=== PATIENT | male | born 1960 | race Caucasian/White ===

== ENCOUNTER 2017-03-22 12:15 | Inpatient (IN) | payer MEDICARE, MEDICAID ==
[2017-03-22 13:37] LABS: Hemoglobin 19.2 g/dL (14.0-18.0); Mean Corpuscular HGB CONC 31.5 g/dL (32.0-36.0); Mean Corpuscular Hemoglobin 29.7 pg (27.0-31.0); Mean Corpuscular Volume 94.5 fl (80.0-94.0); Mean Platelet Volume 8.7 fL (7.4-10.4); Platelet Count 130 thou/uL (130-400); RBC Distribution Width 13.4 % (11.5-14.5); Red Blood Cell (RBC) Count 6.45 mill/uL (4.70-6.10)
[2017-03-22 14:08] LABS: ALT (SGPT) 54 U/L (8-55); AST (SGOT) 37 U/L (5-34); Albumin 3.3 g/dL (3.5-5.0); Alkaline Phosphatase 110 U/L (40-150); Anion Gap 17 mmol/L (10-20); BUN (Urea Nitrogen) 23 mg/dL (8.4-25.7); Calc. Creatinine Clearance 0 mL/min (70-130); Calcium 9.4 mg/dL (7.8-10.44); Carbon Dioxide 26 mmol/L (22-29); Chloride 101 mmol/L (98-107); Estimated GFR-MDRD 39; Globulin 4.2 g/dL (2.4-3.5); Glucose 128 mg/dL (70-105); Potassium 4.4 mmol/L (3.5-5.1); Protein, Total 7.5 g/dL (6.0-8.3); Sodium 140 mmol/L (136-145)
[2017-03-22 14:20] LABS: Band 4 % (5-11); Lymphocytes 5 % (21-51); MDiff Complete? YES; Monocytes 3 % (0-10); Neutrophil 87 % (42-75); PLT Morphology Comment Appears Adequate; Reactive Lymphocytes 1 % (0-10)
[2017-03-22] MEDS ORDERED: Vancomycin HCl 1 GM in Premix Bag 1 BAG IVPB SCH ×2 (15:00→15:30)
[2017-03-22] MEDS ORDERED: Piperacillin/Tazobactam 4.5 GM in Sodium Chloride 0.9% 100 ML IVPB SCH (15:00)
--- NOTE | 2017-03-22 15:05 | RAD ---
PORTABLE CHEST: HISTORY: Mental status change. COMPARISON: 02/29/16. The lungs show no evidence of infiltrate. No evidence of vascular congestion or effusion. Heart and mediastinum unremarkable. IMPRESSION: No evidence of acute process. POS: [facility]
--- NOTE | 2017-03-22 15:56 | CT ---
ABDOMEN AND PELVIS CT NONCONTRAST: COMPARISON: 10/14/16. CLINICAL HISTORY: Abdominal pain with hypotension. FINDINGS: Redemonstration of hernia site at right lower quadrant containing nonobstructive bowel. No associate d inflammation of this region evident. There is an IVC filter present and there are scattered vascul ar calcifications. There are exophytic densities of the lateral aspect of the left kidney again demo nstrated, which appear as hyperdense cysts on the basis of noncontrast imaging. There is persistent atrophy of the right kidney with stable associated calcifications. Punctate calcification of the lef t kidney present. No adrenal mass. Prior cholecystectomy. Bowel is incompletely assessed without I V or enteric contrast. There is no free air or portal venous gas. There is volume loss at the image d lung bases. Prominent area of perivesicular fat stranding is present and there is wall thickening of unopacified urinary bladder. Severe central compression deformity of T12 is redemonstrated in add ition to multilevel additional sites of less extensive height loss of the imaged spine. There is a s table chronic osseous deformity of the pelvis. No additional significant interval detrimental change . IMPRESSION: 1. Findings indicate cystitis. Recommend correlation with urinary laboratory values. 2. Additional details are described above. POS: [facility]
[2017-03-22 16:02] LABS: CK (CPK) 16 U/L (30-200); Lipase 8 U/L (8-78)
[2017-03-22] MEDS ORDERED: levETIRAcetam In NaCl (Iso-Os) 1,000 MG in Premix Bag 1 BAG IVPB SCH (16:15)
--- NOTE | 2017-03-22 16:35 | CT ---
CT BRAIN WITHOUT CONTRAST 03/22/17 HISTORY: Altered mental status. COMPARISON: CT brain 02/25/16. FINDINGS: There is severe cerebellar atrophy. The previously seen hemorrhage of occipitoparietal lobe is resolv ed. No new areas of hemorrhage. Moderate atrophy. Extensive old lacunar infarcts. IMPRESSION: 1. No acute intracranial abnormality. 2. Severe atrophy of the cerebellum. 3. Moderate to severe microangiopathic changes as well as old lacunar infarcts. POS: [facility]
[2017-03-22 16:49] LABS: CKMB 0.8 ng/mL (0-6.6); Troponin I Less than 0.010 ng/mL (< 0.028)
[2017-03-22] MEDS ORDERED: Ketorolac Tromethamine 30 MG/ML VIAL ONE (17:35)
[2017-03-22] MEDS ORDERED: Ondansetron HCl/PF 4 MG/2 ML Vial ONE (17:35)
[2017-03-22 18:48] LABS: Lactic Acid 3.4 mmol/L (0.5-2.2)
[2017-03-22 18:52] LABS: Bilirubin Small (Negative); Blood, Urine Large (Negative); Clarity TURBID (Clear); Glucose, Urine (Dipstick) Negative (Negative); Leukocyte Moderate (Negative); Nitrite Negative (Negative); Protein, Urine (Dipstick) 300 mg/dL (Neg-Trace); Specific Gravity, Urine 1.026 (1.002-1.036); pH, Urine 6.5 (5.0-9.0)
[2017-03-22 18:54] LABS: Bacteria/HPF None Seen HPF (None Seen); Hyaline Casts/LPF 0-3 HYALINE CAST LPF (0-3 Hyaline); Pathc Cast-AUWi Flag 0.13 (0-2.49); RBC/HPF GREATER THAN 50-TNTC HPF (0-3); Squamous Epithelial 0-3 HPF (0-3)
[2017-03-22 18:56] LABS: Crystals/HPF None Seen HPF (Negative)
[2017-03-22] MEDS ORDERED: Acetaminophen 325 MG TAB PO PRN (20:51)
[2017-03-22] MEDS: Docusate 100 MG CAP PO SCH (23:01)
[2017-03-22] MEDS: Sodium Chloride 0.9% 1,000 ML IV SCH (23:01)
[2017-03-22 23:57] VITALS: BMI 22.8
--- NOTE | 2017-03-23 00:16 | HP ---
ATTENDING NOTE DATE OF SERVICE: 03/22/2017 CHIEF COMPLAINT: Possible seizure and altered mental status. HISTORY OF PRESENT ILLNESS: The patient is a 57-year-old male with a past medical history of intelle ctual delay, history of CVA, epilepsy, depression, adrenal insufficiency secondary to chronic cortico steroid use, hypertension, hyperlipidemia, who was sent to the ER from [facility] with altered mental status and suspicion for seizure. According to records and the patient's sister who i s at the bedside, he had been ill over the past several days with nausea, vomiting, and diarrhea. e staff found him slightly confused this afternoon, which is how he normally acts after seizure and h e was sent to the ER shortly thereafter. Upon arrival to the ER, the patient was found to be hypoten sive with systolic blood pressure in the 70s and per report, he had a fever at the half-way and T -max with rectal temperature was 99.5 in the ER. The patient received 2 liters of normal saline as w ell as being loaded with Keppra and was given vancomycin and Zosyn. The patient was found to have wh ite count of 20,000 with hemoglobin and hematocrit of 19.2 and 61.0 respectively. The patient had 87 % neutrophils and 4% bands. On CMP, it was noted the patient's creatinine was 1.78, total bilirubin was 2.0, AST 37, and albumin 3.3. The patient's initial set of cardiac enzymes was negative. The pa tient's initial lactate was 4.2 and after the fluid came down to 3.4. The patient is alert and orien candie to name only at this time. He is not able to offer much history. The patient was noted to have urinary tract infection which is the likely source of his sepsis and a Jalloh was placed and the only thing that is coming out of the Jalloh are drops of blood and some clot. Urinalysis is significant fo r protein 300, ketones trace, blood large, bilirubin small, leukocyte esterase moderate, blood cells greater than 50, white blood cells 7-10. For the full past medical history and review of systems, please see Dr. Maria Isabel Biggs's dictation. PHYSICAL EXAMINATION: VITAL SIGNS: Pulse 83, O2 sat 97% on 2 liters nasal cannula, blood pressure 92/70, respiration rate 17. GENERAL: The patient is awake, alert, and oriented to person only and is able to answer simple quest ions. He appears to be in no acute distress. HEENT: Mucous membranes are dry. Oropharynx and nasopharynx are without erythema or exudate. NECK: Supple without lymphadenopathy, thyromegaly, or bruits. CARDIOVASCULAR: Regular rate and rhythm without murmurs, gallops, or rubs. LUNGS: Clear to auscultation bilaterally without wheezing or rhonchi. ABDOMEN: Soft, nondistended, with tenderness to palpation in a suprapubic region. The patient has n o guarding or rebound tenderness. EXTREMITIES: There is no clubbing, cyanosis, or edema. ASSESSMENT AND PLAN: 1. Sepsis secondary to urinary tract infection: Patient may meet severe sepsis criteria. He has be en started on vancomycin and Zosyn. Blood and urine cultures are pending. The patient has an elevat ed lactate as well as an elevated white blood cell count and hypotensive and had a fever earlier in t he day. We will continue broad spectrum antibiotics until cultures return. We will trend his lab va lues, give IV fluids, bolus another liter and started the patient on maintenance IV fluids. We will continue fluids until the sepsis appears to be resolved and lactate is back to normal. 2. Acute kidney injury: We will hydrate with IV fluids and trend creatinine. 3. Hematuria: This is likely secondary to the patient's urinary tract infection. The patient may n eed bladder irrigation overnight as the only thing that has passed through the catheter so far are cl ots. 4. Hypertension: The patient is currently hypotensive, so home blood pressure medicines will be hel d. 5. Gastroenteritis: The patient was tested negative for the flu. He has had nausea, vomiting, and diarrhea, as have multiple residents at his half-way. We will continue to provide supportive car e. 6. Purposeful history, physical, assessment and plan, please see Dr. Biggs's dictation. I have dis cussed the case in detail with him and repeated pertinent portions to the exam myself.
[2017-03-23] MEDS: Piperacillin/Tazobactam 2.25 GM in Sodium Chloride 0.9% 100 ML IVPB SCH ×3 (00:26→15:21)
[2017-03-23 01:39] LABS: Lactic Acid 2.3 mmol/L (0.5-2.2)
[2017-03-23] MEDS ORDERED: ACYCLOVIR TOP PRN (03:00)
[2017-03-23 05:05] LABS: ALT (SGPT) 35 U/L (8-55); AST (SGOT) 21 U/L (5-34); Albumin 2.5 g/dL (3.5-5.0); Alkaline Phosphatase 81 U/L (40-150); Anion Gap 14 mmol/L (10-20); BUN (Urea Nitrogen) 30 mg/dL (8.4-25.7); Bilirubin, Total 1.6 mg/dL (0.2-1.2); Calc. Creatinine Clearance 31 mL/min (70-130); Calcium 7.5 mg/dL (7.8-10.44); Carbon Dioxide 20 mmol/L (22-29); Chloride 111 mmol/L (98-107); Estimated GFR-MDRD 31; Globulin 3.1 g/dL (2.4-3.5); Glucose 101 mg/dL (70-105); Potassium 4.7 mmol/L (3.5-5.1); Protein, Total 5.6 g/dL (6.0-8.3); Sodium 140 mmol/L (136-145)
[2017-03-23] MEDS: Sodium Chloride 0.9% 1,000 ML IV SCH ×5 (05:28→21:55)
[2017-03-23 05:38] LABS: #Basophils 0.1 thou/uL (0.0-0.2); #Eosinphils 0.1 thou/uL (0.0-0.7); #Lymphocytes 2.4 thou/uL (1.20-3.40); #Monocytes 2.1 thou/uL (0.11-0.59); #Neutrophils 16.5 thou/uL (1.40-6.50); %Basophils 0.2 % (0.0-1.0); %Eosinophils 0.4 % (0.0-10.0); %Lymphocytes 11.3 % (21.0-51.0); Hemoglobin 16.1 g/dL (14.0-18.0); Mean Corpuscular HGB CONC 30.4 g/dL (32.0-36.0); Mean Corpuscular Hemoglobin 29.2 pg (27.0-31.0); Mean Corpuscular Volume 96.2 fl (80.0-94.0); Mean Platelet Volume 8.9 fL (7.4-10.4); PLT Morphology Comment Appears Decreased; Platelet Count 116 thou/uL (130-400); RBC Distribution Width 13.3 % (11.5-14.5); Red Blood Cell (RBC) Count 5.52 mill/uL (4.70-6.10); White Blood Cell (WBC) Count 21.2 thou/uL (4.8-10.8)
--- NOTE | 2017-03-23 06:09 | HP-2 ---
CODE STATUS: FULL. PRIMARY CARE PHYSICIAN: Dr. Moore. ATTENDING: Valentina Briceno MD RESIDENT: Maria Isabel Biggs DO HISTORIAN: The patient's sister; although medical power of master esthetician sister, Lynn Owen, is not there, her phone number is [phone]. SPECIALIST: Dr. Cooley, Dr. Pino. CHIEF COMPLAINT: Altered mental status/seizure/diarrhea. HISTORY OF PRESENT ILLNESS: The patient is a 57-year-old male who resides at [facility], who has recently been experiencing nausea, vomiting, and diarrhea, has been rampant in the retirement. Patient with mental disability and is unable to provide history. Unfortunately, accompanying sister cannot provide a history either. Per ER record and clinic record, the patient has been stable prior to why it is likely viral gastroenteritis. Upon questioning, he denies pain and has no complaints. Per the record, the patient has numerous medical conditions that are well controlled with current medical management. Over the past days, patient reports possible decreased p.o. intake and change in his baseline, reporting he did not remember his sister's names when normally he does. Patient also reportedly had a seizure today. He takes Keppra for known seizure disorder and has been compliant with meds. intermediate also noticed hypertension which is one reason why he was sent to the ER. On admission, he had a blood pressure of 83/64, pulse of 106. In the ER, he was given Keppra, vancomycin, Zosyn, 1 liter NS, fentanyl 100 mcg, Toradol 30 mg , and Zofran. PAST MEDICAL HISTORY: 1. Intellectual delay. 2. History of cerebrovascular accident. 3. History of DVT. 4. Epilepsy. 5. Depression. 6. Minimal change disease. 7. CLARKE. 8. GERD. 9. Hyperlipidemia. 10. Hypertension. 11. Dysphagia. 12. Adrenal insufficiency secondary to chronic steroid use. PAST SURGICAL HISTORY: 1. IVC filter in 2013. 2. Cholecystectomy. 3. Appendectomy. 4. Exploratory laparotomy. 5. Renal biopsy. 6. Spleen surgery. ALLERGIES: 1. CIPRO. 2. MORPHINE. 3. DILANTIN. 4. ADHESIVE TAPE. MEDICATIONS: 1. Mucinex 600 mg 1 tablet b.i.d. p.r.n. for cough. 2. Daily multivitamin. 3. Potassium chloride 20 mEq 1 tablet daily. 4. Lexapro 20 mg p.o. daily. 5. MiraLax once daily. 6. Tramadol 50 mg p.o. q.6 hours p.r.n. for pain. 7. Vitamin D 1000 units p.o. daily. 8. Calcium carbonate/vitamin D 1 tablet p.o. b.i.d. 9. Alendronate 35 mg p.o. weekly. 10. Prednisone 5 mg p.o. daily. 11. Cyclosporine 100 mg p.o. daily. 12. Keppra 1000 mg p.o. b.i.d. 13. Metoprolol tartrate 50 mg p.o. b.i.d. 14. Protonix 40 mg p.o. daily. 15. Acyclovir ointment p.r.n. for cold sores. 16. Hydrochlorothiazide 12.5 mg p.o. daily. FAMILY HISTORY: 1. Hypertension. 2. Diabetes. 3. Chronic obstructive pulmonary disease. 4. Hyperlipidemia. 5. Depression. SOCIAL HISTORY: Denies tobacco, alcohol, or drug use. Lives at [facility]. Currently is taken care of by retirement as well as sister, Lynn Owen, (medical power of master esthetician). REVIEW OF SYSTEMS: Limited due to patient's inability to answer questions appropriately, and family members unaware of situation. Only review of systems obtained or that the patient denies pain. He admits to recent nausea, vomiting , and diarrhea as mentioned in the HPI. Sister is unaware of any fever or urinary symptoms prior to admission. PHYSICAL EXAMINATION: VITAL SIGNS: Blood pressure 113/83, pulse 83, respiratory rate 16, T-max 99.5, pulse ox 99% on 2 liters. Current weight 68 kilograms. GENERAL: The patient is alert and oriented x1, in no acute distress. EYES: PERRLA, EOMI. ENT: Poor dentition. Moist mucous membranes. NECK: Supple. CARDIOVASCULAR: Regular rate and rhythm. No murmurs. RESPIRATORY: Normal effort. No retractions. Clear to auscultation bilaterally. SKIN: Warm and dry. ABDOMEN: Soft with tenderness to palpation in suprapubic area with guarding. EXTREMITIES: Clubbing. No cyanosis or edema. Cap refill greater than 2 seconds. MUSCULOSKELETAL: Structure within normal limits. Tone within normal limits. NEUROLOGIC: No focal deficits. PSYCHIATRIC: The patient is at baseline at the time of exam according to his sister. No evidence of auditory or visual hallucinations. LABORATORY DATA: 1. CBC, white blood cell count 20,000, hemoglobin 19.2, hematocrit 61, platelets 130, MCV 94, 4% bands, 87% neutrophils. 2. Chemistries, sodium 140, potassium 4.4, chloride 101, bicarb 26, BUN 23, creatinine 1.78, (baseline 0.9). Glucose 128, calcium 9.4, total protein 7.5, albumin 3.3, AST 34, ALT 54, alkaline phosphatase 110, total bilirubin 2.0. 3. Lactic acid initially 4.2, went down to 3.4. 4. Flu A and B negative. 5. CK 16, CK-MB 0.8, troponin less than 0.010, lipase 8. 6. UA red in color, specific gravity 1.026, blood is large, protein 300, leukocyte esterase moderate, nitrites negative, ketones trace, glucose negative , red blood cells greater than 50, white blood cells 7-10, bacteria none, squamous cells 0-3. IMAGIN. Chest x-ray negative, no acute process. 2. Abdominal CT shows perivascular fat stranding and wall thickening of the bladder, indicative of cystitis and chronic osseous deformity of pelvis. 3. Brain CT reveals no acute intracranial abnormality, although showing severe atrophy of the cerebellum, [id number] microangiopathic changes as well as old lacunar infarcts. ASSESSMENT AND PLAN: 1. Severe sepsis secondary to urinary tract infection. Continue Vancomycin and Zosyn given in the ED. We will collect blood and urine cultures. Received 2 liters of IV fluids in the ER. Will bolus 1 more liter and then continue fluids at 200 mL per hour with underlying dehydration, likely associated with viral gastroenteritis. Jalloh output of thick blood clots, we will irrigate bladder with triple-lumen catheter. If urine output does not resume, we will plan to consult Urology. Differential diagnosis to include prostatitis. Vital signs have improved with IV fluids, although still continues to be mildly hypotensive. Expect improvement with one more bolus and high rate of IV fluids. Lactic acid initially elevated to 4.2, it has down trended to 3.4. We will check another lactic acid in 4 hours. Likely seizure associated with severe sepsis. Keppra given in the ED. We will restart home Keppra and check Keppra level. 2. Acute kidney injury. Baseline creatinine is 0.9-1.0, though that record is from one year ago. Patient has underlying minimal change of these. We will rehydrate and monitor urine output. Likely associated with dehydration. 3. Lactic acidosis secondary to problem #1. We will check in 4 hours and with a.m. labs. Continue IV fluids. 4. Seizure disorder. Continue to check Keppra. 5. Hypertension. We will continue home metoprolol and hydrochlorothiazide. 6. Gastroesophageal reflux disease. We will continue home Protonix. 7. Adrenal insufficiency. Will continue home prednisone. 8. Venous thromboembolism prophylaxis. Patient is having bleeding output from Jalloh, but has history of deep vein thrombosis and gets around with a wheelchair at baseline. High risk for deep vein thrombosis here in the hospital , but with current bleeding will hold off on Lovenox for now as soon as the patient does stop bleeding per Jalloh. We will start Lovenox. We will give sequential compression devices for now. DISPOSITION AND LENGTH OF HOSPITAL STAY: 1-2 days. Symptomatic medications will be provided. History and physical exam as well as management were discussed with Dr. Valentina Briceno. JAYCEE
[2017-03-23] MEDS: Magnesium Oxide 400 MG TAB PO SCH (08:58)
[2017-03-23] MEDS: levETIRAcetam 500 MG TAB PO SCH ×2 (08:58→19:24)
[2017-03-23] MEDS: Hydrochlorothiazide 25 MG TAB PO SCH (08:59)
[2017-03-23] MEDS ORDERED: CYCLOSPORINE PO SCH (09:00)
[2017-03-23] MEDS: Metoprolol Tartrate 50 MG TAB PO SCH ×2 (09:00→19:24)
[2017-03-23] MEDS: Fluticasone Propionate Nasal Spray 16 gm Bottle NASAL SCH (09:00)
[2017-03-23] MEDS: Escitalopram Oxalate 20 mg Tablet PO SCH (09:00)
[2017-03-23] MEDS: Docusate 100 MG CAP PO SCH ×2 (09:02→19:38)
--- NOTE | 2017-03-23 09:09 | PDOC.FM ---
Addendum entered and electronically signed by Rafael Prasad MD 03/23/17 09:18: 5. HTN: Continue home medication 6. HLD: Continue home medication. 7. Depression: Continue home medication. Original Note: - Subjective Subjective: Patient was found resting in bed with sister at bedside. Sister said that at baseline he is AOx2. He denies any pain, sob at this time. Sister said he is closer to his baseline. - Objective MAR Reviewed: Yes Vital Signs & Weight: Vital Signs (12 hours) Temp Pulse Resp BP Pulse Ox 03/23/17 06:37 98.4 F 62 58 H 125/82 94 L 03/23/17 00:00 98.4 F 65 18 106/72 91 L 03/22/17 22:05 98.4 F 65 18 96 Weight Weight 60.526 kg I&O: 03/22/17 03/23/17 03/24/17 06:59 06:59 06:59 Intake Total 1950 Output Total 450 Balance 1500 Result Diagrams: 03/23/17 04:17 03/23/17 04:17 <Rafael Prasad - Last Filed: 03/23/17 09:05> - Objective Vital Signs & Weight: Vital Signs (12 hours) Temp Pulse Resp BP BP Pulse Ox 03/23/17 15:53 93 L 03/23/17 12:00 97.9 F 55 L 18 107/68 92 L 03/23/17 08:00 97.7 F 62 21 H 104/68 94 L 03/23/17 06:37 98.4 F 62 58 H 125/82 94 L Weight Weight 60.526 kg I&O: 03/22/17 03/23/17 03/24/17 06:59 06:59 06:59 Intake Total 1950 Output Total 450 Balance 1500 Result Diagrams: 03/23/17 04:17 03/23/17 04:17 <Valentina Briceno - Last Filed: 03/23/17 17:17> Phys Exam - Physical Examination Constitutional: NAD HEENT: moist MMs Neck: no nodes Respiratory: no wheezing, clear to auscultation bilateral Cardiovascular: RRR, no significant murmur Gastrointestinal: soft Musculoskeletal: no edema Neurological: non-focal Lymphatic: no nodes Psychiatric: normal affect Skin: no rash (Herrera catheter was observed with gross blood and clots.) <ShaniceRavinderRafael Robin - Last Filed: 03/23/17 09:05> Dx/Plan (1) Altered mental state Code(s): R41.82 - ALTERED MENTAL STATUS, UNSPECIFIED Status: Acute QualifierTitle: Altered mental status type: delirium Qualified Code(s): R41.0 - Disorientation, unspecified Plan: Improved at this point. Consider sepsis versus seizure. His keppra level is therapeutic so this is less likely and no seizure was ever witnessed Continue with broad abx and fluid. (2) UTI (urinary tract infection) Status: Acute QualifierTitle: Urinary tract infection type: acute cystitis Hematuria presence: without hematuria Qualified Code(s): N30.00 - Acute cystitis without hematuria Plan: Continuing with vanc and zosyn, continue to wait for culture. Continue aggressive fluid as patient urine output is low Will flush his herrera catheter (3) Sepsis Code(s): A41.9 - SEPSIS, UNSPECIFIED ORGANISM Status: Inactive Plan: Sepsis likely secondary to UTI. Please see that problem for plan. (4) RORY (acute kidney injury) Code(s): N17.9 - ACUTE KIDNEY FAILURE, UNSPECIFIED Status: Acute Plan: Rory appears to be worsening. He has low urine output. CT did not identify an obstructive cause but did identify cystitis, will continue fluid resuscitation at this time to treat RORY. <ShaniceRavinderRafael Robin - Last Filed: 03/23/17 09:05> Attending Addendum - Attending Addendum I personally evaluated the patient and discussed the management with Dr. Prasad. I agree with the History, Examination, Assessment and Plan documented above with any addition or exceptions noted below. The patient is still hemoconcentrated. Continue IV fluids for dehydration. Patients is more alert and sister states his mentation is back to baseline. Continue IV antibiotics and await blood and urine cultures. Monitor urine output, bladder may require irrigation if thick clots continue. Repeat lactate as it in not yet back to normal. <Valentina Briceno - Last Filed: 03/23/17 17:17>
[2017-03-23 09:16] LABS: Lactic Acid 1.7 mmol/L (0.5-2.2)
[2017-03-23] MEDS: Ibuprofen 200 MG TAB PO PRN ×2 (11:54→19:24)
[2017-03-23] MEDS: Piperacillin/Tazobactam 2.25 GM in Sodium Chloride 0.9% 50 ML IVPB SCH (14:44)
[2017-03-23] MEDS: Vancomycin HCl 750 MG in Sodium Chloride 0.9% 250 ML 250 ML IVPB SCH (17:08)
[2017-03-23] MEDS: Loratadine 10 MG TAB PO SCH (19:24)
[2017-03-23] MEDS: Zolpidem Tartrate 5 MG TAB PO PRN (21:48)
[2017-03-24] MEDS: Piperacillin/Tazobactam 2.25 GM in Sodium Chloride 0.9% 50 ML IVPB SCH ×5 (01:06→23:24)
[2017-03-24] MEDS: Sodium Chloride 0.9% 1,000 ML IV SCH ×2 (03:59→08:57)
[2017-03-24 04:58] LABS: Anion Gap 10 mmol/L (10-20); BUN (Urea Nitrogen) 22 mg/dL (8.4-25.7); Calc. Creatinine Clearance 55 mL/min (70-130); Carbon Dioxide 20 mmol/L (22-29); Chloride 117 mmol/L (98-107); Estimated GFR-MDRD 59; Glucose 93 mg/dL (70-105); Potassium 3.5 mmol/L (3.5-5.1); Sodium 143 mmol/L (136-145)
[2017-03-24] MEDS: Hydrochlorothiazide 25 MG TAB PO SCH (08:45)
[2017-03-24] MEDS: levETIRAcetam 500 MG TAB PO SCH ×2 (08:45→21:47)
[2017-03-24] MEDS: Metoprolol Tartrate 50 MG TAB PO SCH ×2 (08:46→21:44)
[2017-03-24] MEDS: Fluticasone Propionate Nasal Spray 16 gm Bottle NASAL SCH (08:46)
[2017-03-24] MEDS: Docusate 100 MG CAP PO SCH ×2 (08:46→21:44)
[2017-03-24] MEDS: Magnesium Oxide 400 MG TAB PO SCH (08:46)
[2017-03-24] MEDS: Escitalopram Oxalate 20 mg Tablet PO SCH (08:46)
--- NOTE | 2017-03-24 11:51 | PDOC.FM ---
- Subjective Subjective: Patient found awake in bed. He has no complaint of pain, SOB. He apear to be at same baseline mental status as before. - Objective MAR Reviewed: Yes Vital Signs & Weight: Vital Signs (12 hours) Temp Pulse Resp BP Pulse Ox 03/24/17 08:00 98.3 F 68 18 92 L 03/24/17 07:36 98.3 F 68 18 129/82 92 L Weight Admit Weight 60.509 kg Weight 60.509 kg I&O: 03/23/17 03/24/17 03/25/17 06:59 06:59 06:59 Intake Total 1950 5218 Output Total 450 1950 Balance 1500 3268 Result Diagrams: 03/23/17 04:17 03/24/17 04:20 <Rafael Prasad - Last Filed: 03/24/17 11:54> - Objective Vital Signs & Weight: Vital Signs (12 hours) Temp Pulse Resp BP Pulse Ox Pulse Ox 03/24/17 20:00 98.4 F 85 18 148/94 H 92 L 03/24/17 19:43 98.4 F 85 18 92 L 03/24/17 10:31 92 L Weight Admit Weight 60.509 kg Weight 60.509 kg I&O: 03/23/17 03/24/17 03/25/17 06:59 06:59 06:59 Intake Total 1950 5218 Output Total 450 1950 Balance 1500 3268 Result Diagrams: 03/23/17 04:17 03/24/17 04:20 <Reji Zhu - Last Filed: 03/24/17 22:11> Phys Exam - Physical Examination Constitutional: NAD HEENT: moist MMs Neck: no nodes, supple Respiratory: no wheezing, clear to auscultation bilateral Cardiovascular: RRR Gastrointestinal: soft, positive bowel sounds Musculoskeletal: no edema Neurological: non-focal Lymphatic: no nodes Deviation from normal: AO x2 as before Skin: no rash -: Dark urine, no obvious hematuria <Rafael Prasad - Last Filed: 03/24/17 11:54> Dx/Plan (1) Altered mental state Code(s): R41.82 - ALTERED MENTAL STATUS, UNSPECIFIED Status: Acute QualifierTitle: Altered mental status type: delirium Qualified Code(s): R41.0 - Disorientation, unspecified Plan: Improved at this point. Consider sepsis versus seizure. His keppra level is therapeutic so this is less likely and no seizure was ever witnessed Continue with broad abx. (2) UTI (urinary tract infection) Status: Acute QualifierTitle: Urinary tract infection type: acute cystitis Hematuria presence: without hematuria Qualified Code(s): N30.00 - Acute cystitis without hematuria Plan: Continuing with vanc and zosyn, culture has come back negative at this time. Will consider deescalating (3) Sepsis Code(s): A41.9 - SEPSIS, UNSPECIFIED ORGANISM Status: Inactive Plan: Sepsis likely secondary to UTI. Please see that problem for plan. (4) RORY (acute kidney injury) Code(s): N17.9 - ACUTE KIDNEY FAILURE, UNSPECIFIED Status: Acute Plan: RORY has improved.. He is nearly back to baseline status. At this time, will discontinue fluid as patient can now take PO. Will continue monitoring. <Rafael Prasad - Last Filed: 03/24/17 11:54> Attending Addendum - Attending Addendum I personally evaluated the patient and discussed the management with Dr. Prasad. I agree with and repeated the History, Examination, Assessment and Plan documented above with any addition or exceptions noted below. Severe sepsis 2/2 UTI, improved, continue antibiotics Acute encephalopathy, improved, likely 2/2 above, back to baseline yesterday per family RORY, improving <Reji Zhu - Last Filed: 03/24/17 22:11>
[2017-03-24] MEDS: Vancomycin HCl 750 MG in Sodium Chloride 0.9% 250 ML 250 ML IVPB SCH (15:00)
[2017-03-24 15:28] LABS: Vancomycin, Trough 10.5 ug/mL
[2017-03-24] MEDS ORDERED: Clopidogrel Bisulfate 75 MG TAB ONE (17:08)
[2017-03-24] MEDS: Loratadine 10 MG TAB PO SCH (21:44)
[2017-03-24] MEDS ORDERED: levETIRAcetam 500 mg/5 ml Oral Solution PO SCH (21:45)
[2017-03-24] MEDS: Ondansetron ODT 4 MG TAB PO PRN (21:46)
[2017-03-24] MEDS: Zolpidem Tartrate 5 MG TAB PO PRN (21:56)
[2017-03-25] MEDS: Piperacillin/Tazobactam 2.25 GM in Sodium Chloride 0.9% 50 ML IVPB SCH ×2 (05:20→11:59)
[2017-03-25 06:04] LABS: Anion Gap 10 mmol/L (10-20); BUN (Urea Nitrogen) 14 mg/dL (8.4-25.7); Calc. Creatinine Clearance 70 mL/min (70-130); Calcium 7.9 mg/dL (7.8-10.44); Carbon Dioxide 22 mmol/L (22-29); Chloride 114 mmol/L (98-107); Estimated GFR-MDRD 78; Glucose 106 mg/dL (70-105); Potassium 3.2 mmol/L (3.5-5.1); Sodium 143 mmol/L (136-145)
--- NOTE | 2017-03-25 08:08 | PDOC.FM ---
- Subjective Subjective: Patient found in bed. Apparently he has not been out of bed according to him but history is questionable. He denies chest pain or sob, but has some abd discomfort after having breakfast. He has had regular BM per nursing. - Objective MAR Reviewed: Yes Vital Signs & Weight: Vital Signs (12 hours) Temp Pulse BP Pulse Ox 03/25/17 08:02 98.9 F 91 142/99 H 16 L Weight Admit Weight 60.509 kg Weight 60.509 kg I&O: 03/24/17 03/25/17 03/26/17 06:59 06:59 06:59 Intake Total 5218 680 Output Total 1950 750 Balance 3268 -70 Result Diagrams: 03/23/17 04:17 03/25/17 05:11 <Rafael Prasad - Last Filed: 03/25/17 08:04> - Objective Vital Signs & Weight: Vital Signs (12 hours) Temp Pulse Resp BP Pulse Ox 03/25/17 08:02 98.9 F 91 16 142/99 H 94 L 03/25/17 08:00 98.9 F 91 16 96 Weight Admit Weight 60.509 kg Weight 60.509 kg I&O: 03/24/17 03/25/17 03/26/17 06:59 06:59 06:59 Intake Total 5218 680 Output Total 1950 750 Balance 3268 -70 Result Diagrams: 03/25/17 05:11 03/25/17 05:11 <Reji Zhu - Last Filed: 03/25/17 11:45> Phys Exam - Physical Examination Constitutional: NAD HEENT: moist MMs Neck: no nodes Respiratory: no wheezing, clear to auscultation bilateral Cardiovascular: RRR Gastrointestinal: soft, no distention, positive bowel sounds Mildly tender to palpation in periumbilical area Musculoskeletal: no edema Neurological: non-focal Lymphatic: no nodes Deviation from normal: At baseline mentation grossly, similar to previous day Skin: no rash <Rafael Prasad - Last Filed: 03/25/17 08:04> Dx/Plan (1) Altered mental state Code(s): R41.82 - ALTERED MENTAL STATUS, UNSPECIFIED Status: Acute QualifierTitle: Altered mental status type: delirium Qualified Code(s): R41.0 - Disorientation, unspecified Plan: Improved at this point. Consider sepsis versus seizure. His keppra level is therapeutic so this is less likely and no seizure was ever witnessed Continue with broad abx for sepsis as possible cause. Consider dehydration/RORY as possible cause, as he had Cr about twice normal limit and required 5L of fluid before producing normal urine. (2) UTI (urinary tract infection) Status: Acute QualifierTitle: Urinary tract infection type: acute cystitis Hematuria presence: without hematuria Qualified Code(s): N30.00 - Acute cystitis without hematuria Plan: Continuing with vanc and zosyn, culture has come back negative at this time. Will consider deescalating Despite UA suggestive of infection, his culture came back negative after 48 hours, giving mixed picture. Review of records suggest that abx may have been given 3 hours prior to culture order. This could account for no growth. (3) Sepsis Code(s): A41.9 - SEPSIS, UNSPECIFIED ORGANISM Status: Inactive Plan: Sepsis likely secondary to UTI. Please see that problem for plan. (4) RORY (acute kidney injury) Code(s): N17.9 - ACUTE KIDNEY FAILURE, UNSPECIFIED Status: Acute Plan: RORY has improved. He is back to baseline. His fluid has been discontinued for 1 day and he has still made adequate urine greater then 0.5ml/kg an hour. - Plan Plan: For vague abd discomfort after food, will give one time dose of zofran, may need to go to clear liquid if patient not tolerating soft or puree at this time. He tolerated it well yesterday. <Rafael Prasad M - Last Filed: 03/25/17 08:04> Attending Addendum - Attending Addendum I personally evaluated the patient and discussed the management with Dr. Prasad. I agree with and repeated the History, Examination, Assessment and Plan documented above with any addition or exceptions noted below. Asymptomatic this morning. Initially was saying yes to all of my questions, but then upon more specific questioning denied cp/sob/n/v/abd pain (resolved by the time I was on rounds). Neurologically back to baseline. Suspect that the encphalopathy was 2/2 sepsis. Continue keppra, no suspicion for seizures currently. Has a history of DVT, low O2, with negative CTPE last visit, and has DVT filter in place. Sepsis 2/2 UTI improved, empiric with keflex, evidently antibiotics given prior to cultures being drawn. Chronic leukocytosis, around what is was last admission. RORY improved, d/c NSAIDs however. DVT/gi ppx <Reji Zhu - Last Filed: 03/25/17 11:45>
[2017-03-25] MEDS ORDERED: Potassium Chloride 20 MEQ TAB PO SCH (08:15)
[2017-03-25 08:46] LABS: #Basophils 0.1 thou/uL (0.0-0.2); #Eosinphils 0.5 thou/uL (0.0-0.7); #Monocytes 1.6 thou/uL (0.11-0.59); #Neutrophils 16.6 thou/uL (1.40-6.50); %Basophils 0.3 % (0.0-1.0); %Eosinophils 2.5 % (0.0-10.0); %Lymphocytes 9.8 % (21.0-51.0); %Monocytes 7.7 % (0.0-10.0); %Neutrophils 79.7 % (42.0-75.0); Hemoglobin 15.7 g/dL (14.0-18.0); Mean Corpuscular Hemoglobin 29.5 pg (27.0-31.0); Mean Corpuscular Volume 94.9 fl (80.0-94.0); Mean Platelet Volume 9.4 fL (7.4-10.4); Platelet Count 121 thou/uL (130-400); RBC Distribution Width 13.6 % (11.5-14.5); Red Blood Cell (RBC) Count 5.34 mill/uL (4.70-6.10); White Blood Cell (WBC) Count 20.9 thou/uL (4.8-10.8)
[2017-03-25] MEDS: Ondansetron ODT 4 MG TAB PO PRN ×3 (09:12→23:27)
[2017-03-25] MEDS: Magnesium Oxide 400 MG TAB PO SCH (09:13)
[2017-03-25] MEDS: Metoprolol Tartrate 50 MG TAB PO SCH ×2 (09:13→21:27)
[2017-03-25] MEDS: Escitalopram Oxalate 20 mg Tablet PO SCH (09:13)
[2017-03-25] MEDS: Hydrochlorothiazide 25 MG TAB PO SCH (09:13)
[2017-03-25] MEDS: Fluticasone Propionate Nasal Spray 16 gm Bottle NASAL SCH (09:14)
[2017-03-25] MEDS: Docusate 100 MG CAP PO SCH ×2 (09:14→21:28)
[2017-03-25] MEDS: levETIRAcetam 500 mg/5 ml Oral Solution PO SCH ×2 (09:14→21:29)
[2017-03-25] MEDS: cycloSPORINE, Modified 100 MG CAP PO SCH (11:59)
[2017-03-25] MEDS: Vancomycin HCl 750 MG in Sodium Chloride 0.9% 250 ML 250 ML IVPB SCH (15:30)
[2017-03-25 16:02] LABS: Hemoglobin 15.8 g/dL (14.0-18.0); Lymphocytes 13 % (21-51); MDiff Complete? YES; Mean Corpuscular HGB CONC 32.1 g/dL (32.0-36.0); Mean Corpuscular Hemoglobin 30.2 pg (27.0-31.0); Mean Corpuscular Volume 94.1 fl (80.0-94.0); Mean Platelet Volume 9.1 fL (7.4-10.4); Monocytes 3 % (0-10); Neutrophil 84 % (42-75); PLT Morphology Comment Appears Adequate; Platelet Count 120 thou/uL (130-400); RBC Distribution Width 13.5 % (11.5-14.5); Red Blood Cell (RBC) Count 5.23 mill/uL (4.70-6.10); White Blood Cell (WBC) Count 21.2 thou/uL (4.8-10.8)
[2017-03-25] MEDS: Cephalexin 250 MG CAP PO SCH ×2 (17:49→23:28)
[2017-03-25] MEDS: Loratadine 10 MG TAB PO SCH (21:27)
[2017-03-26] MEDS: Cephalexin 250 MG CAP PO SCH ×2 (05:52→11:55)
[2017-03-26 06:23] LABS: Anion Gap 12 mmol/L (10-20); BUN (Urea Nitrogen) 10 mg/dL (8.4-25.7); Calc. Creatinine Clearance 77 mL/min (70-130); Carbon Dioxide 25 mmol/L (22-29); Chloride 111 mmol/L (98-107); Estimated GFR-MDRD 88; Potassium 3.6 mmol/L (3.5-5.1); Sodium 144 mmol/L (136-145)
[2017-03-26 06:24] LABS: Calcium 8.5 mg/dL (7.8-10.44); Glucose 78 mg/dL (70-105)
[2017-03-26 07:55] VITALS: TEMP 98.7
[2017-03-26] MEDS: Escitalopram Oxalate 20 mg Tablet PO SCH (09:09)
[2017-03-26] MEDS: Hydrochlorothiazide 25 MG TAB PO SCH (09:09)
[2017-03-26] MEDS: cycloSPORINE, Modified 100 MG CAP PO SCH (09:09)
[2017-03-26] MEDS: Metoprolol Tartrate 50 MG TAB PO SCH (09:09)
[2017-03-26] MEDS: Magnesium Oxide 400 MG TAB PO SCH (09:09)
[2017-03-26] MEDS: levETIRAcetam 500 mg/5 ml Oral Solution PO SCH (09:10)
[2017-03-26] MEDS: Fluticasone Propionate Nasal Spray 16 gm Bottle NASAL SCH (09:10)
[2017-03-26] MEDS: Docusate 100 MG CAP PO SCH (09:10)
--- NOTE | 2017-03-26 10:59 | PDOC.FM ---
- Subjective Subjective: Patient seen today in bed. His mentation appear same as yesterday. There was no event overnight. Nursing said he had no complaint of pain or SOB. He does say he has some abd discomfort over his bladder. - Objective MAR Reviewed: Yes Vital Signs & Weight: Vital Signs (12 hours) Temp Pulse Resp BP Pulse Ox 03/26/17 08:00 98.7 F 98 18 93 L 03/26/17 07:55 98.7 F 98 18 132/89 93 L Weight Admit Weight 60.509 kg Weight 60.509 kg I&O: 03/25/17 03/26/17 03/27/17 06:59 06:59 06:59 Intake Total 680 960 Output Total 750 653 Balance -70 307 Result Diagrams: 03/25/17 14:52 03/26/17 04:33 <Rafael Prasad - Last Filed: 03/26/17 10:55> - Objective Vital Signs & Weight: Vital Signs (12 hours) Temp Pulse Resp BP Pulse Ox 03/26/17 08:00 98.7 F 98 18 93 L 03/26/17 07:55 98.7 F 98 18 132/89 93 L Weight Admit Weight 60.509 kg Weight 60.509 kg I&O: 03/25/17 03/26/17 03/27/17 06:59 06:59 06:59 Intake Total 680 960 Output Total 750 653 Balance -70 307 Result Diagrams: 03/25/17 14:52 03/26/17 04:33 <Reji Zhu - Last Filed: 03/26/17 12:06> Phys Exam - Physical Examination Constitutional: NAD HEENT: moist MMs Neck: no nodes, supple Respiratory: no wheezing, no rales, no rhonchi, clear to auscultation bilateral Cardiovascular: RRR, no significant murmur, no rub Gastrointestinal: soft, positive bowel sounds Mildly tender at suprapubic area, no guarding or rigidity Musculoskeletal: no edema Neurological: moves all 4 limbs Follow commands, does not always give appropriate answers Lymphatic: no nodes Deviation from normal: AO x 1-2 Deviation from normal: A flat erythematous rash on inner of thigh, no raise, or induration, -: Looks like possible heat rash <Rafael Prasad - Last Filed: 03/26/17 10:55> Dx/Plan (1) Altered mental state Code(s): R41.82 - ALTERED MENTAL STATUS, UNSPECIFIED Status: Acute QualifierTitle: Altered mental status type: delirium Qualified Code(s): R41.0 - Disorientation, unspecified Plan: Improved at this point. He appear to be at baseline according to visiting famiy member Consider sepsis versus seizure. His keppra level is therapeutic so this is less likely and no seizure was ever witnessed Continue with broad abx for sepsis as possible cause. Consider dehydration/RORY as possible cause, as he had Cr about twice normal limit and required 5L of fluid before producing normal urine. (2) UTI (urinary tract infection) Status: Acute QualifierTitle: Urinary tract infection type: acute cystitis Hematuria presence: without hematuria Qualified Code(s): N30.00 - Acute cystitis without hematuria Plan: Will be going home with keflex. Culture has come back negative at this time. Will consider deescalating Despite UA suggestive of infection, his culture came back negative after 48 hours, giving mixed picture. Review of records suggest that abx may have been given 3 hours prior to culture order. This could account for no growth. (3) RORY (acute kidney injury) Code(s): N17.9 - ACUTE KIDNEY FAILURE, UNSPECIFIED Status: Acute Plan: RORY has improved. He is back to baseline. His fluid has been discontinued for 1 day and he has still made adequate urine greater then 0.5ml/kg an hour. He is on PO fluid only and had herrera dc last afternoon, voiding well in brief. <Rafael Prasad M - Last Filed: 03/26/17 10:55> Attending Addendum - Attending Addendum I personally evaluated the patient and discussed the management with Dr. Prasad. I agree with and repeated the History, Examination, Assessment and Plan documented above with any addition or exceptions noted below. Patient doing well this morning. He is a very difficult informant, and can be easily led into yes or no answers. He has told various people that he has abdominal pain, and tells me that he has had abdominal pain on and off for a long time. He says it is because of his hernias, but he is nontender over them and they are reducible. He is TTP over his suprapubic region. No guarding, rigidity, or skin changes. He denies cp or shortness of breath with me. No fever or chills. Overall he has clinically improved. Transitioned to PO antibiotics. He has had a chronic leukocytosis which can be worked up in the outpatient setting. He is at high risk for falls, and has had innumerable per history I have obtained. He has a history of DVT and had an IVC filter placed in 2013 after a long documented discussion with family. His O2 sats have been variable while he has been here, as they have been on previous admissions. He lungs are clear , he is not tachypneic on my exam with any increased work of breathing, and no wheezes or crackles. His abdominal pain is very nonspecific, and I feel most likely because of his cystitis, as his hernias are stable, reducible, and nontender. This should improve with antibiotics. His group home prognosis is guarded because of his comorbidities. I spent a significant amount of time discussing the patient with Dr. Moore, his PCP, and his current presentation sounds very similar to his baseline. Will plan on discharge and Dr. Moore will see him tomorrow at the OR. <Reji Zhu - Last Filed: 03/26/17 12:06>
[2017-03-26] MEDS: Ondansetron ODT 4 MG TAB PO PRN (11:59)
[2017-03-26 13:49] VITALS: BP 148/95
[2017-03-27] MEDS ORDERED: Enoxaparin Sodium 40 MG/0.4 ML SYRINGE SC SCH (09:00)
--- NOTE | 2017-03-27 15:08 | DIS-2 ---
DATE OF ADMISSION: 03/22/2017 DATE OF DISCHARGE: 03/26/2017 ADMITTING ATTENDING: Dr. Valentina Briceno DISCHARGE ATTENDING: Dr. Reji Zhu RESIDENT: Dr. Rafael Prasad PROCEDURES: 1. Chest x-ray done on 03/22/2017: Impression; no evidence of acute process. 2. Abdomen CT done on 03/22/2017: Impression; finding indicates cystitis with area of perifascicular fat stranding and wall thickening of an opacified urinary bladder. There is stable chronic osseous deformity of the pelvis. There is an IVC filter placed and scattered vascular calcification, exophytic densities of lateral aspect of the left kidney is again demonstrated, hyperdense cyst on the basis of noncontrast imaging, persistent ectopy of right kidney with stable associated calcification, punctate calcification of the left kidney present. No adrenal mass, prior cholecystectomy. There is no additional significant interval detrimental changes. 3. Brain CT: Impression: No acute intracranial abnormality, severe atrophy of cerebellum, moderate to severe microangiopathic changes as well as an old lacunar infarct. DISCHARGE DIAGNOSES: 1. Severe sepsis secondary to urinary tract infection. 2. Acute kidney injury. 3. Lactic acidosis secondary to severe sepsis. 4. Seizure disorder. 5. Hypotension. 6. Gastroesophageal reflux disease. 7. Adrenal insufficiency. 8. Previous history of deep venous thromboses. DISCHARGE MEDICATIONS: 1. Cephalexin 500 mg every 6 hours. 2. Tylenol regular strength 650 mg every 4 hours as needed. 3. Keppra 300 mg p.o. b.i.d. 4. Cyclosporine 1 mL p.o. daily. 5. Metoprolol 1 tablet p.o. b.i.d. 6. Mag oxide 1 tablet p.o. daily. 7. Ketoconazole 30 mL topical daily. 8. DuoNeb 3 mL nebulizer 4 times daily as needed. 9. Hydrochlorothiazide 12.5 mg capsule oral daily. 10. Flonase [place] alternating naris daily. 11. Lexapro 1 tablet oral daily. 12. Vitamin D3 1 capsule oral daily. 13. Cetirizine 1 tablet oral at bedtime. 14. Acyclovir 1 gram topical every 4 hours as needed for rash. DISCONTINUED MEDICATION: Ibuprofen 1 tablet oral every 6 hours as needed. HISTORY OF PRESENT ILLNESS AND HOSPITAL COURSE. This is a 57-year-old male who resides at [facility] who was experiencing nausea, vomiting and diarrhea. [facility] so they sent him in for an evaluation as he had a history of seizure so they thought that this could have possibly been a postictal state. When he was admitted to the ER, they started him on Keppra and gave him vancomycin and Zosyn and 1 liter of normal saline along with fentanyl, Toradol, and Zofran for pain relief. In the ER pertinent physical exam was gross hematuria. Pertinent laboratory data was an elevated WBC of 20,000 though comparison to previous visit, this appears to be near his baseline. He had a hemoglobin of 19. His creatinine was bumped at 1.78. Lactic acid was initially 4.2 and then repeat in the ER was 3.4. Flu A and B were negative. The imaging was done as stated above in the above section and his UA also showed 7-10 WBC, bacteria none. No squamous cell and presence of leukocyte esterase. He was admitted under severe sepsis secondary to urinary tract infection due to his altered mentation. Cultures were taken; however, cultures were taken after antibiotics had already been given. He was started with a Jalloh catheter due to thick blood clot and oliguria in the ER along with hydration. When he was seen on the floor the next day he was given 5 liters of normal saline over the next 24 hours after which he started producing urine again, from his initially only making about 30 mL of urine an hour. Due to his initial bloody discharge, his ibuprofen was held as well as Lovenox and he was started on stocking compression. His mentation slowly improved over the next day though he did indicate that he had some discomfort at his hernia sites which was felt to be reducible at that time. He was restarted on all of his home medications for his chronic problems. His lactic acidosis resolved. He did not have any noticeable seizures. His blood pressure was well controlled with metoprolol and hydrochlorothiazide and as he improved, his Jalloh catheter was removed and he was noted to have adequate urine output and at that time and on the last day of his stay he was restarted on Lovenox as he no longer had any more bloody discharge and his acute kidney injury had also resolved and returned back to his baseline. As for the question of his persistently elevated leukocytosis, a peripheral smear was done though it states that only reactive neutrophils were found, suggestive of an inflammatory response. This was discussed with the family and suggested that they should follow up as an outpatient basis to continue workup on his persistently elevated WBC, which has been seen on the last 2 years during his hospital stay. DISCHARGE CONDITION: Current condition is stable, but with a care home guarded prognosis due to comorbidities. DISCHARGE INSTRUCTIONS: 1. Location: To [facility]. 2. Diet: Heart healthy. 3. Activity: As tolerated and with assistance to prevent fall. 4. Followup: Followup visit with Dr. Enrique Moore at [facility]. JAYCEE
--- NOTE | 2017-04-07 10:11 | PQF ---
TOMY LOPEZ KATHERINE MD *eneida [id number] CLINICAL DOCUMENTATION CLARIFICATION FORM: POST DISCHARGE Addendum to original discharge summary date: ____ Late entry note date: __ DATE: 04/07/17 ATTN: Dr Briceno Please exercise your independent, professional judgment in responding to the clarification form. Clinical indicators are provided on the bottom of this form for your review Please check appropriate box(s): [ ] Encephalopathy: Type: [ ] Acute [ ] Subacute [ ] Chronic Etiology: [ ] Hypertensive [ ] Metabolic [ ] Toxic [ ] Hepatic with Coma [ ] Hepatic w/o Coma [ ] Hypoxic [ ] Septic [ ] Drug induced: [ ] Unspecified [ ] in the setting of underlying dementia [ ] Other (please specify) [ ] Transient Alteration of Awareness [ ] Other diagnosis [ ] Unable to determine In addition, please specify: Present on Admission (POA): [ ] Yes [ ] No [ ] Unable to determine For continuity of documentation, please document condition throughout progress notes and discharge summary. Thank You. CLINICAL INDICATORS - SIGNS / SYMPTOMS / LABS Altered mental status / confusion improving once cause is corrected (acute) Dementia over baseline Metabolic / electrolyte abnormality Sepsis RISK FACTORS Infectious process TREATMENTS: Cause is corrected encephalopathy resolves Correction of electrolyte imbalances IV antibiotics IV fluids Patient was admitted with altered mental status with a diagnosis of severe sepsis. WBC 20,000, lactic acid of 4.2, pulse in ED was 106, 105, 94 and Resp 18, 19, and 20. In progress note by Dr. Hall, acute encephalopathy is documented likely secondary to severe sepsis however AMS with delirium is also documented and on 03/25 there is an addendum suspect encephalopathy was secondary to sepsis. (This form is maintained as a part of the permanent medical record) 2014 [employer] All Rights Reserved [email or web address] [phone] JAYCEE
--- NOTE | 2017-04-26 17:33 | EKG ---
Test Reason : AMS Blood Pressure : / mmHG Vent. Rate : 100 BPM Atrial Rate : 100 BPM P-R Int : 138 ms QRS Dur : 078 ms QT Int : 390 ms P-R-T Axes : 023 -28 026 degrees QTc Int : 503 ms Normal sinus rhythm Inferior infarct , age undetermined Prolonged QT Abnormal ECG Confirmed by MARLENY PETERSON ([id number]), deputy editor in chief NADIR GROVE ([id number]) on 04/26/2017 5:33:06 PM Referred By: KRISTEN Confirmed By:MARLENY PETERSON
== END 2017-03-26 16:00 | DRG 871 ==
LOC: ERS 12:15 → T4-A 19:20
PROVIDERS: ADMIT Family Medicine; ATTEND Family Medicine
DX: A41.9 Sepsis, unspecified organism (principal); G93.41 Metabolic encephalopathy; N17.9 Acute kidney failure, unspecified; E27.3 Drug-induced adrenocortical insufficiency; R13.12 Dysphagia, oropharyngeal phase; N30.01 Acute cystitis with hematuria; R65.20 Severe sepsis without septic shock; E78.5 Hyperlipidemia, unspecified; F32.9 Major depressive disorder, single episode, unspecified; G40.909 Epilepsy, unspecified, not intractable, without status epilepticus; Z86.73 Personal history of transient ischemic attack (TIA), and cerebral infarction without residual deficits; Z86.718 Personal history of other venous thrombosis and embolism; G47.33 Obstructive sleep apnea (adult) (pediatric); F81.9 Developmental disorder of scholastic skills, unspecified; K21.9 Gastro-esophageal reflux disease without esophagitis; I10 Essential (primary) hypertension; T38.0X5A Adverse effect of glucocorticoids and synthetic analogues, initial encounter; Z79.52 Long term (current) use of systemic steroids; Z95.828 Presence of other vascular implants and grafts; Z88.1 Allergy status to other antibiotic agents; Z88.5 Allergy status to narcotic agent; Z91.048 Other nonmedicinal substance allergy status; E86.0 Dehydration; A08.4 Viral intestinal infection, unspecified; Z99.3 Dependence on wheelchair; D72.829 Elevated white blood cell count, unspecified; E55.9 Vitamin D deficiency, unspecified; Z90.49 Acquired absence of other specified parts of digestive tract; L40.9 Psoriasis, unspecified; F41.9 Anxiety disorder, unspecified
CPT/HCPCS: 36415; 36416; 70450; 71045; 74150; 80048; 80053; 80177; 80202; 81003; 81015; 82553; 83605; 83690; 84484; 85025; 85060; 87040; 87086; 87804; 93005; 96361; 96365; 96367; 96375; G8978-GP-CL; G8979-GP-CJ; G8987-GO-CK; G8988-GO-CJ; G8996-GN-CJ; G8997-GN-CJ; J1885; J1953; J2405; J2543; J3370; J7050; J7502; Q0162

== ENCOUNTER 2017-03-27 10:32 | Inpatient (IN) | payer MEDICARE, MEDICAID ==
[2017-03-27 12:18] LABS: #Basophils 0.1 thou/uL (0.0-0.2); #Eosinphils 0.7 thou/uL (0.0-0.7); #Lymphocytes 1.5 thou/uL (1.20-3.40); #Monocytes 1.6 thou/uL (0.11-0.59); #Neutrophils 10.4 thou/uL (1.40-6.50); %Basophils 0.4 % (0.0-1.0); %Eosinophils 4.7 % (0.0-10.0); %Lymphocytes 10.7 % (21.0-51.0); %Monocytes 11.3 % (0.0-10.0); %Neutrophils 72.9 % (42.0-75.0); Hemoglobin 14.6 g/dL (14.0-18.0); Mean Corpuscular HGB CONC 31.3 g/dL (32.0-36.0); Mean Corpuscular Hemoglobin 29.6 pg (27.0-31.0); Mean Corpuscular Volume 94.5 fl (80.0-94.0); Mean Platelet Volume 8.7 fL (7.4-10.4); Platelet Count 169 thou/uL (130-400); RBC Distribution Width 13.2 % (11.5-14.5); Red Blood Cell (RBC) Count 4.94 mill/uL (4.70-6.10); White Blood Cell (WBC) Count 14.3 thou/uL (4.8-10.8)
[2017-03-27 12:31] LABS: Bilirubin Small (Negative); Blood, Urine Negative (Negative); Clarity CLOUDY (Clear); Glucose, Urine (Dipstick) Negative (Negative); Leukocyte Small (Negative); Nitrite Negative (Negative); Protein, Urine (Dipstick) Trace mg/dL (Neg-Trace); Specific Gravity, Urine 1.025 (1.002-1.036); Urobilinogen 0.2 mg/dL (0.2-1.0)
[2017-03-27 12:34] LABS: Bacteria/HPF None Seen HPF (None Seen); Pathc Cast-AUWi Flag 3.38 (0-2.49); RBC/HPF 0-3 HPF (0-3); Squamous Epithelial 0-3 HPF (0-3); Yeast-AUWi Flag 39.7 (0-25.0)
[2017-03-27 12:46] LABS: Hyaline Casts/LPF 7-10 HYALINE CAST LPF (0-3 Hyaline); Transitional Epithelial 0-3 HPF (0-3); Yeast-All Forms None Seen HPF (None Seen)
[2017-03-27 12:47] LABS: ALT (SGPT) 22 U/L (8-55); AST (SGOT) 23 U/L (5-34); Albumin 2.4 g/dL (3.5-5.0); Alkaline Phosphatase 88 U/L (40-150); Anion Gap 10 mmol/L (10-20); BUN (Urea Nitrogen) 13 mg/dL (8.4-25.7); Bilirubin, Total 1.9 mg/dL (0.2-1.2); Calc. Creatinine Clearance 0 mL/min (70-130); Calcium 8.6 mg/dL (7.8-10.44); Carbon Dioxide 26 mmol/L (22-29); Chloride 105 mmol/L (98-107); Estimated GFR-MDRD 78; Globulin 3.4 g/dL (2.4-3.5); Glucose 114 mg/dL (70-105); Potassium 3.3 mmol/L (3.5-5.1); Protein, Total 5.8 g/dL (6.0-8.3); Sodium 138 mmol/L (136-145)
--- NOTE | 2017-03-27 13:14 | RAD ---
PORTABLE CHEST: Date: 03/27/17 PROVIDED CLINICAL HISTORY: Lethargy. FINDINGS: Comparison with 03/22/17. Cardiac and mediastinal silhouette is within normal limits. Lungs appear clear. No pleural fluid or p neumothorax apparent. IMPRESSION: No evidence for an acute cardiopulmonary process. POS: [facility]
[2017-03-27] MEDS ORDERED: cefTRIAXone\\ROCEPHIN 2 GM in Sodium Chloride 0.9% 100 ML IVPB ONE (17:15)
[2017-03-27] MEDS ORDERED: diphenhydrAMINE 50 MG/ML VIAL ONE (18:44)
[2017-03-27] MEDS ORDERED: Norepinephrine 4 MG/4 ML VIAL ONE (18:56)
[2017-03-27] MEDS ORDERED: Norepinephrine 8 MG/0.9% NS 0 ML ONE (18:58)
[2017-03-27] MEDS ORDERED: Clindamycin/D5W 600 mg/50 ml Premix Bag ONE (20:21)
[2017-03-27] MEDS ORDERED: Acetaminophen 650 MG Suppository ONE (20:21)
[2017-03-28] MEDS ORDERED: Senokot 8.6 MG TAB PO PRN (00:17)
[2017-03-28] MEDS ORDERED: ACYCLOVIR TOP PRN (00:29)
[2017-03-28] MEDS ORDERED: Hydrocortisone Sod Succ/PF 100 mg/2 ml Vial IVP SCH (00:30)
[2017-03-28] MEDS ORDERED: Fluconazole 100 MG TAB PO SCH ×2 (00:45→09:00)
[2017-03-28 02:51] LABS: #Eosinphils 0.1 thou/uL (0.0-0.7); #Lymphocytes 1.5 thou/uL (1.20-3.40); #Monocytes 2.4 thou/uL (0.11-0.59); #Neutrophils 15.7 thou/uL (1.40-6.50); %Basophils 0.2 % (0.0-1.0); %Eosinophils 0.5 % (0.0-10.0); %Lymphocytes 7.7 % (21.0-51.0); %Neutrophils 79.6 % (42.0-75.0); Hemoglobin 13.9 g/dL (14.0-18.0); Mean Corpuscular HGB CONC 31.5 g/dL (32.0-36.0); Mean Corpuscular Volume 95.1 fl (80.0-94.0); Mean Platelet Volume 8.6 fL (7.4-10.4); Platelet Count 158 thou/uL (130-400); RBC Distribution Width 13.2 % (11.5-14.5); Red Blood Cell (RBC) Count 4.63 mill/uL (4.70-6.10); White Blood Cell (WBC) Count 19.7 thou/uL (4.8-10.8)
[2017-03-28] MEDS: Sodium Chloride 0.9% 1,000 ML IV SCH ×3 (02:57→18:19)
[2017-03-28 03:00] LABS: Lactic Acid 1.6 mmol/L (0.5-2.2)
[2017-03-28 03:13] LABS: Anion Gap 9 mmol/L (10-20); BUN (Urea Nitrogen) 14 mg/dL (8.4-25.7); Calc. Creatinine Clearance 86 mL/min (70-130); Calcium 7.3 mg/dL (7.8-10.44); Carbon Dioxide 24 mmol/L (22-29); Chloride 111 mmol/L (98-107); Estimated GFR-MDRD 80; Glucose 76 mg/dL (70-105); Potassium 3.2 mmol/L (3.5-5.1); Sodium 141 mmol/L (136-145)
[2017-03-28 04:27] LABS: Lactic Acid 1.4 mmol/L (0.5-2.2)
[2017-03-28] MEDS ORDERED: Loperamide HCl 2 MG CAP PO PRN (06:40)
[2017-03-28] MEDS: Cephalexin 250 MG CAP PO SCH ×3 (06:43→17:24)
--- NOTE | 2017-03-28 06:56 | HP-2 ---
DATE OF SERVICE: 03/28/2017 CODE STATUS: FULL. PRIMARY CARE PHYSICIAN: Dr. Moore ATTENDING: Dr. Rachel Suresh RESIDENT: Dr. Alla Garcia HISTORIAN: Sister. CHIEF COMPLAINT: Lethargy and abdominal pain. HISTORY OF PRESENT ILLNESS: A 57-year-old male with a recent hospitalization for urosepsis presents from the care home after being discharged yesterday from the hospital for lethargy, altered mentation and abdominal pain. Sister states that he "wasn't himself" this morning, he was less talkative with altered mentation. She states that he usually is just less talkative with altered mentation. He was less alert and complaining about abdominal pain. He was evaluated by Dr. Alexander who was planning to discharge him from the ER back to the care home and was given Rocephin in the ER for what the ER stated was a persistent UTI; however, after he received the Rocephin. His blood pressure acutely dropped. He was flushed in the face and his heart rate increased, then shortly after that the ER gave him clindamycin and this same thing happened. In regard to the abdominal pain, he said it was diffuse and achy and it was unclear when he had last had a bowel movement. In regard to his altered mentation the sister states that he normally knows his name, normally is talkative and pleasant and smiling more and this morning would barely respond to questions. He did know his name when we spoke to him in the ER. He received 4 liters normal saline in the ER, 650 mg with Tylenol 600 mg clindamycin, 50 mg of Benadryl, 2 grams of Rocephin and an additional 500 mL bolus of normal saline. PAST MEDICAL HISTORY: 1. Intellectual delay. 2. History of cerebrovascular accident. 3. History of DVT. 4. Epilepsy. 5. Depression. 6. Obstructive sleep apnea. 7. Minimal change disease. 8. Gastroesophageal reflux disease. 9. Hyperlipidemia. 10. Hypertension. 11. Dysphagia. 12. Adrenal insufficiency secondary to chronic steroid use. PAST SURGICAL HISTORY: 1. History of DVT now status post IVC filter. 2. Cholecystectomy. 3. Appendectomy. 4. Exploratory laparotomy. 5. Renal biopsy. 6. Spleen surgery. ALLERGIES: 1. CIPRO. 2. MORPHINE. 3. DILANTIN. 4. ADHESIVE TAPE. FAMILY HISTORY: 1. Hypertension. 2. Diabetes. 3. COPD. 4. Hyperlipidemia. 5. Depression. SOCIAL HISTORY: Denies tobacco, alcohol, and drug use. REVIEW OF SYSTEMS: GENERAL: Denies fevers and chills, weight and appetite changes. EYES: Denies vision changes or eye pain. ENT: Denies nasal congestion, rhinorrhea, or sore throat. RESPIRATORY: Denies cough, congestion, shortness of breath. CARDIOVASCULAR: Denies chest pain or palpitations. GASTROINTESTINAL: Denies nausea or vomiting. Endorses constipation. Unknown last bowel movement. GENITOURINARY: Denies incontinence, dysuria, polyuria. SKIN: Denies rashes or lesions. MUSCULOSKELETAL: Denies pain or tenderness. NEUROLOGIC: Denies weakness, numbness. PSYCHIATRIC: Denies anxiety, depression. Endorses altered mentation. REASON FOR CONSULTATION: VITAL SIGNS: Blood pressure 99/74, pulse 102, respiratory rate 26, T-max 100.7 , pulse ox 100% on 2 liters. Current weight 73 kilograms. GENERAL: Alert and oriented to self, no apparent distress. Well-developed, obese, not appropriately interactive with intellectual disability. EYES: PERRLA, EOMI. Conjunctivae within normal limits. ENT: Nasal mucosa and oropharynx within normal limits. NECK: Supple. CARDIOVASCULAR: Regular rate and rhythm. No murmurs, rubs or gallops, 1+ pedal pulses. RESPIRATORY: Normal effort, no retractions, clear to auscultation bilaterally. SKIN: Warm and dry. No cyanosis. ABDOMEN: Soft, nontender to palpation. Hypoactive bowel sounds. No masses or distention. EXTREMITIES: No clubbing, no cyanosis, no edema. MUSCULOSKELETAL: Structure within normal limits. LABORATORY DATA: 1. CBC 14.3, 14.6, 46.6, 169. 2. CMP: 138, 3.3, 105, 26, 13, 0.99, 114. 3. AST, ALT, alkaline phosphatase 23, 22, 88. 4. Calcium, total protein, albumin, 8.6, 5.8, 2.4. 5. Total bilirubin 1.9. 6. Flu A and B negative. 7. POC glucose 84. 8. Lactic acidosis 2.6. 9. UA; specific gravity 1.025, blood negative, nitrites negative, glucose negative, protein trace, leukocyte esterase small, ketones trace, red blood cells 0-3, white blood cells 11-20, bacteria 0, bilirubin small. Chest x-ray no acute findings. ASSESSMENT AND PLAN: This is a 57-year-old male with a recent hospitalization for urosepsis, who presents with altered mentation, lethargy and abdominal pain , admitted for dehydration and SIRS without a source. 1. Dehydration. Systemic inflammatory response syndrome of unknown source. The patient was admitted to medical observation for mild dehydration. He was started on IV fluids of normal saline at 110 mL an hour. We will recheck his CBC and BMP in the morning. He did have a lactic acidosis likely secondary to his dehydration and we will recheck a lactic acidosis in the morning. 2. Systemic inflammatory response syndrome with unknown source. The patient had a leukocytosis, was febrile, was tachycardic to 102, respiratory rate of 26 , meeting SIRS criteria; however, an infectious source has not been found at this time. He was recently treated in the hospital for a urinary tract infection which the urine culture did not grow any bacteria. He was negative for Flu A and B. He, however, was tachycardic and had an increased respiratory rate, as well as a lactic acidosis. He was given 2 grams of Rocephin empirically in the ER and since his discharge yesterday has been on Keflex for his lower extremity cellulitis and urinary tract infection. We will restart his Keflex in the morning. Blood and urine cultures were drawn and are pending. A CBC and BMP were repeated for in the morning. 3. Encephalopathy, likely due to delirium from multiple transfer of locations. Per the patient's sister, he had altered mentation. She states he is below his baseline and he currently only knows his name, we think that this is likely due to multiple transfer of locations and not from an infectious etiology. We will continue to monitor and continue the workup of an infectious etiology as stated above. 4. Hypotension. This is likely secondary to a medication reaction. After receiving Rocephin in the ER, his blood pressure did drop; however, also in the differential is adrenal crisis as the patient has a history of adrenal insufficiency. He was given in addition to the 4 liters of normal saline that he was given in the ER, he was also given 25 mg IV of hydrocortisone in anticipation of an adrenal crisis. 5. Adrenal insufficiency. This is secondary to chronic steroid use; however, the patient was persistently hypotensive in the ER and was provided with an IV dose of hydrocortisone (25 mg IV) due to concern for adrenal crisis. 6. Tinea cruris. The patient has a pretty severe tinea cruris infection in his groin and buttocks. We provided a 1 time dose of Diflucan as well as Nystatin powder twice a day and recommend frequent diaper changes. 7. Abdominal pain. This was described as diffuse and was nonspecific without nausea, vomiting, diarrhea. It was unknown when his last bowel movement was. The patient was placed on a bowel regimen of docusate and senna and a KUB was ordered. A recent CT of the abdomen was performed during his last hospitalization which showed cystitis, but was otherwise within normal limits. A urine culture to include yeast was also sent to the lab. 8. Recent urinary tract infection. The patient was adequately treated in the hospital, his urine culture did not grow out any bacteria and he was discharged on Keflex to cover for his cellulitis as well as his urinary tract infection. He was also given Rocephin and clindamycin today in the ER. We will continue his Keflex. 9. Left lower extremity cellulitis. The patient was recently hospitalized for a left lower extremity cellulitis and was discharged on Keflex. We will continue the Keflex. We will also order a venous Doppler of his left lower extremity to rule out a deep venous thrombosis. 10. History of deep venous thrombosis with IVC filter. As stated above we will order venous Doppler ultrasound to rule out a deep venous thrombosis in his left lower extremity that has the cellulitis. We will also place the patient on prophylactic Lovenox. 11. Dysphagia. Recommend a pureed diet, that is what he is getting at his care home. 12. Epilepsy. We will continue his home medication. DISPOSITION/LENGTH OF HOSPITAL STAY: 2-3 days. Symptomatic medication will be provided. History and physical exam as well as management discussed with Dr. Suresh. JAYCEE
[2017-03-28] MEDS: Magnesium Oxide 400 MG TAB PO SCH (08:06)
[2017-03-28] MEDS: Escitalopram Oxalate 20 mg Tablet PO SCH (08:06)
[2017-03-28] MEDS: Docusate 100 MG CAP PO SCH ×2 (08:06→23:39)
[2017-03-28] MEDS: levETIRAcetam 500 MG TAB PO SCH ×2 (08:06→23:38)
--- NOTE | 2017-03-28 08:07 | RAD ---
RADIOGRAPH ABDOMEN 1 VIEW: Date: 03/28/17/ Time: 0000 hours HISTORY: 57-year-old male with generalized abdominal pain. Suspected constipation. FINDINGS: There is an IVC filter. Cluster of surgical clips in the right upper quadrant. Bowel gas pattern is n onobstructive. Volume of stool visible is mild to moderate. Severe degenerative changes at the lower lumbar spine. Large heterotopic ossifications in the soft tissues projecting inferior to the bilatera l ischial tuberosities and inferior rami. IMPRESSION: 1. Nonobstructive bowel gas pattern, without large volume of stool detected. 2. IVC filter. 3. Status post cholecystectomy. POS: OFF
--- NOTE | 2017-03-28 08:08 | ULT ---
ULTRASOUND WITH DOPPLER DUPLEX VENOUS LOWER EXTREMITY LEFT: DATE: 03/28/17. TIME: 6:58 a.m. HISTORY: A 57-year-old male with left lower extremity edema. Shawanda Jiang, the leaf sucker operator who performed the study, reported the positive finding of DVT to christiano Powell, as per Shawanda's note at 7:12 a.m. on 03/28/17. TECHNIQUE: Color flow Doppler, spectral waveform analysis of pulsed Doppler, and tillman-scale imaging with yogi gianluca and augmentation, were used to evaluate the left common femoral, femoral, popliteal, posterior t ibial, and superficial femoral, veins; and the proximal portions of the profunda femoral and greater saphenous, veins. FINDINGS: There is noncompressibility and lack of blood flow, in the left common femoral, entire femoral, great er saphenous, profunda femoral, and popliteal, veins. There is blood flow in the posterior tibial ve in. IMPRESSION: Positive for acute, occlusive deep vein thrombosis throughout the left thigh, from the groin to the k nee. CODE CR JN R POS: OFF
[2017-03-28] MEDS ORDERED: Potassium Chloride 20 MEQ TAB PO SCH (08:15)
[2017-03-28] MEDS ORDERED: Enoxaparin Sodium 40 MG/0.4 ML SYRINGE SC SCH (09:00)
--- NOTE | 2017-03-28 11:43 | PDOC.FM ---
- Subjective Subjective: Patient found in bed. He said he had no issues today. Nurse at bedside said she noticed no issues overnight. - Objective Vital Signs & Weight: Vital Signs (12 hours) Temp Pulse Resp BP Pulse Ox 03/28/17 09:26 97.2 F L 83 19 03/28/17 08:01 97.2 F L 83 19 146/94 H 97 03/28/17 04:00 98.0 F 85 19 120/82 99 Result Diagrams: 03/28/17 02:02 03/28/17 02:02 <Rafael Prasad - Last Filed: 03/28/17 11:42> - Objective Vital Signs & Weight: Vital Signs (12 hours) Temp Pulse Resp BP Pulse Ox 03/28/17 20:09 99.5 F 86 17 162/99 H 97 03/28/17 16:15 93 147/93 H 03/28/17 15:45 97.8 F 93 20 155/105 H 96 03/28/17 12:51 97.8 F 91 16 92 L Result Diagrams: 03/28/17 02:02 03/28/17 02:02 <Reji Zhu - Last Filed: 03/28/17 20:53> Phys Exam - Physical Examination Constitutional: NAD HEENT: moist MMs Respiratory: no wheezing, no rhonchi, clear to auscultation bilateral Cardiovascular: RRR, no significant murmur Gastrointestinal: soft, positive bowel sounds No pain at this time. Old surgical scar from resections Left leg more edematous then previous admissions Neurological: moves all 4 limbs Lymphatic: no nodes Deviation from normal: AOx1, appear to be grossly at baseline. Deviation from normal: Mild diffuse erythema of left thigh <Rafael Prasad - Last Filed: 03/28/17 11:42> Dx/Plan (1) DVT (deep venous thrombosis) Code(s): I82.409 - ACUTE EMBOLISM AND THOMBOS UNSP DEEP VN UNSP LOWER EXTREMITY Status: Acute Plan: While being worked up for SOB due to anaphylaxis, a doppler was done to rule out DVT. A DVT was found in left leg. Patient has a history of this and is not very mobile at generation and had recent fall per facility. Plan is to get CTA of chest, and start therapeutic lovenox. Conversation was had with family and POA does not want to continue anticoagulation as an outpatient (2) UTI (urinary tract infection) Status: Acute QualifierTitle: Urinary tract infection type: acute cystitis Hematuria presence: without hematuria Qualified Code(s): N30.00 - Acute cystitis without hematuria Plan: Will continue with keflex, for 1 week total. Patient on day 5 of abx (3) Tinea cruris Code(s): B35.6 - TINEA CRURIS Status: Acute Plan: Patient has rash, will have nysstatin applied between thigh and groin area (4) Hypokalemia Code(s): E87.6 - HYPOKALEMIA Status: Inactive Plan: Patient was replete with oral potassium this morning, will check on lab tomorrow. (5) Developmental delay, moderate Code(s): R62.50 - UNSP LACK OF EXPECTED NORMAL PHYSIOL DEV IN CHILDHOOD Status : Chronic Plan: Appear to be at baseline. Nursing is assisting with ADLs <Rafael Prasad - Last Filed: 03/28/17 11:42> Attending Addendum - Attending Addendum I personally evaluated the patient and discussed the management with Dr. Prasad. I agree with and repeated the History, Examination, Assessment and Plan documented above with any addition or exceptions noted below. Unfortunate gentleman with multiple issues who represented now with another fall and was found to have a LLE DVT without evident of a PE. He has an IVC filter in place and is not a candidate for detention anticoagulation unfortunately. He was also found to have flu A, which may have been the cause for his original presentation last admission. We will go ahead and treat with tamiflu. He currently denies any complaint. We will have a discussion with family tomorrow, likely discharge if stable. <Reji Zhu - Last Filed: 03/28/17 20:53>
[2017-03-28] MEDS ORDERED: ISOVUE-370 76%-LOCM 1 ML ONE (12:18)
[2017-03-28 12:39] LABS: Bilirubin, Direct 0.3 mg/dL (0.1-0.3); Bilirubin, Total 0.9 mg/dL (0.2-1.2)
[2017-03-28 12:41] LABS: Troponin I Less than 0.010 ng/mL (< 0.028)
[2017-03-28] MEDS: Fluticasone Propionate Nasal Spray 16 gm Bottle NASAL SCH (12:49)
[2017-03-28] MEDS: Nystatin Powder 15 GM BOT TOP SCH ×2 (12:49→23:39)
--- NOTE | 2017-03-28 13:21 | CT ---
CTA OF CHEST WITH CONTRAST: Date: 03/28/17 COMPARISON: 02/25/16. HISTORY: Extensive deep venous thrombosis. Shortness of breath. Evaluate for pulmonary thromboembolism. TECHNIQUE: Multiple contiguous axial images were obtained in a CTA of the chest with contrast per pulmonary embo lis protocol. 3D oblique MIP reformats and direct coronal reformats were performed. FINDINGS: The pulmonary arteries are well opacified without filling defects to suggest pulmonary emboli. The he art is normal in size without focal cardiac abnormality. No hilar or mediastinal lymphadenopathy seen . Atelectasis is seen in the right lung base. No suspicious pulmonary nodule is appreciated. No pneumot horax or pleural effusions seen. The bones are unremarkable. The patient has an inferior vena cava filter. There are masses emanating from the left kidney which likely represent cysts. Some of these are hypodense and others are hyperde nse. There is cortical thinning of the right kidney. The spleen has been removed and there are small nodules in the left upper quadrant of the abdomen which may represent splenules. IMPRESSION: No evidence of pulmonary thromboembolism. Please note that this patient has an inferior vena cava dwain ter. POS: [facility]
[2017-03-28] MEDS ORDERED: cefTRIAXone\\ROCEPHIN 1 GM in Syringe 10 ML SLOW IVP SCH (18:00)
[2017-03-28] MEDS ORDERED: Cetirizine HCl 10 MG TAB PO SCH (21:00)
[2017-03-28] MEDS: Enoxaparin Sodium 80 MG/0.8 ML SYRINGE SC SCH (23:37)
[2017-03-28] MEDS: Acetaminophen 325 MG TAB PO PRN (23:38)
[2017-03-28] MEDS: Loratadine 10 MG TAB PO SCH (23:38)
[2017-03-28] MEDS: Oseltamivir 75 MG CAP PO SCH (23:38)
[2017-03-29] MEDS: Cephalexin 250 MG CAP PO SCH ×5 (01:37→23:44)
[2017-03-29 04:01] LABS: #Basophils 0.1 thou/uL (0.0-0.2); #Eosinphils 0.4 thou/uL (0.0-0.7); #Lymphocytes 2.2 thou/uL (1.20-3.40); #Monocytes 1.6 thou/uL (0.11-0.59); #Neutrophils 8.7 thou/uL (1.40-6.50); %Basophils 0.4 % (0.0-1.0); %Eosinophils 2.8 % (0.0-10.0); %Lymphocytes 17.3 % (21.0-51.0); %Monocytes 12.4 % (0.0-10.0); %Neutrophils 67.1 % (42.0-75.0); Hemoglobin 12.9 g/dL (14.0-18.0); Mean Corpuscular HGB CONC 31.7 g/dL (32.0-36.0); Mean Corpuscular Hemoglobin 29.9 pg (27.0-31.0); Mean Corpuscular Volume 94.4 fl (80.0-94.0); Mean Platelet Volume 8.6 fL (7.4-10.4); Platelet Count 185 thou/uL (130-400); RBC Distribution Width 13.3 % (11.5-14.5); Red Blood Cell (RBC) Count 4.31 mill/uL (4.70-6.10); White Blood Cell (WBC) Count 12.9 thou/uL (4.8-10.8)
[2017-03-29 04:25] LABS: Anion Gap 10 mmol/L (10-20); BUN (Urea Nitrogen) 15 mg/dL (8.4-25.7); Calc. Creatinine Clearance 107 mL/min (70-130); Calcium 7.4 mg/dL (7.8-10.44); Carbon Dioxide 23 mmol/L (22-29); Chloride 113 mmol/L (98-107); Estimated GFR-MDRD Greater than 90; Glucose 99 mg/dL (70-105); Potassium 3.1 mmol/L (3.5-5.1); Sodium 143 mmol/L (136-145)
[2017-03-29] MEDS: Sodium Chloride 0.9% 1,000 ML IV SCH ×2 (04:58→18:25)
[2017-03-29] MEDS ORDERED: Potassium Chloride 20 MEQ TAB PO SCH (06:15)
[2017-03-29] MEDS ORDERED: FLU VACC QS2017-18 36 mo. & older 0.5 ML SYRINGE IM ONE (09:00)
--- NOTE | 2017-03-29 10:04 | PDOC.FM ---
- Subjective Subjective: The patient is AOx1. He is restless and complaining of abdominal pain. Denies N/ V. Denies any leg pain. - Objective MAR Reviewed: Yes Vital Signs & Weight: Vital Signs (12 hours) Temp Pulse Resp BP Pulse Ox 03/29/17 07:50 97.5 F L 95 18 144/89 H 92 L 03/29/17 04:03 97.9 F 80 16 145/86 H 96 03/28/17 23:43 97.7 F 87 17 155/89 H 98 I&O: 03/28/17 03/29/17 03/30/17 06:59 06:59 06:59 Intake Total 1250 Balance 1250 Result Diagrams: 03/29/17 03:35 03/29/17 03:35 <Racheal Jaimes - Last Filed: 03/29/17 11:40> - Objective Vital Signs & Weight: Vital Signs (12 hours) Temp Pulse Resp BP Pulse Ox 03/29/17 08:00 97.5 F L 95 18 03/29/17 07:50 97.5 F L 95 18 144/89 H 92 L 03/29/17 04:03 97.9 F 80 16 145/86 H 96 I&O: 03/28/17 03/29/17 03/30/17 06:59 06:59 06:59 Intake Total 1250 Balance 1250 Result Diagrams: 03/29/17 03:35 03/29/17 03:35 <Reji Zhu - Last Filed: 03/29/17 12:12> Phys Exam - Physical Examination Constitutional: NAD HEENT: moist MMs Respiratory: no wheezing, no rales, no rhonchi, clear to auscultation bilateral Cardiovascular: RRR, no significant murmur, no rub Gastrointestinal: soft, non-tender, no distention, positive bowel sounds old surgical scars with incisional hernias Musculoskeletal: edema present LLE edema and erythema Neurological: moves all 4 limbs Deviation from normal: AOx1 to person only <Racheal Jaimes - Last Filed: 03/29/17 11:40> Dx/Plan (1) DVT (deep venous thrombosis) Code(s): I82.409 - ACUTE EMBOLISM AND THOMBOS UNSP DEEP VN UNSP LOWER EXTREMITY Status: Acute QualifierTitle: DVT location: lower extremity Affected thrombotic vein of extremity: unspecified vein of extremity Chronicity: unspecified Laterality: left Qualified Code(s): I82.402 - Acute embolism and thrombosis of unspecified deep veins of left lower extremity Plan: Extensive DVT of LLE. Patient has IVC filter in place already. Dr. Prasad had a discussion with patient's family regarding anticoagulation and they do not want him to be on anticoagulation at the halfway due to his fall risk. -Therapeutic lovenox while in hospital -Will have discussion with family about goals of care and consider consulting palliative care (2) UTI (urinary tract infection) Status: Acute QualifierTitle: Urinary tract infection type: acute cystitis Hematuria presence: without hematuria Qualified Code(s): N30.00 - Acute cystitis without hematuria Plan: Patient was treated for UTI at prior hospitalization. He still appears to have a UTI, but was given abx prior to culture so nothing grew in culture. Continue Keflex for one week. (3) Developmental delay, moderate Code(s): R62.50 - UNSP LACK OF EXPECTED NORMAL PHYSIOL DEV IN CHILDHOOD Status : Chronic Plan: Patient AOx1 and lives in nursing facility. Requires assistance with ADL's. Appears to be at baseline mental status. (4) Tinea cruris Code(s): B35.6 - TINEA CRURIS Status: Acute Plan: Nystatin between thigh and groin area. <Racheal Jaimes - Last Filed: 03/29/17 11:40> Attending Addendum - Attending Addendum I personally evaluated the patient and discussed the management with Dr. Jaimes. I agree with and repeated the History, Examination, Assessment and Plan documented above with any addition or exceptions noted below. Denies any complaints to me this morning, including abdominal pain, n/v/f/c/cp/ sob. Will need to discuss with family concerning goals of care. <Reji Zhu - Last Filed: 03/29/17 12:12>
[2017-03-29] MEDS: Docusate 100 MG CAP PO SCH (10:05)
[2017-03-29] MEDS: Magnesium Oxide 400 MG TAB PO SCH (10:05)
[2017-03-29] MEDS: levETIRAcetam 500 MG TAB PO SCH ×2 (10:05→22:08)
[2017-03-29] MEDS: Escitalopram Oxalate 20 mg Tablet PO SCH (10:06)
[2017-03-29] MEDS: Fluticasone Propionate Nasal Spray 16 gm Bottle NASAL SCH (10:06)
[2017-03-29] MEDS: Nystatin Powder 15 GM BOT TOP SCH ×2 (10:07→22:12)
[2017-03-29] MEDS: Enoxaparin Sodium 80 MG/0.8 ML SYRINGE SC SCH ×2 (13:01→22:07)
[2017-03-29] MEDS: Oseltamivir 75 MG CAP PO SCH ×2 (13:05→22:10)
[2017-03-29] MEDS ORDERED: Docusate 100 MG CAP PO PRN (14:55)
--- NOTE | 2017-03-29 18:01 | RAD ---
CHEST ONE VIEW 03/29/17 HISTORY: Volume overload. COMPARISON: Chest 03/27/17. FINDINGS: Mild pulmonary venous congestion. No focal air space consolidation, pneumothorax or effusion. The ca rdiac silhouette and mediastinal contours are within normal limits. IMPRESSION: No acute intrathoracic abnormality. POS: [facility]
[2017-03-29] MEDS ORDERED: Metoprolol Tartrate 50 MG TAB PO SCH (21:30)
[2017-03-29] MEDS: Loratadine 10 MG TAB PO SCH (22:09)
[2017-03-29] MEDS: Ibuprofen 800 MG TAB PO PRN (22:10)
[2017-03-29] MEDS: Metoprolol Tartrate 50 MG TAB PO SCH (22:11)
[2017-03-30 05:20] LABS: Mean Corpuscular Volume 94.1 fl (80.0-94.0)
[2017-03-30 05:21] LABS: #Eosinphils 0.6 thou/uL (0.0-0.7); #Lymphocytes 2.6 thou/uL (1.20-3.40); #Monocytes 1.2 thou/uL (0.11-0.59); #Neutrophils 7.4 thou/uL (1.40-6.50); %Basophils 0.3 % (0.0-1.0); %Eosinophils 4.8 % (0.0-10.0); %Lymphocytes 21.7 % (21.0-51.0); %Monocytes 10.3 % (0.0-10.0); %Neutrophils 62.9 % (42.0-75.0); Hemoglobin 12.8 g/dL (14.0-18.0); Mean Corpuscular HGB CONC 31.1 g/dL (32.0-36.0); Mean Corpuscular Hemoglobin 29.3 pg (27.0-31.0); Mean Platelet Volume 8.7 fL (7.4-10.4); Platelet Count 209 thou/uL (130-400); RBC Distribution Width 13.5 % (11.5-14.5); Red Blood Cell (RBC) Count 4.36 mill/uL (4.70-6.10); White Blood Cell (WBC) Count 11.8 thou/uL (4.8-10.8)
[2017-03-30 05:23] LABS: Anion Gap 9 mmol/L (10-20); BUN (Urea Nitrogen) 10 mg/dL (8.4-25.7); Calc. Creatinine Clearance 102 mL/min (70-130); Calcium 7.6 mg/dL (7.8-10.44); Carbon Dioxide 25 mmol/L (22-29); Chloride 111 mmol/L (98-107); Estimated GFR-MDRD Greater than 90; Glucose 85 mg/dL (70-105); Sodium 142 mmol/L (136-145)
[2017-03-30] MEDS: Cephalexin 250 MG CAP PO SCH ×4 (05:40→23:40)
[2017-03-30] MEDS ORDERED: Sodium Chloride 0.9% 10 ML ONE (08:04)
--- NOTE | 2017-03-30 08:06 | PDOC.FM ---
- Subjective Subjective: Patient drowsy this AM. AOx1. He is still complaining of abdominal pain this AM. - Objective MAR Reviewed: Yes Vital Signs & Weight: Vital Signs (12 hours) Temp Pulse Resp BP Pulse Ox 03/30/17 07:31 67 16 97 03/30/17 03:57 98.2 F 79 20 106/58 L 98 03/30/17 02:40 69 14 98 03/29/17 22:40 92 28 H 99 I&O: 03/29/17 03/30/17 03/31/17 06:59 06:59 06:59 Intake Total 2500 Balance 2500 Result Diagrams: 03/30/17 04:29 03/30/17 04:29 <Racheal Jaimes - Last Filed: 03/30/17 08:03> - Objective Vital Signs & Weight: Vital Signs (12 hours) Temp Pulse Resp BP Pulse Ox 03/30/17 11:22 97.2 F L 80 19 102/67 97 03/30/17 10:46 74 16 97 03/30/17 07:40 96.5 F L 74 19 116/64 100 03/30/17 07:31 67 16 97 03/30/17 03:57 98.2 F 79 20 106/58 L 98 03/30/17 02:40 69 14 98 I&O: 03/29/17 03/30/17 03/31/17 06:59 06:59 06:59 Intake Total 2500 Balance 2500 Result Diagrams: 03/30/17 04:29 03/30/17 04:29 <Reji Zhu - Last Filed: 03/30/17 12:02> Phys Exam - Physical Examination Constitutional: NAD HEENT: moist MMs Respiratory: no rales, no rhonchi, wheezing present Cardiovascular: RRR, no significant murmur, no rub Gastrointestinal: soft, non-tender, no distention, positive bowel sounds Musculoskeletal: pulses present, edema present (trace edema) Neurological: non-focal, moves all 4 limbs Deviation from normal: AOx1 Deviation from normal: erythema in groin, bilateral foot erythema <Racheal Jaimes - Last Filed: 03/30/17 08:03> Dx/Plan (1) DVT (deep venous thrombosis) Code(s): I82.409 - ACUTE EMBOLISM AND THOMBOS UNSP DEEP VN UNSP LOWER EXTREMITY Status: Acute QualifierTitle: DVT location: lower extremity Affected thrombotic vein of extremity: unspecified vein of extremity Chronicity: unspecified Laterality: left Qualified Code(s): I82.402 - Acute embolism and thrombosis of unspecified deep veins of left lower extremity Plan: Extensive DVT of LLE. Patient has IVC filter in place already. I had a discussion with patient's sister regarding anticoagulation and they do not want him to be [facility] anticoagulation at the [facility] due to his fall risk as the patient falls several times a week at the [facility] Sister did not want palliative care involved -Therapeutic lovenox while in hospital until patient stabilized otherwise and then will discharge back to [place] (2) Influenza A Code(s): J10.1 - FLU DUE TO OTH IDENT INFLUENZA VIRUS W OTH RESP MANIFEST Status: Acute Plan: Patient had influenza A positive on respiratory viral panel. His rapid flu was negative. -tamiflu for 5 days -symptomatic treatment -droplet precautions (3) Tachycardia Code(s): R00.0 - TACHYCARDIA, UNSPECIFIED Status: Inactive Plan: Patient had episode of sinus tachycardia to rate in high 130s overnight. He had his metoprolol held since admission due to hypotension in ED. This was restarted and his rate has improved. CXR showed mild vascular congestion, fluids had already been d/c'd. (4) UTI (urinary tract infection) Status: Acute QualifierTitle: Urinary tract infection type: acute cystitis Hematuria presence: without hematuria Qualified Code(s): N30.00 - Acute cystitis without hematuria Plan: Patient was treated for UTI at prior hospitalization. He still appears to have a UTI, but was given abx prior to culture so nothing grew in culture. Continue Keflex for one week. 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 Requires assistance with ADL's. Appears to be at baseline mental status. High fall risk, will use precautions (6) Diarrhea Code(s): R19.7 - DIARRHEA, UNSPECIFIED Status: Acute QualifierTitle: Diarrhea type: unspecified type Qualified Code(s): R19.7 - Diarrhea, unspecified Plan: Patient had new onset diarrhea on second day of hospitalization. He had been hospitalized the week prior and had been on abx at that time. This could be antibiotic induced vs due to the flu vs. c. diff -check c. diff (7) Tinea cruris Code(s): B35.6 - TINEA CRURIS Status: Acute Plan: Nystatin between thigh and groin area. (8) Hypokalemia Code(s): E87.6 - HYPOKALEMIA Status: Inactive Plan: Will replete and monitor <Racheal Jaimes - Last Filed: 03/30/17 08:03> Attending Addendum - Attending Addendum I personally evaluated the patient and discussed the management with Dr. Jaimes. I agree with and repeated the History, Examination, Assessment and Plan documented above with any addition or exceptions noted below. Patient sleeping but easily aroused. Denies cp/sob/n/v/f/c. Is having some diarrhea. Had some tachycardia overnight. Tachycardia - resolved with restarted metoprolol Diarrhea - c. diff ordered complicated UTI - complete keflex course Flu A - tamiflu, nebs, CXR without infiltrate Minimal change disease - meds restarted Replete mag and K and recheck DVT with IVF filter in place - therapeutic lovenox Discussed with family, will continue lovenox while in house and DC upon discharge. Sister understands risks. He can likely go home if continued stability and improvement. <Reji Zhu - Last Filed: 03/30/17 12:02>
[2017-03-30] MEDS ORDERED: Non-Formulary Item 1 EACH (Prednisone [Prednisone] 5 MG) PO SCH (09:00)
[2017-03-30] MEDS: predniSONE 5 MG TAB PO SCH (09:13)
[2017-03-30] MEDS: levETIRAcetam 500 MG TAB PO SCH ×2 (09:13→20:53)
[2017-03-30] MEDS: Metoprolol Tartrate 50 MG TAB PO SCH ×2 (09:13→20:53)
[2017-03-30] MEDS: Escitalopram Oxalate 20 mg Tablet PO SCH (09:13)
[2017-03-30] MEDS: Magnesium Oxide 400 MG TAB PO SCH (09:13)
[2017-03-30] MEDS: Oseltamivir 75 MG CAP PO SCH ×2 (09:13→20:53)
[2017-03-30] MEDS: Enoxaparin Sodium 80 MG/0.8 ML SYRINGE SC SCH ×2 (09:14→20:53)
[2017-03-30] MEDS: Fluticasone Propionate Nasal Spray 16 gm Bottle NASAL SCH (09:15)
[2017-03-30] MEDS: Nystatin Powder 15 GM BOT TOP SCH ×2 (09:15→21:43)
[2017-03-30] MEDS ORDERED: CYCLOSPORINE PO SCH (09:25)
[2017-03-30] MEDS ORDERED: Potassium Chloride 20 MEQ TAB PO SCH (09:30)
[2017-03-30] MEDS ORDERED: Magnesium Chloride 64 MG TAB PO SCH ×2 (10:30→21:00)
[2017-03-30 16:04] LABS: Anion Gap 13 mmol/L (10-20); BUN (Urea Nitrogen) 10 mg/dL (8.4-25.7); Calc. Creatinine Clearance 100 mL/min (70-130); Calcium 8.4 mg/dL (7.8-10.44); Carbon Dioxide 24 mmol/L (22-29); Chloride 109 mmol/L (98-107); Estimated GFR-MDRD Greater than 90; Glucose 87 mg/dL (70-105); Potassium 4.1 mmol/L (3.5-5.1); Sodium 142 mmol/L (136-145)
[2017-03-30] MEDS ORDERED: Furosemide 40 MG/4 ML VIAL SLOW IVP SCH ×2 (19:15→21:30)
--- NOTE | 2017-03-30 19:16 | PDOC.EVN ---
Event Note - Event Note Event Note: Told about scrotal swelling by sister. Patient is in bed watching TV, in no distress. He says his scrotum is uncomfortable but not painful. On exam scrotum remarkably swollen, as well as lower abdomen inferiorly. No significant erythema, tenderness to palpation, warmth, or crepitus of the scrotum, perineal, stomach or thigh. Will trial lasix and scrotal support. Recheck in 2 hours. If no improvement or any worsening will expand workup. Of note, sister says this is a frequent occurrence, typically when his kidney disease is worse. Spot urine protein ordered. At this time, low suspicion for Dao's. Leukocytosis and overall symptoms improving. Also low suspicion for testicular torsion. He is currently on therapeutic lovenox. Will monitor closely.
[2017-03-30] MEDS: Loratadine 10 MG TAB PO SCH (20:53)
[2017-03-30] MEDS: Ondansetron ODT 4 MG TAB PO PRN (21:01)
[2017-03-30] MEDS: Ibuprofen 800 MG TAB PO PRN (23:40)
[2017-03-31 05:06] LABS: #Basophils 0.1 thou/uL (0.0-0.2); #Eosinphils 0.7 thou/uL (0.0-0.7); #Lymphocytes 2.8 thou/uL (1.20-3.40); #Monocytes 1.4 thou/uL (0.11-0.59); #Neutrophils 9.2 thou/uL (1.40-6.50); %Basophils 0.7 % (0.0-1.0); %Eosinophils 4.6 % (0.0-10.0); %Lymphocytes 19.7 % (21.0-51.0); %Monocytes 9.6 % (0.0-10.0); %Neutrophils 65.4 % (42.0-75.0); Hemoglobin 12.8 g/dL (14.0-18.0); Mean Corpuscular HGB CONC 31.4 g/dL (32.0-36.0); Mean Corpuscular Hemoglobin 29.7 pg (27.0-31.0); Mean Corpuscular Volume 94.4 fl (80.0-94.0); Mean Platelet Volume 8.2 fL (7.4-10.4); Platelet Count 250 thou/uL (130-400); RBC Distribution Width 13.4 % (11.5-14.5); Red Blood Cell (RBC) Count 4.31 mill/uL (4.70-6.10)
[2017-03-31] MEDS: Cephalexin 250 MG CAP PO SCH ×3 (05:12→17:25)
[2017-03-31 05:21] LABS: Anion Gap 9 mmol/L (10-20); BUN (Urea Nitrogen) 11 mg/dL (8.4-25.7); Calc. Creatinine Clearance 96 mL/min (70-130); Calcium 7.8 mg/dL (7.8-10.44); Carbon Dioxide 24 mmol/L (22-29); Chloride 110 mmol/L (98-107); Estimated GFR-MDRD Greater than 90; Glucose 100 mg/dL (70-105); Magnesium 1.7 mg/dL (1.6-2.6); Potassium 3.2 mmol/L (3.5-5.1); Sodium 140 mmol/L (136-145)
[2017-03-31] MEDS ORDERED: Potassium Chloride 20 MEQ TAB PO SCH (06:45)
[2017-03-31] MEDS: levETIRAcetam 500 MG TAB PO SCH ×2 (08:56→20:47)
[2017-03-31] MEDS: Magnesium Oxide 400 MG TAB PO SCH (08:57)
[2017-03-31] MEDS: Escitalopram Oxalate 20 mg Tablet PO SCH (08:57)
[2017-03-31] MEDS: Metoprolol Tartrate 50 MG TAB PO SCH ×2 (08:57→20:48)
[2017-03-31] MEDS ORDERED: CYCLOSPORINE PO SCH (09:00)
[2017-03-31] MEDS: Enoxaparin Sodium 80 MG/0.8 ML SYRINGE SC SCH ×2 (09:04→20:54)
[2017-03-31] MEDS: Oseltamivir 75 MG CAP PO SCH ×2 (09:04→20:48)
[2017-03-31] MEDS: predniSONE 5 MG TAB PO SCH (09:04)
[2017-03-31] MEDS: Nystatin Powder 15 GM BOT TOP SCH ×2 (09:05→20:48)
[2017-03-31] MEDS: Fluticasone Propionate Nasal Spray 16 gm Bottle NASAL SCH (09:05)
--- NOTE | 2017-03-31 09:34 | PDOC.FM ---
- Subjective Subjective: pt reports he is feeling better, no family at bedside when visiting with pt. Reports scrotal swelling, denies pain. Denies SOB, CP, NVDC. No acute events overnight. - Objective Vital Signs & Weight: Vital Signs (12 hours) Temp Pulse Resp BP Pulse Ox 03/31/17 07:40 96.6 F L 90 20 103/68 99 03/31/17 07:17 89 14 93 L 03/31/17 04:00 97.7 F 89 18 91/62 93 L 03/31/17 02:36 12 03/31/17 00:59 94 92/61 03/30/17 23:54 98.2 F 98 20 89/60 L 96 03/30/17 22:14 94 16 I&O: 03/30/17 03/31/17 04/01/17 06:59 06:59 06:59 Intake Total 2500 360 Balance 2500 360 Result Diagrams: 03/31/17 04:46 03/31/17 04:46 <Jeremy Luna - Last Filed: 03/31/17 09:32> - Objective Vital Signs & Weight: Vital Signs (12 hours) Temp Pulse Resp BP Pulse Ox 03/31/17 12:00 98.1 F 87 18 111/61 96 03/31/17 11:00 98.1 F 85 16 108/75 98 03/31/17 08:00 96.6 F L 90 20 103/68 99 03/31/17 07:40 96.6 F L 90 20 103/68 99 03/31/17 07:17 89 14 93 L I&O: 03/30/17 03/31/17 04/01/17 06:59 06:59 06:59 Intake Total 2500 360 Balance 2500 360 Result Diagrams: 03/31/17 04:46 03/31/17 04:46 <Karen Huff - Last Filed: 03/31/17 16:15> Phys Exam - Physical Examination Constitutional: NAD HEENT: PERRLA, sclera anicteric Neck: no nodes, no JVD diffuse rhonchi Cardiovascular: RRR, no significant murmur, no rub Gastrointestinal: soft, non-tender, no distention, positive bowel sounds Musculoskeletal: pulses present, edema present Neurological: non-focal, moves all 4 limbs -: scrotal swelling b/l, fluctuant <Jeremy Luna - Last Filed: 03/31/17 09:32> Dx/Plan (1) DVT (deep venous thrombosis) Code(s): I82.409 - ACUTE EMBOLISM AND THOMBOS UNSP DEEP VN UNSP LOWER EXTREMITY Status: Acute QualifierTitle: DVT location: lower extremity Affected thrombotic vein of extremity: unspecified vein of extremity Chronicity: unspecified Laterality: left Qualified Code(s): I82.402 - Acute embolism and thrombosis of unspecified deep veins of left lower extremity (2) Influenza A Code(s): J10.1 - FLU DUE TO OTH IDENT INFLUENZA VIRUS W OTH RESP MANIFEST Status: Acute (3) Developmental delay, moderate Code(s): R62.50 - UNSP LACK OF EXPECTED NORMAL PHYSIOL DEV IN CHILDHOOD Status : Chronic (4) HLD (hyperlipidemia) Code(s): E78.5 - HYPERLIPIDEMIA, UNSPECIFIED Status: Chronic QualifierTitle: Hyperlipidemia type: unspecified Qualified Code(s): E78.5 - Hyperlipidemia, unspecified (5) HTN (hypertension) Code(s): I10 - ESSENTIAL (PRIMARY) HYPERTENSION Status: Chronic QualifierTitle: Hypertension type: essential hypertension Qualified Code( s): I10 - Essential (primary) hypertension (6) Intellectual disability Code(s): F79 - UNSPECIFIED INTELLECTUAL DISABILITIES Status: Chronic - Plan Plan: continue tamiflu hypotension resolved after restarting prednisone and cyclosporine scrotal swelling fluctuant w/o pain and b/l, consider scrotal US continue therapeutic lovenox for DVT, pt has IVC filter <Jeremy Luna - Last Filed: 03/31/17 09:32> Attending Addendum - Attending Addendum I personally evaluated the patient and discussed the management with Dr. Luna I agree with the History, Examination, Assessment and Plan documented above with any addition or exceptions noted below- Patient without complaints. Noted by nursing to have swollen legs and scrotum. Nurse reports he has not voided on her shift yet. Afebrile VSS. A/P: 1) AMS- more towards baseline now; continue to monitor. 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 4) H/o chronic DVT in left leg with IVC filter placement in 2013- will discuss with PCP/NH attending - most likely will plan to stop lovenox as this is a chronic issue. <Karen Huff - Last Filed: 03/31/17 16:15>
[2017-03-31] MEDS ORDERED: Furosemide 40 MG/4 ML VIAL SLOW IVP SCH ×2 (11:45→16:30)
[2017-03-31] MEDS: cycloSPORINE, Modified 100 MG CAP PO SCH (12:41)
[2017-03-31] MEDS: Ibuprofen 800 MG TAB PO PRN (14:58)
[2017-03-31 18:38] LABS: Creatinine, Urine Less than 20.00 mg/dL (63-166); Protein, Urine Random Quant Less than 10 mg/dL
[2017-03-31] MEDS: Albumin 25% 25 GM/100 ML BOT IVPB SCH (20:46)
[2017-03-31] MEDS: Loratadine 10 MG TAB PO SCH (20:48)
[2017-04-01] MEDS: Cephalexin 250 MG CAP PO SCH ×4 (00:01→17:29)
[2017-04-01 05:09] LABS: #Eosinphils 0.6 thou/uL (0.0-0.7); #Lymphocytes 2.3 thou/uL (1.20-3.40); #Monocytes 1.2 thou/uL (0.11-0.59); #Neutrophils 9.9 thou/uL (1.40-6.50); %Basophils 0.3 % (0.0-1.0); %Eosinophils 4.4 % (0.0-10.0); %Lymphocytes 16.2 % (21.0-51.0); %Monocytes 8.5 % (0.0-10.0); %Neutrophils 70.6 % (42.0-75.0); Mean Corpuscular HGB CONC 33.2 g/dL (32.0-36.0); Mean Corpuscular Hemoglobin 31.1 pg (27.0-31.0); Mean Corpuscular Volume 93.7 fl (80.0-94.0); Mean Platelet Volume 8.8 fL (7.4-10.4); Platelet Count 268 thou/uL (130-400); RBC Distribution Width 13.4 % (11.5-14.5); Red Blood Cell (RBC) Count 3.86 mill/uL (4.70-6.10); White Blood Cell (WBC) Count 14.1 thou/uL (4.8-10.8)
[2017-04-01 05:35] LABS: Anion Gap 11 mmol/L (10-20); BUN (Urea Nitrogen) 17 mg/dL (8.4-25.7); Calc. Creatinine Clearance 96 mL/min (70-130); Calcium 7.8 mg/dL (7.8-10.44); Carbon Dioxide 29 mmol/L (22-29); Chloride 106 mmol/L (98-107); Estimated GFR-MDRD Greater than 90; Glucose 84 mg/dL (70-105); Magnesium 1.6 mg/dL (1.6-2.6); Potassium 3.3 mmol/L (3.5-5.1); Sodium 143 mmol/L (136-145)
[2017-04-01] MEDS: Albumin 25% 25 GM/100 ML BOT IVPB SCH ×3 (06:02→20:03)
[2017-04-01] MEDS ORDERED: Potassium Chloride 20 MEQ TAB PO SCH (07:00)
[2017-04-01] MEDS: Furosemide 100 MG/10 ML VIAL SLOW IVP SCH (09:02)
[2017-04-01] MEDS: Enoxaparin Sodium 80 MG/0.8 ML SYRINGE SC SCH ×2 (09:04→20:03)
[2017-04-01] MEDS: Oseltamivir 75 MG CAP PO SCH ×2 (09:05→20:02)
[2017-04-01] MEDS: Escitalopram Oxalate 20 mg Tablet PO SCH (09:05)
[2017-04-01] MEDS: predniSONE 5 MG TAB PO SCH (09:05)
[2017-04-01] MEDS: levETIRAcetam 500 MG TAB PO SCH ×2 (09:05→20:02)
[2017-04-01] MEDS: Fluticasone Propionate Nasal Spray 16 gm Bottle NASAL SCH (09:06)
[2017-04-01] MEDS: Magnesium Oxide 400 MG TAB PO SCH (09:06)
[2017-04-01] MEDS: cycloSPORINE, Modified 100 MG CAP PO SCH (09:06)
[2017-04-01] MEDS: Nystatin Powder 15 GM BOT TOP SCH ×2 (09:07→20:03)
[2017-04-01] MEDS: Metoprolol Tartrate 50 MG TAB PO SCH ×2 (09:07→20:02)
--- NOTE | 2017-04-01 09:20 | PDOC.FM ---
Addendum entered and electronically signed by Jeremy Luna DO 04/01/17 09: 29: For DVT continue therapeutic lovenox while inpatient. 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 Original Note: - Subjective Subjective: Overall pt reports he is feeling ok. He was ready to eat breakfast when i visited with him this morning. Per nurse, no acute events overnight. He has persistent scrotal and LE swelling, but denies associate pain. Denies NVDC, CP, SOB. - Objective I&O: 03/31/17 04/01/17 04/02/17 06:59 06:59 06:59 Intake Total 360 200 Output Total 4010 Balance 360 -3810 Result Diagrams: 04/01/17 04:07 04/01/17 04:07 <Jeremy Luna - Last Filed: 04/01/17 09:18> - Objective Vital Signs & Weight: Vital Signs (12 hours) Temp Pulse Resp BP Pulse Ox 04/01/17 10:25 103 H 20 93 L 04/01/17 08:00 98 F 103 H 20 113/77 93 L Weight Admit Weight 72.6 kg Weight 72.6 kg I&O: 03/31/17 04/01/17 04/02/17 06:59 06:59 06:59 Intake Total 360 200 Output Total 4010 Balance 360 -3810 Result Diagrams: 04/01/17 04:07 04/01/17 04:07 <Karen Huff - Last Filed: 04/01/17 12:08> Phys Exam - Physical Examination Constitutional: NAD HEENT: PERRLA, moist MMs Neck: no nodes, no JVD Respiratory: no wheezing, no rales diffuse rhonchi Cardiovascular: RRR, no significant murmur, no rub Gastrointestinal: soft, non-tender, no distention, positive bowel sounds Musculoskeletal: pulses present, edema present BL LE and scrotum Neurological: non-focal, moves all 4 limbs intelectually disabled Deviation from normal: b/l le erythematous rash to mid tibia 2/2 edema/stasis <Jeremy Luna - Last Filed: 04/01/17 09:18> Dx/Plan (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 - NEPHROTIC SYNDROME WITH MINOR GLOMERULAR ABNORMALITY Status: Chronic (2) DVT (deep venous thrombosis) Code(s): I82.409 - ACUTE EMBOLISM AND THOMBOS UNSP DEEP VN UNSP LOWER EXTREMITY Status: Acute QualifierTitle: DVT location: lower extremity Affected thrombotic vein of extremity: unspecified vein of extremity Chronicity: unspecified Laterality: left Qualified Code(s): I82.402 - Acute embolism and thrombosis of unspecified deep veins of left lower extremity (3) Influenza A Code(s): J10.1 - FLU DUE TO OTH IDENT INFLUENZA VIRUS W OTH RESP MANIFEST Status: Acute (4) Developmental delay, moderate Code(s): R62.50 - UNSP LACK OF EXPECTED NORMAL PHYSIOL DEV IN CHILDHOOD Status : Chronic (5) HLD (hyperlipidemia) Code(s): E78.5 - HYPERLIPIDEMIA, UNSPECIFIED Status: Chronic QualifierTitle: Hyperlipidemia type: unspecified Qualified Code(s): E78.5 - Hyperlipidemia, unspecified (6) HTN (hypertension) Code(s): I10 - ESSENTIAL (PRIMARY) HYPERTENSION Status: Chronic QualifierTitle: Hypertension type: essential hypertension Qualified Code( s): I10 - Essential (primary) hypertension (7) Intellectual disability Code(s): F79 - UNSPECIFIED INTELLECTUAL DISABILITIES Status: Chronic - Plan Plan: for flu continue tamiflu and will schedule duonebs, pt has weak cough, diffuse rhonchi and recieves scheduled nebs at the senior care per his sister for edema, likely 2/2 minimal change disease. 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 Low BP and worsening of edema/minimal change disease likely 2/2 missed days of prednisone and cyclosporine as pt is likely adrenal insufficient from group home steroid use BP responded appropriately with continuation of prednisone Hypotension unlikely 2/2 sepsis hypokalemia, replace continue diuresis and albumin, monitor BMP daily nephro consulted, appreciate recs <Jeremy Luna - Last Filed: 04/01/17 09:18> Attending Addendum - Attending Addendum I personally evaluated the patient and discussed the management with Dr. Luna I agree with the History, Examination, Assessment and Plan documented above with any addition or exceptions noted below- Patient c/o feeling bad; unable to describe further. Afebrile VSS. A/P: 1) Influenza A- continue tamiflu, 2) Minimal change disease- continue prednisone and cyclosporine. 3) Anasarce- diuresed 4L yesterday; swelling slightly improved; Continue albumin and lasix; appreciate nephrology assistance. May need to increase steroids. <Karen Huff - Last Filed: 04/01/17 12:08>
[2017-04-01] MEDS: Ibuprofen 800 MG TAB PO PRN ×2 (12:01→17:31)
--- NOTE | 2017-04-01 12:53 | CON ---
DATE OF CONSULTATION: 04/01/2017 SERVICE: Renal Medicine. HISTORY OF PRESENT ILLNESS: Mr. Aldana is a 57-year-old white male who was initially admitted for let hargy and abdominal pain. He was found to be having more significant scrotal edema. I did discuss w ith her residency regarding this and he was started on Lasix 80 mg IV q.12 hours. I have decided to start him on some salt poor albumin to protect his intravascular volume while we were trying to optim ize fluid removal from the scrotal swelling. Please note, I did review the laboratories and he does not have significant proteinuria suggesting that his minimal change disease is well controlled. Please note, renal function is also within normal. This morning, the patient still feels lethargic. REVIEW OF SYSTEMS: Decreased energy level. Decreased appetite. No chest pain. Positive for scrota l swelling. No nausea, no vomiting, no diarrhea, no fever or chills. Occasional abdominal pain. No gross hematuria. No dysuria or urinary frequency. MEDICATIONS: Of 04/01/2017, albumin 25 grams IV q.8 hours, DuoNeb q.4 hours p.r.n., Keflex 500 mg q. 6 hours, Neoral 100 mg p.o. daily, Lovenox 70 mg subcu q.12 hours, Lexapro 20 mg daily, furosemide 80 mg IV daily, Motrin p.r.n., Keppra 1500 mg p.o. b.i.d., magnesium 64 mg p.o. b.i.d., Lopressor 50 mg b.i.d., acyclovir cream, Tamiflu 75 mg p.o. b.i.d., prednisone 5 mg daily. PAST MEDICAL HISTORY: Includes: 1. History of biopsy proven minimal change disease. 2. Status post nephrotic syndrome. 3. History of seizure disorder. 4. Hypertension. 5. Hyperlipidemia. 6. ? of dementia. 7. Status post DVT. 8. Osteoporosis. 9. History of sleep apnea. 10. Status post CVA. 11. Chronic low back pain. PAST SURGICAL HISTORY: 1. Status post IVC filter placement. 2. Status post laparoscopic cholecystectomy. 3. Status post renal biopsy. 4. Status post splenectomy. SOCIAL HISTORY: Mental/intellectual disability. No blood transfusion. Education, 8th grade. 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 No IV drug abuse. Currently in [facility]. Single. No chi ldren. No smoking. No IV drug abuse. ALLERGIES: DILANTIN, CIPRO, MORPHINE. TRAUMA: None. IMMUNIZATIONS: Up to date. HOSPITALIZATIONS: Please see past medical history. FAMILY HISTORY: No family history of ESRD. PHYSICAL EXAMINATION: VITAL SIGNS: Blood pressure is 113/77, heart rate 103, respiratory rate 20, temperature 98, pulse ox 93%. GENERAL: Noted to be awake, alert, comfortable, somewhat lethargic, not in distress. SKIN: Adequate turgor. HEENT: He has pinkish conjunctivae, anicteric sclerae. NECK: No neck mass, no carotid bruits, no JVD. CHEST: No deformities. LUNGS: Clear breath sounds. No wheezing, no crackles. HEART: Normal sinus rhythm. No murmur, no gallops or rubs. ABDOMEN: Globular, soft, nontender, no masses. EXTREMITIES: No edema. GENITALIA: Positive for scrotal swelling. LABORATORY DATA: Of 04/01/2017, white count 14.1, hemoglobin 12, sodium 143, potassium 3.3, chloride 106, carbon dioxide 29, BUN 17, creatinine 0.86. ASSESSMENT AND PLAN: 1. Scrotal swelling - currently on Lasix in a combination of albumin infusion. This is going as uri ne output. 2. 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 The patient has no evidence o f any proteinuria suggesting that his minimal change disease is in remission. He will continue curre nt dose of cyclosporine and low dose prednisone. If the scrotal swelling remains unimproved, conside r urology evaluation as well as possibility of imaging his abdomen and pelvis via CT scan. For the m omeizabella, agree with current management.
[2017-04-01] MEDS: Magnesium Chloride 64 MG TAB PO SCH (20:02)
[2017-04-01] MEDS: Loratadine 10 MG TAB PO SCH (20:03)
[2017-04-01] MEDS: Acetaminophen 325 MG TAB PO PRN (23:47)
[2017-04-02] MEDS: Cephalexin 250 MG CAP PO SCH ×4 (00:10→17:16)
[2017-04-02 05:08] LABS: Anion Gap 13 mmol/L (10-20); BUN (Urea Nitrogen) 42 mg/dL (8.4-25.7); Calc. Creatinine Clearance 100 mL/min (70-130); Calcium 8.5 mg/dL (7.8-10.44); Carbon Dioxide 31 mmol/L (22-29); Chloride 105 mmol/L (98-107); Estimated GFR-MDRD Greater than 90; Glucose 84 mg/dL (70-105); Potassium 3.6 mmol/L (3.5-5.1); Sodium 145 mmol/L (136-145)
[2017-04-02 05:45] LABS: #Basophils 0.1 thou/uL (0.0-0.2); #Eosinphils 0.5 thou/uL (0.0-0.7); #Lymphocytes 3.4 thou/uL (1.20-3.40); #Monocytes 1.5 thou/uL (0.11-0.59); #Neutrophils 11.9 thou/uL (1.40-6.50); %Basophils 0.4 % (0.0-1.0); %Eosinophils 3.1 % (0.0-10.0); %Lymphocytes 19.4 % (21.0-51.0); %Monocytes 8.5 % (0.0-10.0); %Neutrophils 68.6 % (42.0-75.0); Hemoglobin 8.1 g/dL (14.0-18.0); Mean Corpuscular HGB CONC 33.4 g/dL (32.0-36.0); Mean Corpuscular Hemoglobin 31.3 pg (27.0-31.0); Mean Corpuscular Volume 93.8 fl (80.0-94.0); Mean Platelet Volume 8.3 fL (7.4-10.4); Platelet Count 273 thou/uL (130-400); RBC Distribution Width 13.3 % (11.5-14.5); White Blood Cell (WBC) Count 17.4 thou/uL (4.8-10.8)
[2017-04-02] MEDS: Albumin 25% 25 GM/100 ML BOT IVPB SCH (06:22)
[2017-04-02] MEDS: Magnesium Chloride 64 MG TAB PO SCH ×2 (09:37→22:15)
[2017-04-02] MEDS: Magnesium Oxide 400 MG TAB PO SCH (09:38)
[2017-04-02] MEDS: Escitalopram Oxalate 20 mg Tablet PO SCH (09:38)
[2017-04-02] MEDS: levETIRAcetam 500 MG TAB PO SCH ×2 (09:38→22:15)
[2017-04-02] MEDS: cycloSPORINE, Modified 100 MG CAP PO SCH (09:38)
[2017-04-02] MEDS: predniSONE 5 MG TAB PO SCH (09:38)
[2017-04-02] MEDS: Enoxaparin Sodium 80 MG/0.8 ML SYRINGE SC SCH (09:39)
[2017-04-02] MEDS: Furosemide 100 MG/10 ML VIAL SLOW IVP SCH (09:42)
[2017-04-02] MEDS: Metoprolol Tartrate 50 MG TAB PO SCH ×2 (09:43→22:16)
[2017-04-02] MEDS: Fluticasone Propionate Nasal Spray 16 gm Bottle NASAL SCH (09:43)
[2017-04-02] MEDS: Nystatin Powder 15 GM BOT TOP SCH (09:43)
--- NOTE | 2017-04-02 09:45 | CT ---
CT OF HEAD NONCONTRAST: Indication: Fall, head injury. FINDINGS: There is prominent asymmetric atrophy involving the cerebellum. There are symmetric lacunar infarctio ns of each basal ganglia. Parenchymal atrophy is present with compensatory dilatation of the ventricu lar system. No intracranial hemorrhage, mass effect, or midline shift. Focal density of the right par ietal scalp is present which may relate to an area of scar. IMPRESSION: 1. No acute intracranial hemorrhage or mass effect. 2. Prominent cerebellar parenchymal atrophy. 3. Remote appearing lunar infarctions of each basal ganglia. POS: [facility]
--- NOTE | 2017-04-02 10:58 | PDOC.FM ---
- Subjective Subjective: Mr Aldana suffered a fall yesterday evening and as such was taken for ct head w/ o contrast which was negative. Otherwise, no events overnight. Per nurse, there was report of tarry stool yesterday. He does report some sensation of having to urinate, otherwise no complaints. There has been significant improvement in the scrotal swelling since yesterday. His Hgb has dropped fairly significantly, but pt denies cp, sob, weakness. - Objective Vital Signs & Weight: Vital Signs (12 hours) Temp Pulse Resp BP Pulse Ox 04/02/17 09:51 112 H 18 94 L 04/02/17 09:06 97.7 F 18 120/80 93 L 04/02/17 06:56 85 20 93 L 04/02/17 02:29 108 H 16 95 Weight Admit Weight 72.6 kg Weight 72.6 kg I&O: 04/01/17 04/02/17 04/03/17 06:59 06:59 06:59 Intake Total 200 300 Output Total 4010 4600 Balance -3810 -4300 Result Diagrams: 04/02/17 05:24 04/02/17 03:54 <Jeremy Luna - Last Filed: 04/02/17 10:56> - Objective Vital Signs & Weight: Vital Signs (12 hours) Temp Pulse Resp BP Pulse Ox 04/02/17 09:51 112 H 18 94 L 04/02/17 09:06 97.7 F 18 120/80 93 L 04/02/17 08:00 97.7 F 112 H 18 120/80 94 L 04/02/17 06:56 85 20 93 L 04/02/17 02:29 108 H 16 95 Weight Admit Weight 72.6 kg Weight 72.6 kg I&O: 04/01/17 04/02/17 04/03/17 06:59 06:59 06:59 Intake Total 200 300 Output Total 4010 4600 Balance -3810 -4300 Result Diagrams: 04/02/17 05:24 04/02/17 03:54 <Karen Huff - Last Filed: 04/02/17 11:43> Phys Exam - Physical Examination Constitutional: NAD HEENT: PERRLA, moist MMs, sclera anicteric Neck: no nodes, no JVD Respiratory: no wheezing, no rales diffuse rhonchi Cardiovascular: RRR, no significant murmur, no rub Gastrointestinal: soft, no distention, positive bowel sounds LUQ, LLQ TTP Musculoskeletal: pulses present, edema present (2+, pitting) Neurological: non-focal, moves all 4 limbs <Jeremy Luna - Last Filed: 04/02/17 10:56> Dx/Plan (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 - NEPHROTIC SYNDROME WITH MINOR GLOMERULAR ABNORMALITY Status: Resolved (2) DVT (deep venous thrombosis) Code(s): I82.409 - ACUTE EMBOLISM AND THOMBOS UNSP DEEP VN UNSP LOWER EXTREMITY Status: Acute QualifierTitle: DVT location: lower extremity Affected thrombotic vein of extremity: unspecified vein of extremity Chronicity: unspecified Laterality: left Qualified Code(s): I82.402 - Acute embolism and thrombosis of unspecified deep veins of left lower extremity (3) Influenza A Code(s): J10.1 - FLU DUE TO OTH IDENT INFLUENZA VIRUS W OTH RESP MANIFEST Status: Acute (4) Developmental delay, moderate Code(s): R62.50 - UNSP LACK OF EXPECTED NORMAL PHYSIOL DEV IN CHILDHOOD Status : Chronic (5) HLD (hyperlipidemia) Code(s): E78.5 - HYPERLIPIDEMIA, UNSPECIFIED Status: Chronic QualifierTitle: Hyperlipidemia type: unspecified Qualified Code(s): E78.5 - Hyperlipidemia, unspecified (6) HTN (hypertension) Code(s): I10 - ESSENTIAL (PRIMARY) HYPERTENSION Status: Chronic QualifierTitle: Hypertension type: essential hypertension Qualified Code( s): I10 - Essential (primary) hypertension (7) Intellectual disability Code(s): F79 - UNSPECIFIED INTELLECTUAL DISABILITIES Status: Chronic - Plan Plan: There has been significant improvement in the scrotal swelling since yesterday, we will dc albumin for now and decrease lasix to 40mg/day per nephro recs Given the drop in hgb, and reports of tarry stool will order FOBT and start on PPI as well as discontinue use of lovenox since pt has IVC filter in place and risk of bleed/possibility of bleed outweights risk of VTE-->PE Pt reports sensation of having to urinate, herrera is in place but will check UA to make sure there is no infection Overall, pt was significantly volume up and has been retaining until successful diuresis over last 2 days. Will hold off on urology consult for now and order CT abd/pelvis if no source of bleeding is found with FOBT <Jeremy Luna - Last Filed: 04/02/17 10:56> Attending Addendum - Attending Addendum I personally evaluated the patient and discussed the management with Dr. Luna I agree with the History, Examination, Assessment and Plan documented above with any addition or exceptions noted below- Patient complaining of lower abdominal pain. Afebrile VSS. A/P: 1) Anasarca- improved; d/c albumin and decrease lasix; weight up 12 kg from prior hospitalization; suspect fluid shifts and decreased activity with dependent edema. 2) Anemia- Follow serial H/H ; check FOBT; d/c lovenox; start PPI. 3) Minimal change disease - stable; appreciate nephrology assistance; continue prednisone and cyclosporine. <Karen Huff - Last Filed: 04/02/17 11:43>
[2017-04-02 12:14] LABS: Hemoglobin 7.1 g/dL (14.0-18.0); Platelet Count 267 thou/uL (130-400)
[2017-04-02 12:28] LABS: Bilirubin Negative (Negative); Blood, Urine Small (Negative); Clarity CLEAR (Clear); Glucose, Urine (Dipstick) Negative (Negative); Leukocyte Small (Negative); Nitrite Negative (Negative); Protein, Urine (Dipstick) Negative (Neg-Trace); Specific Gravity, Urine 1.015 (1.002-1.036); Urobilinogen 0.2 mg/dL (0.2-1.0); pH, Urine 6.5 (5.0-9.0)
[2017-04-02 12:30] LABS: Bacteria/HPF None Seen HPF (None Seen); Hyaline Casts/LPF 0-3 HYALINE CAST LPF (0-3 Hyaline); Pathc Cast-AUWi Flag 0.27 (0-2.49); Squamous Epithelial None Seen HPF (0-3); WBC/HPF 0-3 HPF (0-3)
--- NOTE | 2017-04-02 13:48 | RAD ---
SINGLE VIEW OF THE CHEST: Comparison: 03-29-17 History: Abnormal lung sounds/rhonchi. FINDINGS: Single view of the chest shows a normal sized cardiomediastinal silhouette. There is no evidence of c onsolidation, mass, or pleural effusion. Degenerative changes are seen in the spine. IMPRESSION: No evidence of acute cardiopulmonary disease. POS: [facility]
[2017-04-02] MEDS ORDERED: Succinylcholine Chloride 20 MG/ML 10 ml SYRINGE FS ONE (14:43)
[2017-04-02] MEDS ORDERED: PHENYLEPHRINE-NS 100 MCG/ML 10 ML SYRINGE ONE (14:43)
[2017-04-02] MEDS ORDERED: Lidocaine 1% PF 5 ML VIAL ONE (14:43)
[2017-04-02] MEDS ORDERED: Propofol 200 MG/20 ML VIAL ONE (14:43)
[2017-04-02] MEDS: Acetaminophen 325 MG TAB PO PRN (14:51)
[2017-04-02] MEDS: Oseltamivir 75 MG CAP PO SCH (14:55)
[2017-04-02 16:26] LABS: Hemoglobin 7.4 g/dL (14.0-18.0); Platelet Count 298 thou/uL (130-400)
--- NOTE | 2017-04-02 16:40 | PDOC.EVN ---
Event Note - Event Note Event Note: Called by nurse immediately before code green. Patient had just vomitted large volume of miranda blood. Patient was awake but drowsy, alert x1, which is his baseline orientation. BP was 86/56, HR 107. Asked for large bore IV to be started in addition to present 22 gauge IV. Started bolus of IV fluid. Ordered for 2 units stat type and cross, CBC, and coags. Called Dr. Meza who asked for protonix drip to be started and consent signed for EGD. Spoke with available family, sister, who was at bedside and she consented to the procedure. She also said that she believes that patient and patient's medical POA would consent to blood products. Will attempt to contact POA when I have the opportunity. Transferred patient to [facility]. <Alan Bullock - Last Filed: 04/02/17 16:34> Attending Addendum - Attending Addendum Called by resident for Code Green due to acute onset of hematemesis. Patient had moderate to large volume vomiting of bright red blood. Diaper with melanotic stool also. Stat repeat Hgb=7.4. Plan to transfuse 2u PRBCs. Started on protonix drip. GI consulted and plan for EGD. Plan for serial H/H. Lovenox discontinued this morning. -Received last dose yesterday evening. Continue IVF. <Karen Huff - Last Filed: 04/02/17 17:01>
[2017-04-02] MEDS ORDERED: Pantoprazole 80 MG in Sodium Chloride 0.9% 100 ML IVP SCH (17:30)
[2017-04-02] MEDS ORDERED: Fentanyl 100 MCG/2 ML VIAL ONE ×2 (18:05→19:34)
[2017-04-02] MEDS ORDERED: Ondansetron HCl/PF 4 MG/2 ML Vial IVP PRN (20:09)
[2017-04-02] MEDS ORDERED: Promethazine HCl 25 MG/ML VIAL SLOW IVP PRN (20:09)
[2017-04-02] MEDS ORDERED: Promethazine HCl 25 MG/ML VIAL IM PRN (20:09)
[2017-04-02] MEDS: Loratadine 10 MG TAB PO SCH (22:15)
[2017-04-03] MEDS: Nystatin Powder 15 GM BOT TOP SCH ×3 (00:47→22:10)
[2017-04-03] MEDS: Cephalexin 250 MG CAP PO SCH ×4 (00:48→16:38)
[2017-04-03 01:02] LABS: Hemoglobin 10.1 g/dL (14.0-18.0); Mean Corpuscular HGB CONC 31.6 g/dL (32.0-36.0); Mean Corpuscular Hemoglobin 29.3 pg (27.0-31.0); Mean Corpuscular Volume 92.6 fl (80.0-94.0); Platelet Count 252 thou/uL (130-400); RBC Distribution Width 12.8 % (11.5-14.5); Red Blood Cell (RBC) Count 3.44 mill/uL (4.70-6.10); White Blood Cell (WBC) Count 23.8 thou/uL (4.8-10.8)
--- NOTE | 2017-04-03 02:05 | OP ---
DATE OF PROCEDURE: 04/02/2017 OPERATIVE PROCEDURE: 1. Esophagogastroduodenoscopy. 2. Gastric lavage with a wide-bore lavage tube to try to remove the clots as much as possible. 3. Super suction used to remove some of the clots and some food material in the stomach. 4. Injection of epinephrine 1:10,000 to a total of 5 mL over a visible vessel over the proximal stom ach. 5. Status post Hemoclip placement x3 over the visible vessel. 6. Multiple gastric polyps and duodenal polyps. PROCEDURE NOTE: The patient was intubated and was given sedation by Anesthesia Department. A Pentax video gastroscope done under direct vision was passed down the oropharynx, the gastroesophageal junc tion, into the stomach. There is blood regurgitating from the stomach and into the distal esophagus. This was suctioned. No esophageal pathology seen. The GE junction, no pathology seen. Upon enter ing the stomach, the patient was found to have a very large amount of blood clots and what appeared t o be some retained food material. Water was used to irrigate and wash out. I was able to advance pa st this blood clots and the food into the distal stomach. The gastric antrum, lower part of the moreno kingsley body, incisura angularis, no pathology seen except for gastric polyps; there is some mucus coatin g of the blood. The duodenal bulb, descending duodenum again showed some mucus coating with blood. There is no active bleeding seen. He also has a duodenal polyp. The scope was retroflexed and was f ound to have large amount of blood clots and also some food material in the proximal stomach, especia lly the fundus and cardia, greater curvature. Some of the clots were used using the suction port and the scope was withdrawn back and advanced back multiple times to remove some of the clots. Also, th e clots were very large cannot be removed. Subsequently, for suction again some water was irrigated vigorously and some of the clots removed. Despite the above measures, the clot could not be complete ly dislodged from the area. The patient was turned on his back and again, another attempt was made. Again, the clot was stuck to the gastric wall and could not be dislodged. The patient initially mad e upright in the bed. Again, another attempt to try to wash out and remove the clots was unsuccessfu l. Finally, a large bore lavage tube was placed and water was irrigated, washed out, and lot of clot s were removed. The scope was advanced back into the stomach again. There is a 1 big large clot in the greater curvature close to the fundus. This was and the scope suction to remove all the cl ots completely. There is some coffee-ground material in the stomach which was washed out. After of what appears to be about 10-12 minutes of searching, washing, and irrigating, I was able to see a vis ible vessel over the proximal stomach. This was located, I believe, it was from the greater curvatur e positive for . This was injected with epinephrine 1:10,000, a total of 5 mL. Following injec tion, the Hemoclips were placed over the visible vessel with good hemostasis. The stomach was decomp ressed and the scope removed. RECOMMENDATIONS: 1. N.p.o. for today. 2. Repeat H&H in 2 hours and repeat H&H tomorrow morning. 3. Continue with Protonix.
[2017-04-03 05:45] LABS: Anion Gap 13 mmol/L (10-20); BUN (Urea Nitrogen) 40 mg/dL (8.4-25.7); Calc. Creatinine Clearance 98 mL/min (70-130); Calcium 8.4 mg/dL (7.8-10.44); Carbon Dioxide 32 mmol/L (22-29); Chloride 108 mmol/L (98-107); Estimated GFR-MDRD Greater than 90; Glucose 66 mg/dL (70-105); Potassium 3.5 mmol/L (3.5-5.1); Sodium 149 mmol/L (136-145)
--- NOTE | 2017-04-03 06:10 | CON ---
DATE OF CONSULTATION: 04/02/2017 REFERRING PHYSICIAN: Dr. Rachel Suresh, [facility]. REASON FOR CONSULTATION: Acute gastrointestinal bleeding, hypotension, anemia due to blood loss. HISTORY OF PRESENT ILLNESS: Mr. Jamel Aldana is a 57-year-old male, who is a half-way re sident. The patient does have mild cognitive impairment and he does not really give any history. Th e patient's sister Lynn is known to me from before. The patient is also known to me from before wh en I saw him about 4 or 5 years ago because of dysphagia and also meat impaction. The patient had no t seen me over the last several years. The patient apparently was brought from the half-way on 0 03/28/2017 with some lethargy and vague abdominal pain and some altered mental status. In the ER, it was found he has got UTI and he got a dose of Rocephin, and also some clindamycin. He has some funny reaction to the antibiotics. The patient was hospitalized because of altered mental status and poss ible UTI. The patient had a normal hemoglobin on admission. The patient is on Lovenox. The admittin g CBC shows a hemoglobin around 14.6, hematocrit 46.6. Today, he was found to have drop in blood cou nt. The blood count actually dropped around 7.1-7.4. This afternoon, suddently he was felt to havin g a vomiting and started vomiting fresh blood. He became hypotensive and shocky. The patient also w as given IV Protonix, IV fluids and transferred to the intermediate ICU. [facility], he was . His blood pressure was actually around 100/50. He is awake, but appears pale. H e does communicate, but he is not a good historian. Most of the history was obtained by going over t he admitting history and physical and also by the patient's sister Lynn. The patient has had an EG D I believe in 2012 when he came to the ER because of food impaction. He underwent EGD and removal o f meat impaction. At that time, he was found to have gastric ulcer. The patient has no other releva nt history. ALLERGIES: Multiple, 1. CIPRO. 2. MORPHINE. 3. DILANTIN. 4. TAPE. MEDICAL ILLNESSES: 1. Cognitive impairment. 2. Past history of cerebrovascular accident. 3. Past history of DVT. 4. Epilepsy. 5. Depression 6. Sleep apnea. 7. Chronic acid reflux 8. Hyperlipidemia. 9. Hypertension. 10. Past history of dysphagia. 12. Adrenal insufficiency due to chronic steroid use. 13. He has had findings noted in the past. SURGERIES: 1. Status post IVC filter placement. 2. Cholecystectomy. 3. Appendectomy. 4. Laparotomy. 5. Renal biopsy. 6. Spleen surgery. FAMILY HISTORY: Hypertension, diabetes, COPD, hyperlipidemia, depression. SOCIAL HISTORY: The patient is a half-way resident. No history of alcohol intake or smoking. REVIEW OF SYSTEMS: Unobtainable as he is not a good historian and it is difficult to obtain history from the patient. PHYSICAL EXAMINATION: GENERAL: Physical examination revealed a male, who appears awake, alert, and communicative . He appears very pale. VITAL SIGNS: Blood pressure 100/50 in the ICU. Pulse is around 100. He is afebrile. HEENT: Conjunctivae clear. NECK: Supple. CARDIOVASCULAR: First and second heart sounds normal. LUNGS: Clear to auscultation. ABDOMEN: Soft to palpate. Abdomen shows multiple scar tissue in the midline more over the lower abd omen. There is no tenderness. No organomegaly or masses. Bowel sounds are normal. EXTREMITIES: No edema. LABORATORY AND X-RAY FINDINGS: On admission: WBC was 14,300, hemoglobin 14.6, hematocrit 46.6, MCV normal, platelet count of 169,000. He has normal LFTs, normal chemistry panel, bilirubin 1.9. He alvarez d a drop in blood count significantly from 14.6 to 7.1-7.4 today. The cause of the GI bleeding is unclear. Possible peptic ulcer disease, possibly AV malformation. PLAN OF TREATMENT: 1. IV Protonix. 2. Transfuse 2 units of packed cells. 3. Emergent EGD as soon as possible because of bleeding and the bleeding is to be controlled by prob ably surgical intervention. I did talk to the patient's family and explained about the plan of treat ment. The patient and family were agreeable. I will go ahead with EGD as soon as possible.
[2017-04-03 06:34] LABS: Hemoglobin 10.6 g/dL (14.0-18.0); Mean Corpuscular HGB CONC 33.2 g/dL (32.0-36.0); Mean Corpuscular Hemoglobin 31.1 pg (27.0-31.0); Mean Corpuscular Volume 93.7 fl (80.0-94.0); Mean Platelet Volume 9.6 fL (7.4-10.4); Platelet Count 255 thou/uL (130-400); White Blood Cell (WBC) Count 22.9 thou/uL (4.8-10.8)
[2017-04-03 07:23] LABS: Band 5 % (5-11); Eosinophils 3 % (0-10); Lymphocytes 13 % (21-51); MDiff Complete? YES; Monocytes 5 % (0-10); Neutrophil 74 % (42-75); PLT Morphology Comment Appears Adequate; Polychromasia SLIGHT = 2-3 cells (100X) (0-2/hpf); Target Cells SLIGHT = 2-5 cells (100X) (0-1/hpf)
[2017-04-03] MEDS: cycloSPORINE, Modified 100 MG CAP PO SCH (08:24)
[2017-04-03] MEDS: Magnesium Chloride 64 MG TAB PO SCH ×2 (08:24→22:10)
[2017-04-03] MEDS: Magnesium Oxide 400 MG TAB PO SCH (08:25)
[2017-04-03] MEDS: Escitalopram Oxalate 20 mg Tablet PO SCH (08:25)
[2017-04-03] MEDS: levETIRAcetam 500 MG TAB PO SCH ×2 (08:25→22:08)
[2017-04-03] MEDS: predniSONE 5 MG TAB PO SCH (08:25)
[2017-04-03] MEDS: Metoprolol Tartrate 50 MG TAB PO SCH ×2 (08:26→22:10)
[2017-04-03] MEDS: Fluticasone Propionate Nasal Spray 16 gm Bottle NASAL SCH (08:26)
--- NOTE | 2017-04-03 08:57 | PDOC.FM ---
- Subjective Subjective: Pt had acute GI bleed yesterday afternoon with associated with hematemesis. Pt was taken for EGD and bleeding vessel was visualized, clipped, and injected with adequate hemostasis. He was transfused 2 U PRBC's and his hemoglobin has remained stable throughout the night w/o any continued evidence of active bleed. Pt was hypotensive during episode, but BP has been trending up slowly since EGD. His scrotal swelling has improved. Otherwise pt has no complaints. - Objective Vital Signs & Weight: Vital Signs (12 hours) Temp Pulse Resp BP Pulse Ox 04/03/17 08:30 97 04/03/17 08:27 105 H 21 H 97 04/03/17 07:32 98.7 F 109 H 22 H 109/63 96 04/03/17 04:00 98.2 F 110 H 20 99/63 100 04/03/17 02:42 102 H 20 96 04/03/17 00:00 99 20 97/60 100 04/02/17 23:13 101 H 16 100 04/02/17 21:00 96.9 F L 106 H 22 H 96/61 99 Weight Admit Weight 72.6 kg Weight 69.127 kg I&O: 04/02/17 04/03/17 04/04/17 06:59 06:59 06:59 Intake Total 300 50 Output Total 4600 1325 Balance -0077 -4469 Result Diagrams: 04/03/17 03:34 04/03/17 03:34 <Jeremy Luna - Last Filed: 04/03/17 08:54> - Objective Vital Signs & Weight: Vital Signs (12 hours) Temp Pulse Resp BP Pulse Ox 04/03/17 08:30 97 04/03/17 08:27 105 H 21 H 97 04/03/17 08:00 98.7 F 105 H 21 H 97 04/03/17 07:32 98.7 F 109 H 22 H 109/63 96 04/03/17 04:00 98.2 F 110 H 20 99/63 100 04/03/17 02:42 102 H 20 96 04/03/17 00:00 99 20 97/60 100 04/02/17 23:13 101 H 16 100 Weight Admit Weight 72.6 kg Weight 69.127 kg I&O: 04/02/17 04/03/17 04/04/17 06:59 06:59 06:59 Intake Total 300 50 Output Total 4600 1325 Balance -9810 -1275 Result Diagrams: 04/03/17 03:34 04/03/17 03:34 <Karen Huff - Last Filed: 04/03/17 11:14> Phys Exam - Physical Examination Constitutional: NAD HEENT: PERRLA, sclera anicteric Neck: no nodes, no JVD Respiratory: no wheezing, no rales diffuse rhonchi Cardiovascular: RRR, no significant murmur Gastrointestinal: soft, non-tender, no distention, positive bowel sounds Musculoskeletal: pulses present, edema present (2+ pitting and scrotal swelling , improved from yesterday ) Neurological: non-focal, normal sensation, moves all 4 limbs <Jeremy Luna - Last Filed: 04/03/17 08:54> Dx/Plan (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 - NEPHROTIC SYNDROME WITH MINOR GLOMERULAR ABNORMALITY Status: Resolved (2) DVT (deep venous thrombosis) Code(s): I82.409 - ACUTE EMBOLISM AND THOMBOS UNSP DEEP VN UNSP LOWER EXTREMITY Status: Acute QualifierTitle: DVT location: lower extremity Affected thrombotic vein of extremity: unspecified vein of extremity Chronicity: unspecified Laterality: left Qualified Code(s): I82.402 - Acute embolism and thrombosis of unspecified deep veins of left lower extremity (3) Influenza A Code(s): J10.1 - FLU DUE TO OTH IDENT INFLUENZA VIRUS W OTH RESP MANIFEST Status: Acute (4) Developmental delay, moderate Code(s): R62.50 - UNSP LACK OF EXPECTED NORMAL PHYSIOL DEV IN CHILDHOOD Status : Chronic (5) HLD (hyperlipidemia) Code(s): E78.5 - HYPERLIPIDEMIA, UNSPECIFIED Status: Chronic QualifierTitle: Hyperlipidemia type: unspecified Qualified Code(s): E78.5 - Hyperlipidemia, unspecified (6) HTN (hypertension) Code(s): I10 - ESSENTIAL (PRIMARY) HYPERTENSION Status: Chronic QualifierTitle: Hypertension type: essential hypertension Qualified Code( s): I10 - Essential (primary) hypertension (7) Intellectual disability Code(s): F79 - UNSPECIFIED INTELLECTUAL DISABILITIES Status: Chronic (8) Hypernatremia Code(s): E87.0 - HYPEROSMOLALITY AND HYPERNATREMIA Status: Acute - Plan Plan: pt transfered to [facility] 2/2 brisk upper GI bleed with acute drop in hgb. Pt was transfused 2 U and has since stabilized. will transfuse prbcs if Hgb <7 hold BP medications for now 2/2 decreased BP, will trend and restart SHADE. GI consulted, appreciate recs elevated BUN likely 2/2 Upper GI bleed Hypernatremia w/o associated symptoms, will start D5W @ 75mls/he per nephro recs CXR negative for acute CT abnormality, continue scheduled nebs Lasix decreased per nephro recs Repeat cbc bmp this afternoon scrotal swelling continues to improve, lasix per nephrology <Jeremy Luna - Last Filed: 04/03/17 08:54> Attending Addendum - Attending Addendum I personally evaluated the patient and discussed the management with Dr. Luna I agree with the History, Examination, Assessment and Plan documented above with any addition or exceptions noted below- Patient feeling better this morning. Still NPO after EGD; nurse reports no further BM. Afebrile VSS A/P: 1) Acute GI bleed- H/H stable; continue protonix drip; monitor H/H; appreciate GI assistance. 2) Anasarca- improved. 3) Influenza- completed course of tamiflu. <Karen Huff - Last Filed: 04/03/17 11:14>
[2017-04-03] MEDS ORDERED: Furosemide 40 MG/4 ML VIAL SLOW IVP SCH (09:00)
--- NOTE | 2017-04-03 09:18 | PRG ---
DATE OF SERVICE: 04/03/2017 SUBJECTIVE: Mr. Aldana is a 57-year-old white male followed up by the renal service for his minimal c hange disease and currently on immunosuppression-cyclosporine and steroids. I have discussed in the past numerous times about weaning him off those medications, but the family has declined. During thi s hospitalization, he was noted to have an upper gastrointestinal bleed. GI consult was done with Dr Charles Meza and he underwent upper GI endoscopy. Hemoclips was done and injection with epinephrine was done due to the GI bleed. Coffee-ground materi al was found to be copious. This morning, no new complaints. OBJECTIVE: VITAL SIGNS: Blood pressure is 109/63, heart rate 21, heart rate is 105, respiratory rate 21, pulse ox 97%. GENERAL: Noted to be awake, lethargic, not in overt distress. SKIN: Adequate turgor. HEENT: He has slightly pale conjunctivae, anicteric sclerae. NECK: No neck mass, no carotid bruits, no JVD. CHEST: No deformities. LUNGS: Decreased breath sounds. HEART: Normal sinus rhythm. No murmur, no gallops, no rubs. ABDOMEN: Globular, soft, nontender. EXTREMITIES: No edema. GENITALIA: Having decreased scrotal swelling. MEDICATIONS: medications of 04/03/2017 reviewed. LABORATORIES: Labs or 04/03/2017, white count 22.9, hemoglobin 10.6, hematocrit 31.9, sodium 149, po tassium 3.5, chloride 108, carbon dioxide 32, BUN 40, creatinine 0.84, glucose 66, calcium 8.4. ASSESSMENT AND PLAN: 1. Mild hypernatremia. Start D5 water at 75 mL per hour. 2. Scrotal swelling, much improved with IV Lasix and albumin infusion. Please note patient's Lasix has been decreased from 80 to 40 mg IV. We will further adjust this downwards depending on his clini sheeba course. 3. Status post upper gastrointestinal bleed, stable. Status post blood transfusion. GI following. Patient is status post upper GI endoscopy. Overall, prognosis remains guarded. I agree with current management.
[2017-04-03] MEDS: Dextrose 5% in Water 1,000 ML IV SCH ×2 (09:35→23:02)
--- NOTE | 2017-04-03 10:38 | CON ---
DATE OF CONSULTATION: 04/03/2017 Jamel Aldana is a 57-year-old longterm patient who has seen Dr. Valentine in the past. Apparently ad mitted to the hospital here now for a period of time appears since the . He is presently in the [facility], the reason for consultation. He apparently presented with symptoms of abdominal pain and erinn rgy. Current urosepsis. This morning he is unable to give any history, but he underwent emergency endoscopy last night for he matemesis, a visible vessel was appropriately treated. PAST MEDICAL HISTORY: Pertinent for multiple medical problems, previous seizure disorder, previous r eflux, sleep apnea, depression, epilepsy, apparently DVT in the past. PAST SURGICAL HISTORY: Including a filter, gallbladder, appendix. Lap, renal issues, spleen surgery . ALLERGIES: Multiple allergies, CIPRO, MORPHINE, DILANTIN. MEDICATIONS: A list of medicine from the longterm, a long list including Keppra 3 tablets twice a day, Gengraf 1 daily, B12, Lexapro 20, tramadol 50, prednisone 5, apparently has adrenal insufficie ncy. Several different vitamins. ALLERGIES: Multiple allergies, apparently ROCEPHIN, CIPRO and DILANTIN. REVIEW OF SYSTEMS: Difficult to obtain. PHYSICAL EXAMINATION: GENERAL: He is awake, responsive, somewhat encephalopathic. VITAL SIGNS: Revealed a blood pressure of 109/63, sats are 97 on 3 liters, respirations 18, pulse 10 5. CHEST: Chest revealed decreased breath sounds, no wheezing. CARDIAC: Normal S1, normal S2.. ABDOMEN: Soft. White count 20,000, H&H 10 and 31, platelet count 55. Electrolytes are normal. Chest x-ray was normal. CT of the head was unremarkable. IMPRESSION: 1. Massive gastrointestinal bleed, status post emergent endoscopy. 2. Encephalopathy. 3. Seizure disorders. 4. History of renal failure. 5. Renal insufficiency. 6. Deep venous thrombosis and filter. 7. Leukocytosis. 8. Urinary tract infection. PLAN: Minimize medicine, affects his mental status. Otherwise, he is on Keflex. Home prednisone, s upportive care. Stable. He can be transferred out of the [facility] to the regular medical floor. I will notify Dr. Valentine. His last urine sample grew Enterococcus, which is sensitive to penicillin unfortunately. Discuss wit h primary care physician to switch him over to probably Augmentin.
[2017-04-03 13:17] LABS: Hemoglobin 9.2 g/dL (14.0-18.0); Mean Corpuscular HGB CONC 32.7 g/dL (32.0-36.0); Mean Corpuscular Hemoglobin 30.8 pg (27.0-31.0); Mean Corpuscular Volume 94.2 fl (80.0-94.0); Mean Platelet Volume 9.1 fL (7.4-10.4); Platelet Count 263 thou/uL (130-400); RBC Distribution Width 13.2 % (11.5-14.5); Red Blood Cell (RBC) Count 2.98 mill/uL (4.70-6.10); White Blood Cell (WBC) Count 28.1 thou/uL (4.8-10.8)
[2017-04-03 13:41] LABS: Anion Gap 14 mmol/L (10-20); BUN (Urea Nitrogen) 34 mg/dL (8.4-25.7); Calc. Creatinine Clearance 94 mL/min (70-130); Calcium 8.3 mg/dL (7.8-10.44); Carbon Dioxide 27 mmol/L (22-29); Chloride 109 mmol/L (98-107); Estimated GFR-MDRD Greater than 90; Glucose 115 mg/dL (70-105); Potassium 3.3 mmol/L (3.5-5.1); Sodium 147 mmol/L (136-145)
[2017-04-03] MEDS: Ondansetron ODT 4 MG TAB PO PRN (21:04)
[2017-04-03] MEDS: Loratadine 10 MG TAB PO SCH (22:09)
[2017-04-04] MEDS: Cephalexin 250 MG CAP PO SCH ×4 (00:44→16:48)
[2017-04-04] MEDS: Acetaminophen 325 MG TAB PO PRN (00:44)
--- NOTE | 2017-04-04 01:19 | PRG ---
DATE OF SERVICE: 04/03/2017 HISTORY OF PRESENT ILLNESS: This is a 57-year-old male with acute upper gastrointestinal b leeding on 04/02/2017. He underwent an emergent EGD and was found to have a visible vessel over the proximal stomach, underwent injection of epinephrine followed by Hemoclip placement. The patient has done well through the night. He is tolerating diet. No abdominal pain, no nausea, no vomiting. Bl ood count is stable. This morning it is 10.1, up to 10.6. At 01:00 this afternoon, it dropped to 9. 2, but he has had no vomiting blood or any black tarry stool. PHYSICAL EXAMINATION: VITAL SIGNS: Actually very stable. His pulse is 107, blood pressure 101/53. CARDIOVASCULAR: Within normal limits. ABDOMEN: Soft to palpate. No organomegaly. No tenderness. No masses. RECOMMENDATIONS: 1. Advance diet, pureed diet. 2. Follow up H and H. 3. Transfuse p.r.n.
[2017-04-04 05:01] LABS: Band 1 % (5-11); Eosinophils 4 % (0-10); Hemoglobin 8.4 g/dL (14.0-18.0); Lymphocytes 11 % (21-51); MDiff Complete? YES; Mean Corpuscular Hemoglobin 30.9 pg (27.0-31.0); Mean Corpuscular Volume 93.5 fl (80.0-94.0); Mean Platelet Volume 8.4 fL (7.4-10.4); Monocytes 4 % (0-10); Neutrophil 80 % (42-75); Platelet Count 222 thou/uL (130-400); RBC Distribution Width 13.3 % (11.5-14.5); Red Blood Cell (RBC) Count 2.71 mill/uL (4.70-6.10); White Blood Cell (WBC) Count 21.4 thou/uL (4.8-10.8)
[2017-04-04 05:09] LABS: Anion Gap 12 mmol/L (10-20); BUN (Urea Nitrogen) 24 mg/dL (8.4-25.7); Calc. Creatinine Clearance 87 mL/min (70-130); Calcium 8.1 mg/dL (7.8-10.44); Carbon Dioxide 30 mmol/L (22-29); Chloride 106 mmol/L (98-107); Estimated GFR-MDRD 87; Glucose 108 mg/dL (70-105); Sodium 145 mmol/L (136-145)
[2017-04-04] MEDS: Magnesium Chloride 64 MG TAB PO SCH ×2 (09:39→21:23)
[2017-04-04] MEDS: Metoprolol Tartrate 50 MG TAB PO SCH ×3 (09:39→21:31)
[2017-04-04] MEDS: Escitalopram Oxalate 20 mg Tablet PO SCH (09:39)
[2017-04-04] MEDS: levETIRAcetam 500 MG TAB PO SCH ×2 (09:39→21:22)
[2017-04-04] MEDS: predniSONE 5 MG TAB PO SCH (09:39)
[2017-04-04] MEDS: Magnesium Oxide 400 MG TAB PO SCH (09:39)
[2017-04-04] MEDS: cycloSPORINE, Modified 100 MG CAP PO SCH (09:40)
[2017-04-04] MEDS: Fluticasone Propionate Nasal Spray 16 gm Bottle NASAL SCH (09:41)
[2017-04-04] MEDS: Nystatin Powder 15 GM BOT TOP SCH ×2 (09:42→22:45)
--- NOTE | 2017-04-04 10:48 | PDOC.FM ---
- Subjective Subjective: Pt reports abdominal pain, diffuse. Otherwise no complaints. No acute events overnight. - Objective Vital Signs & Weight: Vital Signs (12 hours) Temp Pulse Resp BP Pulse Ox 04/04/17 08:17 105 H 20 04/04/17 08:00 98 F 105 H 20 97 04/04/17 07:42 97.9 F 107 H 21 H 98/60 90 L 04/04/17 04:00 98.0 F 102 H 16 89/56 L 95 04/04/17 00:44 98.5 F 107 H 20 100/64 99 Weight Admit Weight 72.6 kg Weight 71.033 kg I&O: 04/03/17 04/04/17 04/05/17 06:59 06:59 06:59 Intake Total 50 2078 Output Total 1325 800 Balance -1275 1278 Result Diagrams: 04/04/17 04:14 04/04/17 04:14 <Jeremy Luna - Last Filed: 04/04/17 10:46> - Objective Vital Signs & Weight: Vital Signs (12 hours) Temp Pulse Resp BP Pulse Ox 04/07/17 12:00 97.9 F 79 18 105/69 99 04/07/17 08:00 96.5 F L 96 18 98 04/07/17 07:53 96.5 F L 96 18 105/69 98 Weight Admit Weight 72.6 kg Weight 72.121 kg I&O: 04/06/17 04/07/17 04/08/17 06:59 06:59 06:59 Intake Total 2518 990 Output Total 650 2825 Balance 1868 -1835 Result Diagrams: 04/07/17 04:43 04/07/17 04:43 <Karen Huff - Last Filed: 04/07/17 15:49> Phys Exam - Physical Examination mildly distressed HEENT: PERRLA, sclera anicteric Neck: no JVD Respiratory: no rales, wheezing present expiratory wheezes and diffuse rhonchi Cardiovascular: RRR, no significant murmur, no rub Gastrointestinal: soft, no distention, positive bowel sounds mild diffuse ttp Musculoskeletal: pulses present, edema present 2+ pitting Neurological: non-focal, moves all 4 limbs <Jeremy Luna - Last Filed: 04/04/17 10:46> Dx/Plan (1) Upper GI bleed Code(s): K92.2 - GASTROINTESTINAL HEMORRHAGE, UNSPECIFIED Status: Acute (2) DVT (deep venous thrombosis) Code(s): I82.409 - ACUTE EMBOLISM AND THOMBOS UNSP DEEP VN UNSP LOWER EXTREMITY Status: Acute QualifierTitle: DVT location: lower extremity Affected thrombotic vein of extremity: unspecified vein of extremity Chronicity: unspecified Laterality: left Qualified Code(s): I82.402 - Acute embolism and thrombosis of unspecified deep veins of left lower extremity (3) Influenza A Code(s): J10.1 - FLU DUE TO OTH IDENT INFLUENZA VIRUS W OTH RESP MANIFEST Status: Acute (4) Developmental delay, moderate Code(s): R62.50 - UNSP LACK OF EXPECTED NORMAL PHYSIOL DEV IN CHILDHOOD Status : Chronic (5) HLD (hyperlipidemia) Code(s): E78.5 - HYPERLIPIDEMIA, UNSPECIFIED Status: Chronic QualifierTitle: Hyperlipidemia type: unspecified Qualified Code(s): E78.5 - Hyperlipidemia, unspecified (6) HTN (hypertension) Code(s): I10 - ESSENTIAL (PRIMARY) HYPERTENSION Status: Chronic QualifierTitle: Hypertension type: essential hypertension Qualified Code( s): I10 - Essential (primary) hypertension (7) Intellectual disability Code(s): F79 - UNSPECIFIED INTELLECTUAL DISABILITIES Status: Chronic (9) Minimal change disease Code(s): N04.0 - NEPHROTIC SYNDROME WITH MINOR GLOMERULAR ABNORMALITY Status: Resolved (10) Hypernatremia Code(s): E87.0 - HYPEROSMOLALITY AND HYPERNATREMIA Status: Acute - Plan Plan: for GI bleed will trend daily h/h, transfer pt to tele HGB has decreased, but pt has been on IV fluids and was slightly hemoconcentrated prior, current hgb likely more accurate, will trend hold metoprolol for now as pt is hypotensive at times tachycardia likely 2/2 volume depletion vs help metoprolol/rebound tachy pulm consulted, appreciate recs GI consulted, appreciate recs hyponatremia resolved <Jeremy Luna - Last Filed: 04/04/17 10:46> Attending Addendum - Attending Addendum I personally evaluated the patient and discussed the management with Dr. Luna on 04/04/17 I agree with the History, Examination, Assessment and Plan documented above with any addition or exceptions noted below- Patient feeling a little better. C/ o abdominal pain but unable to localize. Tolerating clears. Afebrile VSS. A/P: 1 ) Acute GI bleed s/p EGD with clipping of vessel- H/H stable; no further evidence of active bleeding. Continue to monitor H/H. Appreciate GI assistance. Consider transfer to floor. 2) Tachycardia- most likely secondary to recent GI bleed; continue to monitor. Metoprolol on hold due to relatively low BPs. 3) Ansarca- improved. <Karen Huff - Last Filed: 04/07/17 15:49>
[2017-04-04] MEDS: Dextrose 5% in Water 1,000 ML IV SCH (12:37)
[2017-04-04] MEDS: Ondansetron ODT 4 MG TAB PO PRN (12:37)
[2017-04-04 17:20] LABS: Hemoglobin 8.3 g/dL (14.0-18.0); Mean Corpuscular HGB CONC 33.5 g/dL (32.0-36.0); Mean Corpuscular Hemoglobin 31.5 pg (27.0-31.0); Mean Corpuscular Volume 93.9 fl (80.0-94.0); Mean Platelet Volume 8.6 fL (7.4-10.4); Platelet Count 214 thou/uL (130-400); RBC Distribution Width 13.4 % (11.5-14.5); Red Blood Cell (RBC) Count 2.62 mill/uL (4.70-6.10); White Blood Cell (WBC) Count 19.5 thou/uL (4.8-10.8)
[2017-04-04 17:37] LABS: Anisocytosis SLIGHT = 6-15 cells (100X) (0-5/hpf); Band 4 % (5-11); Eosinophils 2 % (0-10); Hypochromia SLIGHT = 6-15 cells (100X) (0-5/hpf); Lymphocytes 3 % (21-51); MDiff Complete? YES; Monocytes 3 % (0-10); Neutrophil 88 % (42-75); PLT Morphology Comment Appears Adequate
[2017-04-04] MEDS: Loratadine 10 MG TAB PO SCH (21:22)
--- NOTE | 2017-04-04 23:30 | PRG ---
DATE OF SERVICE: 04/04/2017 SUBJECTIVE: This is a 57-year-old male with upper GI bleeding, hypotension due to blood lo ss 2 days ago. He underwent emergent EGD by me . He had a large amount of blood clots and food in the stomach, which was removed. He had a vessel over the proximal stomach, which was clipped and also had injection of epinephrine. He has done well yesterday and was having good appetite and eati ng well. Today, he is not looking too good, he has specific complaints of upper abdominal pain and m ild nausea. He has had no stool over 48 hours. Blood count has been drifting down slowly. Yesterda y morning, the WBC was 22,900, hemoglobin 10.6, hematocrit 31.9. Last night it dropped down to 9.2 a nd 28.1. This morning it has further dropped to 8.4 and 25.4. The patient has had no stool over 48 hours. Mild nausea but no vomiting. OBJECTIVE: VITAL SIGNS: Temperature is 97.5 degrees Fahrenheit, pulse 116, blood pressure is 85/54. LUNGS: Within normal limits. ABDOMEN: Abdomen is soft. Abdomen is nondistended. Abdomen is nontender at the present time. CLINICAL IMPRESSION: Gastrointestinal bleeding, status post Hemoclip placement and epinephrine injec tion. Complains of nausea and also he has tachycardia. There is no visible sign of bleeding at the present time. It is possible that the clip had fallen off . RECOMMENDATIONS: 1. Change diet to clear liquid diet. 2. Serial H&H and transfuse p.r.n. 3. May need a repeat EGD .
[2017-04-04] MEDS ORDERED: Refresh (Polyvinyl Alcohol 1.4%/Povidone 0.6%) Opth Drops EA EYE PRN (23:39)
[2017-04-05] MEDS: Cephalexin 250 MG CAP PO SCH ×5 (00:12→23:55)
[2017-04-05] MEDS: Melatonin 3 MG TAB PO PRN ×2 (00:13→21:02)
[2017-04-05 05:27] LABS: Anion Gap 12 mmol/L (10-20); BUN (Urea Nitrogen) 16 mg/dL (8.4-25.7); Calc. Creatinine Clearance 90 mL/min (70-130); Calcium 7.9 mg/dL (7.8-10.44); Carbon Dioxide 27 mmol/L (22-29); Chloride 101 mmol/L (98-107); Estimated GFR-MDRD 87; Glucose 96 mg/dL (70-105); Potassium 3.2 mmol/L (3.5-5.1); Sodium 137 mmol/L (136-145)
[2017-04-05 05:30] LABS: Band 5 % (5-11); Eosinophils 4 % (0-10); Hemoglobin 8.2 g/dL (14.0-18.0); Lymphocytes 8 % (21-51); MDiff Complete? YES; Mean Corpuscular HGB CONC 31.8 g/dL (32.0-36.0); Mean Corpuscular Volume 94.4 fl (80.0-94.0); Mean Platelet Volume 8.3 fL (7.4-10.4); Monocytes 2 % (0-10); Neutrophil 81 % (42-75); Nucleated RBC 2 % (0); Platelet Count 237 thou/uL (130-400); RBC Distribution Width 13.5 % (11.5-14.5); Red Blood Cell (RBC) Count 2.73 mill/uL (4.70-6.10); White Blood Cell (WBC) Count 20.4 thou/uL (4.8-10.8)
[2017-04-05] MEDS: Dextrose 5% in Water 1,000 ML IV SCH ×2 (05:54→20:52)
--- NOTE | 2017-04-05 07:54 | PDOC.FM ---
- Subjective Subjective: No acute events overnight. Per nurse, pt slept poorly. Still complains of abdominal pain. Was tolerating diet yesterday. Repeat H/H stable from prior. C/ o persitent sob. Denies NVDC, fever. - Objective Vital Signs & Weight: Vital Signs (12 hours) Temp Pulse Resp BP Pulse Ox 04/05/17 06:28 94 L 04/05/17 06:22 107 H 28 H 94 L 04/05/17 04:00 97.9 F 108 H 20 95/58 L 96 04/05/17 02:29 16 04/04/17 22:48 113 H 20 96 04/04/17 20:00 99.3 F 114 H 20 95/57 L 94 L Weight Admit Weight 72.6 kg Weight 70.987 kg I&O: 04/04/17 04/05/17 04/06/17 06:59 06:59 06:59 Intake Total 2078 2840 Output Total 800 550 Balance 1278 2290 Result Diagrams: 04/05/17 04:24 04/05/17 04:24 Phys Exam - Physical Examination Constitutional: NAD HEENT: PERRLA, sclera anicteric Neck: no nodes, no JVD Respiratory: no rales, wheezing present (mild expiratory) scattered rhonchi, improved from yesterday Cardiovascular: RRR, no significant murmur, no rub Gastrointestinal: soft, no distention, positive bowel sounds mildly ttp Musculoskeletal: pulses present, edema present (2+ pitting) Neurological: non-focal, moves all 4 limbs Dx/Plan (1) Upper GI bleed Code(s): K92.2 - GASTROINTESTINAL HEMORRHAGE, UNSPECIFIED Status: Acute (2) DVT (deep venous thrombosis) Code(s): I82.409 - ACUTE EMBOLISM AND THOMBOS UNSP DEEP VN UNSP LOWER EXTREMITY Status: Acute Qualifiers: DVT location: lower extremity Affected thrombotic vein of extremity: unspecified vein of extremity Chronicity: unspecified Laterality: left Qualified Code(s): I82.402 - Acute embolism and thrombosis of unspecified deep veins of left lower extremity (3) Influenza A Code(s): J10.1 - FLU DUE TO OTH IDENT INFLUENZA VIRUS W OTH RESP MANIFEST Status: Acute (4) Developmental delay, moderate Code(s): R62.50 - UNSP LACK OF EXPECTED NORMAL PHYSIOL DEV IN CHILDHOOD Status : Chronic (5) HLD (hyperlipidemia) Code(s): E78.5 - HYPERLIPIDEMIA, UNSPECIFIED Status: Chronic Qualifiers: Hyperlipidemia type: unspecified Qualified Code(s): E78.5 - Hyperlipidemia , unspecified (6) HTN (hypertension) Code(s): I10 - ESSENTIAL (PRIMARY) HYPERTENSION Status: Chronic Qualifiers: Hypertension type: essential hypertension Qualified Code(s): I10 - Essential (primary) hypertension (7) Intellectual disability Code(s): F79 - UNSPECIFIED INTELLECTUAL DISABILITIES Status: Chronic (8) Hypernatremia Code(s): E87.0 - HYPEROSMOLALITY AND HYPERNATREMIA Status: Acute - Plan Plan: for GI bleed will trend daily h/h HGB stable tachycardia likely 2/2 volume depletion vs help metoprolol/rebound tachy pulm consulted, appreciate recs GI consulted, appreciate recs hyponatremia resolved clear liquid diet
[2017-04-05] MEDS ORDERED: Potassium Chloride 20 MEQ TAB PO SCH (08:00)
[2017-04-05] MEDS: Magnesium Oxide 400 MG TAB PO SCH (09:51)
[2017-04-05] MEDS: levETIRAcetam 500 MG TAB PO SCH ×2 (09:52→20:55)
[2017-04-05] MEDS: cycloSPORINE, Modified 100 MG CAP PO SCH (09:52)
[2017-04-05] MEDS: predniSONE 5 MG TAB PO SCH (09:52)
[2017-04-05] MEDS: Nystatin Powder 15 GM BOT TOP SCH ×2 (09:53→21:01)
[2017-04-05] MEDS: Escitalopram Oxalate 20 mg Tablet PO SCH (09:53)
[2017-04-05] MEDS: Magnesium Chloride 64 MG TAB PO SCH ×2 (09:53→21:01)
[2017-04-05] MEDS: Fluticasone Propionate Nasal Spray 16 gm Bottle NASAL SCH (09:53)
[2017-04-05] MEDS: Metoprolol Tartrate 50 MG TAB PO SCH ×2 (09:54→21:02)
[2017-04-05] MEDS ORDERED: Pantoprazole 40 MG GRANULES PACKET PO SCH (10:15)
[2017-04-05] MEDS: Acetaminophen 325 MG TAB PO PRN (12:22)
--- NOTE | 2017-04-05 20:10 | PRG ---
DATE OF SERVICE: 04/05/2017 SUBJECTIVE: Mr. Aldana is without complaints. He is pretty sleepy. His family members at bedside st ates he did not sleep well last night and has been sleeping most of the day. PHYSICAL EXAMINATION: VITAL SIGNS: Temperature is 97.2, pulse was 112, blood pressure 107/65. GENERAL: He is pale. He does open his eyes. He is on DuoNeb treatment right now. LUNGS: With some slight rales, some slight crackles and wheezes. There is good excursion. HEART: Sinus tachycardia. ABDOMEN: Nontender. LABORATORY DATA: White count is 20,000, hemoglobin 8.2 which is stable, platelet count is 237. Elec trolytes are normal with BUN and creatinine of 16 and 0.9. Microbiology: The patient did test posit ney for flu on 03/27/2017. Blood cultures have been negative from the . ASSESSMENT: 1. High gastrointestinal bleed from a visible vessel in the proximal stomach which was clipped by Dr Charles Meza on , showed stable hemoglobin with no bowel movements since that time. He is not ble eding. 2. Possible urinary tract infection. 3. Respiratory difficulties. 4. Influenza A. 5. Deep venous thrombosis in the legs and these were before he has a filter in place. RECOMMENDATIONS: 1. Continue PPI, IV. 2. Advance diet as tolerated. We will continue to follow.
--- NOTE | 2017-04-05 20:29 | ADD-PRG ---
ADDENDUM: 04/05/2017 Please see the note from Dr. Luna for which I concur. The patient was seen, evaluated and examined and discussed with the residents by the bedside. Basically, this is an unfortunate gentleman who alvarez s minimum change, disease, who came to the hospital with respiratory issues including influenza A and was found also to have a DVT, although has a chronic IVC filter; then blood thinners seemed to lead to a GI bleed. He has underlying baseline mental defect as he is not a good historian. It is diffic ult to even know exactly what his baseline is mentally. We will follow his hemoglobin to make sure i t is not dropping too precipitously and we may end up having to get scoped again as he did have an up per GI bleed. Tachycardia, unclear if that is from the GI bleed or if it is a rebound off of the met oprolol that he was on for a long time. If his hemoglobin drops any more, he may need to get scoped again. I think for that reason he was actually switched to clear liquids today. Holding on blood th inners for the DVT because of the GI bleed. . Medications are basically unchanged and watchin g blood pressure closely.
[2017-04-05] MEDS: Loratadine 10 MG TAB PO SCH (20:56)
[2017-04-06 05:29] LABS: #Basophils 0.1 thou/uL (0.0-0.2); #Eosinphils 0.5 thou/uL (0.0-0.7); #Lymphocytes 3.3 thou/uL (1.20-3.40); #Monocytes 3.1 thou/uL (0.11-0.59); #Neutrophils 19.5 thou/uL (1.40-6.50); %Basophils 0.3 % (0.0-1.0); %Eosinophils 1.8 % (0.0-10.0); %Lymphocytes 12.4 % (21.0-51.0); %Monocytes 11.6 % (0.0-10.0); %Neutrophils 73.9 % (42.0-75.0); Hemoglobin 8.6 g/dL (14.0-18.0); Mean Corpuscular HGB CONC 31.6 g/dL (32.0-36.0); Mean Corpuscular Hemoglobin 30.2 pg (27.0-31.0); Mean Corpuscular Volume 95.6 fl (80.0-94.0); Mean Platelet Volume 8.3 fL (7.4-10.4); Platelet Count 237 thou/uL (130-400); Red Blood Cell (RBC) Count 2.85 mill/uL (4.70-6.10); White Blood Cell (WBC) Count 26.4 thou/uL (4.8-10.8)
[2017-04-06] MEDS: Cephalexin 250 MG CAP PO SCH ×4 (05:41→23:47)
[2017-04-06 05:42] LABS: Anion Gap 14 mmol/L (10-20); BUN (Urea Nitrogen) 15 mg/dL (8.4-25.7); Calc. Creatinine Clearance 88 mL/min (70-130); Calcium 7.8 mg/dL (7.8-10.44); Carbon Dioxide 23 mmol/L (22-29); Chloride 99 mmol/L (98-107); Estimated GFR-MDRD 84; Glucose 93 mg/dL (70-105); Potassium 3.9 mmol/L (3.5-5.1); Sodium 132 mmol/L (136-145)
[2017-04-06] MEDS: Dextrose 5% in Water 1,000 ML IV SCH (05:46)
[2017-04-06] MEDS ORDERED: Furosemide 40 MG/4 ML VIAL SLOW IVP SCH (07:15)
[2017-04-06] MEDS ORDERED: Pantoprazole 40 MG GRANULES PACKET PO SCH (09:00)
[2017-04-06] MEDS: Acetaminophen 325 MG TAB PO PRN (09:39)
[2017-04-06] MEDS: Escitalopram Oxalate 20 mg Tablet PO SCH (09:40)
[2017-04-06] MEDS: Magnesium Oxide 400 MG TAB PO SCH (09:40)
[2017-04-06] MEDS: predniSONE 5 MG TAB PO SCH (09:40)
[2017-04-06] MEDS: levETIRAcetam 500 MG TAB PO SCH ×2 (09:40→20:48)
[2017-04-06] MEDS: Nystatin Powder 15 GM BOT TOP SCH ×2 (09:41→20:47)
[2017-04-06] MEDS: Fluticasone Propionate Nasal Spray 16 gm Bottle NASAL SCH (09:41)
[2017-04-06] MEDS: Metoprolol Tartrate 50 MG TAB PO SCH ×2 (09:42→20:47)
[2017-04-06] MEDS: Magnesium Chloride 64 MG TAB PO SCH ×2 (09:42→20:46)
[2017-04-06] MEDS: cycloSPORINE, Modified 100 MG CAP PO SCH (09:50)
--- NOTE | 2017-04-06 10:28 | RAD ---
CHEST 1 VIEW: HISTORY: Dyspnea. COMPARISON: 04/02/17. FINDINGS: Cardiac silhouette is magnified by projection. Shallow inspiration accentuates pulmonary markings. Mediastinum is midline. There is no lobar consolidation or evidence of pneumothorax. Cardiac monito r leads overlie the chest. IMPRESSION: No active cardiopulmonary abnormalities are demonstrated. POS: KATHLEEN
--- NOTE | 2017-04-06 10:33 | PDOC.FM ---
- Subjective Subjective: No acute events overnight. Pt reports breathing has improved, but continues to have abd pain. Scrotal swelling/discomfort increased overnight. Has required 3L NC O2 supplementation. - Objective Vital Signs & Weight: Vital Signs (12 hours) Temp Pulse Resp BP Pulse Ox 04/06/17 09:29 93 L 04/06/17 09:28 110 H 20 93 L 04/06/17 07:28 96.5 F L 115 H 20 92/52 L 96 04/06/17 04:00 98.5 F 117 H 33 H 96/54 L 91 L 04/06/17 02:08 105 H 20 04/05/17 22:39 103 H 20 Weight Admit Weight 72.6 kg Weight 71.894 kg I&O: 04/05/17 04/06/17 04/07/17 06:59 06:59 06:59 Intake Total 2840 2518 Output Total 550 650 Balance 2290 1868 Result Diagrams: 04/06/17 04:54 04/06/17 04:54 Phys Exam - Physical Examination Constitutional: NAD HEENT: PERRLA, sclera anicteric Neck: no nodes, no JVD Respiratory: no wheezing, no rales scattered rhonchi Cardiovascular: RRR, no significant murmur, no rub Gastrointestinal: soft, no distention, positive bowel sounds ttp Musculoskeletal: pulses present, edema present 2+ pitting edema of lower extremities Neurological: non-focal, moves all 4 limbs Skin: no rash Dx/Plan (1) Upper GI bleed Code(s): K92.2 - GASTROINTESTINAL HEMORRHAGE, UNSPECIFIED Status: Acute (2) DVT (deep venous thrombosis) Code(s): I82.409 - ACUTE EMBOLISM AND THOMBOS UNSP DEEP VN UNSP LOWER EXTREMITY Status: Acute Qualifiers: DVT location: lower extremity Affected thrombotic vein of extremity: unspecified vein of extremity Chronicity: unspecified Laterality: left Qualified Code(s): I82.402 - Acute embolism and thrombosis of unspecified deep veins of left lower extremity (3) Influenza A Code(s): J10.1 - FLU DUE TO OTH IDENT INFLUENZA VIRUS W OTH RESP MANIFEST Status: Acute (4) Developmental delay, moderate Code(s): R62.50 - UNSP LACK OF EXPECTED NORMAL PHYSIOL DEV IN CHILDHOOD Status : Chronic (5) HLD (hyperlipidemia) Code(s): E78.5 - HYPERLIPIDEMIA, UNSPECIFIED Status: Chronic Qualifiers: Hyperlipidemia type: unspecified Qualified Code(s): E78.5 - Hyperlipidemia , unspecified (6) HTN (hypertension) Code(s): I10 - ESSENTIAL (PRIMARY) HYPERTENSION Status: Chronic Qualifiers: Hypertension type: essential hypertension Qualified Code(s): I10 - Essential (primary) hypertension (7) Intellectual disability Code(s): F79 - UNSPECIFIED INTELLECTUAL DISABILITIES Status: Chronic (8) Hyponatremia Code(s): E87.1 - HYPO-OSMOLALITY AND HYPONATREMIA Status: Acute Plan: 2/2 volume overload DC iv fluids, diurese - Plan Plan: Pt has had increased swelling over last 24 hours w/ increased O2 requirement and mild hyponatremia, will dc fluids, diurese w/ 40 IV lasix AM BMP Continue breathing treatments, repeat CXR, f/u w/ results For GI bleed, GI consulted, appreciate recs Nephrology consulted, appreciate recs
[2017-04-06] MEDS: Hydrocortisone Sod Succ/PF 100 mg/2 ml Vial IVP SCH ×2 (12:10→20:45)
--- NOTE | 2017-04-06 13:52 | PRG ---
DATE OF SERVICE: 04/06/2017 SUBJECTIVE: Mr. Aldana does not feel well. He is awake, but is pale and listless. He states his arm hurts. There is a tight bandage there from a prior IV with edema in the extremity distal to this. He notes his stomach does not feel well in general, but describes no specific site of pain. He denie s fever. He denies dysuria. He was seen by the residents earlier today. There have been no real ch anges to his care at this time. He continues on oxygen and he has required more, so they have increa sed his oxygen requirements. They are going to give him a diuretic. He has had no signs of bleeding since yesterday. He has had a chest x-ray that is normal. MEDICATIONS: Reviewed. He continues on Keflex, Tylenol, Lexapro, vitamin D, Keppra, Slow-Mag magnes ium, melatonin, Lopressor, Zofran, Protonix 40 p.o. daily, prednisone 5 daily and Senokot. OBJECTIVE: VITAL SIGNS: Pulse 110, temperature 96, sat 93% and blood pressure 90/52. GENERAL: He is pale, he is lying in bed, listless. ABDOMEN: Soft with no focal tenderness, no rebound or guarding. LUNGS: Decreased breath sounds. EXTREMITIES: Scrotal edema has increased. Lower extremity edema increased. The bandage dressing wh ich was tight on his right arm is removed. LABORATORY DATA: White count 26,000, hemoglobin is 8.6 and platelet count 237. No differential. So dium 132, potassium 3.9, BUN and creatinine are 15 and 9.2. On , he had normal liver function te st. Blood culture and respiratory virus panel has been negative. Influenza A3 was detected. ASSESSMENT AND PLAN: 1. Flu. 2. Listless, increase oxygen needs. 3. Leukocytosis. 4. Low blood pressure. Differential diagnosis would include infection somewhere else. Clostridium difficile will be a anna marie rn. He has been on Keflex for sometime now. Adrenal insufficiency is a consideration. He is on pre dnisone 5 mg daily. It seems that he may have been on that home on and off. He may need stress dose s. We will get a stat cortisol level and start him on hydrocortisone IV. We will get a CAT scan of his abdomen as well.
--- NOTE | 2017-04-06 15:53 | CT ---
CT OF THE ABDOMEN AND PELVIS WITH CONTRAST: Comparison: 10-14-16 History: Abdominal pain, leukocytosis. Technique: Multiple contiguous axial images were obtained in a CT of the abdomen and pelvis with cont rast. PO contrast was administered. Coronal reformats were performed. FINDINGS: There is scarring of the cortex at the right kidney. There are small hypodensities in both kidneys wh ich likely represent cysts. There are nonobstructing calcifications in the right kidney. The patient is status post cholecystectomy. The liver, adrenal glands and pancreas are unremarkable. The spleen h as been removed but there is a small nodule in the left lower quadrant of the abdomen which likely re presents a splenule. No free air, free fluid, or stranding changes are seen in the abdomen or pelvis. A Jalloh catheter dec ompresses the urinary bladder. The large and small bowel are unremarkable. There is a stable 3.5 cm v entral hernia in the right lower quadrant of the abdomen containing nonobstructed colon. There is an inferior vena cava filter visualized. There are mildly enlarged nonspecific lymph nodes i n the upper retroperitoneum measuring up to 1.5 cm in size. These are nonspecific. Degenerative changes are seen in the spine. Atelectasis is seen in the lung bases. Diffuse soft tissu e anasarca is seen. IMPRESSION: 1. Stable right lower quadrant abdominal wall hernia containing nonobstructed bowel. 2. Bilateral renal cysts. Nonobstructing right renal calcifications. 3. Nonspecific mildly enlarged lymph nodes in the upper retroperitoneum. POS: [facility]
--- NOTE | 2017-04-06 16:15 | ADD-PRG ---
ADDENDUM: 04/06/2017 Please see note from Dr. Luna for which I concur. Basically, this gentleman does seem stable overn ight. We are watching his hemoglobin and hematocrit to make sure it did not drop after the recent ga strointestinal bleed and his hemoglobin seems stable, was having hypernatremia and now actually got o fred replaced with D5 water, a little bit hyponatremic and also edematous prior to make sure both flui ds and disease. It does not seem back to baseline based on the residents who know him. They say he seems still a little bit too lethargic and is complaining of overall leg pain, etc, but he does have the DVTs in the left lower extremity. He is currently off antibiotics. Urine culture came back nega tive, but seems to be like he is needing oxygen, so there is a question of his current lung status. OBJECTIVE: VITAL SIGNS: Definitely, is edematous for his chronic edema of the legs. I do not see any evidence of acute infection. ENT: Moist mucosa. Conjunctivae are slightly pale. CHEST: Has really just decreased breath sounds throughout, as he is not doing the best effort taking a deep breath. CARDIOVASCULAR: Regular rate and rhythm. ABDOMEN: Benign. EXTREMITIES: 2-3+ edema as described. ASSESSMENT AND PLAN: So, question on him is, does he have a potential secondary super infection, whi ch could only worry about the lungs, so we will get an x-ray today on him just to make sure nothing e lse is going on. We have got him off the IV fluids and gave a little bit to Lasix, monitor his elect rolytes obviously, hopefully assuming that the x-ray is normal. He will be able to get back to the [facility] tomorrow assuming that electrolytes are improved as well.
[2017-04-06] MEDS ORDERED: ISOVUE-370 76%-LOCM 1 ML ONE (17:00)
[2017-04-06] MEDS: Ondansetron ODT 4 MG TAB PO PRN (20:44)
[2017-04-06] MEDS: Pantoprazole 40 MG VIAL IVP SCH (20:45)
[2017-04-06] MEDS: Loratadine 10 MG TAB PO SCH (20:48)
[2017-04-06] MEDS ORDERED: Clopidogrel Bisulfate 75 MG TAB ONE (23:18)
[2017-04-06] MEDS: Melatonin 3 MG TAB PO PRN (23:22)
[2017-04-07] MEDS: Hydrocortisone Sod Succ/PF 100 mg/2 ml Vial IVP SCH ×3 (03:39→21:48)
[2017-04-07] MEDS: Cephalexin 250 MG CAP PO SCH ×3 (05:29→17:16)
[2017-04-07 05:33] LABS: Anion Gap 17 mmol/L (10-20); BUN (Urea Nitrogen) 15 mg/dL (8.4-25.7); Calc. Creatinine Clearance 79 mL/min (70-130); Calcium 8.1 mg/dL (7.8-10.44); Carbon Dioxide 21 mmol/L (22-29); Chloride 99 mmol/L (98-107); Estimated GFR-MDRD 74; Glucose 131 mg/dL (70-105); Potassium 4.5 mmol/L (3.5-5.1); Sodium 132 mmol/L (136-145)
[2017-04-07 06:27] LABS: Band 11 % (5-11); Hemoglobin 8.9 g/dL (14.0-18.0); Lymphocytes 1 % (21-51); MDiff Complete? YES; Mean Corpuscular HGB CONC 31.7 g/dL (32.0-36.0); Mean Corpuscular Hemoglobin 30.9 pg (27.0-31.0); Mean Corpuscular Volume 97.6 fl (80.0-94.0); Mean Platelet Volume 8.6 fL (7.4-10.4); Monocytes 4 % (0-10); Neutrophil 84 % (42-75); Platelet Count 269 thou/uL (130-400); RBC Distribution Width 14.2 % (11.5-14.5); Red Blood Cell (RBC) Count 2.88 mill/uL (4.70-6.10); White Blood Cell (WBC) Count 27.7 thou/uL (4.8-10.8)
[2017-04-07] MEDS: Magnesium Chloride 64 MG TAB PO SCH ×2 (09:16→21:48)
[2017-04-07] MEDS: levETIRAcetam 500 MG TAB PO SCH ×2 (09:16→21:46)
[2017-04-07] MEDS: cycloSPORINE, Modified 100 MG CAP PO SCH (09:16)
[2017-04-07] MEDS: Escitalopram Oxalate 20 mg Tablet PO SCH (09:16)
[2017-04-07] MEDS: Magnesium Oxide 400 MG TAB PO SCH (09:17)
[2017-04-07] MEDS: predniSONE 5 MG TAB PO SCH (09:17)
[2017-04-07] MEDS: Pantoprazole 40 MG VIAL IVP SCH ×2 (09:17→21:48)
[2017-04-07] MEDS: Metoprolol Tartrate 50 MG TAB PO SCH ×2 (09:17→21:48)
[2017-04-07] MEDS: Fluticasone Propionate Nasal Spray 16 gm Bottle NASAL SCH (09:18)
[2017-04-07] MEDS: Nystatin Powder 15 GM BOT TOP SCH ×2 (09:19→21:48)
--- NOTE | 2017-04-07 09:19 | PDOC.FM ---
- Subjective Subjective: Pt had no acute events overnight. Reports "I feel like shit!" Says he has a sore throat since yesterday, denies tender adenopathy. Denies SOB, CP. Abd pain has improved since yesterday. VSS. - Objective Vital Signs & Weight: Vital Signs (12 hours) Temp Pulse Resp BP Pulse Ox 04/07/17 07:53 96.5 F L 96 18 105/69 98 04/07/17 03:11 97.4 F L 105 H 22 H 99/64 97 04/07/17 02:22 100 16 92 L 04/06/17 22:20 97 18 95 Weight Admit Weight 72.6 kg Weight 72.121 kg I&O: 04/06/17 04/07/17 04/08/17 06:59 06:59 06:59 Intake Total 2518 990 Output Total 650 2825 Balance 7048 -9397 Result Diagrams: 04/07/17 04:43 04/07/17 04:43 Phys Exam - Physical Examination Constitutional: NAD HEENT: PERRLA, sclera anicteric Respiratory: no rales rhonchi, scattered wheezes, poor effort Cardiovascular: RRR, no significant murmur, no rub Gastrointestinal: soft, non-tender, no distention, positive bowel sounds Musculoskeletal: pulses present, edema present 2+ pitting, scrotal edema improved from yesterday Neurological: non-focal, moves all 4 limbs Skin: no rash Dx/Plan (1) Upper GI bleed Code(s): K92.2 - GASTROINTESTINAL HEMORRHAGE, UNSPECIFIED Status: Acute (2) DVT (deep venous thrombosis) Code(s): I82.409 - ACUTE EMBOLISM AND THOMBOS UNSP DEEP VN UNSP LOWER EXTREMITY Status: Acute Qualifiers: DVT location: lower extremity Affected thrombotic vein of extremity: unspecified vein of extremity Chronicity: unspecified Laterality: left Qualified Code(s): I82.402 - Acute embolism and thrombosis of unspecified deep veins of left lower extremity (3) Influenza A Code(s): J10.1 - FLU DUE TO OTH IDENT INFLUENZA VIRUS W OTH RESP MANIFEST Status: Acute (4) Developmental delay, moderate Code(s): R62.50 - UNSP LACK OF EXPECTED NORMAL PHYSIOL DEV IN CHILDHOOD Status : Chronic (5) HLD (hyperlipidemia) Code(s): E78.5 - HYPERLIPIDEMIA, UNSPECIFIED Status: Chronic Qualifiers: Hyperlipidemia type: unspecified Qualified Code(s): E78.5 - Hyperlipidemia , unspecified (6) HTN (hypertension) Code(s): I10 - ESSENTIAL (PRIMARY) HYPERTENSION Status: Chronic Qualifiers: Hypertension type: essential hypertension Qualified Code(s): I10 - Essential (primary) hypertension (7) Intellectual disability Code(s): F79 - UNSPECIFIED INTELLECTUAL DISABILITIES Status: Chronic (8) Hyponatremia Code(s): E87.1 - HYPO-OSMOLALITY AND HYPONATREMIA Status: Acute Plan: 2/2 volume overload DC iv fluids, diurese - Plan Plan: Upper GI bleed, stable. GI consulted appreciate recs Hyponatremia, likely 2/2 volume status, diurese. Daily BMP, check mag tomorrow. Monitor Is/Os. Scrotal swelling improved with lasix. Continue current medications for chronic medical conditions
[2017-04-07 10:00] LABS: ALT (SGPT) 17 U/L (8-55); AST (SGOT) 26 U/L (5-34); Albumin 2.6 g/dL (3.5-5.0); Alkaline Phosphatase 102 U/L (40-150); Bilirubin, Direct 0.6 mg/dL (0.1-0.3); Bilirubin, Total 1.2 mg/dL (0.2-1.2); Protein, Total 5.7 g/dL (6.0-8.3)
[2017-04-07] MEDS: Acetaminophen 325 MG TAB PO PRN (11:49)
[2017-04-07] MEDS ORDERED: Furosemide 40 MG/4 ML VIAL SLOW IVP SCH (12:00)
--- NOTE | 2017-04-07 12:19 | ADD-PRG ---
DATE OF SERVICE: 04/07/2017 This is an addendum to the note of Dr. Jeremy Luna. Mr. Aldana is resting quietly in bed. He is not in any acute distress, but just states that he "feels bad." He is not overtly short of breath, although he complains of dyspnea. His H&H levels have bee n stable. He is not on Lovenox for his DVT of course because of his recent upper GI bleed. He does have an IVC filter. His white count has risen since admission from 14,000 to 27,000 with no signs of infection. Given his shortness of breath we will ask Radiology about the imaging modalities to look at his IVC filter. We will then proceed based on these findings, although the only option might be the changing of the filter.
[2017-04-07] MEDS: Ondansetron ODT 4 MG TAB PO PRN (16:18)
[2017-04-07] MEDS: Loratadine 10 MG TAB PO SCH (21:47)
[2017-04-07] MEDS: Melatonin 3 MG TAB PO PRN (21:47)
[2017-04-08] MEDS: Cephalexin 250 MG CAP PO SCH ×4 (01:43→18:33)
[2017-04-08] MEDS: Hydrocortisone Sod Succ/PF 100 mg/2 ml Vial IVP SCH ×3 (05:57→20:57)
[2017-04-08] MEDS: cycloSPORINE, Modified 100 MG CAP PO SCH (08:20)
[2017-04-08] MEDS: Escitalopram Oxalate 20 mg Tablet PO SCH (08:20)
[2017-04-08] MEDS: levETIRAcetam 500 MG TAB PO SCH ×2 (08:20→20:53)
[2017-04-08] MEDS: Pantoprazole 40 MG VIAL IVP SCH ×2 (08:20→20:57)
[2017-04-08] MEDS: Metoprolol Tartrate 50 MG TAB PO SCH ×2 (08:21→20:53)
[2017-04-08] MEDS: Magnesium Oxide 400 MG TAB PO SCH (08:21)
[2017-04-08] MEDS: predniSONE 5 MG TAB PO SCH (08:21)
[2017-04-08] MEDS: Nystatin Powder 15 GM BOT TOP SCH ×2 (08:22→21:16)
[2017-04-08] MEDS: Fluticasone Propionate Nasal Spray 16 gm Bottle NASAL SCH (08:22)
[2017-04-08] MEDS: Magnesium Chloride 64 MG TAB PO SCH ×2 (08:34→20:53)
--- NOTE | 2017-04-08 09:16 | PDOC.FM ---
- Subjective Subjective: Per radiology, occlusion of IVC filter. Pressures remain low and persistent tachy. Pt reports he is feeling better today and breathing better. Denies CP, sob, NVDC. Tolerating po. Will make NPO meds w/ sips and consult cv surg. - Objective Vital Signs & Weight: Vital Signs (12 hours) Temp Pulse Resp BP BP Pulse Ox 04/08/17 05:56 94/58 L 04/08/17 05:19 99 04/08/17 04:00 96.2 F L 101 H 18 82/51 L 100 04/08/17 03:16 96 18 97 04/08/17 00:00 97.3 F L 99 16 84/51 L 98 04/07/17 21:40 97.5 F L 101 H 18 91/59 L 97 04/07/17 21:28 100 18 98 Weight Admit Weight 72.6 kg Weight 72.575 kg I&O: 04/07/17 04/08/17 04/09/17 06:59 06:59 06:59 Intake Total 990 960 Output Total 2825 1650 Balance -1835 -690 Result Diagrams: 04/07/17 04:43 04/07/17 04:43 Phys Exam - Physical Examination Constitutional: NAD HEENT: PERRLA, sclera anicteric Neck: no nodes, no JVD Respiratory: no wheezing, no rales Cardiovascular: RRR, no significant murmur, no rub Gastrointestinal: soft, non-tender, no distention, positive bowel sounds Musculoskeletal: pulses present, edema present 2+ pitting Neurological: non-focal, moves all 4 limbs Psychiatric: normal affect Skin: no rash Dx/Plan (1) Inferior vena cava occlusion Code(s): I82.220 - ACUTE EMBOLISM AND THROMBOSIS OF INFERIOR VENA CAVA Status : Acute (2) Upper GI bleed Code(s): K92.2 - GASTROINTESTINAL HEMORRHAGE, UNSPECIFIED Status: Acute (3) DVT (deep venous thrombosis) Code(s): I82.409 - ACUTE EMBOLISM AND THOMBOS UNSP DEEP VN UNSP LOWER EXTREMITY Status: Acute Qualifiers: DVT location: lower extremity Affected thrombotic vein of extremity: unspecified vein of extremity Chronicity: unspecified Laterality: left Qualified Code(s): I82.402 - Acute embolism and thrombosis of unspecified deep veins of left lower extremity (4) Influenza A Code(s): J10.1 - FLU DUE TO OTH IDENT INFLUENZA VIRUS W OTH RESP MANIFEST Status: Resolved (5) Developmental delay, moderate Code(s): R62.50 - UNSP LACK OF EXPECTED NORMAL PHYSIOL DEV IN CHILDHOOD Status : Chronic (6) HLD (hyperlipidemia) Code(s): E78.5 - HYPERLIPIDEMIA, UNSPECIFIED Status: Chronic Qualifiers: Hyperlipidemia type: unspecified Qualified Code(s): E78.5 - Hyperlipidemia , unspecified (7) HTN (hypertension) Code(s): I10 - ESSENTIAL (PRIMARY) HYPERTENSION Status: Chronic Qualifiers: Hypertension type: essential hypertension Qualified Code(s): I10 - Essential (primary) hypertension (8) Intellectual disability Code(s): F79 - UNSPECIFIED INTELLECTUAL DISABILITIES Status: Chronic (9) Hyponatremia Code(s): E87.1 - HYPO-OSMOLALITY AND HYPONATREMIA Status: Acute - Plan Plan: Pts IVC filter occluded, will consult cv surg. Persistent low bp, tachy with normal acth stim test. 2/2 occluded IVC filter and diminished preload. CV surg consult, appreciate recs Hgb stable wbc elevated possibly 2/2 stim test, but still remaining above normal. No overt s/s of infection GI consulted. Appreciate recs
[2017-04-08] MEDS: Acetaminophen 325 MG TAB PO PRN (11:44)
[2017-04-08 11:57] LABS: Anion Gap 13 mmol/L (10-20); BUN (Urea Nitrogen) 20 mg/dL (8.4-25.7); Calc. Creatinine Clearance 70 mL/min (70-130); Calcium 8.1 mg/dL (7.8-10.44); Carbon Dioxide 26 mmol/L (22-29); Chloride 101 mmol/L (98-107); Estimated GFR-MDRD 63; Glucose 121 mg/dL (70-105); Potassium 4.2 mmol/L (3.5-5.1); Sodium 136 mmol/L (136-145)
[2017-04-08 12:01] LABS: Band 3 % (5-11); Hemoglobin 8.7 g/dL (14.0-18.0); Lymphocytes 9 % (21-51); MDiff Complete? YES; Mean Corpuscular HGB CONC 30.6 g/dL (32.0-36.0); Mean Corpuscular Hemoglobin 29.7 pg (27.0-31.0); Mean Corpuscular Volume 97.2 fl (80.0-94.0); Metamyelocyte 1 % (0-0); Monocytes 4 % (0-10); Neutrophil 83 % (42-75); PLT Morphology Comment Appears Adequate; Platelet Count 372 thou/uL (130-400); Polychromasia MODERATE = 3-4 cells (100X) (0-2/hpf); RBC Distribution Width 14.6 % (11.5-14.5); Red Blood Cell (RBC) Count 2.93 mill/uL (4.70-6.10); Target Cells SLIGHT = 2-5 cells (100X) (0-1/hpf); White Blood Cell (WBC) Count 27.2 thou/uL (4.8-10.8)
--- NOTE | 2017-04-08 15:21 | ADD-PRG ---
DATE OF SERVICE: 04/08/2017 This is an addendum to the note of Dr. Jeremy Luna. Mr. Aldana is sitting quietly in bed. He is in no distress. We reviewed the CT of the abdomen yester day with Radiology and IVC filter seems to be completely occluded. It is likely small clots are bein g flicked off into the pulmonary bed causing many of the patient's symptoms. He could certainly acco unt for his peripheral edema as well. We have consulted CV Surgery to determine if IVC filter replac ement will be necessary.
--- NOTE | 2017-04-08 15:38 | PQF ---
CLINICAL DOCUMENTATION IMPROVEMENT CLARIFICATION FORM: ICD-10 Updated PLEASE DO AN ADDENDUM TO THE PROGRESS NOTE WITH ANY DOCUMENTATION UPDATES OR ADDITIONS AND CARRY THROUGH TO DC SUMMARY. THANK YOU. DATE: 04/08/17 ATTN: DR. CANTU Please exercise your independent, professional judgment in responding to the clarification form. Clinical indicators are provided on the bottom of this form for your review Please check appropriate box(s): [ ] Sepsis due to: (Pna, UTI, gangrenous gall bladder, etc.) Due to: [ ] Device (please specify) [ ] Implant [ ] Graft [ ] Infusion [ ] SIRS due to non-infectious process (please specify etiology) [ ] with organ dysfunction [ ] without organ dysfunction [ ] Severe sepsis with acute organ dysfunction of: (Examples: respiratory failure, encephalopathy, acute kidney failure, other) [ ] Localized infection without sepsis [ x ] Other diagnosis _Occluded IVC filter, w/o evidence of infection, on chronic steroids [ ] Unable to determine In addition, please specify: Present on Admission (POA): [ ] Yes [ ] No [ x ] Unable to determine For continuity of documentation, please document condition throughout progress notes and discharge summary. Thank You. CLINICAL INDICATORS - SIGNS / SYMPTOMS / LABS ER NOTE: "SEPSIS" H&P: "SYSTEMIC INFLAMMATORY RESPONSE SYNDROME" WBC 28.1 LACTIC ACID 2.6 BP 62/42 PULSE 115 RR 28 RISKS: CELLULITIS UTI TREATMENT: IV ROCEPHIN ( GIVEN IN ER) IC CLINDAMYCIN ( GIVEN IN ER) IV FLUIDS KEFLEX (03/28-PRESENT) TAMIFLU (03/28-04/02) CARDIAC MONITORING (This form is maintained as a part of the permanent medical record) 2014 [employer]. All Rights Reserved [email or web address] Office: [phone] [facility]
--- NOTE | 2017-04-08 18:05 | CON ---
DATE OF CONSULTATION: 04/08/2017 HISTORY OF PRESENT ILLNESS: This is an unfortunate 57-year-old gentleman who has been in the [facility] for most of March with a complicated history. He evidently was initially admitted with some abdo sahil discomfort. Workup revealed no evidence of pulmonary emboli and no clear etiology for his abdo sahil pain. He was noted to have significant leukocytosis and also had elevated creatinine. He had no evidence of urinary tract infection. He has remained in the hospital and a recent CT scan of his abdomen demonstrated occlusion of his IVC filter with apparent thrombosis of the inferior vena cava b elow the level of the filter. The patient also has had hematemesis with an upper GI bleed and Loveno x which had been given intermittently was stopped. It also had been previously stopped for some susi turia. It is unclear when his vena cava thrombosis occurred, but it is conceivable that his initial lower abdominal discomfort and renal insufficiency were related to vena cava thrombosis with third sp acing of fluid into his pelvic and lower extremities resulting in transient renal insufficiency. PHYSICAL EXAMINATION: GENERAL: Gentleman looking older than his stated age, somewhat pale. ABDOMEN: Soft and nontender at this time. EXTREMITIES: His right lower extremity is edematous with 2+ edema and I do not appreciate any edema in his other leg. PLAN: At this time, the patient may have had vena cava thrombosis perhaps several weeks ago. In any event, he is not a candidate for anticoagulation. The filter has served its purpose in preventing m assive pulmonary embolus and probably trapped venous thromboembolism in transit and what was large en ough thrombus to occlude the cava. In any event, the patient will not be able to have a pulmonary em bolus through his inferior vena cava with a filter in place and his cava occluded. Symptomatically t reat with elevation of the legs and no other intervention is indicated or appropriate.
[2017-04-08] MEDS: Loratadine 10 MG TAB PO SCH (20:53)
[2017-04-08] MEDS: Melatonin 3 MG TAB PO PRN (20:53)
[2017-04-09] MEDS: Acetaminophen 325 MG TAB PO PRN ×3 (01:22→20:29)
[2017-04-09] MEDS: Cephalexin 250 MG CAP PO SCH ×2 (01:22→05:37)
[2017-04-09 05:34] LABS: Anion Gap 11 mmol/L (10-20); BUN (Urea Nitrogen) 21 mg/dL (8.4-25.7); Calc. Creatinine Clearance 73 mL/min (70-130); Carbon Dioxide 29 mmol/L (22-29); Chloride 103 mmol/L (98-107); Estimated GFR-MDRD 66; Glucose 118 mg/dL (70-105); Sodium 139 mmol/L (136-145)
[2017-04-09] MEDS: Hydrocortisone Sod Succ/PF 100 mg/2 ml Vial IVP SCH ×3 (05:37→20:28)
[2017-04-09 06:23] LABS: Band 5 % (5-11); Hemoglobin 8.1 g/dL (14.0-18.0); Lymphocytes 5 % (21-51); MDiff Complete? YES; Mean Corpuscular HGB CONC 31.1 g/dL (32.0-36.0); Mean Corpuscular Hemoglobin 30.1 pg (27.0-31.0); Mean Corpuscular Volume 96.9 fl (80.0-94.0); Mean Platelet Volume 7.8 fL (7.4-10.4); Monocytes 7 % (0-10); Neutrophil 83 % (42-75); Platelet Count 390 thou/uL (130-400); RBC Distribution Width 14.6 % (11.5-14.5); Red Blood Cell (RBC) Count 2.68 mill/uL (4.70-6.10); White Blood Cell (WBC) Count 22.3 thou/uL (4.8-10.8)
--- NOTE | 2017-04-09 08:59 | PDOC.FM ---
- Subjective Subjective: No acute events overnight. Pt giving thumbs up when asked if he is ready to go home. Denies cp, sob, nvdc. - Objective Vital Signs & Weight: Vital Signs (12 hours) Temp Pulse Resp BP Pulse Ox 04/09/17 07:28 97.0 F L 87 20 100 04/09/17 07:27 97.0 F L 87 20 103/60 100 04/09/17 04:00 97.3 F L 88 20 82/52 L 93 L 04/09/17 03:44 100 04/09/17 02:34 95 18 100 04/09/17 00:00 97.3 F L 88 18 94/55 L 94 L 04/08/17 23:49 86 18 98 Weight Admit Weight 72.6 kg Weight 72.575 kg I&O: 04/08/17 04/09/17 04/10/17 06:59 06:59 06:59 Intake Total 960 600 Output Total 1650 700 Balance -690 -100 Result Diagrams: 04/09/17 04:55 04/09/17 04:55 Phys Exam - Physical Examination Constitutional: NAD HEENT: PERRLA, sclera anicteric Neck: no nodes, no JVD Respiratory: no wheezing, no rales scattered rhonchi Cardiovascular: RRR, no significant murmur, no rub Gastrointestinal: soft, non-tender, no distention, positive bowel sounds Musculoskeletal: pulses present, edema present 2+ pitting Neurological: non-focal, moves all 4 limbs Skin: no rash Dx/Plan (1) Inferior vena cava occlusion Code(s): I82.220 - ACUTE EMBOLISM AND THROMBOSIS OF INFERIOR VENA CAVA Status : Acute (2) Upper GI bleed Code(s): K92.2 - GASTROINTESTINAL HEMORRHAGE, UNSPECIFIED Status: Acute (3) DVT (deep venous thrombosis) Code(s): I82.409 - ACUTE EMBOLISM AND THOMBOS UNSP DEEP VN UNSP LOWER EXTREMITY Status: Acute Qualifiers: DVT location: lower extremity Affected thrombotic vein of extremity: unspecified vein of extremity Chronicity: unspecified Laterality: left Qualified Code(s): I82.402 - Acute embolism and thrombosis of unspecified deep veins of left lower extremity (4) Influenza A Code(s): J10.1 - FLU DUE TO OTH IDENT INFLUENZA VIRUS W OTH RESP MANIFEST Status: Resolved (5) Developmental delay, moderate Code(s): R62.50 - UNSP LACK OF EXPECTED NORMAL PHYSIOL DEV IN CHILDHOOD Status : Chronic (6) HLD (hyperlipidemia) Code(s): E78.5 - HYPERLIPIDEMIA, UNSPECIFIED Status: Chronic Qualifiers: Hyperlipidemia type: unspecified Qualified Code(s): E78.5 - Hyperlipidemia , unspecified (7) HTN (hypertension) Code(s): I10 - ESSENTIAL (PRIMARY) HYPERTENSION Status: Chronic Qualifiers: Hypertension type: essential hypertension Qualified Code(s): I10 - Essential (primary) hypertension (8) Intellectual disability Code(s): F79 - UNSPECIFIED INTELLECTUAL DISABILITIES Status: Chronic (9) Hyponatremia Code(s): E87.1 - HYPO-OSMOLALITY AND HYPONATREMIA Status: Acute - Plan Plan: Pt seen by cv surg, no intervention Will dc javier LE edema 2/2 occluded ivc filter, will be chronic issue, elevate legs continue home medications pt requiring O2 multiple chest xrays clear and no change in lung exam; possibly 2/2 atelectesis, will order ptot for eval/treat
[2017-04-09 11:20] LABS: Hemoglobin 8.9 g/dL (14.0-18.0); Mean Corpuscular HGB CONC 31.5 g/dL (32.0-36.0); Mean Corpuscular Hemoglobin 30.7 pg (27.0-31.0); Mean Corpuscular Volume 97.5 fl (80.0-94.0); Mean Platelet Volume 7.9 fL (7.4-10.4); Platelet Count 396 thou/uL (130-400); RBC Distribution Width 14.7 % (11.5-14.5); Red Blood Cell (RBC) Count 2.91 mill/uL (4.70-6.10); White Blood Cell (WBC) Count 21.5 thou/uL (4.8-10.8)
[2017-04-09 11:55] LABS: Hypochromia SLIGHT = 6-15 cells (100X) (0-5/hpf); Lymphocytes 5 % (21-51); MDiff Complete? YES; Monocytes 6 % (0-10); Neutrophil 89 % (42-75); PLT Morphology Comment Appears Adequate; Polychromasia SLIGHT = 2-3 cells (100X) (0-2/hpf); Target Cells SLIGHT = 2-5 cells (100X) (0-1/hpf)
--- NOTE | 2017-04-09 11:59 | CT ---
CT BRAIN WIHTOUT CONTRAST: HISTORY: Unwitnessed fall. COMPARISON: CT brain 04/02/17. FINDINGS: No acute territorial infarct or hemorrhage. No midline shift or mass effect. Calvarium is intact. Paranasal sinuses and mastoids are clear. There is moderate cerebellar atrophy. Moderate microvascular ischemic changes. Old lacunar infarcts. IMPRESSION: Chronic changes and atrophy. No acute intracranial abnormality. POS: [facility]
[2017-04-09] MEDS: Escitalopram Oxalate 20 mg Tablet PO SCH (12:19)
[2017-04-09] MEDS: cycloSPORINE, Modified 100 MG CAP PO SCH (12:19)
[2017-04-09] MEDS: levETIRAcetam 500 MG TAB PO SCH ×2 (12:20→20:28)
[2017-04-09] MEDS: Docusate 100 MG CAP PO SCH ×2 (12:20→20:29)
[2017-04-09] MEDS: Fluticasone Propionate Nasal Spray 16 gm Bottle NASAL SCH (12:20)
--- NOTE | 2017-04-09 12:20 | CT ---
CT CERVICAL SPINE NONCONTRAST: HISTORY: A 57-year-old male, status post acute cervical trauma from fall. FINDINGS: There are no jumped or perched facets. There is no evidence of acute fracture. The vertebral body h eights are maintained. There is no prevertebral soft tissue swelling. IMPRESSION: No evidence of acute fracture or acute traumatic subluxation. francine [] POS: [facility]
[2017-04-09] MEDS: Nystatin Powder 15 GM BOT TOP SCH ×2 (12:21→20:29)
[2017-04-09] MEDS: Metoprolol Tartrate 50 MG TAB PO SCH ×2 (12:21→20:29)
[2017-04-09] MEDS: Magnesium Oxide 400 MG TAB PO SCH (12:21)
[2017-04-09] MEDS: predniSONE 5 MG TAB PO SCH (12:22)
[2017-04-09] MEDS: Pantoprazole 40 MG VIAL IVP SCH ×2 (12:22→20:28)
[2017-04-09] MEDS: Ascorbic Acid 500 mg Chewable Tablet PO SCH (12:28)
[2017-04-09] MEDS: Magnesium Chloride 64 MG TAB PO SCH ×2 (12:28→20:29)
--- NOTE | 2017-04-09 12:40 | ADD-PRG ---
DATE OF SERVICE: 04/09/2017 This is an addendum to the note of Dr. Jeremy Luna. Mr. Aldana was sitting and resting quietly in his chair. He was in no distress. We related call to a code green and evidently he had gotten up to go the restroom when he either tripped and fell or had a vagal response due to his anemia and decreased right ventricular return. In the event, he is curre ntly awake and alert. We will send him for head and neck CT. Otherwise, he does not appear to susta in any significant injuries. For complete, as I given his white count, which is improving. We will proceed with a transthoracic e cho to rule out bacterial endocarditis. However, his blood cultures have all been negative. He was seen by CV Surgery yesterday, who felt that no intervention was indicated.
[2017-04-09 12:46] LABS: PT - Undiluted 15.5 SEC (12.0-14.7); PTT - Undiluted 32.9 SEC (22.9-36.1)
[2017-04-09 12:56] LABS: CKMB 1.4 ng/mL (0-6.6); Troponin I Less than 0.010 ng/mL (< 0.028)
[2017-04-09 13:13] LABS: PTT 1:1 Mix 32.9 SEC
[2017-04-09 14:46] LABS: PT 1:1 37C-90 min. Incubation 14.3 SEC; PTT 1:1 37C/90 MIN Incubation 33.7 SEC
[2017-04-09] MEDS: Ferrous Sulfate 325 MG TAB PO SCH (16:29)
[2017-04-09] MEDS: Loratadine 10 MG TAB PO SCH (20:29)
[2017-04-09] MEDS: Melatonin 3 MG TAB PO PRN (20:29)
[2017-04-10] MEDS: Acetaminophen 325 MG TAB PO PRN ×2 (00:25→20:06)
[2017-04-10] MEDS: Ondansetron ODT 4 MG TAB PO PRN (00:25)
[2017-04-10] MEDS: Hydrocortisone Sod Succ/PF 100 mg/2 ml Vial IVP SCH (05:15)
[2017-04-10 05:31] LABS: Anion Gap 9 mmol/L (10-20); BUN (Urea Nitrogen) 23 mg/dL (8.4-25.7); Calc. Creatinine Clearance 83 mL/min (70-130); Calcium 7.7 mg/dL (7.8-10.44); Carbon Dioxide 30 mmol/L (22-29); Chloride 103 mmol/L (98-107); Estimated GFR-MDRD 77; Glucose 106 mg/dL (70-105); Sodium 138 mmol/L (136-145)
[2017-04-10 05:57] LABS: Band 1 % (5-11); Lymphocytes 4 % (21-51); MDiff Complete? YES; Macrocytosis SLIGHT = 6-15 cells (100X) (0-5/hpf); Mean Corpuscular HGB CONC 31.8 g/dL (32.0-36.0); Mean Corpuscular Hemoglobin 30.8 pg (27.0-31.0); Mean Corpuscular Volume 96.6 fl (80.0-94.0); Mean Platelet Volume 7.8 fL (7.4-10.4); Monocytes 6 % (0-10); Neutrophil 89 % (42-75); Nucleated RBC 5 % (0); PLT Morphology Comment Appears Adequate; Platelet Count 367 thou/uL (130-400); RBC Distribution Width 14.2 % (11.5-14.5); White Blood Cell (WBC) Count 16.8 thou/uL (4.8-10.8)
[2017-04-10] MEDS: Docusate 100 MG CAP PO SCH ×2 (09:11→20:06)
[2017-04-10] MEDS: cycloSPORINE, Modified 100 MG CAP PO SCH (09:11)
[2017-04-10] MEDS: Escitalopram Oxalate 20 mg Tablet PO SCH (09:11)
[2017-04-10] MEDS: predniSONE 5 MG TAB PO SCH (09:11)
[2017-04-10] MEDS: Magnesium Oxide 400 MG TAB PO SCH (09:11)
[2017-04-10] MEDS: levETIRAcetam 500 MG TAB PO SCH ×2 (09:11→20:04)
[2017-04-10] MEDS: Magnesium Chloride 64 MG TAB PO SCH ×2 (09:11→21:12)
[2017-04-10] MEDS: Ferrous Sulfate 325 MG TAB PO SCH ×2 (09:11→17:44)
[2017-04-10] MEDS: Metoprolol Tartrate 50 MG TAB PO SCH ×2 (09:11→20:05)
[2017-04-10] MEDS: Ascorbic Acid 500 mg Chewable Tablet PO SCH (09:11)
[2017-04-10] MEDS: Nystatin Powder 15 GM BOT TOP SCH ×2 (09:12→21:13)
[2017-04-10] MEDS: Fluticasone Propionate Nasal Spray 16 gm Bottle NASAL SCH (09:12)
[2017-04-10] MEDS: Pantoprazole 40 MG VIAL IVP SCH ×2 (09:12→20:04)
--- NOTE | 2017-04-10 11:49 | PDOC.FM ---
- Subjective Subjective: No acute events overnight. Pt reports he is doing well. Yesterday, pt suffered an unwitnessed fall and left supraorbital laceration with associated bruising. CT head and cspine were negative, EKG normal and troponins were negative. He is otherwise stable for medical floor with hopes to transfer to SNF in the next day or two and ultimately skilled nursing. - Objective Vital Signs & Weight: Vital Signs (12 hours) Temp Pulse Resp BP Pulse Ox 04/10/17 11:46 97.6 F 64 20 97/55 L 99 04/10/17 09:10 97.5 F L 76 18 96 04/10/17 09:09 97.5 F L 76 18 97/56 L 96 04/10/17 07:14 60 16 04/10/17 04:00 98.3 F 74 18 134/80 97 04/10/17 02:54 97 04/10/17 02:00 72 18 96 04/10/17 00:00 98.1 F 72 18 130/82 96 Weight Admit Weight 72.6 kg Weight 72.575 kg I&O: 04/09/17 04/10/17 04/11/17 06:59 06:59 06:59 Intake Total 600 1480 Output Total 700 800 Balance -100 680 Result Diagrams: 04/10/17 04:56 04/10/17 04:56 Phys Exam - Physical Examination Constitutional: NAD HEENT: PERRLA, sclera anicteric left periorbital ecchymosis w/ laceration, hemostatic Neck: no nodes Respiratory: no wheezing, no rales, no rhonchi, clear to auscultation bilateral Cardiovascular: RRR, no significant murmur, no rub Gastrointestinal: soft, non-tender, no distention, positive bowel sounds Musculoskeletal: pulses present, edema present Neurological: non-focal, moves all 4 limbs Skin: no rash Dx/Plan (1) Inferior vena cava occlusion Code(s): I82.220 - ACUTE EMBOLISM AND THROMBOSIS OF INFERIOR VENA CAVA Status : Acute (2) Upper GI bleed Code(s): K92.2 - GASTROINTESTINAL HEMORRHAGE, UNSPECIFIED Status: Acute (3) DVT (deep venous thrombosis) Code(s): I82.409 - ACUTE EMBOLISM AND THOMBOS UNSP DEEP VN UNSP LOWER EXTREMITY Status: Acute Qualifiers: DVT location: lower extremity Affected thrombotic vein of extremity: unspecified vein of extremity Chronicity: unspecified Laterality: left Qualified Code(s): I82.402 - Acute embolism and thrombosis of unspecified deep veins of left lower extremity (4) Influenza A Code(s): J10.1 - FLU DUE TO OTH IDENT INFLUENZA VIRUS W OTH RESP MANIFEST Status: Resolved (5) Developmental delay, moderate Code(s): R62.50 - UNSP LACK OF EXPECTED NORMAL PHYSIOL DEV IN CHILDHOOD Status : Chronic (6) HLD (hyperlipidemia) Code(s): E78.5 - HYPERLIPIDEMIA, UNSPECIFIED Status: Chronic Qualifiers: Hyperlipidemia type: unspecified Qualified Code(s): E78.5 - Hyperlipidemia , unspecified (7) HTN (hypertension) Code(s): I10 - ESSENTIAL (PRIMARY) HYPERTENSION Status: Chronic Qualifiers: Hypertension type: essential hypertension Qualified Code(s): I10 - Essential (primary) hypertension (8) Intellectual disability Code(s): F79 - UNSPECIFIED INTELLECTUAL DISABILITIES Status: Chronic (9) Hyponatremia Code(s): E87.1 - HYPO-OSMOLALITY AND HYPONATREMIA Status: Acute - Plan Plan: Pt doing well, will transfer to medical floor today or tomorrow PT evaluated and pt will receive continued pt care Will need snf placement Occluded IVC, elevate LE and candie hose Flu resolved Leukocytosis trending down to pts baseline
[2017-04-10 12:07] VITALS: BMI 27.4
--- NOTE | 2017-04-10 12:47 | PRG ---
DATE OF SERVICE: 04/10/2017 Mr. Aldana looks fine this morning. He is awake, alert, in no distress or new complaints. His head C T and neck CT were negative for any injuries following his fall yesterday. We are still awaiting the results of his echocardiogram. His white count has dropped to 16,000, which is near his normal leve l. He is nearing time for discharge.
[2017-04-10] MEDS: Loratadine 10 MG TAB PO SCH (20:05)
[2017-04-10] MEDS: Melatonin 3 MG TAB PO PRN (20:05)
--- NOTE | 2017-04-11 00:18 | EKG ---
Test Reason : AFTER CODE GREEN Blood Pressure : / mmHG Vent. Rate : 087 BPM Atrial Rate : 087 BPM P-R Int : 150 ms QRS Dur : 082 ms QT Int : 384 ms P-R-T Axes : 021 -10 005 degrees QTc Int : 462 ms Normal sinus rhythm Normal ECG When compared with ECG of 29-MAR-2017 17:21, (Unconfirmed) Vent. rate has decreased BY [address] elevation now present in Lateral leads T wave inversion now evident in Inferior leads Nonspecific T wave abnormality, improved in Lateral leads Confirmed by Ochoa MENDEZ ([id number]) on 04/11/2017 12:18:30 AM Referred By: MARY Confirmed By:Ochoa MENDEZ
--- NOTE | 2017-04-11 00:19 | EKG ---
Test Reason : Blood Pressure : / mmHG Vent. Rate : 093 BPM Atrial Rate : 093 BPM P-R Int : 156 ms QRS Dur : 078 ms QT Int : 366 ms P-R-T Axes : 027 -13 -08 degrees QTc Int : 455 ms Normal sinus rhythm Normal ECG When compared with ECG of 09-APR-2017 11:26, (Unconfirmed) No significant change was found Confirmed by Ochoa MENDEZ ([id number]) on 04/11/2017 12:19:30 AM Referred By: DARLIN Confirmed By:Ochoa MENDEZ
[2017-04-11] MEDS: Ondansetron ODT 4 MG TAB PO PRN (00:22)
[2017-04-11 05:31] LABS: Anion Gap 10 mmol/L (10-20); BUN (Urea Nitrogen) 21 mg/dL (8.4-25.7); Calc. Creatinine Clearance 80 mL/min (70-130); Calcium 7.9 mg/dL (7.8-10.44); Carbon Dioxide 31 mmol/L (22-29); Chloride 104 mmol/L (98-107); Estimated GFR-MDRD 74; Glucose 73 mg/dL (70-105); Potassium 3.4 mmol/L (3.5-5.1); Sodium 142 mmol/L (136-145)
[2017-04-11 05:38] LABS: Band 3 % (5-11); Hemoglobin 8.6 g/dL (14.0-18.0); Lymphocytes 10 % (21-51); MDiff Complete? YES; Mean Corpuscular HGB CONC 31.3 g/dL (32.0-36.0); Mean Corpuscular Hemoglobin 30.4 pg (27.0-31.0); Mean Corpuscular Volume 96.9 fl (80.0-94.0); Mean Platelet Volume 7.9 fL (7.4-10.4); Monocytes 8 % (0-10); Neutrophil 79 % (42-75); Nucleated RBC 1 % (0); PLT Morphology Comment Appears Adequate; Platelet Count 353 thou/uL (130-400); RBC Distribution Width 14.8 % (11.5-14.5); Red Blood Cell (RBC) Count 2.82 mill/uL (4.70-6.10)
[2017-04-11] MEDS ORDERED: Potassium Chloride 20 MEQ TAB PO SCH (09:30)
--- NOTE | 2017-04-11 09:31 | PDOC.FM ---
- Subjective Subjective: No acute events overnight. Pt denies cp, sob, nasuea, vomiting and diarrhea and continues to ask " why am I here." He wishes to go home. - Objective Vital Signs & Weight: Vital Signs (12 hours) Temp Pulse Resp BP Pulse Ox 04/11/17 07:45 97.9 F 93 22 H 94/62 100 04/11/17 04:00 98.0 F 92 16 98/61 98 04/11/17 03:25 95 04/11/17 01:04 97.8 F 78 18 106/63 92 L 04/10/17 22:00 97.8 F 64 20 92 L Weight Admit Weight 72.6 kg Weight 72.575 kg I&O: 04/10/17 04/11/17 04/12/17 06:59 06:59 06:59 Intake Total 1480 1490 Output Total 800 Balance 680 1490 Result Diagrams: 04/11/17 04:08 04/11/17 04:08 Phys Exam - Physical Examination Constitutional: NAD HEENT: PERRLA, sclera anicteric Neck: no nodes, no JVD Respiratory: no wheezing, no rales, no rhonchi, clear to auscultation bilateral Cardiovascular: RRR, no significant murmur, no rub Gastrointestinal: soft, non-tender, no distention, positive bowel sounds Musculoskeletal: pulses present, edema present 2+ pitting Neurological: non-focal, moves all 4 limbs Skin: no rash Dx/Plan (1) Inferior vena cava occlusion Code(s): I82.220 - ACUTE EMBOLISM AND THROMBOSIS OF INFERIOR VENA CAVA Status : Acute (2) Upper GI bleed Code(s): K92.2 - GASTROINTESTINAL HEMORRHAGE, UNSPECIFIED Status: Acute (3) DVT (deep venous thrombosis) Code(s): I82.409 - ACUTE EMBOLISM AND THOMBOS UNSP DEEP VN UNSP LOWER EXTREMITY Status: Acute Qualifiers: DVT location: lower extremity Affected thrombotic vein of extremity: unspecified vein of extremity Chronicity: unspecified Laterality: left Qualified Code(s): I82.402 - Acute embolism and thrombosis of unspecified deep veins of left lower extremity (4) Influenza A Code(s): J10.1 - FLU DUE TO OTH IDENT INFLUENZA VIRUS W OTH RESP MANIFEST Status: Resolved (5) Developmental delay, moderate Code(s): R62.50 - UNSP LACK OF EXPECTED NORMAL PHYSIOL DEV IN CHILDHOOD Status : Chronic (6) HLD (hyperlipidemia) Code(s): E78.5 - HYPERLIPIDEMIA, UNSPECIFIED Status: Chronic Qualifiers: Hyperlipidemia type: unspecified Qualified Code(s): E78.5 - Hyperlipidemia , unspecified (7) HTN (hypertension) Code(s): I10 - ESSENTIAL (PRIMARY) HYPERTENSION Status: Chronic Qualifiers: Hypertension type: essential hypertension Qualified Code(s): I10 - Essential (primary) hypertension (8) Intellectual disability Code(s): F79 - UNSPECIFIED INTELLECTUAL DISABILITIES Status: Chronic (9) Hyponatremia Code(s): E87.1 - HYPO-OSMOLALITY AND HYPONATREMIA Status: Acute - Plan Plan: Pt returned to baseline. Continue home medications. DC to SNF for rehab and transition back to NH. Replace potassium.
[2017-04-11] MEDS: Pantoprazole 40 MG VIAL IVP SCH (09:49)
[2017-04-11] MEDS: Acetaminophen 325 MG TAB PO PRN (09:49)
[2017-04-11] MEDS: Ferrous Sulfate 325 MG TAB PO SCH (09:50)
[2017-04-11] MEDS: Ascorbic Acid 500 mg Chewable Tablet PO SCH (09:50)
[2017-04-11] MEDS: Magnesium Oxide 400 MG TAB PO SCH (09:51)
[2017-04-11] MEDS: Magnesium Chloride 64 MG TAB PO SCH (09:51)
[2017-04-11] MEDS: Escitalopram Oxalate 20 mg Tablet PO SCH (09:51)
[2017-04-11] MEDS: Metoprolol Tartrate 50 MG TAB PO SCH (09:51)
[2017-04-11] MEDS: predniSONE 5 MG TAB PO SCH (09:51)
[2017-04-11] MEDS: levETIRAcetam 500 MG TAB PO SCH (09:52)
[2017-04-11] MEDS: Docusate 100 MG CAP PO SCH (09:52)
[2017-04-11] MEDS: Nystatin Powder 15 GM BOT TOP SCH (09:53)
[2017-04-11] MEDS: cycloSPORINE, Modified 100 MG CAP PO SCH (09:55)
[2017-04-11] MEDS: Fluticasone Propionate Nasal Spray 16 gm Bottle NASAL SCH (10:10)
[2017-04-11 11:36] VITALS: BP 126/68; TEMP 98
--- NOTE | 2017-04-11 13:02 | ADD-PRG ---
DATE OF SERVICE: 04/11/2017 This morning the patient says he "feels a whole lot better." Placement has been arranged and he will be discharged today.
--- NOTE | 2017-04-14 10:09 | DIS-2 ---
DATE OF ADMISSION: 03/27/2017 DATE OF DISCHARGE: 04/11/2017 LOCATION: [place], [place]. COSIGNER: Amilcar Hernandez MD RESIDENT PHYSICIAN: Jeremy Luna DO ADMITTING PHYSICIAN: Reji Zhu MD DISCHARGE ATTENDING: Amilcar Hernandez MD CONSULTATIONS: 1. Nephrology, Dr. Balbir Hernandez. 2. Gastroenterology, Dr. Aureliano Meza. 3. Cardiovascular Surgery, Dr. Wili Novak. PROCEDURES: 1. Chest x-ray done on 03/27/2017 showed no evidence of acute cardiopulmonary process. 2. Abdomen x-ray done on 03/28/2017 showed nonobstructive bowel gas pattern without large volume of stool detected. IVC filter. Status post cholecystectomy. 3. Vascular ultrasound done on 03/28/2017 showed the patient was positive for acute occlusive DVT throughout the left thigh from the groin to the knee. 4. CTA chest and thorax on 03/28/2017 showed no evidence of pulmonary thromboembolism and IVC filter in place. 5. Echocardiogram done on 03/28/2017 showed an ejection fraction of 60-65%, normal right ventricular size and function. The left atrium is mildly dilated. Mild mitral regurgitation. Structurally normal aortic valve. Mild tricuspid regurgitation. Mild pulmonic regurgitation. 6. Chest x-ray done on 03/29/2017 showed no acute intrathoracic abnormality. 7. Brain CT done on 04/02/2017 showed no acute intracranial hemorrhage or mass effect. Prominent cerebellar parenchymal atrophy. Remote-appearing linear infarctions of each basal ganglia. 8. Chest x-ray done on 04/02/2017 showed no evidence of acute cardiopulmonary disease. 9. EGD done on 04/02/2017 showed clots and food material in the stomach. The patient had a Hemoclip placement x3 over the visible bleeding vessel. There are multiple gastric polyps and duodenal polyps. 10. Chest x-ray done on 04/06/2017 showed no active cardiopulmonary abnormalities demonstrated. 11. Abdomen and pelvis CT done on 04/06/2017 showed stable right lower quadrant abdominal wall hernia containing nonobstructive bowel. Bilateral renal cysts. Nonobstructing right renal calcifications. Nonspecific mildly enlarged lymph nodes in the upper retroperitoneum. Additionally, on further evaluation, the CT findings were highly suspicious for thrombosis and occlusion of the entire lower portion of the inferior vena cava from the upper level of the IVC filter to the bilateral common iliac veins, external iliac veins, and common femoral veins. Furthermore, upper hepatic portion of the inferior vena cava is severely narrowed more so than it was on the prior contrast-enhanced CT of 10/14/2016, although there is no evidence of any tumor or mass causing this. There is severe asymmetrical parenchymal volume loss of the right kidney representing extensive scarring from prior insults. 12. Brain CT done on 04/09/2017 showed chronic changes and atrophy, no acute intracranial abnormality. 13. Cervical spine CT done on 04/09/2017 showed no evidence of acute fracture or traumatic subluxation. 14. Electrocardiogram done on 04/09/2017 showed normal sinus rhythm, normal EKG. PRIMARY DIAGNOSES: 1. Influenza A. 2. Deep venous thrombosis. 3. Inferior vena cava occlusion. 4. Upper gastrointestinal bleed. SECONDARY DIAGNOSES: 1. Minimal change disease. 2. Intellectual disability. 3. Urinary tract infection. 4. Depression. 5. History of seizures. 6. Gastroesophageal reflux disease. 7. Hyperlipidemia. 8. Hypertension. 9. Nephrotic syndrome. 10. History of cerebrovascular accident. 11. History of deep venous thrombosis. 12. Moderate developmental delay. DISCHARGE MEDICATIONS: 1. Acetaminophen 650 mg tab p.o. q.6 hours p.r.n. pain. 2. Acyclovir 5 gram tube 1 gram topical q.4 hours. 3. Alendronate sodium 35 mg q.7 days. 4. Vitamin D3 one tab p.o. b.i.d. 5. Zyrtec 1 tab p.o. at bedtime. 6. Cyclosporine 1 mL p.o. daily. 7. Lexapro 20 mg p.o. daily. 8. Flonase 1 spray daily. 9. Guaifenesin 600 mg extended release p.o. q.12 hours. 10. DuoNebs 2.5 mg inhaled p.r.n. 11. Keppra 500 mg 3 tabs p.o. b.i.d. 12. Mag oxide 400 mg 1 tab p.o. daily. 13. Multivitamin 1 tab p.o. daily. 14. Zofran 4 mg p.o. q.6 hours. 15. Pantoprazole 40 mg daily. 16. Potassium chloride 20 mEq daily. 17. Prednisone 5 mg daily. 18. Tramadol 50 mg p.o. q.6 hours. 19. B complex vitamin 1 tab p.o. daily. DISCONTINUED MEDICATIONS: Keflex. HISTORY OF PRESENT ILLNESS/HOSPITAL COURSE: The patient is a 57-year-old male with a past medical history of developmental delay, seizure disorder, and prior numerous recent hospitalizations, who originally presented to the hospital on after a hospitalization from approximately one week prior where he was admitted for urosepsis. The patient initially came in with altered mental status and lethargy as well as abdominal pain. According to the sister on admission, the patient "was not himself." After evaluating in the emergency department, he was treated with Rocephin IV, at which point his blood pressure dropped acutely and he became flushed. The patient was subsequently admitted to the hospital where he was found to have flu A positive and was treated with a full course of Tamiflu. Subsequently, the patient was also found to have an extensive left lower extremity DVT with noted increased swelling in both extremities, left worse than right. Eventually, it was discovered that the IVC filter was completely occluded. There are numerous and extensive DVTs of the bilateral lower extremities; however, due to the patient's seizure history and history of frequent falls in the context of his developmental delay, he is an extremely poor candidate for anticoagulation, hence the IVC filter was placed several years prior. While the patient was hospitalized, we did attempt anticoagulation with therapeutic Lovenox and an attempt to treat the DVT, as well as the patient, was being monitored to minimize his risk of fall; however, on approximately day #5 of treatment, the patient developed hematemesis and an acute brisk upper gastrointestinal bleed which was emergently scoped, found to have a bleeding vessel and 3 clips were placed and the bleeding vessel was injected and adequate hemostasis was achieved. The patient's hemoglobin dropped to 8.2 and subsequently trended up after the ED with clipping was performed. After the bleeding event, the anticoagulation was stopped and Cardiovascular Surgery was consulted if there is anything else that could be done for the occluded IVC filter. Unfortunately, they determined that there was nothing else that needed to be done or could be done at this point except for leg elevation and symptomatic treatment of the lower extremity edema. After being diagnosed with flu, the patient's O2 sats consistently remained 90- 95% requiring 2-3 liters by nasal cannula, which is changed from the patient's baseline of above 95% on room air. Numerous chest x-ray studies were performed , all of which were negative. On the day prior to discharge, the patient did have a [employer] called on him as he fell out of bed; it was an unwitnessed fall. CT of the brain and cervical spine showed no acute fracture or abnormality. He suffered a small abrasion over the left supraorbital region which was hemostatic with Steri- Strips. Prior to discharge, the patient's oxygen requirements subsided. The patient improved drastically and he had no complaints. Physical exam was benign. On the day prior to discharge, laboratory studies showed a white count of 21,000 with a hemoglobin of 8.6, hematocrit 27.4, a platelet count of 353. Abel neutrophils on discharge were 3% and total neutrophil count was 79%. It should be noted that the patient's white count was persistently between 16,000- 22,000 during this hospital stay and no source of infection was ever identified ; however, there was never any bandemia present and band percentage ranged anywhere from 1 to the highest of 11%, which was noted on 04/07/2017. The patient had persistently swollen bilateral lower extremities throughout his hospital stay, which will likely be chronic secondary to the occluded IVC filter. The patient will be discharged to a nursing home facility where it will be important that he continues to participate in rehabilitation secondary to his deconditioning over his month-long hospitalization. The patient was instructed to raise his legs above heart level when resting or sitting in a chair in addition to Haris Hose if tolerable for improvement of the swelling. DISPOSITION: 1. The patient left the hospital in stable condition. 2. Location: [facility]. 3. Diet: Heart healthy. 4. Activity: ad eli. 5. Followup: Follow up with primary care provider in 7-10 days from discharge. JAYCEE
== END 2017-04-11 13:09 | DRG 299 ==
LOC: ERS 10:32 → SURG B 03-28 01:36 → OBSVTOIN 03-28 11:55 → 2NO 03-29 18:53 → T4-B 03-30 16:21 → IMCU/EMU 04-02 16:40 → 2NO 04-04 19:27 → T4-B 04-10 21:46
PROVIDERS: ADMIT Student in an Organized Health Care Education/Training Program; ATTEND Student in an Organized Health Care Education/Training Program
PROC: 0W3P8ZZ Control Bleeding in Gastrointestinal Tract, Via Natural or Artificial Opening Endoscopic (ICD-10-PCS; principal; 2017-04-02)
PROC: 3E1G88Z Irrigation of Upper GI using Irrigating Substance, Via Natural or Artificial Opening Endoscopic (ICD-10-PCS; 2017-04-02)
PROC: 0DC68ZZ Extirpation of Matter from Stomach, Via Natural or Artificial Opening Endoscopic (ICD-10-PCS; 2017-04-02)
PROC: 3E0G8GC Introduction of Other Therapeutic Substance into Upper GI, Via Natural or Artificial Opening Endoscopic (ICD-10-PCS; 2017-04-02)
PROC: 30233N1 Transfusion of Nonautologous Red Blood Cells into Peripheral Vein, Percutaneous Approach (ICD-10-PCS; 2017-04-02)
DX: I82.402 Acute embolism and thrombosis of unspecified deep veins of left lower extremity (principal); G93.40 Encephalopathy, unspecified; I82.220 Acute embolism and thrombosis of inferior vena cava; E87.0 Hyperosmolality and hypernatremia; R65.10 Systemic inflammatory response syndrome (SIRS) of non-infectious origin without acute organ dysfunction; D62 Acute posthemorrhagic anemia; E27.3 Drug-induced adrenocortical insufficiency; I95.2 Hypotension due to drugs; E86.0 Dehydration; K92.2 Gastrointestinal hemorrhage, unspecified; L03.116 Cellulitis of left lower limb; T82.868A Thrombosis due to vascular prosthetic devices, implants and grafts, initial encounter; N04.0 Nephrotic syndrome with minor glomerular abnormality; N30.00 Acute cystitis without hematuria; E87.1 Hypo-osmolality and hyponatremia; I82.502 Chronic embolism and thrombosis of unspecified deep veins of left lower extremity; R13.10 Dysphagia, unspecified; T38.0X5A Adverse effect of glucocorticoids and synthetic analogues, initial encounter; B35.6 Tinea cruris; G40.909 Epilepsy, unspecified, not intractable, without status epilepticus; Z86.73 Personal history of transient ischemic attack (TIA), and cerebral infarction without residual deficits; F32.9 Major depressive disorder, single episode, unspecified; G47.33 Obstructive sleep apnea (adult) (pediatric); I10 Essential (primary) hypertension; D64.9 Anemia, unspecified; J10.1 Influenza due to other identified influenza virus with other respiratory manifestations; K31.7 Polyp of stomach and duodenum; N28.9 Disorder of kidney and ureter, unspecified; E11.9 Type 2 diabetes mellitus without complications; J44.9 Chronic obstructive pulmonary disease, unspecified; R62.50 Unspecified lack of expected normal physiological development in childhood; E78.5 Hyperlipidemia, unspecified; F79 Unspecified intellectual disabilities; E87.6 Hypokalemia; R19.7 Diarrhea, unspecified
CPT/HCPCS: 36415; 36416; 36430; 51701; 70450; 71045; 71275; 72125; 74018; 74177; 80048; 80053; 80076; 80400; 80500; 81001; 81003; 81015; 82247; 82274; 82553; 82570; 83605; 83735; 83880; 84156; 84484; 85025; 85611; 85732; 86850; 86900; 86901; 87040; 87086; 87102; 87206; 87633; 93005; 93010; 93306; 94640; 96361; 96365; 96367; 96375; A4216; C9113; G8978-GP-CL; G8979-GP-CK; G8987-GO-CL; G8988-GO-CJ; G8996-GN-CL; G8997-GN-CL; J0696; J1200; J1650; J1720; J1940; J2001; J2704; J3010; J3490; J7050; J7502; J7620; P9016; P9047; Q0162

== ENCOUNTER 2017-04-14 08:10 | Inpatient (IN) | payer MEDICARE, MEDICAID ==
[2017-04-14 09:03] LABS: INR-International Normal Ratio 1.2
--- NOTE | 2017-04-14 09:03 | RAD ---
PORTABLE CHEST 1 VIEW: Date: 04/14/17 Time: 0842 hours HISTORY: Fever. FINDINGS: Comparison made with exam of 04/06/17. There has been interval development of focal areas of mass-like consolidation in the right infrahilar region. No pneumothoraces or pleural effusions are seen. IMPRESSION: Findings are suspicious for pneumonia. Follow-up exam should be obtained after a course of antibiotic s. POS: [facility]
[2017-04-14 09:10] LABS: Hemoglobin 10.1 g/dL (14.0-18.0); Mean Corpuscular HGB CONC 30.2 g/dL (32.0-36.0); Mean Corpuscular Hemoglobin 29.5 pg (27.0-31.0); Mean Corpuscular Volume 97.5 fl (80.0-94.0); Platelet Count 326 thou/uL (130-400); RBC Distribution Width 15.1 % (11.5-14.5); Red Blood Cell (RBC) Count 3.42 mill/uL (4.70-6.10); White Blood Cell (WBC) Count 28.2 thou/uL (4.8-10.8)
[2017-04-14 09:11] LABS: Band 3 % (5-11); Hypochromia SLIGHT = 6-15 cells (100X) (0-5/hpf); Lymphocytes 6 % (21-51); MDiff Complete? YES; Monocytes 3 % (0-10); Neutrophil 88 % (42-75); PLT Morphology Comment Appears Adequate; Polychromasia MODERATE = 3-4 cells (100X) (0-2/hpf); Target Cells SLIGHT = 2-5 cells (100X) (0-1/hpf)
[2017-04-14 09:21] LABS: ALT (SGPT) 26 U/L (8-55); AST (SGOT) 30 U/L (5-34); Albumin 2.7 g/dL (3.5-5.0); Alkaline Phosphatase 118 U/L (40-150); Anion Gap 10 mmol/L (10-20); BUN (Urea Nitrogen) 11 mg/dL (8.4-25.7); Bilirubin, Total 1.5 mg/dL (0.2-1.2); Calc. Creatinine Clearance 0 mL/min (70-130); Carbon Dioxide 26 mmol/L (22-29); Chloride 104 mmol/L (98-107); Estimated GFR-MDRD Greater than 90; Globulin 3.5 g/dL (2.4-3.5); Glucose 75 mg/dL (70-105); Lipase 5 U/L (8-78); Magnesium 1.7 mg/dL (1.6-2.6); Protein, Total 6.2 g/dL (6.0-8.3); Sodium 136 mmol/L (136-145)
[2017-04-14 09:23] LABS: CKMB 0.7 ng/mL (0-6.6); Troponin I Less than 0.010 ng/mL (< 0.028)
--- NOTE | 2017-04-14 09:56 | CT ---
CT OF THE ABDOMEN AND PELVIS WITH CONTRAST: Date: 04/14/17 COMPARISON: 04/06/17. HISTORY: Abdominal pain for 2-3 days. Patient has flu and just finished taking Tamiflu. TECHNIQUE: Multiple contiguous axial images were obtained in a CT of the abdomen and pelvis with contrast. Coron al reformats were performed. FINDINGS: There is cortical thinning of the right kidney. There are hypodensities in the bilateral kidneys whic h represent cysts. There are calcifications in the right kidney. These calcifications may be nonobstr ucting renal calcifications or vascular calcifications. These measure up to 5.0 mm in size. The gallbladder has been removed. An inferior vena cava filter is seen. No focal liver lesions are se en. The adrenal glands and pancreas are unremarkable. 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 There is a stable hernia of the right abdominal wall measuring 3.1 cm in size containing nonobstructe d colon. Calcifications are seen in the prostate. Diffuse soft tissue anasarca is present. The large and small bowel are normal in caliber. There are stable, mildly enlarged retroperitoneal lymph nodes measuring up to 2.3 cm in long axis in the craniocaudal direction. Degenerative changes are seen in the spine. In the right lower lobe, there is a new area of consolida tion with central low density which may represent an area of cavitation. There is also consolidation in the posterior aspect of the right middle lobe. IMPRESSION: 1. Interval right-sided pulmonary infiltrates. 2. Renal cysts. 3. Right renal calcifications may represent vascular calcifications or nonobstructing right renal ur inary collecting system calcifications. 4. Nonspecific enlarged retroperitoneal lymph nodes. 5. Stable right abdominal wall hernia containing nonobstructive colon. POS: [facility]
[2017-04-14] MEDS ORDERED: Vancomycin HCl 1 GM in Premix Bag 1 BAG IVPB SCH (10:00)
[2017-04-14] MEDS ORDERED: Azithromycin 500 MG in Sodium Chloride 0.9% 250 ML 250 ML IVPB SCH (10:00)
[2017-04-14] MEDS ORDERED: Acetaminophen 325 MG TAB ONE (10:07)
[2017-04-14] MEDS ORDERED: ISOVUE-370 76%-LOCM 1 ML ONE (12:16)
--- NOTE | 2017-04-14 12:59 | RAD ---
CHEST 1 VIEW: Date: 04/14/17 COMPARISON: 04/14/17. HISTORY: Central line placement. FINDINGS: Portable supine chest radiograph demonstrates interval placement of a right-sided internal jugular ce ntral venous catheter with distal tip projecting over the superior vena cava. No pneumothorax on this supine projection. Persistent opacification of the right lung. IMPRESSION: 1. Right-sided central venous catheter as above. No pneumothorax on this supine projection. 2. Persistent right hemithoracic opacification. POS: [facility]
[2017-04-14] MEDS ORDERED: Acetaminophen 325 MG TAB PO PRN (13:00)
[2017-04-14] MEDS ORDERED: Ondansetron ODT 4 MG TAB PO PRN ×2 (13:00→19:49)
[2017-04-14] MEDS ORDERED: Bisacodyl 5 MG TAB PO PRN (13:00)
[2017-04-14 13:04] LABS: Lactic Acid 0.8 mmol/L (0.5-2.2)
[2017-04-14 13:12] LABS: Troponin I Less than 0.010 ng/mL (< 0.028)
--- NOTE | 2017-04-14 13:59 | HP-2 ---
CODE STATUS: FULL. PRIMARY CARE PHYSICIAN: Dr. Moore ATTENDING PHYSICIAN: Dr. Erik Lopez RESIDENT: Dr. Racheal Alcala. CHIEF COMPLAINT: Abdominal pain and abnormal vital signs. HISTORY OF PRESENT ILLNESS: This is a 57-year-old male with a history of intellectual delay, history of DVT status post recent occluded IVC filter, epilepsy, minimal change disease and adrenal insufficiency secondary to chronic steroid use. He presented this morning with fever and abnormal vital signs from [facility]. He was recently discharged 2 days ago from the hospital after being treated for flu and a finding of occluded IVC filter. The patient apparently appeared to be more confused per the snf staff this morning. Upon conversation with his sister who is heavily involved in his healthcare, she states that he is only alert and oriented to person at his baseline and that he was able to state that this morning to her. He has no other major complaints and he does not complain of abdominal pain upon my examination in the room. He does not complain about any shortness of breath or chest pain. He is rather agitated as he had just had a central line placed when I was seeing the patient. In the ER, the patient came in with vital signs originally 110/90 and tachycardic at 116 with a temperature of 101.2. The patient's fluid bolus was somewhat delayed and the patient's blood pressure dropped as low as 78/53 and there was some trouble obtaining IV access, so a central line was placed in the ER and fluid boluses were initiated and the patient's blood pressure appropriately responded to 97/62. The patient was given azithromycin and vancomycin in the ER. PAST MEDICAL HISTORY: 1. Intellectual delay. 2. History of cerebrovascular accident. 3. History of deep venous thrombosis status post occluded IVC filter. 4. Epilepsy. 5. Depression. 6. Obstructive sleep apnea. 7. Minimal change disease. 8. Gastroesophageal reflux disease. 9. Hyperlipidemia. 10. Hypertension. 11. Adrenal insufficiency secondary to chronic steroid use. PAST SURGICAL HISTORY: 1. History of DVT with occluded IVC filter. 2. Cholecystectomy. 3. Appendectomy. 4. Ex-lap. 5. Renal biopsy. 6. Splenectomy. ALLERGIES: CIPRO, CEFTRIAXONE, MORPHINE, DILANTIN, ADHESIVE TAPE, PHENYTOIN. HOME MEDICATIONS: 1. Keppra 1500 mg p.o. b.i.d. 2. Cyclosporine 100 mg p.o. daily. 3. Metoprolol 50 mg p.o. b.i.d. 4. Magnesium oxide 400 mg p.o. daily. 5. Vitamin D3 one tab p.o. daily. 6. Zyrtec 10 mg 1 tab p.o. at bedtime. 7. Acyclovir 1 gram topical q.4h. p.r.n. 8. Tramadol 50 mg p.o. q.6h. p.r.n. 9. Prednisone 5 mg p.o. daily. 10. Potassium chloride 20 mEq p.o. daily. 11. Zofran 4 mg p.o. q.6h. p.r.n. 12. Multivitamin 1 tab p.o. daily. 13. Mucinex 600 mg p.o. q.12h. p.r.n. 14. MiraLax 17 grams p.o. daily. 15. Calcium carbonate and vitamin D3 one tab p.o. b.i.d. 16. Alendronate 35 mg p.o. every 7 days. 17. Lexapro 20 mg p.o. daily. 18. Acetaminophen 2 tabs p.o. q.6h. p.r.n. 19. Vitamin B complex 1 tab p.o. daily. 20. Unisom 25 mg p.o. at bedtime. FAMILY HISTORY: Hypertension, diabetes, COPD, hyperlipidemia and depression. SOCIAL HISTORY: No use of tobacco, alcohol, or drugs. REVIEW OF SYSTEMS: GENERAL: The patient denies fever, chills, appetite or weight change. EYES: No vision changes or eye pain; however, he did have a fall during his last hospitalization and has some bruising over the left eye. ENT: No nasal congestion or rhinorrhea. RESPIRATORY: No cough or congestion or shortness of breath. CARDIOVASCULAR: No chest pain or palpitations; however, he does have bilateral lower extremity edema, no PND, orthopnea. GASTROINTESTINAL: Does complain of nausea; however, is not vomiting, no diarrhea. He does have chronic constipation. GENITOURINARY: No dysuria or polyuria. SKIN: No rashes or lesions. MUSCULOSKELETAL: No pain or tenderness. NEURO: No weakness or numbness. PSYCH: Some depression present as well as intellectual disability. PHYSICAL EXAMINATION: VITAL SIGNS: Blood pressure is 87/59, pulse 108, respiratory rate 18, T-max 101.2, pulse ox 96% on room air, and current weight is 72 kilograms. PSYCHIATRIC: The patient is alert and oriented x1, which is to person, which is his baseline. He does not appear to be in any acute distress and is at his baseline. EYES: PERRLA, EOMI. There is a large bruise to the left eye. ENT: Oropharynx is within normal limits. NECK: Supple, without lymphadenopathy. CARDIOVASCULAR: Regular rate and rhythm without any murmurs noted. Posterior tibial pulses are 2+. RESPIRATORY: Normal effort; however, there is right middle lobe and right lower lobe rhonchi present. There is good air movement on the left lung. ABDOMEN: Soft and nontender to palpation and bowel sounds are present x4. EXTREMITIES: There is no clubbing or cyanosis; however, there is 3+ pitting edema in the bilateral lower extremities. MUSCULOSKELETAL: The patient does not have full range of motion and is unable to walk. NEUROLOGIC: No focal deficits outside of his baseline noted. Cranial nerves II -XII appear to be intact. LABORATORY DATA: White blood cell 28.2, hemoglobin 10.1, hematocrit 33.3, MCV 97.5, platelets 326. Sodium 136, potassium 4.0, chloride 104, bicarbonate 26, BUN 11, creatinine 0.84 , and glucose of 75. GFR is greater than 90. Calcium 8.0. AST 30, ALT 26, alkaline phosphatase 118, albumin 2.7, total protein 6.2, total bilirubin 1.5, mag is 1.7, PT 15, INR 1.2. The patient has 3% bands, 88% neutrophils. CK-MB is 0.7, troponin is less than 0.01. Lipase 5. His chest x-ray does show a right lower lobe infiltrate. CT abdomen and pelvis shows a consolidation in the posterior aspect of the right middle lobe, right lower lobe new consolidation versus possible cavitation , a stable right abdominal wall hernia, renal cyst with nonobstructing renal calculi versus vascular calcifications. ASSESSMENT AND PLAN: This is a 57-year-old male with a finding of pneumonia. 1. Severe sepsis secondary to hospital-acquired pneumonia with a right lower lobe infiltrate. He is at risk for multidrug resistant pathogen. We will start him on Zosyn, gentamicin, and vancomycin. Recheck a lactic acid until this normalizes. Supplemental oxygen to be given. Continue to trend his BMP and CBC. We will check a strep and legionella urinary antigen. We will give p.r.n. DuoNebs as needed. Considering the patient recently had flu, he is at risk for Staph pneumonia. We will also go ahead and check a procalcitonin. 2. Abdominal pain. At the time of my examination, there is none reported. He has no abnormalities on CT pelvis and abdomen other than stable changes noted above. 3. Hypertension. Hold blood pressure meds until his blood pressure stabilizes. 4. Hyperlipidemia. Continue home medications. 5. Adrenal insufficiency. We will give a stress dose steroids in the acute setting. Continue his home steroids after that. 6. History of DVT. The patient does have an IVC filter in place. We will go ahead and do prophylactic Lovenox. 7. hx of minimal change dx- on chronic steroid DISPOSITION/LENGTH OF HOSPITAL STAY: Likely at least 3 days. Symptomatic medications will be provided. History and physical exam as well as management was discussed with Dr. Lopez. JAYCEE
[2017-04-14] MEDS ORDERED: predniSONE 20 MG TAB PO SCH (14:00)
[2017-04-14 14:41] LABS: Bilirubin Negative (Negative); Clarity Clear (Clear); Glucose, Urine (Dipstick) Negative (Negative)
[2017-04-14 14:42] LABS: Blood, Urine Trace (Negative); Leukocyte Small (Negative); Nitrite Negative (Negative); Protein, Urine (Dipstick) Negative (Neg-Trace); Specific Gravity, Urine 1.015 (1.005-1.030)
[2017-04-14 14:54] LABS: Bacteria/HPF None Seen HPF (None Seen); Hyaline Casts/LPF 0-3 HYALINE CAST LPF (0-3 Hyaline); Pathc Cast-AUWi Flag 0.54 (0-2.49); RBC/HPF 0-3 HPF (0-3)
[2017-04-14 15:03] LABS: Renal Epithelial 0-3 HPF (0-3); Transitional Epithelial NONE SEEN HPF (0-3)
[2017-04-14] MEDS: Sodium Chloride 0.9% 1,000 ML IV SCH (16:09)
[2017-04-14 17:09] LABS: Troponin I Less than 0.010 ng/mL (< 0.028)
[2017-04-14 17:10] VITALS: BMI 27.0
--- NOTE | 2017-04-14 17:40 | HP ---
DATE OF ADMISSION: 04/14/2017 For full history and physical details, please see Dr. Racheal Alcala's note. Portions of the history an d physical have been repeated by myself and I am in agreement with her assessment and plan as kp schreiber. HISTORY OF PRESENT ILLNESS: In brief, this patient is a 57-year-old gentleman with a history of inte llectual delay, history of stroke, history of multiple deep vein thrombosis with IVC filter in place, epilepsy, depression, obstructive sleep apnea who presents to the emergency room after recent discha rge from the hospital. The patient was recently admitted to the [facility] for influenza and was di scharged approximately 3 days ago. This morning, the patient began to have fever and "abnormal vital signs" at the [facility], and therefore he was sent to the emergency room for further workup. Per the sister who is in the room with the patient, she reports that his only complaint recently has bee n abdominal pain, which has been present for approximately the last 10 days, but denies any cough, sh ortness of breath, fevers. Upon arrival to the emergency room, the patient was found to be febrile t o 101.2 as well as tachycardic to 116. Blood pressure at one point dropped to 78/53, at which time a central line was placed and the patient was given 2 liters of normal saline with good blood pressure response. The patient was given azithromycin and vancomycin in the ER and admitted for further work up. PHYSICAL EXAMINATION: VITAL SIGNS: At the time of my exam revealed a temperature of 101.2, pulse 108, blood pressure 105/6 0, respiratory rate 18, pulse ox 96% on room air. GENERAL: The patient was alert and oriented to person only, which is his baseline. He appeared in n o apparent distress. HEART: Regular rate and rhythm without murmurs, rubs, or gallops. LUNGS: Respiratory effort was not increased. There were right-sided rhonchi present and good air mo vements bilaterally. ABDOMEN: Soft and nontender to palpation. Bowel sounds present x4 quadrants. EXTREMITIES: There is no clubbing or cyanosis. The patient does have 3+ pitting edema in bilateral lower extremities, which is overall chronic for this patient. NEUROLOGIC: No new focal deficits. LABORATORY DATA: Pertinent laboratory studies reveal, 1. White count of 28.2 with a left shift showing 88% neutrophils and 3% bands. Hemoglobin and hemat ocrit 10.1 and 33, which are overall chronic. 2. BMP was overtly normal. Lactic acid elevated at 2.5. 3. Urinalysis showed trace blood, 7-10 wbc's, small leukocyte esterase. IMAGING: Chest x-ray showed an interval development of focal area of mass-like consolidation in the right infrahilar region suggestive of a pneumonia. CT of the abdomen and pelvis showed stable ventra l hernia and interval right-sided pulmonary infiltrates from previous CT. ASSESSMENT AND PLAN: This 57-year-old gentleman admitted with fever, tachycardia, hypertension, elev ated white count, and chest x-ray evidence of a new infiltrate. 1. Sepsis secondary to healthcare-associated pneumonia. The patient is status post 2 liters of norm al saline. We will continue on fluids at this time. Lactate is downtrended and is now normal. The patient will be started on broad antimicrobial coverage to include Staph coverage due to his recent d iagnosis of influenza. Due to the patient's allergies, we feel the best treatment strategy for him w ould be Zosyn, vancomycin, and gentamicin. We will check a procalcitonin. Blood and urine cultures have been obtained and sent to the lab and we will follow up with those. Continue IV fluids as appro priate though his blood pressure is improved at this time and there is no evidence of end-organ damag e. The patient also is likely steroid dependent as he is on daily 5 mg prednisone dose. He has been given an increased dose of prednisone and we will continue that while he is here. 2. Anemia. This is chronic and overall stable. We will trend as he receives large amount of fluids to ensure it does not worsen below his normal baseline. 3. Abdominal pain, somewhat nonspecific and not reproducible on exam. However, the family does repo rt that it has been bothering him for about the last 10 days. He does have evidence of small bowel l ocated in his ventral hernia, though this is stable going back to at least 09/2016. If he continues to complain, we may get Surgery's input on a possibility of fixing this, though they would likely def er on that until he is over his acute illness. 4. History of blood clots. The patient has been placed on Lovenox, though he is at large fall risk as he tries to get out of bed frequently. We will have to monitor and arrange for sitter at night, s o that he does not fall out of bed or try to get out of bed.
[2017-04-14] MEDS ORDERED: Piperacillin/Tazobactam 4.5 GM in Sodium Chloride 0.9% 100 ML IVPB SCH (18:00)
[2017-04-14 18:13] LABS: Legionella Urinary Ag Negative (Negative); Strep pneumo Urine Ag NEGATIVE (NEGATIVE)
[2017-04-14] MEDS ORDERED: FLU VACC QS2017-18 36 mo. & older 0.5 ML SYRINGE IM ONE (18:45)
[2017-04-14] MEDS ORDERED: guaiFENesin ER 600 MG TAB PO PRN (18:47)
[2017-04-14] MEDS: Piperacillin/Tazobactam 4.5 GM in Sodium Chloride 0.9% 100 ML IVPB SCH (20:51)
[2017-04-14] MEDS: levETIRAcetam 500 MG TAB PO SCH (20:51)
[2017-04-14] MEDS: Loratadine 10 MG TAB PO SCH (20:52)
[2017-04-14] MEDS: Acetaminophen 500 MG TAB PO SCH (20:52)
[2017-04-14] MEDS: Calcium Carbonate + Vit D 1 TAB PO SCH (20:53)
[2017-04-14] MEDS ORDERED: ACYCLOVIR TOP PRN (21:00)
[2017-04-14] MEDS: Vancomycin HCl 1 GM in Premix Bag 1 BAG IVPB SCH (22:28)
[2017-04-15] MEDS: Sodium Chloride 0.9% 1,000 ML IV SCH ×3 (00:32→12:25)
[2017-04-15] MEDS: traMADol HCl 50 MG TAB PO SCH ×5 (00:52→23:48)
[2017-04-15 05:42] LABS: Anion Gap 8 mmol/L (10-20); BUN (Urea Nitrogen) 11 mg/dL (8.4-25.7); Calc. Creatinine Clearance 108 mL/min (70-130); Carbon Dioxide 23 mmol/L (22-29); Chloride 107 mmol/L (98-107); Estimated GFR-MDRD Greater than 90; Glucose 133 mg/dL (70-105); Potassium 4.2 mmol/L (3.5-5.1); Sodium 134 mmol/L (136-145)
[2017-04-15 05:45] LABS: Band 11 % (5-11); Hemoglobin 8.2 g/dL (14.0-18.0); Lymphocytes 2 % (21-51); MDiff Complete? YES; Mean Corpuscular Volume 96.8 fl (80.0-94.0); Mean Platelet Volume 8.3 fL (7.4-10.4); Neutrophil 87 % (42-75); PLT Morphology Comment Appears Adequate; Platelet Count 303 thou/uL (130-400); RBC Distribution Width 15.6 % (11.5-14.5); Red Blood Cell (RBC) Count 2.74 mill/uL (4.70-6.10); White Blood Cell (WBC) Count 23.3 thou/uL (4.8-10.8)
[2017-04-15] MEDS: Piperacillin/Tazobactam 4.5 GM in Sodium Chloride 0.9% 100 ML IVPB SCH ×4 (05:54→20:49)
[2017-04-15] MEDS ORDERED: predniSONE 5 MG TAB PO SCH (08:00)
[2017-04-15] MEDS: Polyethylene Glycol 3350 17 GM Packet PO SCH (09:08)
[2017-04-15] MEDS: Pantoprazole 40 MG VIAL IVP SCH (09:08)
[2017-04-15] MEDS: Calcium Carbonate + Vit D 1 TAB PO SCH ×2 (09:10→20:33)
[2017-04-15] MEDS: Acetaminophen 500 MG TAB PO SCH ×3 (09:10→20:32)
[2017-04-15] MEDS: Multivitamin W/ Minerals 1 TAB PO SCH (09:10)
[2017-04-15] MEDS: Magnesium Oxide 400 MG TAB PO SCH (09:12)
[2017-04-15] MEDS: Potassium Chloride 20 MEQ TAB PO SCH (09:12)
[2017-04-15] MEDS: Escitalopram Oxalate 20 mg Tablet PO SCH (09:12)
[2017-04-15] MEDS: Enoxaparin Sodium 40 MG/0.4 ML SYRINGE SC SCH (09:12)
[2017-04-15] MEDS: Fluticasone Propionate Nasal Spray 16 gm Bottle NASAL SCH (09:13)
[2017-04-15] MEDS: levETIRAcetam 500 MG TAB PO SCH ×2 (09:21→20:33)
[2017-04-15] MEDS: predniSONE 5 MG TAB PO SCH (09:22)
--- NOTE | 2017-04-15 09:24 | PDOC.FM ---
- Subjective Subjective: Patient states he is feeling good this morning and ready to go home. He doesn't know why he is in hospital and asks to get up out of bed. He denies SOB and has not required oxygen. He denies abdominal pain. - Objective MAR Reviewed: Yes Vital Signs & Weight: Vital Signs (12 hours) Temp Pulse Resp BP Pulse Ox 04/15/17 04:00 97.5 F L 96 18 110/66 93 L 04/15/17 00:00 102 H 118/63 94 L Weight Weight 75.478 kg I&O: 04/14/17 04/15/17 04/16/17 06:59 06:59 06:59 Intake Total 1847 Balance 1847 Result Diagrams: 04/15/17 04:25 04/15/17 04:25 <Racheal Alcala - Last Filed: 04/15/17 10:54> - Objective Vital Signs & Weight: Vital Signs (12 hours) Temp Pulse Resp BP Pulse Ox 04/15/17 08:35 97.5 F L 60 18 112/56 L 94 L 04/15/17 04:00 97.5 F L 96 18 110/66 93 L 04/15/17 00:00 102 H 118/63 94 L Weight Weight 75.478 kg I&O: 04/14/17 04/15/17 04/16/17 06:59 06:59 06:59 Intake Total 1847 Balance 1847 Result Diagrams: 04/15/17 04:25 04/15/17 04:25 <iTmbo Ribeiro - Last Filed: 04/15/17 11:09> Phys Exam - Physical Examination Constitutional: NAD HEENT: moist MMs Respiratory: no wheezing, no rales, no rhonchi, clear to auscultation bilateral Cardiovascular: RRR, no significant murmur 3 + bilateral LE pitting edema Neurological: non-focal Deviation from normal: oriented to person, baseline <Racheal Alcala - Last Filed: 04/15/17 10:54> Dx/Plan (1) Hospital-acquired bacterial pneumonia Code(s): J15.9 - UNSPECIFIED BACTERIAL PNEUMONIA Status: Acute Plan: Day # 2 gent, vanc and zosyn improving. cont duonebs and PRN O2. Blood cx NGTD. (2) Severe sepsis Code(s): A41.9 - SEPSIS, UNSPECIFIED ORGANISM; R65.20 - SEVERE SEPSIS WITHOUT SEPTIC SHOCK Status: Resolved Plan: improved s/p fluids (3) Developmental delay, moderate Code(s): R62.50 - UNSP LACK OF EXPECTED NORMAL PHYSIOL DEV IN CHILDHOOD Status : Chronic (4) HTN (hypertension) Code(s): I10 - ESSENTIAL (PRIMARY) HYPERTENSION Status: Chronic QualifierTitle: Hypertension type: essential hypertension Qualified Code( s): I10 - Essential (primary) hypertension Plan: controlled (5) History of CVA (cerebrovascular accident) Code(s): Z86.73 - PRSNL HX OF TIA (TIA), AND CEREB INFRC W/O RESID DEFICITS Status: Chronic (6) History of DVT (deep vein thrombosis) Code(s): Z86.718 - PERSONAL HISTORY OF OTHER VENOUS THROMBOSIS AND EMBOLISM Status: Chronic Plan: not candidate for anticoagulation after a recent GI bleed. Has a IVC filter in place. (7) History of seizure Code(s): Z87.898 - PERSONAL HISTORY OF OTHER SPECIFIED CONDITIONS Status: Chronic (8) Minimal change disease Code(s): N04.0 - NEPHROTIC SYNDROME WITH MINOR GLOMERULAR ABNORMALITY Status: Resolved Plan: chronic steroid use and now has adrenal insufficiency. Will give stress dose steroids. <Racheal Alcala - Last Filed: 04/15/17 10:54> Attending Addendum - Attending Addendum I personally evaluated the patient and discussed the management with Dr. Alcala. I agree with the History, Examination, Assessment and Plan documented above with any addition or exceptions noted below. O2 sats are 99-100% at the tie of my exam. Hopefully stable for discharge tomorrow after blood cultures are back. <Timbo Ribeiro - Last Filed: 04/15/17 11:09>
[2017-04-15] MEDS: Stress 600 With Zinc 1 TAB PO SCH (10:31)
[2017-04-15] MEDS: cycloSPORINE, Modified 100 MG CAP PO SCH (10:32)
[2017-04-15] MEDS: Vancomycin HCl 1 GM in Premix Bag 1 BAG IVPB SCH ×2 (10:33→23:05)
[2017-04-15] MEDS ORDERED: predniSONE 20 MG TAB PO SCH (12:15)
[2017-04-15] MEDS: Loratadine 10 MG TAB PO SCH (20:33)
[2017-04-15 21:37] LABS: Vancomycin, Trough 20.8 ug/mL
[2017-04-16] MEDS: Piperacillin/Tazobactam 4.5 GM in Sodium Chloride 0.9% 100 ML IVPB SCH ×4 (02:35→21:27)
[2017-04-16 03:39] LABS: Anion Gap 7 mmol/L (10-20); BUN (Urea Nitrogen) 13 mg/dL (8.4-25.7); Calc. Creatinine Clearance 100 mL/min (70-130); Carbon Dioxide 23 mmol/L (22-29); Chloride 111 mmol/L (98-107); Estimated GFR-MDRD Greater than 90; Glucose 185 mg/dL (70-105); Sodium 137 mmol/L (136-145)
[2017-04-16 03:48] LABS: Band 3 % (5-11); Hemoglobin 7.8 g/dL (14.0-18.0); Lymphocytes 5 % (21-51); MDiff Complete? YES; Macrocytosis SLIGHT = 6-15 cells (100X) (0-5/hpf); Mean Corpuscular HGB CONC 31.3 g/dL (32.0-36.0); Mean Corpuscular Volume 95.9 fl (80.0-94.0); Mean Platelet Volume 8.1 fL (7.4-10.4); Monocytes 8 % (0-10); Neutrophil 84 % (42-75); Nucleated RBC 1 % (0); PLT Morphology Comment Appears Adequate; Platelet Count 318 thou/uL (130-400); RBC Distribution Width 15.6 % (11.5-14.5); Red Blood Cell (RBC) Count 2.61 mill/uL (4.70-6.10); White Blood Cell (WBC) Count 14.6 thou/uL (4.8-10.8)
[2017-04-16] MEDS: traMADol HCl 50 MG TAB PO SCH ×4 (06:33→23:17)
[2017-04-16] MEDS: predniSONE 5 MG TAB PO SCH (08:38)
[2017-04-16] MEDS: Fluticasone Propionate Nasal Spray 16 gm Bottle NASAL SCH (08:38)
[2017-04-16] MEDS: cycloSPORINE, Modified 100 MG CAP PO SCH (08:38)
[2017-04-16] MEDS: levETIRAcetam 500 MG TAB PO SCH ×2 (08:39→21:24)
[2017-04-16] MEDS: Stress 600 With Zinc 1 TAB PO SCH (08:39)
[2017-04-16] MEDS: Acetaminophen 500 MG TAB PO SCH ×3 (08:39→21:24)
[2017-04-16] MEDS: Enoxaparin Sodium 40 MG/0.4 ML SYRINGE SC SCH (08:39)
[2017-04-16] MEDS: Polyethylene Glycol 3350 17 GM Packet PO SCH (08:39)
[2017-04-16] MEDS: Pantoprazole 40 MG VIAL IVP SCH (08:39)
[2017-04-16] MEDS: Multivitamin W/ Minerals 1 TAB PO SCH (08:40)
[2017-04-16] MEDS: Potassium Chloride 20 MEQ TAB PO SCH (08:40)
[2017-04-16] MEDS: Calcium Carbonate + Vit D 1 TAB PO SCH ×2 (08:40→21:24)
[2017-04-16] MEDS: Magnesium Oxide 400 MG TAB PO SCH (08:40)
[2017-04-16] MEDS: Escitalopram Oxalate 20 mg Tablet PO SCH (08:40)
--- NOTE | 2017-04-16 08:40 | PDOC.FM ---
- Subjective Subjective: Patient lying in bed resting this morning. He has no complaints at this time. Nursing reports no acute events overnight. Patient slightly tachycardic and hypotensive overnight, but with correction this morning. - Objective MAR Reviewed: Yes Vital Signs & Weight: Vital Signs (12 hours) Temp Pulse Resp BP BP Pulse Ox 04/16/17 06:36 86 15 96 04/15/17 23:30 76 16 94 L 04/15/17 20:45 97.6 F 91 16 92/58 L 89/55 L 97 Weight Weight 75.478 kg I&O: 04/15/17 04/16/17 04/17/17 06:59 06:59 06:59 Intake Total 3849 Balance 3849 Result Diagrams: 04/16/17 02:47 04/16/17 02:47 <Audi Maloney - Last Filed: 04/16/17 08:38> - Objective Vital Signs & Weight: Vital Signs (12 hours) Temp Pulse Resp BP Pulse Ox 04/16/17 08:00 97.9 F 87 18 105/64 97 04/16/17 06:36 86 15 96 04/15/17 23:30 76 16 94 L Weight Weight 75.478 kg I&O: 04/15/17 04/16/17 04/17/17 06:59 06:59 06:59 Intake Total 3849 Balance 3849 Result Diagrams: 04/16/17 02:47 04/16/17 02:47 <Timbo Ribeiro - Last Filed: 04/16/17 11:28> Phys Exam - Physical Examination Constitutional: NAD dry mucous membranes Neck: no JVD Respiratory: no wheezing, no rales Cardiovascular: RRR, no significant murmur Gastrointestinal: soft, non-tender scrotal edema Neurological: moves all 4 limbs Psychiatric: normal affect <Audi Maloney - Last Filed: 04/16/17 08:38> Dx/Plan (1) Hospital-acquired bacterial pneumonia Code(s): J15.9 - UNSPECIFIED BACTERIAL PNEUMONIA Status: Acute Plan: Day #2 of IV Abx Breathing continues to improve- continues nebs and steroids Blood cultures negative to date (2) Severe sepsis Code(s): A41.9 - SEPSIS, UNSPECIFIED ORGANISM; R65.20 - SEVERE SEPSIS WITHOUT SEPTIC SHOCK Status: Resolved Plan: Resolved after IVF resuscitation Slightly tachy and hypotensive overnight with correction this morning (3) Developmental delay, moderate Code(s): R62.50 - UNSP LACK OF EXPECTED NORMAL PHYSIOL DEV IN CHILDHOOD Status : Chronic Plan: Baseline (4) HTN (hypertension) Code(s): I10 - ESSENTIAL (PRIMARY) HYPERTENSION Status: Chronic QualifierTitle: Hypertension type: essential hypertension Qualified Code( s): I10 - Essential (primary) hypertension Plan: Well controlled at this time (5) History of CVA (cerebrovascular accident) Code(s): Z86.73 - PRSNL HX OF TIA (TIA), AND CEREB INFRC W/O RESID DEFICITS Status: Chronic (6) History of DVT (deep vein thrombosis) Code(s): Z86.718 - PERSONAL HISTORY OF OTHER VENOUS THROMBOSIS AND EMBOLISM Status: Chronic Plan: IVC filter in place. Recent history of clots that have resolved on imaging this admission. Hx of GI bleed so we will hold anticoagulation (7) History of seizure Code(s): Z87.898 - PERSONAL HISTORY OF OTHER SPECIFIED CONDITIONS Status: Chronic (8) Minimal change disease Code(s): N04.0 - NEPHROTIC SYNDROME WITH MINOR GLOMERULAR ABNORMALITY Status: Chronic Plan: Continue chronic steroids - Plan Plan: Plan: -breathing has improved -pending blood cultures, we will transition to PO antibiotics and discharge <Audi Maloney - Last Filed: 04/16/17 08:38> Attending Addendum - Attending Addendum I personally evaluated the patient and discussed the management with Dr. Maloney. I agree with the History, Examination, Assessment and Plan documented above with any addition or exceptions noted below. With his HAP, 7 ays of of treatment is recommended. In the absence of sputum culture sand negative blood cultures, narrowing of spectrum is difficult. Recommend 7 days of IV antibiotics. We will arrange outpatient if possible. <Timbo Ribeiro - Last Filed: 04/16/17 11:28>
[2017-04-16] MEDS: Sodium Chloride 0.9% 1,000 ML IV SCH (09:45)
[2017-04-16] MEDS: Vancomycin HCl 750 MG in Sodium Chloride 0.9% 250 ML 250 ML IVPB SCH ×2 (11:10→23:29)
[2017-04-16] MEDS: Ondansetron HCl/PF 4 MG/2 ML Vial IVP PRN (13:07)
--- NOTE | 2017-04-16 19:58 | CON ---
DATE OF CONSULTATION: 04/16/2017 HISTORY OF PRESENT ILLNESS: Jamel Aladna is a 57-year-old male, retirement resident, FULL CODE, n onambulatory with DVT left leg involving the left common femoral, entire femoral, greater saphenous p rofunda femoral, popliteal veins with clinical similar findings on the right leg with edema and subse quent CAT scan demonstrating inferior vena cava occlusion with thrombus and presence of IVC filter. Patient admitted this hospitalization with pneumonia with a right lower lobe infiltrate. He is feeli ng somewhat better. The patient is mentally retarded and in approximately 2014 I performed laparosco pic cholecystectomy for symptomatic gallstones. He had cholangiograms at that time and they were nor mal. Patient has an extensive past surgical history. In 1964, he had a laparotomy performed for fever, no definite abnormality noted, and appendectomy performed. Postoperative complication resulted in dehi scence, reoperation, small bowel resection. He developed multiple hernias after this in the . He has had a gastrointestinal bleeding and underwent splenectomy, probably from gastric varices, alth ough this diagnosis is not clear. The patient subsequently had developed incisional hernias in his r ight lower quadrant and lower midline abdomen. When I initially saw him in 2014, they were small. P chasity underwent 08/17/2014 laparoscopic cholecystectomy, normal cholangiograms, and at the time of t he laparoscopy I looked his lower abdomen and noted that there were adhesions inferiorly. I was able to work around these adhesions with a laparoscope to view the periumbilical area. A supraumbilical incision was made and a 5 port placed. Initial access was through the right subcostal Chevron incisi on. I saw the patient a few months ago, concerned about a hernia in his right mid lateral to lower abdome n. The patient does have abdominal pain periodically and retirement personnel reduces his hernia a nd this resolves his discomfort and nausea. During this hospitalization, CT scan of abdomen and pelv is reveals nonobstructing urinary stones and he has transverse colon in the hernia described in his r ight mid lower abdomen. This is not obstructed radiologically. Family has asked [facility] to call me regarding re-discussion to consider hernia repair. I have talked to the patient's relative with him and I have explained to her the increased risk of surgical repair and that laparosc opic incisional hernia repair might be undertaken depending on adhesions present, but there are risks of small bowel injury, pneumonia, stroke, cardiac problems, and problems related to his lack of mobi lity mainly related to pulmonary. Since he is not obstructed and has managed this hernia over the pr st several years without problems I stated my reluctance on repair. I have talked to the patient's p hysicians and they are in agreement that he is in no shape currently for an operation, although he is much improved from his pneumonia. TOBACCO: None. ALCOHOL: None. 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 PAST SURGICAL HISTORY: History of IVC filter placement, laparoscopic cholecystectomy, appendectomy, laparotomy, renal biopsy, splenectomy as noted above. ALLERGIES: CIPRO, CEFTRIAXONE, MORPHINE, DILANTIN, ADHESIVE TAPE, PHENYTOIN. MEDICATIONS: Keppra, cyclosporine, metoprolol, magnesium oxide, vitamin D3, Zyrtec, acyclovir, trama dol, prednisone 5 mg a day, potassium chloride, Zofran, multivitamins, Mucinex, MiraLax, calcium, ashley ndronate, Lexapro, acetaminophen, vitamin D, Unisom. PHYSICAL EXAMINATION VITAL SIGNS: 5 feet 6, 166 pounds, 26 BMI. GENERAL: Patient in bed, he is communicative, although as noted above intellectually delayed and has poor understanding. Family is present to discuss care. LUNGS: Clear to auscultation. Rhonchi at base. CARDIAC: Regular rate and rhythm. ABDOMEN: Soft, non-tympanitic, nondistended, complex scars lower abdomen consistent with complex pas t surgical history. Incisional hernia, right lower quadrant, reducible, but recurs. EXTREMITIES: Edematous groins to ankles from DVT. LABORATORY DATA: White count has fallen this hospitalization from 28,000 to current level of 14,000, hemoglobin is 7.8. Sodium 137, potassium 4.0, BUN 13, creatinine 0.86. ASSESSMENT AND PLAN: Incisional hernia. The patient is at risk of obstruction, but so far has avoid ed them for the last 3 years. I would not recommend repair of these due to high risk in this patient . Laparoscopic repair might be able to be performed and could be attempted should his quality of lif e be deemed to improve from repair these. Currently consideration for repair at this time is not deuce ropriate. Recovering from pneumonia. He also would have many collateral veins from his occluded IVC . We will discuss this with family further tomorrow, but we would not recommend repair of this herni a at this time and we would be reluctant for repair in the future unless the family really believe it is quality of life, justified the risk of operation.
[2017-04-16] MEDS: Loratadine 10 MG TAB PO SCH (21:24)
[2017-04-17] MEDS: Piperacillin/Tazobactam 4.5 GM in Sodium Chloride 0.9% 100 ML IVPB SCH ×5 (02:48→23:35)
[2017-04-17] MEDS: Sodium Chloride 0.9% 1,000 ML IV SCH (05:35)
[2017-04-17 05:52] LABS: Anion Gap 8 mmol/L (10-20); BUN (Urea Nitrogen) 10 mg/dL (8.4-25.7); Calc. Creatinine Clearance 106 mL/min (70-130); Carbon Dioxide 24 mmol/L (22-29); Chloride 112 mmol/L (98-107); Estimated GFR-MDRD Greater than 90; Glucose 71 mg/dL (70-105); Potassium 3.8 mmol/L (3.5-5.1); Sodium 140 mmol/L (136-145)
[2017-04-17 05:59] LABS: Band 1 % (5-11); Eosinophils 1 % (0-10); Hemoglobin 8.2 g/dL (14.0-18.0); Hypochromia SLIGHT = 6-15 cells (100X) (0-5/hpf); Lymphocytes 9 % (21-51); MDiff Complete? YES; Mean Corpuscular HGB CONC 30.8 g/dL (32.0-36.0); Mean Corpuscular Hemoglobin 29.5 pg (27.0-31.0); Mean Corpuscular Volume 95.8 fl (80.0-94.0); Monocytes 11 % (0-10); Neutrophil 78 % (42-75); Nucleated RBC 1 % (0); Platelet Count 363 thou/uL (130-400); RBC Distribution Width 15.7 % (11.5-14.5); Red Blood Cell (RBC) Count 2.77 mill/uL (4.70-6.10); White Blood Cell (WBC) Count 19.5 thou/uL (4.8-10.8)
[2017-04-17] MEDS: traMADol HCl 50 MG TAB PO SCH ×4 (06:32→23:35)
[2017-04-17] MEDS: Polyethylene Glycol 3350 17 GM Packet PO SCH (08:04)
[2017-04-17] MEDS: Ondansetron HCl/PF 4 MG/2 ML Vial IVP PRN (08:04)
[2017-04-17] MEDS: Enoxaparin Sodium 40 MG/0.4 ML SYRINGE SC SCH (08:04)
[2017-04-17] MEDS: Pantoprazole 40 MG VIAL IVP SCH (08:04)
[2017-04-17] MEDS: Fluticasone Propionate Nasal Spray 16 gm Bottle NASAL SCH (08:05)
[2017-04-17] MEDS: levETIRAcetam 500 MG TAB PO SCH ×2 (08:09→20:33)
[2017-04-17] MEDS: Escitalopram Oxalate 20 mg Tablet PO SCH (08:09)
[2017-04-17] MEDS: Magnesium Oxide 400 MG TAB PO SCH (08:09)
[2017-04-17] MEDS: Calcium Carbonate + Vit D 1 TAB PO SCH ×2 (08:10→20:33)
[2017-04-17] MEDS: Multivitamin W/ Minerals 1 TAB PO SCH (08:10)
[2017-04-17] MEDS: Acetaminophen 500 MG TAB PO SCH ×3 (08:10→20:33)
[2017-04-17] MEDS: predniSONE 5 MG TAB PO SCH (08:10)
[2017-04-17] MEDS: Potassium Chloride 20 MEQ TAB PO SCH (08:10)
[2017-04-17] MEDS: cycloSPORINE, Modified 100 MG CAP PO SCH (08:14)
[2017-04-17] MEDS: Stress 600 With Zinc 1 TAB PO SCH (08:14)
--- NOTE | 2017-04-17 08:14 | PDOC.FM ---
- Subjective Subjective: Patient doing well this morning. He does not have any complaints. He denies SOB or chest pain. He denies abdominal pain. - Objective MAR Reviewed: Yes Vital Signs & Weight: Vital Signs (12 hours) Temp Pulse Resp BP BP Pulse Ox 04/17/17 07:31 98.4 F 73 18 132/66 92 L 04/17/17 04:00 97.8 F 80 18 120/70 04/17/17 00:51 75 20 95 Weight Weight 75.478 kg I&O: 04/16/17 04/17/17 04/18/17 06:59 06:59 06:59 Intake Total 3849 1810 Balance 3849 1810 Result Diagrams: 04/17/17 04:49 04/17/17 04:49 <Racheal Alcala - Last Filed: 04/17/17 08:12> - Objective Vital Signs & Weight: Vital Signs (12 hours) Temp Pulse Resp BP BP Pulse Ox 04/17/17 08:00 98.4 F 73 18 92 L 04/17/17 07:31 98.4 F 73 18 132/66 92 L 04/17/17 04:00 97.8 F 80 18 120/70 04/17/17 00:51 75 20 95 Weight Weight 75.478 kg I&O: 04/16/17 04/17/17 04/18/17 06:59 06:59 06:59 Intake Total 3849 1810 Balance 3849 1810 Result Diagrams: 04/17/17 04:49 04/17/17 04:49 <Reji Zhu - Last Filed: 04/17/17 10:47> Phys Exam - Physical Examination Constitutional: NAD HEENT: moist MMs Respiratory: no wheezing, no rales, no rhonchi, clear to auscultation bilateral Cardiovascular: RRR, no significant murmur Gastrointestinal: soft, non-tender, no distention, positive bowel sounds 2+ BLE edema Neurological: non-focal, normal sensation, moves all 4 limbs Psychiatric: normal affect Deviation from normal: at pt's baseline, oriented to person <Racheal Alcala - Last Filed: 04/17/17 08:12> Dx/Plan (1) Hospital-acquired bacterial pneumonia Code(s): J15.9 - UNSPECIFIED BACTERIAL PNEUMONIA Status: Acute Plan: Day # 4 gent, vanc and zosyn WBC elevated but afebrile and significantly improved. Requiring no oxygen. can deescalate therapy today and treat with 3 additional days of augmentin. cont duonebs and PRN O2. Blood cx NGTD. Likely can return to [place] later today. (2) Severe sepsis Code(s): A41.9 - SEPSIS, UNSPECIFIED ORGANISM; R65.20 - SEVERE SEPSIS WITHOUT SEPTIC SHOCK Status: Resolved Plan: improved s/p fluids (3) Developmental delay, moderate Code(s): R62.50 - UNSP LACK OF EXPECTED NORMAL PHYSIOL DEV IN CHILDHOOD Status : Chronic (4) HTN (hypertension) Code(s): I10 - ESSENTIAL (PRIMARY) HYPERTENSION Status: Chronic QualifierTitle: Hypertension type: essential hypertension Qualified Code( s): I10 - Essential (primary) hypertension Plan: controlled (5) History of CVA (cerebrovascular accident) Code(s): Z86.73 - PRSNL HX OF TIA (TIA), AND CEREB INFRC W/O RESID DEFICITS Status: Chronic (6) History of DVT (deep vein thrombosis) Code(s): Z86.718 - PERSONAL HISTORY OF OTHER VENOUS THROMBOSIS AND EMBOLISM Status: Chronic Plan: not candidate for anticoagulation after a recent GI bleed. Has a IVC filter in place. 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 <Racheal Alcala - Last Filed: 04/17/17 08:12> Attending Addendum - Attending Addendum I personally evaluated the patient and discussed the management with Dr. Alcala. I agree with and repeated the History, Examination, Assessment and Plan documented above with any addition or exceptions noted below. Denies fever or chills. History limited by cognitive issues. NAD, resting in room Bilateral inspiratory rales at bases, no increased work of breathing RRR s M Edema BLE and scrotum, improved from my previous times seeing him Continue antibiotics Repeat PCT in the AM Continue other medications for chronic issues. Hopeful discharge after completion of course for HAP. <Reji Zhu - Last Filed: 04/17/17 10:47>
[2017-04-17] MEDS ORDERED: Vancomycin HCl 750 MG in Sodium Chloride 0.9% 250 ML 250 ML IVPB SCH (12:00)
[2017-04-17] MEDS: Vancomycin HCl 750 MG in Sodium Chloride 0.9% 250 ML 250 ML IVPB SCH (13:31)
[2017-04-17] MEDS: Loratadine 10 MG TAB PO SCH (20:34)
[2017-04-18 00:30] LABS: Vancomycin, Trough 21.1 ug/mL
[2017-04-18] MEDS: Vancomycin HCl 750 MG in Sodium Chloride 0.9% 250 ML 250 ML IVPB SCH ×2 (01:24→14:00)
[2017-04-18] MEDS: Piperacillin/Tazobactam 4.5 GM in Sodium Chloride 0.9% 100 ML IVPB SCH ×4 (05:12→23:43)
[2017-04-18] MEDS: traMADol HCl 50 MG TAB PO SCH ×4 (05:13→23:42)
[2017-04-18 05:31] LABS: Anion Gap 11 mmol/L (10-20); BUN (Urea Nitrogen) 10 mg/dL (8.4-25.7); Calc. Creatinine Clearance 107 mL/min (70-130); Calcium 7.5 mg/dL (7.8-10.44); Carbon Dioxide 24 mmol/L (22-29); Chloride 109 mmol/L (98-107); Estimated GFR-MDRD Greater than 90; Potassium 4.7 mmol/L (3.5-5.1); Sodium 139 mmol/L (136-145)
[2017-04-18 05:34] LABS: Glucose 58 mg/dL (70-105)
[2017-04-18 06:50] LABS: Band 1 % (5-11); Eosinophils 1 % (0-10); Hemoglobin 8.7 g/dL (14.0-18.0); Lymphocytes 20 % (21-51); MDiff Complete? YES; Mean Corpuscular HGB CONC 30.2 g/dL (32.0-36.0); Mean Corpuscular Hemoglobin 29.4 pg (27.0-31.0); Mean Corpuscular Volume 97.2 fl (80.0-94.0); Mean Platelet Volume 8.8 fL (7.4-10.4); Monocytes 12 % (0-10); Neutrophil 66 % (42-75); Platelet Count 381 thou/uL (130-400); RBC Distribution Width 16.7 % (11.5-14.5); Red Blood Cell (RBC) Count 2.96 mill/uL (4.70-6.10); White Blood Cell (WBC) Count 18.6 thou/uL (4.8-10.8)
--- NOTE | 2017-04-18 07:26 | PDOC.FM ---
- Subjective Subjective: Patient doing well this morning. Denies cough. Sitter states he slept well off and on throughout the night. Not on oxygen this AM. - Objective MAR Reviewed: Yes Vital Signs & Weight: Vital Signs (12 hours) Temp Pulse Resp BP Pulse Ox 04/18/17 04:00 97.8 F 84 18 135/84 04/17/17 23:50 95 04/17/17 19:30 98.0 F 84 18 124/76 96 Weight Weight 75.478 kg I&O: 04/17/17 04/18/17 04/19/17 06:59 06:59 06:59 Intake Total 1810 1999 Balance 1811999 Result Diagrams: 04/18/17 04:23 04/18/17 04:23 <Racheal Alcala - Last Filed: 04/18/17 10:44> - Objective Vital Signs & Weight: Vital Signs (12 hours) Temp Pulse Resp BP Pulse Ox 04/18/17 08:17 97.8 F 74 17 137/82 93 L 04/18/17 08:09 91 L 04/18/17 08:05 69 16 04/18/17 07:56 97.8 F 84 18 93 L 04/18/17 04:00 97.8 F 84 18 135/84 04/17/17 23:50 95 Weight Weight 75.478 kg I&O: 04/17/17 04/18/17 04/19/17 06:59 06:59 06:59 Intake Total 1811999 240 Balance 1811999 240 Result Diagrams: 04/18/17 04:23 04/18/17 04:23 <Reji Zhu - Last Filed: 04/18/17 11:01> Phys Exam - Physical Examination Constitutional: NAD HEENT: moist MMs Respiratory: no wheezing, no rales, clear to auscultation bilateral rhonchi on BLL upon auscultation that elimate with deep cough Cardiovascular: RRR, no significant murmur Gastrointestinal: soft, non-tender, positive bowel sounds 3+ edema in BLE Deviation from normal: oriented to person <Racheal Alcala - Last Filed: 04/18/17 10:44> Dx/Plan (1) Hospital-acquired bacterial pneumonia Code(s): J15.9 - UNSPECIFIED BACTERIAL PNEUMONIA Status: Acute Plan: Day # 5 vanc and zosyn (Gent dc on day 4) WBC stable but afebrile and significantly improved. Requiring no oxygen. may require additional day of IV abx but pending today's course may transition to oral abx. cont duonebs and PRN O2. Blood cx NGTD. DC pending clinical course (2) Edema Code(s): R60.9 - EDEMA, UNSPECIFIED Status: Acute Plan: 2/2 occluded IVC filter. (3) Severe sepsis Code(s): A41.9 - SEPSIS, UNSPECIFIED ORGANISM; R65.20 - SEVERE SEPSIS WITHOUT SEPTIC SHOCK Status: Resolved Plan: improved s/p fluids (4) Developmental delay, moderate Code(s): R62.50 - UNSP LACK OF EXPECTED NORMAL PHYSIOL DEV IN CHILDHOOD Status : Chronic (5) HTN (hypertension) Code(s): I10 - ESSENTIAL (PRIMARY) HYPERTENSION Status: Chronic QualifierTitle: Hypertension type: essential hypertension Qualified Code( s): I10 - Essential (primary) hypertension Plan: controlled (6) History of CVA (cerebrovascular accident) Code(s): Z86.73 - PRSNL HX OF TIA (TIA), AND CEREB INFRC W/O RESID DEFICITS Status: Chronic (7) History of DVT (deep vein thrombosis) Code(s): Z86.718 - PERSONAL HISTORY OF OTHER VENOUS THROMBOSIS AND EMBOLISM Status: Chronic Plan: not candidate for anticoagulation after a recent GI bleed. Has a IVC filter in place. 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 <Racheal Alcala - Last Filed: 04/18/17 10:44> Attending Addendum - Attending Addendum I personally evaluated the patient and discussed the management with Dr. Alcala. I agree with and repeated the History, Examination, Assessment and Plan documented above with any addition or exceptions noted below. Patient says he is having some trouble breathing this morning. No cp. No abd pain. No n/v/f/c. Slight tachypnea. Pulse ox 92%. No rtx. Crackles bilateral bases, no wheezes, unchanged from yesterday. Unchanged edema, scrotal and BLE. Sepsis 2/2 HAP with now acute respiratory failure. Worse today. CXR and consider lasix. Post void residual if no good output, but so far nursing has not voiced any concerns. Continue IVABx. Await PCT. DVT with IVC filter clogged. Suspect he has been throwing small PEs for some time. We had a long discussion with his sister yesterday and she does not want him to be on lovenox within 24 hours of discharge. We discussed the difficulty of knowing exactly when that would be and agreed on d/c'ing it. Risks of clot propagation have been discussed, both at this visit and previously, extensively. Hypoglycemia. Unclear etiology. Closely monitor. May need to increase steroids if abrupt withdrawal. Overall poor prognosis. <Reji Zhu - Last Filed: 04/18/17 11:01>
[2017-04-18] MEDS: Pantoprazole 40 MG VIAL IVP SCH (09:32)
[2017-04-18] MEDS: Fluticasone Propionate Nasal Spray 16 gm Bottle NASAL SCH (09:32)
[2017-04-18] MEDS: Calcium Carbonate + Vit D 1 TAB PO SCH ×2 (09:33→20:59)
[2017-04-18] MEDS: Acetaminophen 500 MG TAB PO SCH ×3 (09:33→20:59)
[2017-04-18] MEDS: Potassium Chloride 20 MEQ TAB PO SCH (09:33)
[2017-04-18] MEDS: Escitalopram Oxalate 20 mg Tablet PO SCH (09:33)
[2017-04-18] MEDS: Polyethylene Glycol 3350 17 GM Packet PO SCH (09:33)
[2017-04-18] MEDS: Multivitamin W/ Minerals 1 TAB PO SCH (09:33)
[2017-04-18] MEDS: cycloSPORINE, Modified 100 MG CAP PO SCH (09:34)
[2017-04-18] MEDS: Magnesium Oxide 400 MG TAB PO SCH (09:34)
[2017-04-18] MEDS: predniSONE 5 MG TAB PO SCH (09:34)
[2017-04-18] MEDS: levETIRAcetam 500 MG TAB PO SCH ×2 (09:34→20:59)
[2017-04-18] MEDS: Stress 600 With Zinc 1 TAB PO SCH (09:35)
--- NOTE | 2017-04-18 11:19 | RAD ---
PORTABLE CHEST 1 VIEW: Date: 04/18/17 Time: 1058 hours HISTORY: Bilateral lower lobe crackles, abnormal breath sounds. FINDINGS/IMPRESSION: Comparison made with exam of 04/14/17. There has been interval removal of the right-sided central line. Opacification in the right lower med ial lung shows interval improvement without complete resolution. No pneumothoraces or pleural effusio ns are seen. A follow-up exam should be obtained four weeks after a course of antibiotics. CODE T. POS: CL
--- NOTE | 2017-04-18 18:35 | PRG ---
DATE OF SERVICE: 04/18/2017 Jamel Aldana is doing well today. I met with the family regarding his lower abdominal discomfort. Whe n I saw the patient several months ago, he seemed to be doing well, was not having any problems and paul zepead discussed laparoscopic mesh repair of incisional hernia. The patient had decided not follow manan salazar with that. Currently, the patient is having lower abdominal pain, but has been demonstrated to hav e inferior vena cava thrombosis and DVT with bilateral lower extremity edema. The patient is nonambu latory. He does have an incisional hernia with colon within the hernia defect. The family reports t hat they massage this to reduce it on occasion when he feels nausea, has discomfort at home. Current ly, the patient is not obstructed and CT scan reveals that it is not obstructed and clinically he is not obstructed. At this point, with his recent pneumonia and immobility and inferior vena cava throm bosis, I do no not think he is a safe operative risk and his risk for surgery at any time would be el evated due to his lack of mobility. At this point, I would recommend palliative care, I have told th e family that I cannot guarantee them that he will not suffer a bowel obstruction, but the risks of o peration at this time are prohibitive. Should he become obstructed or developed increased pain, plea se call for reevaluation, I will be glad to see him in the hospital or as an outpatient. From this p oint, I will now see him as needed. The family is in agreement with no operation.
[2017-04-18] MEDS: Loratadine 10 MG TAB PO SCH (20:59)
[2017-04-19] MEDS: Vancomycin HCl 750 MG in Sodium Chloride 0.9% 250 ML 250 ML IVPB SCH (00:34)
[2017-04-19] MEDS: traMADol HCl 50 MG TAB PO SCH ×3 (05:42→18:02)
[2017-04-19] MEDS: Piperacillin/Tazobactam 4.5 GM in Sodium Chloride 0.9% 100 ML IVPB SCH (05:43)
[2017-04-19 06:44] LABS: Anion Gap 9 mmol/L (10-20); BUN (Urea Nitrogen) 9 mg/dL (8.4-25.7); Calc. Creatinine Clearance 100 mL/min (70-130); Carbon Dioxide 28 mmol/L (22-29); Chloride 106 mmol/L (98-107); Estimated GFR-MDRD Greater than 90; Glucose 73 mg/dL (70-105); Potassium 4.2 mmol/L (3.5-5.1); Sodium 139 mmol/L (136-145)
[2017-04-19 06:49] LABS: Band 1 % (5-11); Eosinophils 6 % (0-10); Hemoglobin 8.5 g/dL (14.0-18.0); Hypochromia SLIGHT = 6-15 cells (100X) (0-5/hpf); Lymphocytes 16 % (21-51); MDiff Complete? YES; Mean Corpuscular HGB CONC 30.6 g/dL (32.0-36.0); Mean Corpuscular Hemoglobin 29.4 pg (27.0-31.0); Mean Platelet Volume 8.2 fL (7.4-10.4); Monocytes 6 % (0-10); Myelocyte 1 % (0-0); Neutrophil 70 % (42-75); Nucleated RBC 3 % (0); PLT Morphology Comment Appears Increased; Platelet Count 443 thou/uL (130-400); Polychromasia SLIGHT = 2-3 cells (100X) (0-2/hpf); Red Blood Cell (RBC) Count 2.88 mill/uL (4.70-6.10); Target Cells MODERATE= 6-15 cells (100X) (0-1/hpf); White Blood Cell (WBC) Count 18.4 thou/uL (4.8-10.8)
--- NOTE | 2017-04-19 07:07 | PDOC.FM ---
- Subjective Subjective: Pt resting comfortably and breathing easily this morning. Has no specific complaints. There were no acute events over night. Per sitter, pt did not sleep well and was awake most of the night. - Objective MAR Reviewed: Yes Vital Signs & Weight: Vital Signs (12 hours) Temp Pulse Resp BP BP Pulse Ox 04/19/17 04:00 98.4 F 73 16 136/79 04/19/17 00:45 72 12 04/19/17 00:00 97.9 F 75 18 133/80 04/18/17 19:27 76 16 96 04/18/17 19:15 98.4 F 84 16 126/73 92 L Weight Weight 75.478 kg I&O: 04/18/17 04/19/17 04/20/17 06:59 06:59 06:59 Intake Total 1999 Result Diagrams: 04/19/17 05:33 04/19/17 05:33 <Jamel Iniguez - Last Filed: 04/19/17 07:05> - Objective Vital Signs & Weight: Vital Signs (12 hours) Temp Pulse Resp BP BP Pulse Ox 04/19/17 08:00 98.2 F 83 18 137/93 H 97 04/19/17 04:00 98.4 F 73 16 136/79 04/19/17 00:45 72 12 04/19/17 00:00 97.9 F 75 18 133/80 Weight Weight 75.478 kg I&O: 04/18/17 04/19/17 04/20/17 06:59 06:59 06:59 Intake Total 1999 Result Diagrams: 04/19/17 05:33 04/19/17 05:33 <Erik Lopez - Last Filed: 04/19/17 10:10> Phys Exam - Physical Examination Constitutional: NAD HEENT: PERRLA, moist MMs Neck: no JVD, full ROM Crackles R middle lobe. Otherwise moving air well and CTA Cardiovascular: RRR, no significant murmur Gastrointestinal: soft, non-tender, no distention, positive bowel sounds Incisional hernia, non tender 2+ Pitting edema mid tib b/l Neurological: non-focal Deviation from normal: Pt is mildly MR,currently at baseline Skin: no rash <Jamel Iniguez - Last Filed: 04/19/17 07:05> Dx/Plan (1) Hospital-acquired bacterial pneumonia Code(s): J15.9 - UNSPECIFIED BACTERIAL PNEUMONIA Status: Acute Plan: Pt has had 5 days of IV meds. Move to PO today. Continue to monitor resp status. Pt recovering well. (2) Severe sepsis Code(s): A41.9 - SEPSIS, UNSPECIFIED ORGANISM; R65.20 - SEVERE SEPSIS WITHOUT SEPTIC SHOCK Status: Resolved (3) Edema Code(s): R60.9 - EDEMA, UNSPECIFIED Status: Acute Plan: 2/2 occluded IVC filter. At baseline (4) DVT (deep venous thrombosis) Code(s): I82.409 - ACUTE EMBOLISM AND THOMBOS UNSP DEEP VN UNSP LOWER EXTREMITY Status: Chronic QualifierTitle: DVT location: lower extremity Affected thrombotic vein of extremity: unspecified vein of extremity Chronicity: unspecified Laterality: left Qualified Code(s): I82.402 - Acute embolism and thrombosis of unspecified deep veins of left lower extremity Plan: Chronic b/l DVT. Family does not want pt anticoagulated in outpt setting dt fall risk. Continue lovenox here, will dc before discharge (5) Developmental delay, moderate Code(s): R62.50 - UNSP LACK OF EXPECTED NORMAL PHYSIOL DEV IN CHILDHOOD Status : Chronic Plan: At baseline (6) HTN (hypertension) Code(s): I10 - ESSENTIAL (PRIMARY) HYPERTENSION Status: Chronic QualifierTitle: Hypertension type: essential hypertension Qualified Code( s): I10 - Essential (primary) hypertension Plan: Per hx, however pt is not on antihypertensive meds. BP has been controlled. Continue to monitor vitals per unit routine (7) Minimal change disease Code(s): N04.0 - NEPHROTIC SYNDROME WITH MINOR GLOMERULAR ABNORMALITY Status: Chronic (8) Seizure disorder Code(s): G40.909 - EPILEPSY, UNSP, NOT INTRACTABLE, WITHOUT STATUS EPILEPTICUS Status: Chronic (9) Incisional hernia Code(s): K43.2 - INCISIONAL HERNIA WITHOUT OBSTRUCTION OR GANGRENE Status: Chronic QualifierTitle: Obstruction and gangrene presence: without obstruction or gangrene Qualified Code(s): K43.2 - Incisional hernia without obstruction or gangrene; K43.91 - Incisional hernia, without obstruction or gangrene Plan: Pt was seen by gen surg. Per their note, he is a poor surgical candidate and currently there is no vascular compromise. Will not operate at this time. - Plan Plan: -Pt improving, move to PO meds today and continue to monitor status -Pt likely ready to dc back to nursing facility in the next 48 hours. <Jamel Iniguez - Last Filed: 04/19/17 07:05> Attending Addendum - Attending Addendum I personally evaluated the patient and discussed the management with Dr. Iniguez. I agree with the History, Examination, Assessment and Plan documented above with any addition or exceptions noted below. Patient has no complaints at this time. His sats are improved and no evidence of respiratory distress. Will change antibiotics to oral today and continue to observe. Wean O2 as tolerated. No surgery for his ventral hernia. <Erik Lopez - Last Filed: 04/19/17 10:10>
[2017-04-19] MEDS: Stress 600 With Zinc 1 TAB PO SCH (09:16)
[2017-04-19] MEDS: levETIRAcetam 500 MG TAB PO SCH ×2 (09:16→21:07)
[2017-04-19] MEDS: cycloSPORINE, Modified 100 MG CAP PO SCH (09:16)
[2017-04-19] MEDS: Calcium Carbonate + Vit D 1 TAB PO SCH ×2 (09:17→21:08)
[2017-04-19] MEDS: Escitalopram Oxalate 20 mg Tablet PO SCH (09:19)
[2017-04-19] MEDS: Acetaminophen 500 MG TAB PO SCH ×3 (09:19→21:08)
[2017-04-19] MEDS: predniSONE 5 MG TAB PO SCH (09:19)
[2017-04-19] MEDS: Magnesium Oxide 400 MG TAB PO SCH (09:19)
[2017-04-19] MEDS: Multivitamin W/ Minerals 1 TAB PO SCH (09:19)
[2017-04-19] MEDS: Potassium Chloride 20 MEQ TAB PO SCH (09:20)
[2017-04-19] MEDS: Pantoprazole 40 MG VIAL IVP SCH (09:21)
[2017-04-19] MEDS: Polyethylene Glycol 3350 17 GM Packet PO SCH (09:21)
[2017-04-19] MEDS: Fluticasone Propionate Nasal Spray 16 gm Bottle NASAL SCH (09:22)
[2017-04-19] MEDS: Amoxicillin/Potassium Clav 875 MG TAB PO SCH (21:07)
[2017-04-19] MEDS: Loratadine 10 MG TAB PO SCH (21:08)
[2017-04-19] MEDS: Melatonin 3 MG TAB PO SCH (21:08)
[2017-04-20] MEDS: traMADol HCl 50 MG TAB PO SCH ×5 (00:47→23:08)
[2017-04-20 06:19] LABS: Anion Gap 9 mmol/L (10-20); BUN (Urea Nitrogen) 8 mg/dL (8.4-25.7); Calc. Creatinine Clearance 105 mL/min (70-130); Carbon Dioxide 28 mmol/L (22-29); Chloride 103 mmol/L (98-107); Estimated GFR-MDRD Greater than 90; Glucose 78 mg/dL (70-105); Potassium 4.3 mmol/L (3.5-5.1); Sodium 136 mmol/L (136-145)
[2017-04-20 06:55] LABS: Anisocytosis MODERATE=16-30 cells (100X) (0-5/hpf); Band 2 % (5-11); Eosinophils 1 % (0-10); Hemoglobin 8.8 g/dL (14.0-18.0); Hypochromia SLIGHT = 6-15 cells (100X) (0-5/hpf); Lymphocytes 17 % (21-51); MDiff Complete? YES; Mean Corpuscular HGB CONC 30.5 g/dL (32.0-36.0); Mean Corpuscular Hemoglobin 29.3 pg (27.0-31.0); Mean Platelet Volume 7.8 fL (7.4-10.4); Monocytes 10 % (0-10); Neutrophil 69 % (42-75); Nucleated RBC 2 % (0); Platelet Count 523 thou/uL (130-400); RBC Distribution Width 17.2 % (11.5-14.5); Reactive Lymphocytes 1 % (0-10); Red Blood Cell (RBC) Count 2.99 mill/uL (4.70-6.10); Target Cells SLIGHT = 2-5 cells (100X) (0-1/hpf); White Blood Cell (WBC) Count 17.3 thou/uL (4.8-10.8)
--- NOTE | 2017-04-20 07:44 | PDOC.FM ---
- Subjective Subjective: Patient resting comfortably this morning. Nursing reports no acute events overnight. Patient has no complaints at this time. - Objective MAR Reviewed: Yes Vital Signs & Weight: Vital Signs (12 hours) Temp Pulse Resp BP Pulse Ox 04/20/17 07:18 98.3 F 108 H 16 106/66 90 L 04/20/17 06:52 94 L 04/20/17 06:50 95 16 94 L 04/20/17 04:52 98.6 F 98 20 107/73 92 L 04/20/17 01:44 85 16 96 04/20/17 00:39 98.4 F 85 20 128/86 96 04/19/17 20:20 99 04/19/17 20:00 98.3 F 91 20 113/78 94 L Weight Weight 75.478 kg I&O: 04/19/17 04/20/17 04/21/17 06:59 06:59 06:59 Intake Total 1979 360 Balance 1979 360 Result Diagrams: 04/20/17 05:14 04/20/17 05:14 <Audi Maloney - Last Filed: 04/20/17 07:41> - Objective Vital Signs & Weight: Vital Signs (12 hours) Temp Pulse Resp BP Pulse Ox 04/20/17 07:18 98.3 F 108 H 16 106/66 90 L 04/20/17 06:52 94 L 04/20/17 06:50 95 16 94 L 04/20/17 04:52 98.6 F 98 20 107/73 92 L 04/20/17 01:44 85 16 96 04/20/17 00:39 98.4 F 85 20 128/86 96 Weight Weight 75.478 kg I&O: 04/19/17 04/20/17 04/21/17 06:59 06:59 06:59 Intake Total 1979 360 Balance 1979 360 Result Diagrams: 04/20/17 05:14 04/20/17 05:14 <Erik Lopez - Last Filed: 04/20/17 10:11> Phys Exam - Physical Examination Constitutional: NAD HEENT: moist MMs RML crackles Cardiovascular: RRR, no significant murmur Gastrointestinal: soft, non-tender Psychiatric: normal affect, A&O x 3 <Audi Maloney - Last Filed: 04/20/17 07:41> Dx/Plan (1) Hospital-acquired bacterial pneumonia Code(s): J15.9 - UNSPECIFIED BACTERIAL PNEUMONIA Status: Acute Plan: Now on PO abx Breathing continues to improve- continues nebs and steroids Blood cultures negative to date (2) Severe sepsis Code(s): A41.9 - SEPSIS, UNSPECIFIED ORGANISM; R65.20 - SEVERE SEPSIS WITHOUT SEPTIC SHOCK Status: Resolved (3) Developmental delay, moderate Code(s): R62.50 - UNSP LACK OF EXPECTED NORMAL PHYSIOL DEV IN CHILDHOOD Status : Chronic Plan: Baseline (4) HTN (hypertension) Code(s): I10 - ESSENTIAL (PRIMARY) HYPERTENSION Status: Chronic QualifierTitle: Hypertension type: essential hypertension Qualified Code( s): I10 - Essential (primary) hypertension Plan: Well controlled at this time (5) History of CVA (cerebrovascular accident) Code(s): Z86.73 - PRSNL HX OF TIA (TIA), AND CEREB INFRC W/O RESID DEFICITS Status: Chronic (6) History of DVT (deep vein thrombosis) Code(s): Z86.718 - PERSONAL HISTORY OF OTHER VENOUS THROMBOSIS AND EMBOLISM Status: Chronic Plan: IVC filter in place. Recent history of clots that have resolved on imaging this admission. Hx of GI bleed so we will hold anticoagulation (7) History of seizure Code(s): Z87.898 - PERSONAL HISTORY OF OTHER SPECIFIED CONDITIONS Status: Chronic (8) Minimal change disease Code(s): N04.0 - NEPHROTIC SYNDROME WITH MINOR GLOMERULAR ABNORMALITY Status: Chronic Plan: Continue chronic steroids - Plan Plan: Plan: -wean O2 and likely d/c no NH tomorrow <Audi Maloney - Last Filed: 04/20/17 07:41> Attending Addendum - Attending Addendum I personally evaluated the patient and discussed the management with Dr. Maloney. I agree with the History, Examination, Assessment and Plan documented above with any addition or exceptions noted below. Patient stable. No complaints. His is doing well on oral abx and his WBC is stable. Still having some mildly low sats on room air. Will try to wean from O2 today by deep breathing and getting patient out of bed. Expect possible discharge tomorrow. <Erik Lopez - Last Filed: 04/20/17 10:11>
[2017-04-20] MEDS: Fluticasone Propionate Nasal Spray 16 gm Bottle NASAL SCH (08:23)
[2017-04-20] MEDS: cycloSPORINE, Modified 100 MG CAP PO SCH (08:25)
[2017-04-20] MEDS: Magnesium Oxide 400 MG TAB PO SCH (08:25)
[2017-04-20] MEDS: Amoxicillin/Potassium Clav 875 MG TAB PO SCH ×2 (08:25→20:27)
[2017-04-20] MEDS: Potassium Chloride 20 MEQ TAB PO SCH (08:25)
[2017-04-20] MEDS: Calcium Carbonate + Vit D 1 TAB PO SCH ×2 (08:25→21:00)
[2017-04-20] MEDS: Multivitamin W/ Minerals 1 TAB PO SCH (08:25)
[2017-04-20] MEDS: predniSONE 5 MG TAB PO SCH (08:25)
[2017-04-20] MEDS: Stress 600 With Zinc 1 TAB PO SCH (08:25)
[2017-04-20] MEDS: Escitalopram Oxalate 20 mg Tablet PO SCH (08:25)
[2017-04-20] MEDS: levETIRAcetam 500 MG TAB PO SCH ×2 (08:25→20:27)
[2017-04-20] MEDS: Polyethylene Glycol 3350 17 GM Packet PO SCH (08:26)
[2017-04-20] MEDS: Acetaminophen 500 MG TAB PO SCH ×3 (08:31→20:28)
[2017-04-20] MEDS: Pantoprazole 40 MG VIAL IVP SCH (08:39)
[2017-04-20] MEDS: Erythromycin Base 0.5% Oint 1 GM TUBE EA EYE SCH (20:27)
[2017-04-20] MEDS: Loratadine 10 MG TAB PO SCH (20:28)
[2017-04-20] MEDS: Sucralfate 1 GM TAB PO SCH (20:28)
[2017-04-20] MEDS: Melatonin 3 MG TAB PO SCH (20:28)
[2017-04-21] MEDS: traMADol HCl 50 MG TAB PO SCH ×2 (05:11→12:54)
[2017-04-21 05:40] LABS: Anion Gap 9 mmol/L (10-20); BUN (Urea Nitrogen) 10 mg/dL (8.4-25.7); Calc. Creatinine Clearance 106 mL/min (70-130); Calcium 8.1 mg/dL (7.8-10.44); Carbon Dioxide 28 mmol/L (22-29); Chloride 102 mmol/L (98-107); Estimated GFR-MDRD Greater than 90; Glucose 83 mg/dL (70-105); Potassium 4.2 mmol/L (3.5-5.1); Sodium 135 mmol/L (136-145)
[2017-04-21 05:44] LABS: Anisocytosis SLIGHT = 6-15 cells (100X) (0-5/hpf); Eosinophils 2 % (0-10); Hypochromia SLIGHT = 6-15 cells (100X) (0-5/hpf); Lymphocytes 12 % (21-51); MDiff Complete? YES; Macrocytosis SLIGHT = 6-15 cells (100X) (0-5/hpf); Mean Corpuscular HGB CONC 30.3 g/dL (32.0-36.0); Mean Corpuscular Volume 95.8 fl (80.0-94.0); Mean Platelet Volume 7.6 fL (7.4-10.4); Monocytes 9 % (0-10); Neutrophil 77 % (42-75); PLT Morphology Comment Appears Increased; Platelet Count 562 thou/uL (130-400); Polychromasia SLIGHT = 2-3 cells (100X) (0-2/hpf); RBC Distribution Width 16.9 % (11.5-14.5); Red Blood Cell (RBC) Count 3.11 mill/uL (4.70-6.10); Target Cells SLIGHT = 2-5 cells (100X) (0-1/hpf); White Blood Cell (WBC) Count 16.7 thou/uL (4.8-10.8)
[2017-04-21] MEDS: Sucralfate 1 GM TAB PO SCH ×2 (08:25→12:54)
--- NOTE | 2017-04-21 08:38 | PDOC.FM ---
- Subjective Subjective: Patient is doing well this morning. He has no complaints. No events overnight. - Objective MAR Reviewed: Yes Vital Signs & Weight: Vital Signs (12 hours) Temp Pulse Resp BP Pulse Ox 04/21/17 07:39 97.8 F 87 16 115/77 90 L 04/21/17 06:38 89 18 92 L 04/21/17 04:00 98.1 F 80 20 133/75 94 L 04/21/17 00:09 94 18 93 L Weight Weight 75.478 kg I&O: 04/20/17 04/21/17 04/22/17 06:59 06:59 06:59 Intake Total 360 650 Balance 360 650 Result Diagrams: 04/21/17 04:30 04/21/17 04:30 <Racheal Alcala - Last Filed: 04/21/17 08:36> - Objective Vital Signs & Weight: Vital Signs (12 hours) Temp Pulse Pulse Resp BP BP BP 04/21/17 11:00 98.1 F 60 16 108/73 04/21/17 10:53 92 99/65 108/74 04/21/17 07:39 97.8 F 87 16 04/21/17 06:38 89 18 04/21/17 04:00 98.1 F 80 20 04/21/17 00:09 94 18 BP Pulse Ox Pulse Ox Pulse Ox 04/21/17 11:00 90 L 04/21/17 10:53 90 L 91 L 04/21/17 07:39 115/77 90 L 04/21/17 06:38 92 L 04/21/17 04:00 133/75 94 L 04/21/17 00:09 93 L Weight Weight 75.478 kg I&O: 04/20/17 04/21/17 04/22/17 06:59 06:59 06:59 Intake Total 360 650 Balance 360 650 Result Diagrams: 04/21/17 04:30 04/21/17 04:30 <Reji Zhu - Last Filed: 04/21/17 12:07> Phys Exam - Physical Examination Constitutional: NAD HEENT: moist MMs Respiratory: no wheezing, no rales, no rhonchi, clear to auscultation bilateral Cardiovascular: RRR, no significant murmur Gastrointestinal: soft, non-tender 3+ BLE edema Deviation from normal: oritented to person <Racheal Alcala - Last Filed: 04/21/17 08:36> Dx/Plan (1) Hospital-acquired bacterial pneumonia Code(s): J15.9 - UNSPECIFIED BACTERIAL PNEUMONIA Status: Acute Plan: completed a 6 day course of vanc and zosyn now transitioned over to augmentin cont duonebs and PRN O2. Blood cx NGTD. Likely DC later today (2) Edema Code(s): R60.9 - EDEMA, UNSPECIFIED Status: Chronic Plan: 2/2 occluded IVC filter. (3) Severe sepsis Code(s): A41.9 - SEPSIS, UNSPECIFIED ORGANISM; R65.20 - SEVERE SEPSIS WITHOUT SEPTIC SHOCK Status: Resolved Plan: resolved s/p fluids/ abx (4) Developmental delay, moderate Code(s): R62.50 - UNSP LACK OF EXPECTED NORMAL PHYSIOL DEV IN CHILDHOOD Status : Chronic Plan: baseline (5) HTN (hypertension) Code(s): I10 - ESSENTIAL (PRIMARY) HYPERTENSION Status: Chronic QualifierTitle: Hypertension type: essential hypertension Qualified Code( s): I10 - Essential (primary) hypertension Plan: controlled on home meds (6) History of CVA (cerebrovascular accident) Code(s): Z86.73 - PRSNL HX OF TIA (TIA), AND CEREB INFRC W/O RESID DEFICITS Status: Chronic (7) History of DVT (deep vein thrombosis) Code(s): Z86.718 - PERSONAL HISTORY OF OTHER VENOUS THROMBOSIS AND EMBOLISM Status: Chronic Plan: not candidate for anticoagulation after a recent GI bleed. Has a IVC filter in place. 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 cont daily dose prednisone and cyclosporine <Racheal Alcala - Last Filed: 04/21/17 08:36> Attending Addendum - Attending Addendum I personally evaluated the patient and discussed the management with Dr. Alcala. I agree with and repeated the History, Examination, Assessment and Plan documented above with any addition or exceptions noted below. Mr. Aldana is doing really well this morning. No cp/sob/n/v/f/c/abd pain. NAD, oriented RRR s M CTAB s w/r/r BS+, NTTP, previously examined hernias Edema improved from when I saw him 3 days ago. Ok for discharge to complete 10 days antibiotics. PPI and follow up with GI. Fall precautions. Again had a long discussion concerning anticoagulation and sister prefers no lovenox. <Reji Zhu - Last Filed: 04/21/17 12:07>
[2017-04-21] MEDS ORDERED: Alendronate Sodium [Alendronate Sodium] 35 MG PO SCH (09:00)
[2017-04-21] MEDS: Acetaminophen 500 MG TAB PO SCH ×2 (10:01→16:39)
[2017-04-21] MEDS: Calcium Carbonate + Vit D 1 TAB PO SCH (10:01)
[2017-04-21] MEDS: Multivitamin W/ Minerals 1 TAB PO SCH (10:01)
[2017-04-21] MEDS: cycloSPORINE, Modified 100 MG CAP PO SCH (10:01)
[2017-04-21] MEDS: predniSONE 5 MG TAB PO SCH (10:02)
[2017-04-21] MEDS: levETIRAcetam 500 MG TAB PO SCH (10:02)
[2017-04-21] MEDS: Amoxicillin/Potassium Clav 875 MG TAB PO SCH (10:02)
[2017-04-21] MEDS: Potassium Chloride 20 MEQ TAB PO SCH (10:02)
[2017-04-21] MEDS: Stress 600 With Zinc 1 TAB PO SCH (10:02)
[2017-04-21] MEDS: Escitalopram Oxalate 20 mg Tablet PO SCH (10:03)
[2017-04-21] MEDS: Fluticasone Propionate Nasal Spray 16 gm Bottle NASAL SCH (10:03)
[2017-04-21] MEDS: Pantoprazole 40 MG VIAL IVP SCH (10:03)
[2017-04-21] MEDS: Polyethylene Glycol 3350 17 GM Packet PO SCH (10:03)
[2017-04-21] MEDS: Magnesium Oxide 400 MG TAB PO SCH (10:03)
[2017-04-21] MEDS: Erythromycin Base 0.5% Oint 1 GM TUBE EA EYE SCH (10:04)
[2017-04-21 11:45] VITALS: BP 108/73; TEMP 98.1
--- NOTE | 2017-04-22 11:32 | DIS-2 ---
DATE OF ADMISSION: 04/14/2017 DATE OF DISCHARGE: 04/21/2017 ADMITTING ATTENDING: Dr. Erik Lopez DISCHARGE ATTENDING: Dr. Reji Zhu CONSULTS Dr. Rivas, General Surgery. PRIMARY DIAGNOSIS: Sepsis secondary to hospital acquired pneumonia. SECONDARY DIAGNOSES: 1. Developmental delay. 2. Lower extremity edema. 3. History of cerebrovascular accident. 4. History of deep venous thrombosis, status post occluded IVC filter. 5. History of seizures. 6. Minimal change disease. 7. History of adrenal insufficiency secondary to chronic steroid use. 8. Epilepsy. 9. Hypertension. 10. Hyperlipidemia. 11. Obstructive sleep apnea. 12. Gastroesophageal reflux disease. DISCHARGE MEDICATIONS: 1. Keppra 1500 mg p.o. b.i.d. 2. Cyclosporine 100 mg p.o. daily. 3. Magnesium oxide 400 mg p.o. daily. 4. Vitamin D3 1000 units p.o. daily. 5. Zyrtec 10 mg p.o. at bedtime. 6. Acyclovir 1 gram topically q.4h. p.r.n. 7. Tramadol 50 mg p.o. q.6h. 8. Prednisone 5 mg p.o. daily. 9. Potassium chloride 20 mEq p.o. daily. 10. Zofran 4 mg p.o. q.6h. p.r.n. 11. Multivitamin 1 tab p.o. daily. 12. Mucinex 600 mg p.o. q.12h. p.r.n. 13. MiraLax 17 grams p.o. daily. 14. Calcium carbonate with vitamin D3 250 mg/100 units 1 tab p.o. b.i.d. 15. Alendronate 35 mg p.o. every 7 days. 16. Lexapro 20 mg p.o. daily. 17. Tylenol extra strength 650 mg p.o. q.6h. p.r.n. 18. Vitamin B complex 1 tab p.o. daily. 19. DuoNeb 2.5 mg inhaled p.r.n. 20. Protonix 40 mg p.o. daily. 21. Flonase 1 spray each nostril daily. 22. Augmentin 875 mg p.o. q.12h. for 3 days. 23. Erythromycin 0.5% ointment half inch per eyes twice daily for 3 days IMAGIN. Pertinent imaging was a CT of the abdomen and pelvis on 04/14/2017 showing interval right-sided pulmonary infiltrates and renal cysts that measure up to 5 mm in size. 2. Right renal calcifications that may represent vascular calcifications or nonobstructing right renal urinary collecting system calcifications. 3. Nonspecific enlarged retroperitoneal lymph nodes. 4. Stable right abdominal wall hernia containing nonobstructed colon. HISTORY OF PRESENT ILLNESS AND HOSPITAL COURSE: This is a 57-year-old male with history of intellectual delay who presented to the hospital for some disorientation at [facility]. Upon getting to the hospital, he was found to have low blood pressure of 78/53 and he was aggressively fluid resuscitated and this did improve. There was a finding suggestive of pneumonia on his chest x-ray and since the patient has been in and out of the hospital for the last month he was treated appropriately for hospital acquired pneumonia for 7 days. He continued to have improvement. He was sent home on Augmentin for 3 days to complete a 10 day course. The patient did have significant bilateral lower extremity edema that was stable from his prior hospitalization and thought to be secondary to an occluded IVC filter. They had previously attempted diuresis during prior hospitalization without success and so aggressive diuresis was not done during this hospitalization; however, I do expect this to improve over time. The patient is a poor candidate for Lovenox or DVT prophylaxis which is why the IVC filter was placed. The patient had no complaints of abdominal pain to the primary team; however, the patient's sister continued to note abdominal pain per the patient and therefore a consult was made to General Surgery by request of the sister for a hernia evaluation. It was thought that the risks were greater than the benefits to proceed with a hernia operation, especially for a stable nonobstructed ventral hernia. This was all explained to the sister who voiced understanding. The patient was appropriately given stress doses of steroids for his adrenal insufficiency upon admission. He was discharged with his normal dose of 5 mg prednisone daily. A day prior to discharge, the patient's sister was concerned about conjunctivitis and the patient was therefore started on antibiotic eye ointment and his eyes were normal upon discharge; however, this was to be continued for 3 days. The patient had intermittent waxing and waning need for oxygen during his hospitalization; however, this is likely due to poor inspiratory effort. He was sent home with incentive spirometer and when using this oxygen saturation was much improved. DISPOSITION: Stable. DISCHARGE INSTRUCTIONS: 1. Location: [facility]. 2. Diet: As previous which is a pureed diet with thickened liquids. 3. Activity: As previously tolerated. 4. Follow up with his PCP in the next 10 days. JAYCEE
== END 2017-04-21 17:14 | DRG 871 ==
LOC: ERS 08:10 → ERHOLD 11:08 → 2NO 16:23 → T4-B 04-19 12:55
PROVIDERS: ADMIT Student in an Organized Health Care Education/Training Program; ATTEND Student in an Organized Health Care Education/Training Program
PROC: 02HV33Z Insertion of Infusion Device into Superior Vena Cava, Percutaneous Approach (ICD-10-PCS; principal; 2017-04-14)
DX: A41.9 Sepsis, unspecified organism (principal); J15.9 Unspecified bacterial pneumonia; J96.00 Acute respiratory failure, unspecified whether with hypoxia or hypercapnia; E27.3 Drug-induced adrenocortical insufficiency; N04.0 Nephrotic syndrome with minor glomerular abnormality; R60.0 Localized edema; Z86.73 Personal history of transient ischemic attack (TIA), and cerebral infarction without residual deficits; Z86.718 Personal history of other venous thrombosis and embolism; T38.0X5A Adverse effect of glucocorticoids and synthetic analogues, initial encounter; G40.909 Epilepsy, unspecified, not intractable, without status epilepticus; I10 Essential (primary) hypertension; E78.5 Hyperlipidemia, unspecified; G47.33 Obstructive sleep apnea (adult) (pediatric); K21.9 Gastro-esophageal reflux disease without esophagitis; N28.1 Cyst of kidney, acquired; K43.9 Ventral hernia without obstruction or gangrene; Z87.01 Personal history of pneumonia (recurrent); F32.9 Major depressive disorder, single episode, unspecified; D64.9 Anemia, unspecified; F79 Unspecified intellectual disabilities; J44.9 Chronic obstructive pulmonary disease, unspecified; R65.20 Severe sepsis without septic shock; K43.2 Incisional hernia without obstruction or gangrene
CPT/HCPCS: 36415; 36416; 36556; 51701; 71045; 74177; 80048; 80053; 80170; 80202; 81003; 81015; 82553; 83605; 83690; 83735; 84145; 84484; 85025; 85610; 87040; 87086; 87899; 93005; 94640; 96361; 96365; 96367; C9113; G8978-GP-CM; G8979-GP-CL; J0456; J1580; J1650; J2405; J2543; J3370; J7050; J7502; J7506; J7620; Q0162

== ENCOUNTER 2017-07-22 09:57 | Outpatient (CLI) | payer MEDICARE, MEDICAID ==
--- NOTE | 2017-07-22 14:38 | EKG ---
Test Reason : PT SITTING IN WHEELC Blood Pressure : / mmHG Vent. Rate : 099 BPM Atrial Rate : 099 BPM P-R Int : 156 ms QRS Dur : 078 ms QT Int : 362 ms P-R-T Axes : 030 -38 007 degrees QTc Int : 464 ms Normal sinus rhythm Left axis deviation Abnormal ECG When compared with ECG of 14-APR-2017 08:26, No significant change was found Confirmed by DR. Melody MARTIN ([id number]) on 07/22/2017 2:37:32 PM Referred By: LOY Confirmed By:DR. Melody MARTIN
== END 2017-07-22 09:58 | disposition home or self-care (01) ==
LOC: EKG 09:57
PROVIDERS: ATTEND Family Medicine
DX: G40.909 Epilepsy, unspecified, not intractable, without status epilepticus (principal)
CPT/HCPCS: 93005; 93010

== ENCOUNTER 2017-08-06 14:35 | Outpatient (CLI) | payer MEDICARE, MEDICAID | END 2017-08-06 14:36 | disposition home or self-care (01) | LOC: BICMAMMO 14:35 | PROVIDERS: ATTEND Family Medicine | DX: Z13.820 Encounter for screening for osteoporosis (principal); M85.852 Other specified disorders of bone density and structure, left thigh | CPT/HCPCS: 77080 ==

== ENCOUNTER 2018-05-28 08:32 | Inpatient (IN) | payer MEDICARE, MEDICAID ==
[2018-05-28 08:53] LABS: #Basophils 0.1 thou/uL (0.0-0.2); #Eosinphils 0.4 thou/uL (0.0-0.7); #Lymphocytes 1.9 thou/uL (1.20-3.40); #Monocytes 1.4 thou/uL (0.11-0.59); #Neutrophils 7.9 thou/uL (1.40-6.50); %Basophils 0.8 % (0.0-1.0); %Eosinophils 3.7 % (0.0-10.0); %Lymphocytes 16.2 % (21.0-51.0); %Neutrophils 67.3 % (42.0-75.0); Hemoglobin 16.9 g/dL (14.0-18.0); Mean Corpuscular HGB CONC 30.6 g/dL (32.0-36.0); Mean Corpuscular Hemoglobin 27.8 pg (27.0-31.0); Mean Corpuscular Volume 90.9 fL (78.0-98.0); Mean Platelet Volume 7.9 fL (7.4-10.4); Platelet Count 300 thou/uL (130-400); RBC Distribution Width 13.6 % (11.5-14.5); Red Blood Cell (RBC) Count 6.07 mill/uL (4.70-6.10); White Blood Cell (WBC) Count 11.8 thou/uL (4.8-10.8)
--- NOTE | 2018-05-28 08:55 | CT ---
HEAD CT NONCONTRAST: Date: 05/28/18 INDICATION: Slurred speech, left side weakness. New onset stroke symptoms. FINDINGS: There is marked atrophy of the cerebellar parenchyma. There is also a lesser extent of cerebral atrop hy. Compensatory dilatation of the ventricular system is present. Cavitary lacunar infarctions of eac h basal ganglia are seen, superimposed upon chronic ischemic disease of the cerebral white matter. Th ere is a nonspecific punctate hyperdensity within the right frontal lobe. This could represent a comp onent of beam-hardening artifact underlying the calvarium, although the possibility of punctate paren chymal density related to calcification is a consideration. There is no acute fluid level of the visu alized paranasal sinuses. IMPRESSION: 1. No acute intracranial hemorrhagic mass effect. 2. Extensive cerebellar parenchymal atrophy, which can be seen in the setting of chronic, certain me dication administration, or, alternatively, chronic alcohol consumption. Correlate clinically. 3. Multifocal cavitary lacunar infarctions. 4. Additional details as described above. Telephone call findings placed to ER physician, Virginia Celis, at [id number] hours on 05/28/18. CODE CR. POS: CL
[2018-05-28 08:59] LABS: INR-International Normal Ratio 1.1; PTT 33.9 SEC (22.9-36.1); Prothrombin Time 13.8 SEC (12.0-14.7)
[2018-05-28 09:08] LABS: ALT (SGPT) 28 U/L (8-55); AST (SGOT) 24 U/L (5-34); Albumin 3.5 g/dL (3.5-5.0); Alkaline Phosphatase 107 U/L (40-150); Anion Gap 15 mmol/L (10-20); BUN (Urea Nitrogen) 12 mg/dL (8.4-25.7); Bilirubin, Total 1.4 mg/dL (0.2-1.2); CK (CPK) 80 U/L (30-200); Calc. Creatinine Clearance 0 mL/min (70-130); Calcium 9.1 mg/dL (7.8-10.44); Carbon Dioxide 25 mmol/L (22-29); Chloride 103 mmol/L (98-107); Estimated GFR-MDRD 72; Globulin 3.8 g/dL (2.4-3.5); Glucose 95 mg/dL (70-105); Potassium 3.7 mmol/L (3.5-5.1); Protein, Total 7.3 g/dL (6.0-8.3); Sodium 139 mmol/L (136-145)
[2018-05-28 09:30] LABS: Bilirubin Negative (Negative); Blood, Urine Negative (Negative); Clarity CLEAR (Clear); Glucose, Urine (Dipstick) Negative (Negative); Leukocyte Negative (Negative); Nitrite Negative (Negative); Protein, Urine (Dipstick) Negative (Neg-Trace); Specific Gravity, Urine 1.006 (1.002-1.036); Urobilinogen 0.2 mg/dL (0.2-1.0)
--- NOTE | 2018-05-28 10:11 | RAD ---
PORTABLE CHEST: Date: 05/28/18 PROVIDED CLINICAL HISTORY: Stroke-like symptoms. Left-sided weakness. FINDINGS: Comparison with 04/18/17. Cardiac and mediastinal silhouette is within normal limits. No focal consolidation, pleural fluid, or pneumothorax apparent. IMPRESSION: No evidence for acute cardiopulmonary process. POS: OFF
--- NOTE | 2018-05-28 11:16 | PDOC.FPRHP ---
- History of Present Illness Chief Complaint: Left facial droop, weakness History of Present Illness: 58 yo male presents with his sister for evaluation of seizure. At his baseline the patient is A&Ox1 and he is not at his baseline today. His neurologist is Dr. Pino and he last saw him several months ago. She states that he normally has frequent seizures that only lost a couple of minutes. Today, he had a seizure that lasted longer than normal. Sister is unaware how long the seizure actually lasted. Sister states that yesterday he was doing very well and was much more alert. Sister has not noticed any focal neuro deficits, but he has been more lethargic and altered. The [facility] staff was unable to get the seizure to stop in a timely manner. Due to the fact that this seizure lasted longer than normal and due to the increased frequency Dr. Moore, his PCP, recommended to present to ED. No other history is able to be obtained. ED Course: No intervention - Allergies/Adverse Reactions Allergies Allergy/AdvReac Type Severity Reaction Status Date / Time adhesive Allergy Verified 05/28/18 20:54 ceftriaxone [From Rocephin] Allergy Verified 05/28/18 20:54 ciprofloxacin [From Cipro] Allergy Verified 05/28/18 20:54 ciprofloxacin HCl Allergy Verified 05/28/18 20:54 [From Cipro] morphine Allergy Verified 05/28/18 20:54 phenytoin sodium Allergy Verified 05/28/18 20:54 [From Dilantin] phenytoin sodium extended Allergy Verified 05/28/18 20:54 [From Dilantin] - Home Medications Medication Instructions Recorded Confirmed Type Cetirizine HCl [Zyrtec] 1 tab PO HS 03/23/17 05/28/18 History Cholecalciferol (Vitamin D3) 1 cap PO DAILY 03/23/17 05/28/18 History [Vitamin D3] Magnesium Oxide 1 tab PO DAILY 03/23/17 05/28/18 History cycloSPORINE, Modified [Gengraf 1 ml PO DAILY 03/23/17 05/28/18 History Oral Solution] levETIRAcetam [Keppra] 3 tab PO BID 03/23/17 05/28/18 History Alendronate Sodium 35 mg PO Q7DAYS 03/28/17 05/28/18 History Calcium Carbonate/Vitamin D3 1 tab PO BID 03/28/17 05/28/18 History [Calcium Carbonate w/ Vitamin D3] Escitalopram Oxalate [Lexapro] 20 mg PO DAILY 03/28/17 05/28/18 History Multivitamin With Minerals 1 tablet PO DAILY 03/28/17 05/28/18 History [One-A-Day Maximum Formula] Ondansetron [Ondansetron ODT] 4 mg PO Q6HR PRN 03/28/17 05/28/18 History Polyethylene Glycol 3350 [Miralax] 17 gm PO DAILY 03/28/17 05/28/18 History Potassium Chloride [K-Dur] 20 meq PO DAILY 03/28/17 05/28/18 History Vitamin B Complex [Balanced B-50] 1 each PO DAILY 03/28/17 05/28/18 History guaiFENesin [Mucinex] 600 mg PO Q12HR PRN 03/28/17 05/28/18 History predniSONE [Prednisone] 5 mg PO DAILY 03/28/17 05/28/18 History Pantoprazole [Protonix] 40 mg PO DAILY 04/14/17 05/28/18 History Acetaminophen [Tylenol] 1,000 mg PO Q6HR PRN 05/28/18 05/28/18 History Acyclovir [Acyclovir 3% Ointment] 1 applic TOP [id number] PRN 05/28/18 05/28/18 History Amlodipine [Norvasc] 2.5 mg PO DAILY 05/28/18 05/28/18 History Fluticasone Propionate [Flonase 1 spray EA NARE DAILY 05/28/18 05/28/18 History Nasal Derry] Furosemide 20 mg PO DAILY 05/28/18 05/28/18 History Ipratropium/Albuterol Sulfate 3 ml NEB QID PRN 05/28/18 05/28/18 History [Duoneb] Metoprolol Tartrate 25 mg PO BID 05/28/18 05/28/18 History Zinc Oxide [Desitin Cream] 1 applic TOP ASDIR PRN 05/28/18 05/28/18 History traMADol HCl [Tramadol HCl] 50 mg PO Q6H PRN 05/28/18 05/28/18 History - History PMHx: Developmental delay, GERD, HLD, HTN, Epilepsy, TIA, Minimal Change Disease , Psoriasis PSHx: Partial small bowel resection, Splenectomy, Appendectomy, Cholecystectomy , FHx: Maternal several strokes above age 50 Social: Lives at [facility]. No alcohol, drug, or tobacco use. - Review of Systems ROS unobtainable: due to mental status (Sister provides history due to patient condition.) General: denies: fever/chills ENT: denies: nasal congestion, rhinorrhea Respiratory: denies: cough, shortness of breath Gastrointestinal: denies: nausea, vomiting, diarrhea, constipation Skin: denies: rashes Neurological: reports: seizure, weakness Psychological: denies: anxiety, depression - Vital signs BP: 120/84 HR: 85 RR: 16 Tmax: 98.9 Pox: 92% on 2L Wt: 62.00 kg - Physical Exam Constitutional: NAD HEENT: PERRLA, grossly normal vision, TM's clear and intact, normal nasal mucosa , MMM Neck: supple, trachea midline Heart: RRR, normal S1/S2, no murmurs/rubs/gallops Lungs: CTAB, no respiratory distress, good air movement, no wheezing Abdomen: soft, non-tender, bowel sounds present, no masses/distention -Abdomen: Multiple surgical scars and multiple hernias present. Musculoskeletal: normal structure -Neurological: Patient unable to follow commands for Neurological exam. No obvious deficits present. Myoclonus bilaterally Skin: no rash/lesions, capillary refill <2 seconds Heme/Lymphatic: no unusual bruising or bleeding -Psychiatric: Patient is not alert to person, place, or time. FMR H&P: Results - Labs Result Diagrams: 05/29/18 05:17 05/28/18 08:42 Lab results: WBC 11.8 thou/uL (4.8-10.8) H 05/28/18 08:42 Hgb 16.9 g/dL (14.0-18.0) 05/28/18 08:42 Hct 55.1 % (42.0-52.0) H 05/28/18 08:42 MCV 90.9 fL (78.0-98.0) 05/28/18 08:42 Plt Count 300 thou/uL (130-400) 05/28/18 08:42 Neutrophils % 67.3 % (42.0-75.0) 05/28/18 08:42 Sodium 139 mmol/L (136-145) 05/28/18 08:42 Potassium 3.7 mmol/L (3.5-5.1) 05/28/18 08:42 Chloride 103 mmol/L (98-107) 05/28/18 08:42 Carbon Dioxide 25 mmol/L (22-29) 05/28/18 08:42 BUN 12 mg/dL (8.4-25.7) 05/28/18 08:42 Creatinine 1.06 mg/dL (0.7-1.3) 05/28/18 08:42 Glucose 95 mg/dL (70-105) 05/28/18 08:42 Calcium 9.1 mg/dL (7.8-10.44) 05/28/18 08:42 Total Bilirubin 1.4 mg/dL (0.2-1.2) H 05/28/18 08:42 AST 24 U/L (5-34) 05/28/18 08:42 ALT 28 U/L (8-55) 05/28/18 08:42 Alkaline Phosphatase 107 U/L (40-150) 05/28/18 08:42 Creatine Kinase 80 U/L (30-200) 05/28/18 08:42 Serum Total Protein 7.3 g/dL (6.0-8.3) 05/28/18 08:42 Albumin 3.5 g/dL (3.5-5.0) 05/28/18 08:42 Urine Ketones Negative mg/dL (Negative) 05/28/18 09:14 Urine Blood Negative (Negative) 05/28/18 09:14 Urine Nitrite Negative (Negative) 05/28/18 09:14 Ur Leukocyte Esterase Negative (Negative) 05/28/18 09:14 - EKG Interpretation EKG: normal sinus rhythm, Rate (beats per minute): 74, with no ectopics, ST segments normal, T waves normal, Owen, left, Possible LAE. - Radiology Interpretation CT scan - head Status: report reviewed by me Additional comment: Marked atrophy of cerebellar parenchyma. Cavitary lacunar infarcts of each basal ganglia, superimposed upon chronic ischemic disease of the cerebral white matter. Nonspecific punctate hyperdensity within the right frontal lobe. This could represent component of beam-hardening artifact underlying the calvarium, although the possiblity of punctate parenchymal density related to calficiation is a consideration. Chest x-ray Status: report reviewed by me Additional comment: No acute cardiopulm process FMR H&P: A/P - Problem List (1) Altered mental state Current Visit: No Status: Acute Code(s): R41.82 - ALTERED MENTAL STATUS, UNSPECIFIED Qualifiers: Altered mental status type: delirium Qualified Code(s): R41.0 - Disorientation, unspecified (2) Inferior vena cava occlusion Current Visit: No Status: Acute Code(s): I82.220 - ACUTE EMBOLISM AND THROMBOSIS OF INFERIOR VENA CAVA (3) Adrenal insufficiency Current Visit: No Status: Chronic Code(s): E27.40 - UNSPECIFIED ADRENOCORTICAL INSUFFICIENCY (4) BPH (benign prostatic hypertrophy) Current Visit: No Status: Chronic Code(s): N40.0 - BENIGN PROSTATIC HYPERPLASIA WITHOUT LOWER URINRY TRACT SYMP Qualifiers: Lower urinary tract symptom presence: presence of symptoms unspecified (5) Developmental delay, moderate Current Visit: No Status: Chronic Code(s): R62.50 - UNSP LACK OF EXPECTED NORMAL PHYSIOL DEV IN CHILDHOOD (6) Dysphagia Current Visit: No Status: Chronic Code(s): R13.10 - DYSPHAGIA, UNSPECIFIED Qualifiers: Dysphagia type: unspecified Qualified Code(s): R13.10 - Dysphagia, unspecified (7) GERD (gastroesophageal reflux disease) Current Visit: No Status: Chronic Code(s): K21.9 - GASTRO-ESOPHAGEAL REFLUX DISEASE WITHOUT ESOPHAGITIS (8) HLD (hyperlipidemia) Current Visit: No Status: Chronic Code(s): E78.5 - HYPERLIPIDEMIA, UNSPECIFIED Qualifiers: Hyperlipidemia type: unspecified Qualified Code(s): E78.5 - Hyperlipidemia , unspecified (9) HTN (hypertension) Current Visit: No Status: Chronic Code(s): I10 - ESSENTIAL (PRIMARY) HYPERTENSION Qualifiers: Hypertension type: essential hypertension Qualified Code(s): I10 - Essential (primary) hypertension (10) History of CVA (cerebrovascular accident) Current Visit: No Status: Chronic Code(s): Z86.73 - PRSNL HX OF TIA (TIA), AND CEREB INFRC W/O RESID DEFICITS (11) History of DVT (deep vein thrombosis) Current Visit: No Status: Chronic Code(s): Z86.718 - PERSONAL HISTORY OF OTHER VENOUS THROMBOSIS AND EMBOLISM (12) Incisional hernia Current Visit: No Status: Chronic Code(s): K43.2 - INCISIONAL HERNIA WITHOUT OBSTRUCTION OR GANGRENE Qualifiers: Obstruction and gangrene presence: without obstruction or gangrene Qualified Code(s): K43.2 - Incisional hernia without obstruction or gangrene; K43.91 - Incisional hernia, without obstruction or gangrene (13) Intellectual disability Current Visit: No Status: Chronic Code(s): F79 - UNSPECIFIED INTELLECTUAL DISABILITIES (14) Minimal change disease Current Visit: No Status: Chronic Code(s): N04.0 - NEPHROTIC SYNDROME WITH MINOR GLOMERULAR ABNORMALITY (15) Nephrotic syndrome Current Visit: No Status: Chronic Code(s): N04.9 - NEPHROTIC SYNDROME WITH UNSPECIFIED MORPHOLOGIC CHANGES (16) CLARKE (obstructive sleep apnea) Current Visit: No Status: Chronic Code(s): G47.33 - OBSTRUCTIVE SLEEP APNEA (ADULT) (PEDIATRIC) (17) Seizure disorder Current Visit: No Status: Chronic Code(s): G40.909 - EPILEPSY, UNSP, NOT INTRACTABLE, WITHOUT STATUS EPILEPTICUS - Plan 58yo male with pmh of intellectual delay, hx of hemorrhagic CVA, hx of DVT s/p occluded IVC filter, minimal change disease, adrenal insuffi CVA vs Seizure - Hx of Hemorrhagic stroke 02/2016 - CT: atrophic changes from 2018 - Neurology consulted - Allow for permissive HTN - MRI ordered - Echo 04/09/17: EF 60-65% nml - Neurochecks q4hr - Admit to stroke - Will get in contact with [facility] Adrenal insufficiency - Continue home meds Epilepsy - Seizure precautions - Continue home meds - Neurology consulted Dysphagia - NPO until passing swallowing screen - Lutsen thick liquids & pureed 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 Adrenal insufficiency - Continue home meds Epilepsy - Seizure precautions - Continue home meds - Neurology consulted Dysphagia - Lutsen thick liquids & pureed Hx of DVT s/p occluded IVC filter - SCDs Intellectual delay - Sister reports no short term memory, ambulates by wheelchair - Fall precautions - Sitter requested for when sister leaves HTN - Allow for permissive HTN for 24hrs HLD - Continue home meds CLARKE - Pt not compliant with CPAP GERD - Continue home meds OA Depression Code Status: FULL DVT ppx: SCDs PCP: KOSTAS Molina) Discussed this case with Dr Hernandez FMR H&P: Upper Level - Pertinent history 58 yo developmentally delayed male seen at bedside. His sister who is MPOA is present at bedside. 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 Seizures have increased in frequency and length. Patient has not recovered to baseline. PCP recommended presentation to ED for evaluation. Physical Exam: Constitutional: NAD Neck: supple, trachea midline Heart: RRR, normal S1/S2, no murmurs/rubs/gallops Lungs: CTAB, no respiratory distress, good air movement, no wheezing Abdomen: soft, non-tender, bowel sounds present, no masses/distention. Multiple surgical scars and multiple hernias present. Neurological: Patient unable to follow commands for Neurological exam. No obvious deficits present. Myoclonus bilaterally Skin: no rash/lesions, capillary refill <2 seconds Heme/Lymphatic: no unusual bruising or bleeding Psychiatric: Patient is not alert to person, place, or time. - Plan Date/Time: 05/28/18 1116 I, Fidel Wallace MD, have evaluated this patient and agree with findings/ plan as outlined by corporate development intern resident. Pertinent changes/additions are listed here. CVA vs Seizure - Hx of Hemorrhagic stroke 02/2016 - CT shows atrophic changes from 2018. - Neurology and stroke team consulted - Allow for permissive HTN - MRI ordered - Echo 04/09/17: EF 60-65% nml - Neurochecks q4hr - Admit to stroke - [facility] did not note any specific changes other than altered. No definite weakness to one side. No falls and no focal deficits. Adrenal insufficiency - Continue home meds Epilepsy - Seizure precautions - Continue home meds - Neurology consulted Dysphagia - NPO until passing swallowing screen - Lutsen thick liquids & pureed Hx of DVT s/p occluded IVC filter - SCDs - Will await MRI results prior to anticoagulation Intellectual delay - Sister reports no short term memory, ambulates by wheelchair - Fall precautions - Sitter requested for when sister leaves HTN - Allow for permissive HTN for 24hrs Code Status: FULL PCP: KOSTAS Molina) Disposition: Stable, will continue current plan of care.
[2018-05-28] MEDS ORDERED: Ondansetron PF 4 MG/2 ML Vial ONE (11:45)
[2018-05-28] MEDS ORDERED: Gadobenate Dimeglumine 529 MG/1 ML (20ML VIAL) ONE (12:07)
[2018-05-28] MEDS ORDERED: traMADol HCl 50 MG TAB PO PRN (12:51)
[2018-05-28] MEDS ORDERED: guaiFENesin ER 600 MG TAB PO PRN (12:51)
[2018-05-28] MEDS ORDERED: Ondansetron ODT 4 MG TAB PO PRN (12:51)
[2018-05-28] MEDS ORDERED: Zinc Oxide 20% Oint 30 GM TUBE TOP PRN (13:09)
[2018-05-28] MEDS ORDERED: Lorazepam 2 MG/ML VIAL ONE ×3 (13:46→15:05)
[2018-05-28] MEDS ORDERED: Aspirin Chewable 81 MG TAB ONE (14:31)
[2018-05-28] MEDS ORDERED: Aspirin 300 MG Suppository ONE (14:42)
--- NOTE | 2018-05-28 14:46 | CON ---
DATE OF CONSULTATION: CHIEF COMPLAINT: Possible seizure. HISTORY OF PRESENT ILLNESS: The patient's history was obtained from his sister who was present in the room. 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 At baseline, he has some cognitive issues. He talks with a low volume and family does go and visit him every day and try to read to him or spend 30 minutes with him doing ABCs. The patient lives in a longterm. He has had seizures for a long time and these occur twice a week at least and they last about less than a minute and it takes a while for him to come back. The patient's sister was informed by the longterm that this time the seizure lasted too long and they brought him in for evaluation. The patient is a patient of Dr. Pino and has not seen him in several months. The patient has been on Keppra 1500 mg b.i.d. Today, he is more lethargic and altered. ALLERGIES: HE HAS ALLERGIES TO ADHESIVES, CEFTRIAXONE, CIPROFLOXACIN, MORPHINE, PHENYTOIN SODIUM AND ACCORDING TO HIS CHART RECORD, PHENYTOIN SODIUM CAUSED HIM HIVES, MORPHINE AND CIPRO CAUSED HIM RASH. CURRENT MEDICATIONS: He is on: 1. Cetirizine. 2. Vitamin D3. 3. Magnesium. 4. Cyclosporine. 5. Keppra 1500 b.i.d. 6. Alendronate sodium. 7. Calcium carbonate. 8. Lexapro. 9. Multivitamin. 10. Zofran. 11. MiraLAX. 12. Potassium chloride. 13. Vitamin B complex. 14. Guaifenesin. 15. Prednisone. 16. Pantoprazole. 17. Acetaminophen. 18. Acyclovir. 19. Amlodipine. 20. Fluticasone. 21. Furosemide. 22. Ipratropium. 23. Metoprolol. 24. Zinc oxide. 25. Tramadol. PREVIOUS MEDICAL HISTORY: 1. Developmental delay. 2. Gastroesophageal reflux disease. 3. Hyperlipidemia. 4. Hypertension. 5. Epilepsy. 6. TIAs. 7. Minimal change disease. 8. Psoriasis. 9. The patient has a T11-T12 disk fracture following a fall onto a metal pole after a seizure. SURGICAL HISTORY: 1. Partial bowel resection of the small bowel. 2. Splenectomy. 3. Appendectomy. 4. Cholecystectomy. 5. The patient also had IVC filter placement for DVT. FAMILY HISTORY: Mother had 3-4 strokes. Niece has seizures. SOCIAL HISTORY: Lives at a longterm. He does not drink, smoke or use alcohol. REVIEW OF SYSTEMS: Unobtainable due to mental status. LABORATORY WORKUP: White count 11.8, hemoglobin 16.9, hematocrit 55.1, platelet count 300. PT 13.8, INR 1.1, PTT 33.9. Chemistry; sodium 139, potassium 3.7, chloride 103, BUN 12, creatinine 1.06, glucose 95, AST 24, ALT 28, alkaline phosphatase 107, CPK 80. Urinalysis is negative. IMAGING: CT of the head shows generalized atrophy and he has no acute intracerebral hemorrhage, extensive cerebellar parenchymal atrophy, multifocal cavitary lacunar infarcts. PHYSICAL EXAMINATION: VITAL SIGNS: Have not been recorded in the chart. However, per the monitor, blood pressure is 130/80, pulse rate 96 and the patient is afebrile. GENERAL APPEARANCE: He is comfortable. He is lying down in bed. CHEST: Clear vesicular breathing. CARDIOVASCULAR: S1, S2 heard. No murmurs. NEUROLOGIC: Higher intellectual functions. He does follow some commands, but has more volitional movements. He has dysarthria and has difficulty following conversation and also following commands. Cranial nerves, pupils 4 mm, reactive. Normal extraocular movements. Difficult to assess sensation of face. Tongue midline. No atrophy noted. No facial asymmetry noted and normal hearing. Motor bulk normal, tone normal, strength 5/5 on the left side and right side may be weak. It is difficult to tell, if it is purposeful movement, whether it is full effort or whether patient can follow commands. This is gross strength estimated only. On the right side there seems to be mild weakness. Sensory, cerebellar, difficult to evaluate. IMPRESSION: The patient is a 58-year-old man with developmental delay and per sister has some abnormalities in his hypothalamus. Last MRI on file is from 2016 and I reviewed that MRI. He has a known seizure disorder. He is on 3000 mg of Keppra per day and is unclear how long ago he has seen Dr. Pino. His current examination shows altered mental status, likely due to postictal versus baseline and he seems to have mild right-sided weakness and brisk reflexes of 3+ throughout. RECOMMENDATIONS: MRI brain, EEG, please add sodium valproate since he is allergic to phenytoin. We can combine therapy with Keppra and Depakote. I will follow up the patient with you. Job ID: [id number]
[2018-05-28] MEDS ORDERED: levETIRAcetam In NaCl (Iso-Os) 1,000 MG in Premix Bag 1 BAG IVPB SCH (15:15)
--- NOTE | 2018-05-28 15:23 | CT ---
HEAD CT NONCONTRAST: Date: 05/28/18 COMPARISON: Exam earlier same date. CLINICAL HISTORY: Follow-up exam performed for history of persistent altered mental status, left side weakness. Slurred speech. Motion artifact is present. There is redemonstration of parenchymal atrophy and compensatory dilatati on of the ventricular system. Prior punctate subcortical density at the right frontal lobe is not red emonstrated although this region is distorted by motion. There remains prominent cerebellar parenchym al atrophy. No interval acute mass-producing hemorrhage or midline shift. IMPRESSION: Limited exam by patient motion. No significant interval detrimental change from exam earlier, same da te. POS: [facility]
[2018-05-28 16:30] VITALS: BMI 20.7
[2018-05-28] MEDS ORDERED: levETIRAcetam In NaCl (Iso-Os) 1,500 MG in Premix Bag 1 BAG IVPB SCH (21:00)
[2018-05-28] MEDS: Loratadine 10 MG TAB PO SCH (22:09)
[2018-05-28] MEDS: levETIRAcetam 500 MG TAB PO SCH (22:09)
[2018-05-28] MEDS: Calcium Carbonate + Vit D 1 TAB PO SCH (22:09)
[2018-05-28] MEDS: Valproate Sodium 500 MG in Sodium Chloride 0.9% 100 ML IVPB SCH (22:10)
--- NOTE | 2018-05-28 23:47 | HP ---
HISTORY OF PRESENT ILLNESS: I have examined the patient. I have discussed the case with Dr. Wallace and agree with her assessment and plan. Briefly, Mr. Aldana is a very unfortunate 58-year-old mentally challenged gentleman with multiple comorbidities including a seizure disorder since the age of 5. He has been permanently in a jail for several years due to his chronically ill health. The sister states that yesterday she was talking with him and interacting in a quite normal fashion. However, this morning, he began to have seizures. At one point, the nursing staff at the jail decided that the seizures are going on for too long and transported the patient to [facility]. I examined the patient several hours later and in my presence, he had two seizures [id number]. We will probably need to be concerned about the possibility of him developing status and along with the neurologist's consider an infusion for such. In the event, on exam, he was seizing in my presence. PHYSICAL EXAMINATION: VITAL SIGNS: Blood pressure was 130/80. His pulse rate was 100, respirations 16. EAR, NOSE, AND THROAT: No erythema or exudate. He was not responsive as he was seizing. CARDIAC: Heart rhythm regular. No gallop or murmur noted. The patient was posturing partially during the seizure, it was difficult to assess for any focal deficits or any muscle weakness. LUNGS: Clear with no rales or wheezes. ABDOMEN: Flat and soft without guarding, rebound, or rigidity. NEUROLOGIC: As mentioned above, difficult to assess because of active seizing. LABORATORY DATA: CBC; white count is 11,800, hemoglobin is 16.9, hematocrit is 55.1 with an MCV of 91. Chemistries; his sodium is 139, potassium 3.7, chloride 103, bicarbonate 25, BUN 12, creatinine 1.06. Liver enzymes are normal except for a very slight elevation of the bilirubin of 1.4. His creatine kinase was 80. Urine was clear. IMAGING STUDIES: A noncontrast CT of the brain showed no acute intracranial hemorrhagic mass effect. There was extensive cerebellar parenchymal atrophy. There were multifocal cavitary lacunar infarctions. An MRI was attempted, but he was either moving too much or seizing during the MRI and this was unable to be obtained. He has been seen in consultation by Dr. Ardon and we appreciate his input. He recommended the MRI which we attempted. He has scheduled the patient for an EEG. He added sodium valproate to his seizure regimen to combine with Keppra. ASSESSMENT: Seizure disorder in a mentally challenged gentleman with multiple comorbidities. PLAN: Continue dual therapy. We may need to continue continuous infusion if seizures persist. Attempt MRI once seizure control is obtained. Job ID: [id number]
[2018-05-29 05:56] LABS: #Lymphocytes 2.6 thou/uL (1.20-3.40); #Neutrophils 11.2 thou/uL (1.40-6.50); %Basophils 0.3 % (0.0-1.0); %Eosinophils 0.2 % (0.0-10.0); %Lymphocytes 16.7 % (21.0-51.0); %Monocytes 12.3 % (0.0-10.0); %Neutrophils 70.6 % (42.0-75.0); Hemoglobin 15.7 g/dL (14.0-18.0); Mean Corpuscular HGB CONC 31.1 g/dL (32.0-36.0); Mean Corpuscular Hemoglobin 28.2 pg (27.0-31.0); Mean Corpuscular Volume 90.8 fL (78.0-98.0); Mean Platelet Volume 8.2 fL (7.4-10.4); Platelet Count 303 thou/uL (130-400); RBC Distribution Width 13.6 % (11.5-14.5); Red Blood Cell (RBC) Count 5.57 mill/uL (4.70-6.10); White Blood Cell (WBC) Count 15.8 thou/uL (4.8-10.8)
--- NOTE | 2018-05-29 06:10 | PDOC.FM ---
- Subjective Subjective: 2 tonic clonic seizures yesterday lasting approx 30 sec each, received 2mg Ativan x2. Also received 1mg Ativan prior to MRI, before seizures. He was very drowsy yesterday after receiving 5mg Ativan. Nursing reports much more alert today, now following simple command which appears to be his baseline. - Objective MAR Reviewed: Yes Vital Signs & Weight: Vital Signs (12 hours) Temp Pulse Resp BP Pulse Ox 05/29/18 04:00 98.7 F 100 18 114/87 95 05/29/18 00:00 99.4 F 102 H 19 118/88 94 L 05/28/18 22:09 92 L 05/28/18 20:00 100.4 F H 122 H 18 112/81 92 L Weight Weight 60.056 kg I&O: 05/27/18 05/28/18 05/29/18 06:59 06:59 06:59 Intake Total 100 Balance 100 Result Diagrams: 05/29/18 05:17 05/29/18 05:17 Phys Exam - Physical Examination Constitutional: NAD HEENT: moist MMs Neck: supple Respiratory: no wheezing, clear to auscultation bilateral Cardiovascular: RRR, no significant murmur Gastrointestinal: soft, positive bowel sounds scarring on abdomen Musculoskeletal: no edema Deviation from normal: developmentally delayed. A&O x1 at baseline Skin: normal turgor Dx/Plan (1) Altered mental state Code(s): R41.82 - ALTERED MENTAL STATUS, UNSPECIFIED Status: Acute Qualifiers: Altered mental status type: delirium Qualified Code(s): R41.0 - Disorientation, unspecified (2) Inferior vena cava occlusion Code(s): I82.220 - ACUTE EMBOLISM AND THROMBOSIS OF INFERIOR VENA CAVA Status : Acute (3) Adrenal insufficiency Code(s): E27.40 - UNSPECIFIED ADRENOCORTICAL INSUFFICIENCY Status: Chronic (4) BPH (benign prostatic hypertrophy) Code(s): N40.0 - BENIGN PROSTATIC HYPERPLASIA WITHOUT LOWER URINRY TRACT SYMP Status: Chronic Qualifiers: Lower urinary tract symptom presence: presence of symptoms unspecified (5) Developmental delay, moderate Code(s): R62.50 - UNSP LACK OF EXPECTED NORMAL PHYSIOL DEV IN CHILDHOOD Status : Chronic (6) Dysphagia Code(s): R13.10 - DYSPHAGIA, UNSPECIFIED Status: Chronic Qualifiers: Dysphagia type: unspecified Qualified Code(s): R13.10 - Dysphagia, unspecified (7) GERD (gastroesophageal reflux disease) Code(s): K21.9 - GASTRO-ESOPHAGEAL REFLUX DISEASE WITHOUT ESOPHAGITIS Status: Chronic (8) HLD (hyperlipidemia) Code(s): E78.5 - HYPERLIPIDEMIA, UNSPECIFIED Status: Chronic Qualifiers: Hyperlipidemia type: unspecified Qualified Code(s): E78.5 - Hyperlipidemia , unspecified (9) HTN (hypertension) Code(s): I10 - ESSENTIAL (PRIMARY) HYPERTENSION Status: Chronic Qualifiers: Hypertension type: essential hypertension Qualified Code(s): I10 - Essential (primary) hypertension (10) History of CVA (cerebrovascular accident) Code(s): Z86.73 - PRSNL HX OF TIA (TIA), AND CEREB INFRC W/O RESID DEFICITS Status: Chronic (11) History of DVT (deep vein thrombosis) Code(s): Z86.718 - PERSONAL HISTORY OF OTHER VENOUS THROMBOSIS AND EMBOLISM Status: Chronic (12) Incisional hernia Code(s): K43.2 - INCISIONAL HERNIA WITHOUT OBSTRUCTION OR GANGRENE Status: Chronic Qualifiers: Obstruction and gangrene presence: without obstruction or gangrene Qualified Code(s): K43.2 - Incisional hernia without obstruction or gangrene; K43.91 - Incisional hernia, without obstruction or gangrene (13) Intellectual disability Code(s): F79 - UNSPECIFIED INTELLECTUAL DISABILITIES Status: Chronic (14) Minimal change disease Code(s): N04.0 - NEPHROTIC SYNDROME WITH MINOR GLOMERULAR ABNORMALITY Status: Chronic (15) Nephrotic syndrome Code(s): N04.9 - NEPHROTIC SYNDROME WITH UNSPECIFIED MORPHOLOGIC CHANGES Status: Chronic (16) CLARKE (obstructive sleep apnea) Code(s): G47.33 - OBSTRUCTIVE SLEEP APNEA (ADULT) (PEDIATRIC) Status: Chronic (17) Seizure disorder Code(s): G40.909 - EPILEPSY, UNSP, NOT INTRACTABLE, WITHOUT STATUS EPILEPTICUS Status: Chronic - Plan Plan: 58yo male with pmh of intellectual delay, hx of hemorrhagic CVA, hx of DVT s/p occluded IVC filter, minimal change disease, adrenal insuffi CVA vs Seizure - Hx of Hemorrhagic stroke 02/2016 - CT: atrophic changes from 2018 - Neurology consulted, apprec recs - MRI results pending - Echo 04/09/17: EF 60-65% nml - Neurochecks q4hr - Continue Keppra for seizures but starting Depakote in addition - Awaiting EEG results. - 2 tonic clonic seizures yesterday. 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
[2018-05-29 06:14] LABS: Anion Gap 13 mmol/L (10-20); BUN (Urea Nitrogen) 19 mg/dL (8.4-25.7); Calc. Creatinine Clearance 59 mL/min (70-130); Calcium 9.1 mg/dL (7.8-10.44); Carbon Dioxide 28 mmol/L (22-29); Chloride 104 mmol/L (98-107); Cholesterol 198 mg/dl (< 200 Desired); Estimated GFR-MDRD 65; Glucose 98 mg/dL (70-105); HDL Cholesterol 50 mg/dL (>60 Neg Risk); LDL Cholesterol, Calculated 130 mg/dL; Potassium 3.9 mmol/L (3.5-5.1); Sodium 141 mmol/L (136-145); Triglycerides 89 mg/dL (Less than 150)
[2018-05-29] MEDS ORDERED: CYCLOSPORINE MODIFIED PO SCH (09:00)
[2018-05-29] MEDS: Valproate Sodium 500 MG in Sodium Chloride 0.9% 100 ML IVPB SCH ×2 (10:05→21:23)
[2018-05-29] MEDS: Multivitamin W/ Minerals 1 TAB PO SCH (10:25)
[2018-05-29] MEDS: levETIRAcetam 500 MG TAB PO SCH ×2 (10:25→21:12)
[2018-05-29] MEDS: Calcium Carbonate + Vit D 1 TAB PO SCH ×2 (10:25→21:13)
[2018-05-29] MEDS: Furosemide 20 MG TAB PO SCH (10:26)
[2018-05-29] MEDS: Magnesium Oxide 400 MG TAB PO SCH (10:26)
[2018-05-29] MEDS: Aspirin 81 mg Enteric Coated Tablet PO SCH (10:26)
[2018-05-29] MEDS: Potassium Chloride 20 MEQ TAB PO SCH (10:26)
[2018-05-29] MEDS: predniSONE 5 MG TAB PO SCH (10:26)
[2018-05-29] MEDS: Escitalopram Oxalate 20 mg Tablet PO SCH (10:26)
[2018-05-29] MEDS: Polyethylene Glycol 3350 17 GM Packet PO SCH (10:27)
[2018-05-29] MEDS: Stress 600 With Zinc 1 TAB PO SCH (10:56)
--- NOTE | 2018-05-29 11:33 | PRG ---
DATE OF SERVICE: 05/29/2018 SUBJECTIVE: Mr. Aldana has now been seizure-free since yesterday. He did require a couple of more dosages of intravenous Ativan yesterday afternoon and the addition of Depakote. He is resting quietly. All his sister's questions have been answered. We also appreciate the input from the Neurology Service. We will continue to follow with him. Job ID: [id number]
--- NOTE | 2018-05-29 12:43 | PRG ---
DATE OF SERVICE: 05/29/2018 CHIEF COMPLAINT: Seizures. INTERVAL HISTORY: The patient is no longer having any seizures since admission. He had 2 additional seizures in the ER yesterday. His EEG has been completed. Unfortunately, I do not have access to the EEG system and we are trying to resolve technical difficulties. His MRI is pending. The patient is stable. LABORATORY WORKUP: Includes white count 15.8, hemoglobin 15.7, hematocrit 50.5, platelets 303. Sodium 141, potassium 3.9, chloride 104, BUN is 19, creatinine 1.15, and anion gap 13. Cholesterol lipid profile panel is normal. His Keppra level is 70.5 today. PHYSICAL EXAMINATION: VITAL SIGNS: Temperature 98.2, pulse 89, and blood pressure 133/94. GENERAL APPEARANCE: He is comfortable in bed. He is more alert and awake and is following commands today. CRANIAL NERVE EXAMINATION: Normal extraocular movements. Tongue midline. No atrophy noted. Normal elevation of palate. Motor; bulk normal, tone normal, strength 5/5 in both upper and lower extremities today. IMPRESSION: The patient is a 58-year-old man with developmental delay and seizure disorder. He is currently asymptomatic. They are waiting for his MRI of the brain, and also I will review his EEG report. I think it is woodward to continue Avani along with Vicenta for now, and I will follow up the patient with you tomorrow. ADDENDUM: EEG was reviewed at 3:40 PM. Patient had low voltage background, frontal fast activity, but no active seizures or epileptiform discharges were noted. Theere was motion artifact. Job ID: [id number] MTDD
--- NOTE | 2018-05-29 16:12 | MRI ---
MRI OF BRAIN WITHOUT CONTRAST 05/29/18 Multiplanar and multisequential imaging of the brain obtained. INDICATIONS: Stroke workup. Left side weakness and slurred speech. Seizures. FINDINGS: Moderate cortical atrophy involving the supratentorial hemispheres. More severe atrophy involving the cerebellum. No evidence of restricted diffusion. No evidence of acute infarct or mass. Postcontrast images demonstrate patchy linear enhancement in the brainstem at the level of the cerebe llar peduncles and within the freeman. There is also linear enhancement in both basal ganglia. These enh ancing areas are stable when compared to an MRI of brain with and without contrast performed on . The posterior fossa atrophy also appears stable from the prior exam which involves brainstem and cere bellum. Intracranial internal carotid arteries and cerebral arteries show flow voids. There is a focal area o f gliosis seen on FLAIR sequence along the temporal horn on the left. Otherwise, mild chronic ischemi c white matter change seen. No other abnormal enhancement. IMPRESSION: 1. Cerebellar and brainstem atrophy again noted. Not significantly changed from the prior exam o f 2015. Etiology has been previously discussed including multisystem atrophy, alcohol and medication. 2. No evidence of acute infarct or significant interval change. POS: [facility]
[2018-05-29] MEDS: Loratadine 10 MG TAB PO SCH (21:13)
--- NOTE | 2018-05-30 06:54 | PDOC.FM ---
- Subjective Subjective: Mr. Aldana had no complaints this morning. Says he is feeling well. Denies pain. - Objective Vital Signs & Weight: Vital Signs (12 hours) Temp Pulse Resp BP Pulse Ox 05/30/18 04:00 99.1 F 78 16 108/84 94 L 05/30/18 00:00 99.3 F 84 16 101/74 94 L 05/29/18 20:00 98.7 F 68 16 95/80 96 Weight Admit Weight 60.056 kg Weight 60.056 kg I&O: 05/28/18 05/29/18 05/30/18 06:59 06:59 06:59 Intake Total 100 Balance 100 Result Diagrams: 05/29/18 05:17 05/29/18 05:17 Phys Exam - Physical Examination Constitutional: NAD Respiratory: clear to auscultation bilateral Cardiovascular: RRR, no significant murmur Gastrointestinal: soft, non-tender, positive bowel sounds Neurological: non-focal Deviation from normal: A&Ox1 Skin: normal turgor Dx/Plan (1) Seizures Status: Chronic (2) Dysphagia Code(s): R13.10 - DYSPHAGIA, UNSPECIFIED Status: Chronic Qualifiers: Dysphagia type: unspecified Qualified Code(s): R13.10 - Dysphagia, unspecified (3) HLD (hyperlipidemia) Code(s): E78.5 - HYPERLIPIDEMIA, UNSPECIFIED Status: Chronic Qualifiers: Hyperlipidemia type: unspecified Qualified Code(s): E78.5 - Hyperlipidemia , unspecified (4) HTN (hypertension) Code(s): I10 - ESSENTIAL (PRIMARY) HYPERTENSION Status: Chronic Qualifiers: Hypertension type: essential hypertension Qualified Code(s): I10 - Essential (primary) hypertension (5) History of DVT (deep vein thrombosis) Code(s): Z86.718 - PERSONAL HISTORY OF OTHER VENOUS THROMBOSIS AND EMBOLISM Status: Chronic (6) Intellectual disability Code(s): F79 - UNSPECIFIED INTELLECTUAL DISABILITIES Status: Chronic (7) Leukocytosis Code(s): D72.829 - ELEVATED WHITE BLOOD CELL COUNT, UNSPECIFIED Status: Chronic (8) Minimal change disease Code(s): N04.0 - NEPHROTIC SYNDROME WITH MINOR GLOMERULAR ABNORMALITY Status: Chronic - Plan Plan: 58yo male with pmh of intellectual delay, hx of hemorrhagic CVA, hx of DVT s/p occluded IVC filter, minimal change disease, adrenal insufficiency. Seizure - Hx of Hemorrhagic stroke 02/2016 - CT: atrophic changes from 2018. MRI: no acute change. 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 Adrenal insufficiency - Continue home meds Hx of DVT s/p occluded IVC filter - SCDs Intellectual delay - Sister reports no short term memory, ambulates by wheelchair - Fall precautions - Sitter requested for when sister leaves HTN - Allow for permissive HTN for 24hrs HLD - Continue home meds CLARKE - Pt not compliant with CPAP GERD - Continue home meds OA Depression Code Status: FULL DVT ppx: SCDs PCP: KOSTAS Molina) Dispo: appreciate recommendations from neurology, patient could likely discharge this weekend Addendum - Attending - Attending Attestation Date/Time: 05/30/18 [id number] I personally evaluated the patient and discussed the management with Dr. Xavier. I agree with the History, Examination, Assessment and Plan documented above with any addition or exceptions noted below. Patient reports no issues this morning. No further seizure activity. MRI did not show acute change, and apparently EEG did not reveal epileptiform discharges. Await further recs from Neurology but continue antiepileptic drugs at this time. Continue therapy. He is close to his baseline and discharge likely nearing pending further neurology recs.
[2018-05-30] MEDS: Calcium Carbonate + Vit D 1 TAB PO SCH ×2 (09:57→20:58)
[2018-05-30] MEDS: Escitalopram Oxalate 20 mg Tablet PO SCH (09:58)
[2018-05-30] MEDS: Furosemide 20 MG TAB PO SCH (09:58)
[2018-05-30] MEDS: levETIRAcetam 500 MG TAB PO SCH ×2 (09:58→20:57)
[2018-05-30] MEDS: Aspirin 81 mg Enteric Coated Tablet PO SCH (09:58)
[2018-05-30] MEDS: SODIUM CHLORIDE 0.9% IVPB SCH (09:58)
[2018-05-30] MEDS: Potassium Chloride 20 MEQ TAB PO SCH (09:58)
[2018-05-30] MEDS: predniSONE 5 MG TAB PO SCH (09:58)
[2018-05-30] MEDS: CYCLOSPORINE IVPB SCH (09:58)
[2018-05-30] MEDS: Multivitamin W/ Minerals 1 TAB PO SCH (09:58)
[2018-05-30] MEDS: Stress 600 With Zinc 1 TAB PO SCH (09:58)
[2018-05-30] MEDS: Magnesium Oxide 400 MG TAB PO SCH (09:58)
[2018-05-30] MEDS: Enoxaparin Sodium 40 MG/0.4 ML SYRINGE SC SCH (09:59)
[2018-05-30] MEDS: Polyethylene Glycol 3350 17 GM Packet PO SCH (09:59)
[2018-05-30] MEDS: Valproate Sodium 500 MG in Sodium Chloride 0.9% 100 ML IVPB SCH (10:24)
--- NOTE | 2018-05-30 16:35 | EKG ---
Test Reason : Blood Pressure : / mmHG Vent. Rate : 074 BPM Atrial Rate : 074 BPM P-R Int : 170 ms QRS Dur : 080 ms QT Int : 394 ms P-R-T Axes : 023 -33 -03 degrees QTc Int : 437 ms Normal sinus rhythm Possible Left atrial enlargement Left axis deviation Abnormal ECG Confirmed by SELAM TENORIO DO ([id number]), editor [employer] GUS LEE ([id number]) on 05/30/2018 4:34:26 PM Referred By: Confirmed By:SELAM TENORIO DO
--- NOTE | 2018-05-30 19:32 | PRG ---
DATE OF SERVICE: 05/30/2018 CHIEF COMPLAINT: Seizures. INTERVAL HISTORY: The patient has not had any further seizures since admission to the floor. He has been on Depakene and Keppra since the day of admission. His EEG did not show any concern for acute seizures. MRI of the brain showed bilateral cerebellar and brainstem atrophy, which was very similar to the exam from 2016. LABORATORY WORKUP: White count 15.8, hemoglobin 15.7, hematocrit 50.5, and platelet count 303. Chemistry; sodium 141, potassium 3.9, chloride 104, bicarb 28, BUN 19, creatinine 1.15, glucose 65, triglycerides 89, cholesterol 198, LDL 130, HDL 50, heart disease risk ratio 4. PHYSICAL EXAMINATION: VITAL SIGNS: His temperature was 98.5, pulse 70, respiratory rate 16, O2 sats 95%, and blood pressure 137/92. GENERAL APPEARANCE: Well-built, well-nourished man, who seems to be comfortable in bed and surrounded by family. He is more alert today and is cooperative and talking. He is oriented to self and person, but unable to name the [facility] or town. When we said it was [facility] in [place], [place], he says "yes, that is what I think it was." He is able to cooperate and follow commands. CRANIAL NERVE EXAMINATION: Normal extraocular movements. No facial asymmetry. Tongue midline. No atrophy noted. Motor; bulk normal, strength 5/5 in upper and lower extremities. IMPRESSION: The patient with multiple seizures on the day of admission. He has been on Keppra for a while. He has intolerance to Dilantin. He has never been on Dilantin for long. I am unable to explain his brainstem and cerebellar exam findings on MRI based on his history or examination. He might have olivopontocerebellar atrophy or multiple system atrophy in addition to his cognitive difficulties, which are due to developmental delay. At this time, his seizures are well controlled. RECOMMENDATIONS: Please continue sodium valproate 500 mg b.i.d. along with Keppra 1500 mg b.i.d. for seizures and the patient can see Dr. Pino as outpatient. Call me if you have any further questions. Job ID: [id number]
[2018-05-30] MEDS: Valproate Sodium 250 mg/5 ml UD Cup PO SCH (20:58)
[2018-05-30] MEDS: Loratadine 10 MG TAB PO SCH (20:58)
--- NOTE | 2018-05-31 06:09 | PDOC.FM ---
- Subjective Subjective: Patient doing well. No complaints. Denies pain. - Objective MAR Reviewed: Yes Vital Signs & Weight: Vital Signs (12 hours) Temp Pulse Resp BP Pulse Ox 05/31/18 04:00 98 F 77 16 139/92 H 91 L 05/31/18 00:00 98.6 F 82 16 129/92 H 92 L 05/30/18 20:00 97.5 F L 90 16 118/85 94 L Weight Admit Weight 60.056 kg Weight 60.056 kg I&O: 05/29/18 05/30/18 05/31/18 06:59 06:59 06:59 Intake Total 100 Balance 100 Result Diagrams: 05/29/18 05:17 05/29/18 05:17 Phys Exam - Physical Examination Constitutional: NAD Respiratory: no wheezing, no rhonchi, clear to auscultation bilateral Cardiovascular: RRR Gastrointestinal: soft, non-tender, positive bowel sounds Neurological: moves all 4 limbs Skin: normal turgor Dx/Plan (1) Seizures Status: Chronic (2) Dysphagia Code(s): R13.10 - DYSPHAGIA, UNSPECIFIED Status: Chronic Qualifiers: Dysphagia type: unspecified Qualified Code(s): R13.10 - Dysphagia, unspecified (3) HLD (hyperlipidemia) Code(s): E78.5 - HYPERLIPIDEMIA, UNSPECIFIED Status: Chronic Qualifiers: Hyperlipidemia type: unspecified Qualified Code(s): E78.5 - Hyperlipidemia , unspecified (4) HTN (hypertension) Code(s): I10 - ESSENTIAL (PRIMARY) HYPERTENSION Status: Chronic Qualifiers: Hypertension type: essential hypertension Qualified Code(s): I10 - Essential (primary) hypertension (5) History of DVT (deep vein thrombosis) Code(s): Z86.718 - PERSONAL HISTORY OF OTHER VENOUS THROMBOSIS AND EMBOLISM Status: Chronic (6) Intellectual disability Code(s): F79 - UNSPECIFIED INTELLECTUAL DISABILITIES Status: Chronic (7) Leukocytosis Code(s): D72.829 - ELEVATED WHITE BLOOD CELL COUNT, UNSPECIFIED Status: Chronic (8) Minimal change disease Code(s): N04.0 - NEPHROTIC SYNDROME WITH MINOR GLOMERULAR ABNORMALITY Status: Chronic - Plan Plan: 58yo male with pmh of intellectual delay, hx of hemorrhagic CVA, hx of DVT s/p occluded IVC filter, minimal change disease, adrenal insufficiency. Seizure - Hx of Hemorrhagic stroke 02/2016 - CT: atrophic changes from 2018. MRI: no acute change. - 2 tonic clonic seizures, received Ativan 2mg x2. Though EEG did not show seizure activity. 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 Xavier. I agree with the History, Examination, Assessment and Plan documented above with any addition or exceptions noted below. Patient doing well. Anticipate discharge today back to [facility] once his medications arrive.
[2018-05-31] MEDS: SODIUM CHLORIDE 0.9% IVPB SCH (07:47)
[2018-05-31] MEDS: CYCLOSPORINE IVPB SCH (07:47)
[2018-05-31] MEDS: Furosemide 20 MG TAB PO SCH (08:50)
[2018-05-31] MEDS: Polyethylene Glycol 3350 17 GM Packet PO SCH (08:50)
[2018-05-31] MEDS: Stress 600 With Zinc 1 TAB PO SCH (08:50)
[2018-05-31] MEDS: Magnesium Oxide 400 MG TAB PO SCH (08:50)
[2018-05-31] MEDS: Aspirin 81 mg Enteric Coated Tablet PO SCH (08:50)
[2018-05-31] MEDS: Enoxaparin Sodium 40 MG/0.4 ML SYRINGE SC SCH (08:50)
[2018-05-31] MEDS: Potassium Chloride 20 MEQ TAB PO SCH (08:50)
[2018-05-31] MEDS: Calcium Carbonate + Vit D 1 TAB PO SCH (08:51)
[2018-05-31] MEDS: Valproate Sodium 250 mg/5 ml UD Cup PO SCH (08:51)
[2018-05-31] MEDS: predniSONE 5 MG TAB PO SCH (08:51)
[2018-05-31] MEDS: levETIRAcetam 500 MG TAB PO SCH (08:51)
[2018-05-31] MEDS: Escitalopram Oxalate 20 mg Tablet PO SCH (08:51)
[2018-05-31] MEDS: Multivitamin W/ Minerals 1 TAB PO SCH (08:51)
[2018-05-31 11:31] VITALS: TEMP 98.8
[2018-05-31] MEDS ORDERED: BEER 1 CAN PO SCH (12:00)
[2018-05-31 12:09] VITALS: BP 123/88
--- NOTE | 2018-06-01 01:09 | DIS ---
DATE OF ADMISSION: 05/28/2018 DATE OF DISCHARGE: 05/31/2018 RESIDENT: Shayla Xavier DO ADMITTING ATTENDING: Amilcar Hernandez MD DISCHARGE ATTENDING: Erik Lopez MD CONSULTS: Neurology, Dr. Ardon. PROCEDURES: 1. 05/28/[address], extensive cerebellar parenchymal atrophy, multifocal cavitary lacunar infarctions, no intracranial hemorrhage or mass effect. 2. 05/28/2018, chest x-ray showed no acute cardiopulmonary process. 3. 05/29/2018, brain MRI showed cerebellar and brainstem atrophy again noted. Not significantly changed from prior exam of 2016. Etiology previously discussed including multisystem atrophy, alcohol and medication. No evidence of acute infarct or significant interval change. 4. EEG performed while hospitalized. PRIMARY DIAGNOSES: 1. Seizure. 2. Leukocytosis. 3. Epilepsy. SECONDARY DIAGNOSES: 1. Dysphagia. 2. Minimal change disease. 3. Adrenal insufficiency. 4. History of deep venous thrombosis, status post occluded IVC filter. 5. Intellectual delay. 6. Hypertension. 7. Hyperlipidemia. 8. Obstructive sleep apnea. 9. Gastroesophageal reflux disease. 10. Osteoarthritis. 11. Depression. DISCHARGE MEDICATIONS: 1. Keppra 500 mg 3 tabs p.o. b.i.d. 2. Cyclosporine 1 mL p.o. daily. 3. Magnesium oxide 400 mg one tab p.o. daily. 4. Vitamin D3 of 1000 units one capsule p.o. daily. 5. Cetirizine 10 mg p.o. at bedtime. 6. Prednisone 5 mg p.o. daily. 7. Potassium chloride 20 mEq p.o. daily. 8. Ondansetron 4 mg p.o. q.6 hours p.r.n. 9. Multivitamin 1 tablet p.o. daily. 10. Mucinex 600 mg p.o. q.12 hours p.r.n. 11. MiraLAX 17 g p.o. daily. 12. Calcium carbonate with vitamin D3 one tab p.o. b.i.d. 13. Alendronate sodium 35 mg p.o. q.7 days. 14. Escitalopram oxalate 20 mg p.o. daily. 15. Vitamin B complex one tab p.o. daily. 16. Pantoprazole 40 mg p.o. daily. 17. Metoprolol tartrate 25 mg p.o. b.i.d. 18. Furosemide 20 mg p.o. daily. 19. Amlodipine 2.5 mg p.o. daily. 20. Acyclovir tube one application topically q.4 hours p.r.n. 21. Zinc oxide cream one application topical as directed p.r.n. 22. DuoNeb 3 mL neb q.i.d. p.r.n. 23. Acetaminophen 1000 mg p.o. q.6 hours p.r.n. 24. Fluticasone nasal spray one spray each nares daily. 25. Tramadol 50 mg p.o. q.6 hours p.r.n. 26. Valproate sodium 500 mg p.o. b.i.d. DISCONTINUED MEDICATIONS: None. HISTORY OF PRESENT ILLNESS: A 58-year-old male presented with his sister for evaluation of seizure. This seizure lasted longer than normal. Sister did not note any focal neurologic deficits, but he had been more lethargic and altered. Since the seizure lasted longer than normal and with seizures of increased frequency, the patient was brought to the ED and admitted to the stroke floor. Imaging was completed as described above. The patient did have two tonic-colonic seizures lasting approximately 30 seconds each, and the patient received two doses of 2 mg Ativan. Additionally, he received Ativan prior to the MRI. After recovering from this, the patient was much more alert and returned back to baseline as far as mental status is concerned. An EEG was ordered by Neurology. This did not show any concern for acute seizures. Neurology noted that patient has an intolerance to Dilantin and has never been on it for long. Per their note, they noted that they were unable to explain brainstem and cerebellar exam findings on MRI based on history or examination. Seizures were well controlled at the time of discharge. Recommendations to continue sodium valproate 500 mg b.i.d. along with Keppra 1500 mg b.i.d. for seizures and may follow up with Dr. Pino as an outpatient as he is already established with him. DISPOSITION: Stable. DISCHARGE INSTRUCTION: 1. Location: [facility]. 2. Diet: Heart healthy. 3. Activity: As tolerated. 4. Followup: Follow up with PCP, Dr. Moore, in 7 days. Follow up with Dr. Pino, Neurology, when able. Job ID: [id number]
--- NOTE | 2018-06-01 14:55 | EEG ---
Referring Physician: Colin BRAR EEG # [id number] TEST TYPE: ROUTINE PORTABLE INPATIENT REPORT: AN EEG USING THE [employer]NATIONAL TEN-TWENTY SYSTEM OF ELECTRODE PLACEMENT WAS PERFORMED. The best waking background is an 8 hertz alpha frequency which is poorly maintained. There is movement artifact that obscured initial portion of the record. Photic stimulation was unremarkable. No epileptiform features were present. IMPRESSION: THIS IS AN ABNORMAL STUDY FOR THE FINDINGS OF DIFFUSE SLOWING CONSISTENT WITH A DIFFUSE ENCEPHALOPATHIC PROCESS. Finishing Room Supervisor: TRICIA Shop Lead: [email or web address] CHAMPION
== END 2018-05-31 11:43 | DRG 101 ==
LOC: ERS 08:32 → ERHOLD 09:45 → 2SE 16:16
PROVIDERS: ADMIT Family Medicine; ATTEND Family Medicine
DX: G40.909 Epilepsy, unspecified, not intractable, without status epilepticus (principal); E27.40 Unspecified adrenocortical insufficiency; N04.0 Nephrotic syndrome with minor glomerular abnormality; R29.810 Facial weakness; R41.82 Altered mental status, unspecified; R13.10 Dysphagia, unspecified; I10 Essential (primary) hypertension; F79 Unspecified intellectual disabilities; K43.2 Incisional hernia without obstruction or gangrene; N40.0 Benign prostatic hyperplasia without lower urinary tract symptoms; K21.9 Gastro-esophageal reflux disease without esophagitis; E78.5 Hyperlipidemia, unspecified; G47.33 Obstructive sleep apnea (adult) (pediatric); M19.90 Unspecified osteoarthritis, unspecified site; F32.9 Major depressive disorder, single episode, unspecified; Z86.73 Personal history of transient ischemic attack (TIA), and cerebral infarction without residual deficits; Z86.718 Personal history of other venous thrombosis and embolism; Z95.828 Presence of other vascular implants and grafts; Z79.52 Long term (current) use of systemic steroids
CPT/HCPCS: 36415; 36416; 51701; 70450; 70553; 71045; 80048; 80053; 80061; 80177; 81003; 82550; 84145; 84484; 85025; 85610; 85730; 93005; 94760; 95816; 95819; 96374; 96375; 96376; 99292; A4353; A9577; J1650; J1953; J2060; J2405; J7050; J7512; J7516

== ENCOUNTER 2018-08-13 20:43 | Emergency (ER) | payer MEDICARE, MEDICAID ==
[2018-08-13] MEDS ORDERED: methylPREDNISolone Sod Succ/PF 125 MG/2 ML VIAL ONE (21:15)
[2018-08-13 21:29] LABS: %Lymphocytes 21.4 % (21.0-51.0); %Neutrophils 61.5 % (42.0-75.0); Hemoglobin 16.3 g/dL (14.0-18.0); Mean Corpuscular HGB CONC 31.1 g/dL (32.0-36.0); Mean Corpuscular Hemoglobin 29.9 pg (27.0-31.0); Mean Corpuscular Volume 96.3 fL (78.0-98.0); Mean Platelet Volume 8.5 fL (7.4-10.4); Platelet Count 213 thou/uL (130-400); RBC Distribution Width 13.5 % (11.5-14.5); Red Blood Cell (RBC) Count 5.44 mill/uL (4.70-6.10); White Blood Cell (WBC) Count 18.8 thou/uL (4.8-10.8)
--- NOTE | 2018-08-13 21:29 | RAD ---
PORTABLE CHEST: 08/13/18 HISTORY: Dyspnea. The lungs appear clear of infiltrate. Heart size upper normal and stable. Vasculature normal. IMPRESSION: No acute process. POS: [facility]
[2018-08-13 21:30] LABS: #Basophils 0.1 thou/uL (0.0-0.2); #Eosinphils 0.4 thou/uL (0.0-0.7); #Monocytes 2.7 thou/uL (0.11-0.59); #Neutrophils 11.6 thou/uL (1.40-6.50); %Basophils 0.4 % (0.0-1.0); %Eosinophils 2.3 % (0.0-10.0); %Monocytes 14.4 % (0.0-10.0)
[2018-08-13 22:11] LABS: Bilirubin Negative (Negative); Blood, Urine Trace (Negative); Clarity CLOUDY (Clear); Glucose, Urine (Dipstick) Negative (Negative); Leukocyte Moderate (Negative); Nitrite Negative (Negative); Protein, Urine (Dipstick) 100 mg/dL (Neg-Trace); Specific Gravity, Urine 1.027 (1.002-1.036); pH, Urine 5.5 (5.0-9.0)
[2018-08-13 22:22] LABS: RBC/HPF 0-3 HPF (0-3)
[2018-08-13 22:23] LABS: Bacteria/HPF Rare-Few HPF (None Seen); Squamous Epithelial 0-3 HPF (0-3)
[2018-08-13 22:24] LABS: Hyaline Casts/LPF NONE SEEN LPF (0-3 Hyaline)
[2018-08-13] MEDS ORDERED: Sulfameth/Trimethoprim DS 800-160mg TAB ONE (22:39)
[2018-08-13 22:58] LABS: Albumin 3.2 g/dL (3.5-5.0)
[2018-08-13 22:59] LABS: Chloride 100 mmol/L (98-107); Sodium 139 mmol/L (136-145)
[2018-08-13 23:00] LABS: Calcium 8.6 mg/dL (7.8-10.44); Glucose 116 mg/dL (70-105)
[2018-08-13 23:01] LABS: Globulin 3.5 g/dL (2.4-3.5); Protein, Total 6.7 g/dL (6.0-8.3)
[2018-08-13 23:02] LABS: Anion Gap 13 mmol/L (10-20); Bilirubin, Total 0.5 mg/dL (0.2-1.2); Carbon Dioxide 30 mmol/L (22-29)
[2018-08-13 23:03] LABS: Alkaline Phosphatase 68 U/L (40-150)
[2018-08-13 23:04] LABS: Calc. Creatinine Clearance 0 mL/min (70-130); Estimated GFR-MDRD 66
[2018-08-13 23:05] LABS: BUN (Urea Nitrogen) 14 mg/dL (8.4-25.7)
[2018-08-13 23:06] LABS: ALT (SGPT) 22 U/L (8-55); AST (SGOT) 16 U/L (5-34); CK (CPK) 17 U/L (30-200)
== END 2018-08-14 00:07 ==
LOC: ERS 20:43
DX: J44.1 Chronic obstructive pulmonary disease with (acute) exacerbation (principal); N39.0 Urinary tract infection, site not specified; Z86.73 Personal history of transient ischemic attack (TIA), and cerebral infarction without residual deficits; G47.30 Sleep apnea, unspecified; K21.9 Gastro-esophageal reflux disease without esophagitis; E78.2 Mixed hyperlipidemia; I10 Essential (primary) hypertension; M81.0 Age-related osteoporosis without current pathological fracture; G40.909 Epilepsy, unspecified, not intractable, without status epilepticus; Z86.718 Personal history of other venous thrombosis and embolism; F41.9 Anxiety disorder, unspecified; F32.9 Major depressive disorder, single episode, unspecified; Z79.899 Other long term (current) drug therapy
CPT/HCPCS: 36415; 51701; 71045; 80053; 81003; 81015; 82550; 83880; 84484; 85025; 94640; 94760; 96374; J2930

== ENCOUNTER 2018-08-17 14:30 | Inpatient (IN) | payer MEDICARE, MEDICAID ==
[~2018-08-17 14:30] MED LIST: Enoxaparin Sodium 40 MG/0.4 ML SYRINGE SC SCH
[2018-08-17] MEDS ORDERED: methylPREDNISolone Sod Succ/PF 125 MG/2 ML VIAL ONE (15:01)
[2018-08-17 15:19] LABS: #Basophils 0.1 thou/uL (0.0-0.2); #Eosinphils 0.1 thou/uL (0.0-0.7); #Lymphocytes 3.2 thou/uL (1.20-3.40); #Monocytes 1.9 thou/uL (0.11-0.59); #Neutrophils 8.5 thou/uL (1.40-6.50); %Basophils 0.4 % (0.0-1.0); %Eosinophils 0.6 % (0.0-10.0); %Lymphocytes 23.3 % (21.0-51.0); %Monocytes 14.1 % (0.0-10.0); %Neutrophils 61.7 % (42.0-75.0); Hemoglobin 16.4 g/dL (14.0-18.0); Mean Corpuscular HGB CONC 32.1 g/dL (32.0-36.0); Mean Corpuscular Hemoglobin 29.9 pg (27.0-31.0); Mean Corpuscular Volume 93.1 fL (78.0-98.0); Mean Platelet Volume 8.5 fL (7.4-10.4); Platelet Count 213 thou/uL (130-400); RBC Distribution Width 13.2 % (11.5-14.5); White Blood Cell (WBC) Count 13.7 thou/uL (4.8-10.8)
--- NOTE | 2018-08-17 15:25 | RAD ---
RADIOGRAPH CHEST 1 VIEW: DATE: 08/17/2018 HISTORY: Dyspnea. FINDINGS: Limited study because of hypoinflated lungs. Prominent interstitial markings. There is no airspace de nsity, pulmonary edema, or pneumothorax. The lateral costophrenic angles are not effaced. IMPRESSION: No acute pulmonary findings.
[2018-08-17 15:39] LABS: ALT (SGPT) 37 U/L (8-55); AST (SGOT) 31 U/L (5-34); Albumin 3.3 g/dL (3.5-5.0); Alkaline Phosphatase 72 U/L (40-150); Anion Gap 15 mmol/L (10-20); BUN (Urea Nitrogen) 22 mg/dL (8.4-25.7); Bilirubin, Total 0.6 mg/dL (0.2-1.2); Calc. Creatinine Clearance 0 mL/min (70-130); Calcium 8.7 mg/dL (7.8-10.44); Carbon Dioxide 26 mmol/L (22-29); Chloride 100 mmol/L (98-107); Estimated GFR-MDRD 53; Globulin 3.7 g/dL (2.4-3.5); Glucose 102 mg/dL (70-105); Lipase 12 U/L (8-78); Potassium 4.7 mmol/L (3.5-5.1); Sodium 136 mmol/L (136-145)
[2018-08-17] MEDS ORDERED: Albuterol Sulfate 2.5 mg/3 ml Neb ONE (15:56)
[2018-08-17] MEDS ORDERED: Furosemide 40 MG/4 ML VIAL ONE (16:47)
[2018-08-17] MEDS ORDERED: Clindamycin/D5W 600 mg/50 ml Premix Bag ONE (16:47)
--- NOTE | 2018-08-17 19:44 | PDOC.FPRHP ---
- History of Present Illness Chief Complaint: cough and fever History of Present Illness: 58 yo M with multiple medical problems presents with sister at bedside for cough , SOB, and subjective fever starting this AM. Patient lives at [facility]. He was diagnosed 4 days ago with COPD exacerbation and UTI. Sister reports she thinks he had a fever. He has a history of CVA with cognitive deficit and trouble swallowing. Patient denies headache, vision/hearing changes, denies chest pain, denies abdominal pain. Reports mild nausea and decreased PO intake. Denies constipation/diarrhea. Patient is unable to walk, uses wheelchair. In ED, received Lasix, clinda, cefepim, vanc, duonebs, and solumedrol. CXR showed prominent interstitial markings, WBC elevated to 13.7. EKG showed prolonged QTc, otherwise WNL. - Allergies/Adverse Reactions Allergies Allergy/AdvReac Type Severity Reaction Status Date / Time adhesive Allergy Verified 05/28/18 20:54 ceftriaxone [From Rocephin] Allergy Verified 05/28/18 20:54 ciprofloxacin [From Cipro] Allergy Verified 05/28/18 20:54 ciprofloxacin HCl Allergy Verified 05/28/18 20:54 [From Cipro] morphine Allergy Verified 05/28/18 20:54 phenytoin sodium Allergy Verified 05/28/18 20:54 [From Dilantin] phenytoin sodium extended Allergy Verified 05/28/18 20:54 [From Dilantin] - Home Medications Medication Instructions Recorded Confirmed Type Cetirizine HCl [Zyrtec] 1 tab PO HS 03/23/17 08/17/18 History Cholecalciferol (Vitamin D3) 1 cap PO DAILY 03/23/17 08/17/18 History [Vitamin D3] Magnesium Oxide 1 tab PO BID 03/23/17 08/17/18 History cycloSPORINE, Modified [Gengraf 1 ml PO DAILY 03/23/17 08/17/18 History Oral Solution] levETIRAcetam [Keppra] 3 tab PO BID 03/23/17 08/17/18 History Alendronate Sodium 35 mg PO Q7DAYS 03/28/17 08/17/18 History Calcium Carbonate/Vitamin D3 1 tab PO BID 03/28/17 08/17/18 History [Calcium Carbonate w/ Vitamin D3] Escitalopram Oxalate [Lexapro] 20 mg PO DAILY 03/28/17 08/17/18 History Multivitamin With Minerals 1 tablet PO DAILY 03/28/17 08/17/18 History [One-A-Day Maximum Formula] Ondansetron [Ondansetron ODT] 4 mg PO Q6HR PRN 03/28/17 08/17/18 History Polyethylene Glycol 3350 [Miralax] 17 gm PO DAILY 03/28/17 08/17/18 History Potassium Chloride [K-Dur] 20 meq PO DAILY 03/28/17 08/17/18 History guaiFENesin [Mucinex] 600 mg PO Q12HR PRN 03/28/17 08/17/18 History Pantoprazole [Protonix] 40 mg PO DAILY 04/14/17 08/17/18 History Acetaminophen [Tylenol Extra 1,000 mg PO Q6HR PRN 05/28/18 08/17/18 History Strength] Acyclovir [Acyclovir 3% Ointment] 1 applic TOP [id number] PRN 05/28/18 08/17/18 History Amlodipine [Norvasc] 2.5 mg PO DAILY 05/28/18 08/17/18 History Fluticasone Propionate [Flonase 1 spray EA NARE DAILY 05/28/18 08/17/18 History Nasal [place]] Furosemide 20 mg PO DAILY 05/28/18 08/17/18 History Ipratropium/Albuterol Sulfate 3 ml NEB QID PRN 05/28/18 08/17/18 History [DuoNeb] Metoprolol Tartrate 25 mg PO BID 05/28/18 08/17/18 History traMADol HCl [Tramadol HCl] 50 mg PO Q6H PRN 05/28/18 08/17/18 History Valproate Sodium [Valproate Sodium 500 mg PO BID 05/30/18 08/17/18 History Oral Solution] Acetaminophen [Tylenol] 650 mg PO PRN PRN 08/17/18 08/17/18 History Clobetasol Propionate [Cormax 1 applic TOP BID PRN 08/17/18 08/17/18 History 0.05% Scalp Application] Sulfamethoxazole/Trimethoprim 2 each PO BID 08/17/18 08/17/18 History [Bactrim 400-80 mg Tablet] predniSONE 60 mg PO QAM-WM 06/03/19 06/03/19 History - History PMHx: CVA with cognitive/swallowing deficits, hernias, GERD, HLD, HTN, osteoporosis, TIA, nephrotic syndrome, psoriasis, hx DVT, anxiety and depression , seizures, COPD, recent UTI PSHx: multiple abdominal surgeries, appy, cholectomy, splenectomy, partial small intestine removed FHx: noncontributory Social: Lives at [facility], no t/a/d - Review of Systems General: reports: fever/chills, weight/appetite/sleep changes Eyes: denies: eye pain, vision changes ENT: reports: nasal congestion, rhinorrhea Respiratory: reports: cough, shortness of breath. denies: congestion Cardiovascular: denies: chest pain, palpitation, edema Gastrointestinal: reports: nausea. denies: vomiting, diarrhea, constipation, abdominal pain, GI bleeding Genitourinary: denies: dysuria, other (hematuria) Skin: denies: rashes, lesions Musculoskeletal: denies: pain, tenderness Neurological: denies: numbness, weakness Psychological: reports: anxiety, depression - Vital signs BP: 128/85 HR: 102 RR: 16 Tmax: 98.8 Pox: 92% on 2L BNC Wt: 65 kg - Physical Exam Constitutional: NAD, awake, alert and oriented HEENT: normocephalic and atraumatic, PERRLA, EOMI, conjunctiva clear Neck: supple, no LAD Heart: RRR, pulses present, no edema Lungs: other (diffuse wheezing) Abdomen: soft, bowel sounds present, other (multiple scars over abdomen.) Musculoskeletal: normal structure, normal tone Neurological: other (3/5 weakness BLE. Patient unable to give history due to memory deficits.) Skin: good turgor, capillary refill <2 seconds Heme/Lymphatic: no unusual bruising or bleeding, no purpura Psychiatric: other (flat affect. Poor judgment and insight. Memory deficit.) FMR H&P: Results - Labs Result Diagrams: 08/18/18 05:34 08/18/18 05:34 Lab results: WBC 13.7 thou/uL (4.8-10.8) H 08/17/18 15:06 Hgb 16.4 g/dL (14.0-18.0) 08/17/18 15:06 Hct 51.2 % (42.0-52.0) 08/17/18 15:06 MCV 93.1 fL (78.0-98.0) 08/17/18 15:06 Plt Count 213 thou/uL (130-400) 08/17/18 15:06 Neutrophils % 61.7 % (42.0-75.0) 08/17/18 15:06 Sodium 136 mmol/L (136-145) 08/17/18 15:06 Potassium 4.7 mmol/L (3.5-5.1) 08/17/18 15:06 Chloride 100 mmol/L (98-107) 08/17/18 15:06 Carbon Dioxide 26 mmol/L (22-29) 08/17/18 15:06 BUN 22 mg/dL (8.4-25.7) 08/17/18 15:06 Creatinine 1.38 mg/dL (0.7-1.3) H 08/17/18 15:06 Glucose 102 mg/dL (70-105) 08/17/18 15:06 Calcium 8.7 mg/dL (7.8-10.44) 08/17/18 15:06 Total Bilirubin 0.6 mg/dL (0.2-1.2) 08/17/18 15:06 AST 31 U/L (5-34) 08/17/18 15:06 ALT 37 U/L (8-55) 08/17/18 15:06 Alkaline Phosphatase 72 U/L (40-150) 08/17/18 15:06 B-Natriuretic Peptide 38.6 pg/mL (0-100) 08/17/18 15:06 Serum Total Protein 7.0 g/dL (6.0-8.3) 08/17/18 15:06 Albumin 3.3 g/dL (3.5-5.0) L 08/17/18 15:06 Lipase 12 U/L (8-78) 08/17/18 15:06 - EKG Interpretation EKG: QT prolonged ,otherwise NSR FMR H&P: A/P - Problem List (1) RORY (acute kidney injury) Current Visit: No Status: Acute Code(s): N17.9 - ACUTE KIDNEY FAILURE, UNSPECIFIED (2) COPD exacerbation Current Visit: Yes Status: Acute Code(s): J44.1 - CHRONIC OBSTRUCTIVE PULMONARY DISEASE W (ACUTE) EXACERBATION (3) Anxiety Current Visit: Yes Status: Chronic Code(s): F41.9 - ANXIETY DISORDER, UNSPECIFIED (4) Depression Current Visit: No Status: Chronic Code(s): F32.9 - MAJOR DEPRESSIVE DISORDER , SINGLE EPISODE, UNSPECIFIED (5) Dysphagia Current Visit: No Status: Chronic Code(s): R13.10 - DYSPHAGIA, UNSPECIFIED Qualifiers: Dysphagia type: unspecified Qualified Code(s): R13.10 - Dysphagia, unspecified (6) GERD (gastroesophageal reflux disease) Current Visit: No Status: Chronic Code(s): K21.9 - GASTRO-ESOPHAGEAL REFLUX DISEASE WITHOUT ESOPHAGITIS (7) HLD (hyperlipidemia) Current Visit: No Status: Chronic Code(s): E78.5 - HYPERLIPIDEMIA, UNSPECIFIED Qualifiers: Hyperlipidemia type: unspecified Qualified Code(s): E78.5 - Hyperlipidemia , unspecified (8) HTN (hypertension) Current Visit: No Status: Chronic Code(s): I10 - ESSENTIAL (PRIMARY) HYPERTENSION Qualifiers: Hypertension type: essential hypertension Qualified Code(s): I10 - Essential (primary) hypertension (9) History of CVA (cerebrovascular accident) Current Visit: No Status: Chronic Code(s): Z86.73 - PRSNL HX OF TIA (TIA), AND CEREB INFRC W/O RESID DEFICITS (10) History of DVT (deep vein thrombosis) Current Visit: No Status: Chronic Code(s): Z86.718 - PERSONAL HISTORY OF OTHER VENOUS THROMBOSIS AND EMBOLISM (11) History of seizure Current Visit: No Status: Chronic Code(s): Z87.898 - PERSONAL HISTORY OF OTHER SPECIFIED CONDITIONS (12) Intellectual disability Current Visit: No Status: Chronic Code(s): F79 - UNSPECIFIED INTELLECTUAL DISABILITIES (13) Seizure disorder Current Visit: No Status: Chronic Code(s): G40.909 - EPILEPSY, UNSP, NOT INTRACTABLE, WITHOUT STATUS EPILEPTICUS - Plan COPD Exacerbation -SOB, wheezing on exam. WBC elevated, CXR showed prominent interstitial markings. Ddx includes pneumonia CAP vs aspiration, however procal negative. DDx CHF, however BNP not elevated. -Duonebs q4h LARA, q2 PRN -prednisone 40 mg daily -Keep O2 >88% Concern for UTI -WBC elevated, has been on Bactrim -Repeat UA pending RORY -repeat BMP in AM -MIVF Hx CVA with residual deficits -cognitive deficits, poor memory, unable to give history -swallowing deficits. On [facility] soft diet, speech consulted Hx Intellectual disability, GERD, HLD, HTN, Epilepsy/seizures, osteoporosis, psoriasis, anxiety, depression, minimal change disease -Aware, continue home medications PCP: Oscar Diet: mech soft, speech pending eval DVT ppx: lovenox Code: FULL. Sister did not know code status. Other family present tomorrow, will readdress. FMR H&P: Upper Level - Pertinent history 58 yr old male with PMH of intellectual disability, epilepsy, HTN, and hx of TIA presents for SOB and cough. He is unable to provide hx due to disability but his dad is at bedside and states he is coughing for 3 days. Cough is nonproductive although he has a poor cough effort. No hx of smoking but exposed to 2nd hand smoke as a child. custodial in which he resides, [facility], reports no fever in last month. He was seen 4 days ago and diagnosed with UTI and COPD exacerbation. Sent home on steroids and bactrim. He continued to have difficulty with breathing and therefore sent back today. In ER he had O2 sats in low 90's and was given O2 via NC and improved to high 90's. Also got some duonebs and antibiotics. - Pertinent findings Gen: patient in no acute distress, resting comfortably in bed, smiles but does not speak much. Mouth: moist mucous membranes, no pharyngeal erythema or exudates. Heart: RRR, no M/R/G Lungs: course breath sounds with rhonchi in OLIV[place]. Diffuse expiratory wheezing. upper airway gurgling noises noted. Abd: Normal active bowel sounds, nontender to palpation. Ext: Trace BLE edema. CXR: prominent interstitial markings. no miranda consolidation however poor study due to poor inflation of lungs. - Plan Date/Time: 08/17/181943 I, [Racheal Alcala], have evaluated this patient and agree with findings/plan as outlined by international recruiter resident. Pertinent changes/additions are listed here. 58 yr old male with dyspnea COPD exacerbation -normal HR at admission and slightly tachy after duonebs, elevated white count also on steroids, afebrile, no tachypnea, O2 90% on room air at admission but then started on 2 lt O2 and improved to 97% -recieved vanc and cefepime in ER as well as clindamycin. Will check procal to dtermine further antibiotics however no evidence of PNA on CXR or exam. -scheduled duonebs and wean as able. wean O2 as able to O2 sat 92%. -cont prednisone 40 mg daily up to 5 days. ? UTI -completed 3 days of bactrim -unfortunately no culture -will obtain repeat UA to determine further treatment epilepsy, HTN, hx of minimal change dz, psoriasis -cont home meds PCP: Enrique Moore MD Code status: full DVT ppx: has IVC filter, will do ppx lovenox Addendum - Attending - Attending Attestation Date/Time: 08/17/182238 I personally evaluated the patient and discussed the management with Dr. Denise Cuellar I agree with the History, Examination, Assessment and Plan documented above with any addition or exceptions noted below. 58 yo male institutional[facility] with three day history of cough and fever per Father. PMHX prior CVA with questionable dysphagia, COPD with risk as secondary smoke and dust inhalation as child. Patient with hx exp lap s/p appendectomy and splenectomy. Patient in ER with nl BNP and received multiple antibiotic with concern aspiration Exam Patient alert NAD marked expiratory wheezing didnt appreciate rhonchi to lower lung bazan heart NSR abdomen soft extremities no c/c/e Rec scheduled nebulizer treatments, continue steroids and empirical ABX pending procalcitonin and clinic progress
[2018-08-17] MEDS ORDERED: Bisacodyl 5 MG TAB PO PRN (20:26)
[2018-08-17] MEDS ORDERED: Acetaminophen 650 MG Suppository PR PRN (20:26)
[2018-08-17] MEDS ORDERED: Acetaminophen 325 MG TAB PO PRN (20:26)
[2018-08-17] MEDS ORDERED: Senokot S 8.6-50 MG TAB PO PRN (20:26)
[2018-08-17] MEDS: Famotidine 20 MG TAB PO SCH (22:09)
[2018-08-17 22:46] VITALS: BMI 24.5
[2018-08-18] MEDS ORDERED: traMADol HCl 50 MG TAB PO PRN (02:05)
[2018-08-18] MEDS ORDERED: guaiFENesin ER 600 MG TAB PO PRN (02:05)
[2018-08-18] MEDS: Sodium Chloride 0.9% 1,000 ML IV SCH ×2 (02:32→12:11)
[2018-08-18 02:49] LABS: Bilirubin Negative (Negative); Blood, Urine Moderate (Negative); Clarity CLOUDY (Clear); Glucose, Urine (Dipstick) Negative (Negative); Leukocyte Trace (Negative); Nitrite Negative (Negative); Protein, Urine (Dipstick) Negative (Neg-Trace); Specific Gravity, Urine 1.016 (1.002-1.036); Urobilinogen 0.2 mg/dL (0.2-1.0)
[2018-08-18 02:50] LABS: Bacteria/HPF None Seen HPF (None Seen); RBC/HPF 21-50 HPF (0-3); Squamous Epithelial 0-3 HPF (0-3); WBC/HPF 0-3 HPF (0-3)
[2018-08-18 02:52] LABS: Hyaline Casts/LPF 0-3 HYALINE CAST LPF (0-3 Hyaline); Other Casts/LPF None Seen LPF (0-3 Hyaline); Oval Fat Bodies/HPF None Seen HPF (None Seen); Renal Epithelial 0-3 HPF (0-3); Sperm/HPF None Seen HPF (None Seen); Transitional Epithelial NONE SEEN HPF (0-3); Trichomonas/HPF None Seen HPF (None Seen); Yeast-All Forms None Seen HPF (None Seen)
[2018-08-18 02:53] LABS: Urine Culture Reflex Yes Yes
[2018-08-18 06:12] LABS: #Lymphocytes 1.5 thou/uL (1.20-3.40); #Monocytes 0.7 thou/uL (0.11-0.59); #Neutrophils 7.3 thou/uL (1.40-6.50); %Basophils 0.1 % (0.0-1.0); %Eosinophils 0.1 % (0.0-10.0); %Lymphocytes 15.6 % (21.0-51.0); %Monocytes 7.3 % (0.0-10.0); %Neutrophils 76.9 % (42.0-75.0); Hemoglobin 15.5 g/dL (14.0-18.0); Mean Corpuscular HGB CONC 31.3 g/dL (32.0-36.0); Mean Corpuscular Hemoglobin 28.9 pg (27.0-31.0); Mean Corpuscular Volume 92.6 fL (78.0-98.0); Mean Platelet Volume 8.4 fL (7.4-10.4); Platelet Count 231 thou/uL (130-400); RBC Distribution Width 13.3 % (11.5-14.5); Red Blood Cell (RBC) Count 5.36 mill/uL (4.70-6.10); White Blood Cell (WBC) Count 9.5 thou/uL (4.8-10.8)
[2018-08-18 06:31] LABS: Anion Gap 15 mmol/L (10-20); BUN (Urea Nitrogen) 30 mg/dL (8.4-25.7); Calc. Creatinine Clearance 45 mL/min (70-130); Carbon Dioxide 26 mmol/L (22-29); Chloride 100 mmol/L (98-107); Estimated GFR-MDRD 44; Potassium 4.2 mmol/L (3.5-5.1); Sodium 137 mmol/L (136-145)
[2018-08-18 06:32] LABS: Calcium 8.7 mg/dL (7.8-10.44); Glucose 137 mg/dL (70-105)
--- NOTE | 2018-08-18 06:55 | PDOC.FM ---
- Subjective Subjective: NAEO per nursing. Patient denies problems breathing. - Objective Vital Signs & Weight: Vital Signs (12 hours) Temp Pulse Resp BP Pulse Ox 08/18/18 04:00 97.1 F L 82 20 111/69 96 08/17/18 23:45 97.6 F 94 22 H 101/57 L 97 08/17/18 20:26 98.3 F 98 20 118/70 92 L Weight Weight 64.864 kg I&O: 08/16/18 08/17/18 08/18/18 06:59 06:59 06:59 Intake Total 1430 Output Total 200 Balance 1230 Result Diagrams: 08/18/18 05:34 08/18/18 05:34 Phys Exam - Physical Examination Constitutional: NAD HEENT: PERRLA, moist MMs, oral pharynx no lesions expiratory wheezing Cardiovascular: RRR, no significant murmur Gastrointestinal: soft, non-tender weakness in upper and lower extremities, LLE Dx/Plan (1) COPD exacerbation Code(s): J44.1 - CHRONIC OBSTRUCTIVE PULMONARY DISEASE W (ACUTE) EXACERBATION Status: Acute (2) RORY (acute kidney injury) Code(s): N17.9 - ACUTE KIDNEY FAILURE, UNSPECIFIED Status: Acute (3) Aspiration pneumonia Code(s): J69.0 - PNEUMONITIS DUE TO INHALATION OF FOOD AND VOMIT Status: Acute Qualifiers: Laterality: unspecified laterality (4) Healthcare associated bacterial pneumonia Code(s): J15.9 - UNSPECIFIED BACTERIAL PNEUMONIA Status: Acute - Plan Plan: COPD Exacerbation -CXR showed prominent interstitial markings. Ddx includes pneumonia CAP vs aspiration, however procal negative. DDx CHF, however BNP not elevated. -Duonebs q4h LARA, q2 PRN, prednisone 40 mg daily -Keep O2 >88%-92%, may need eventual home O2 if does not recover -consider apiration pneumontis Concern for UTI -UA with RBCs, LE, UCx pending RORY -prior creatinine within normal limits -woresening even with mIVF -pre-renal vs. intrinsic, will order urine studies to better differentiate -consider renal US -pending repeat UA Hx CVA with residual deficits -cognitive deficits, poor memory, unable to give history -swallowing deficits. On [facility] soft diet, speech consulted Hx Intellectual disability, GERD, HLD, HTN, Epilepsy/seizures, osteoporosis, psoriasis, anxiety, depression -Aware, continue home medications PCP: Leland Diet: mech soft, speech pending eval DVT ppx: lovenox Code: FULL. Sister did not know code status. Other family present tomorrow, will readdress. Addendum - Attending - Attending Attestation Date/Time: 08/18/18 1009 I personally evaluated the patient and discussed the management with Dr. Hernandez. I agree with the History, Examination, Assessment and Plan documented above with any addition or exceptions noted below. 58 yo M well-known to our service who presented with acute worsening of shortness of breath, productive cough and increased O2 requirement. O2 requirement has decreased but still with persistent diffuse wheezing. Will continue mgmt for COPD exacerbation and plan on formal speech eval today to re- assess aspiration risk.
[2018-08-18] MEDS ORDERED: CYCLOSPORINE PO SCH (09:00)
[2018-08-18] MEDS: levETIRAcetam 500 MG TAB PO SCH ×2 (09:20→20:29)
[2018-08-18] MEDS: predniSONE 20 MG TAB PO SCH (09:20)
[2018-08-18] MEDS: Famotidine 20 MG TAB PO SCH ×2 (09:21→20:29)
[2018-08-18] MEDS: Metoprolol Tartrate 25 MG TAB PO SCH ×2 (09:21→20:29)
[2018-08-18] MEDS: Magnesium Oxide 400 MG TAB PO SCH ×2 (09:21→20:29)
[2018-08-18] MEDS: Amlodipine 5 MG TAB PO SCH (09:21)
[2018-08-18] MEDS: Furosemide 20 MG TAB PO SCH (09:21)
[2018-08-18] MEDS: Multivitamin W/ Minerals 1 TAB PO SCH (09:21)
[2018-08-18] MEDS: Potassium Chloride 20 MEQ TAB PO SCH (09:21)
[2018-08-18] MEDS: Fluticasone Propionate Nasal Spray 16 gm Bottle NASAL SCH (09:22)
[2018-08-18] MEDS: Enoxaparin Sodium 40 MG/0.4 ML SYRINGE SC SCH (09:22)
[2018-08-18] MEDS: Escitalopram Oxalate 20 mg Tablet PO SCH (09:22)
[2018-08-18] MEDS: Valproate Sodium 250 mg/5 ml UD Cup PO SCH ×2 (09:23→20:28)
[2018-08-18] MEDS: Lactated Ringer's 1,000 ML IV SCH ×2 (11:40→23:33)
[2018-08-18 12:21] LABS: Legionella Urinary Ag Negative (Negative); Strep pneumo Urine Ag NEGATIVE (NEGATIVE)
[2018-08-18 12:40] LABS: Creatinine, Urine 106.08 mg/dL (63-166)
--- NOTE | 2018-08-18 12:56 | PDOC.EVN ---
Event Note - Event Note Event Note: discussed with sister (NICOLE) code status and she declared Full code after reviewing what it all entails. She will discuss with patient's father should this change but Full code in the meantime. She was offered palliative care to aid in family conversation facilitation but declines at this time.
[2018-08-18] MEDS ORDERED: Loratadine 10 MG TAB PO SCH (21:00)
[2018-08-19] MEDS ORDERED: guaiFENesin 200 MG TAB PO SCH ×2 (00:45→09:00)
[2018-08-19] MEDS ORDERED: guaiFENesin ER 600 MG TAB PO SCH (00:45)
[2018-08-19 05:56] LABS: Anion Gap 12 mmol/L (10-20); BUN (Urea Nitrogen) 25 mg/dL (8.4-25.7); Calc. Creatinine Clearance 59 mL/min (70-130); Calcium 8.3 mg/dL (7.8-10.44); Carbon Dioxide 28 mmol/L (22-29); Chloride 104 mmol/L (98-107); Estimated GFR-MDRD 60; Glucose 87 mg/dL (70-105); Potassium 3.8 mmol/L (3.5-5.1); Sodium 140 mmol/L (136-145)
[2018-08-19 06:20] LABS: Band 4 % (5-11); Hemoglobin 14.8 g/dL (14.0-18.0); Lymphocytes 12 % (21-51); MDiff Complete? YES; Mean Corpuscular HGB CONC 31.7 g/dL (32.0-36.0); Mean Corpuscular Hemoglobin 29.5 pg (27.0-31.0); Mean Corpuscular Volume 93.2 fL (78.0-98.0); Monocytes 5 % (0-10); Neutrophil 77 % (42-75); Platelet Count 258 thou/uL (130-400); Platelet Morphology Comment Appears Adequate; RBC Distribution Width 13.3 % (11.5-14.5); RBC Morphology Normal; Reactive Lymphocytes 2 % (0-10); Red Blood Cell (RBC) Count 5.02 mill/uL (4.70-6.10)
--- NOTE | 2018-08-19 06:56 | PDOC.FM ---
- Subjective Subjective: Nurses concerned with breathing last night, was given duonebs, no issues breathing today. - Objective MAR Reviewed: Yes Vital Signs & Weight: Vital Signs (12 hours) Temp Pulse Resp BP Pulse Ox 08/19/18 04:18 98.1 F 89 17 138/73 95 08/19/18 01:51 92 18 94 L 08/19/18 00:37 88 16 93 L 08/18/18 22:28 101 H 18 92 L 08/18/18 19:39 98.4 F 110 H 18 109/68 96 08/18/18 19:00 105 H 20 92 L Weight Weight 64.864 kg I&O: 08/17/18 08/18/18 08/19/18 06:59 06:59 06:59 Intake Total 1430 3050 Output Total 200 450 Balance 1230 2600 Result Diagrams: 08/19/18 05:08 08/19/18 05:08 Phys Exam - Physical Examination Constitutional: NAD bedbound HEENT: PERRLA, moist MMs Respiratory: no wheezing upper respiratory secretion noises Gastrointestinal: soft Musculoskeletal: no edema decreased strength in BLE and BUE, unchanged Deviation from normal: decreased mental cognition Skin: cap refill <2 seconds Dx/Plan (1) COPD exacerbation Code(s): J44.1 - CHRONIC OBSTRUCTIVE PULMONARY DISEASE W (ACUTE) EXACERBATION Status: Acute (2) RORY (acute kidney injury) Code(s): N17.9 - ACUTE KIDNEY FAILURE, UNSPECIFIED Status: Acute (3) Aspiration pneumonia Code(s): J69.0 - PNEUMONITIS DUE TO INHALATION OF FOOD AND VOMIT Status: Acute Qualifiers: Laterality: unspecified laterality (4) Healthcare associated bacterial pneumonia Code(s): J15.9 - UNSPECIFIED BACTERIAL PNEUMONIA Status: Acute - Plan Plan: COPD Exacerbation -CXR showed prominent interstitial markings. Ddx includes pneumonia CAP vs aspiration, however procal negative. DDx CHF, however BNP not elevated. -Less likely PNA in light of negative procal, afebrile -Leukocytosis with no fever or bands, likely stress reaction from agitation -Duonebs q4h LARA, q2 PRN, prednisone 40 mg daily -O2 >88%-92% on room air -Speech recs- puree texture solids -Will reach out to speech to discuss if aspiration risk Concern for UTI -UA with RBCs, LE, UCx No grwoth at 12 hours RORY, resolved Hx CVA with residual deficits -cognitive deficits, poor memory, unable to give history -swallowing deficits. Continue puree texture solid liquids Hx Intellectual disability, GERD, HLD, HTN, Epilepsy/seizures, osteoporosis, psoriasis, anxiety, depression -Aware, continue home medications PCP: Leland Diet: puree DVT ppx: lovenox Code: Full Dispo: Back to NH pending clinical course
[2018-08-19] MEDS: Fluticasone Propionate Nasal Spray 16 gm Bottle NASAL SCH (08:49)
[2018-08-19] MEDS: Valproate Sodium 250 mg/5 ml UD Cup PO SCH (08:50)
[2018-08-19] MEDS: Enoxaparin Sodium 40 MG/0.4 ML SYRINGE SC SCH (08:50)
[2018-08-19] MEDS: predniSONE 20 MG TAB PO SCH (08:51)
[2018-08-19] MEDS: levETIRAcetam 500 MG TAB PO SCH (08:52)
[2018-08-19] MEDS: Furosemide 20 MG TAB PO SCH (08:52)
[2018-08-19] MEDS: Potassium Chloride 20 MEQ TAB PO SCH (08:52)
[2018-08-19] MEDS: Multivitamin W/ Minerals 1 TAB PO SCH (08:53)
[2018-08-19] MEDS: Escitalopram Oxalate 20 mg Tablet PO SCH (08:53)
[2018-08-19] MEDS: Amlodipine 5 MG TAB PO SCH (08:53)
[2018-08-19] MEDS: Magnesium Oxide 400 MG TAB PO SCH (08:53)
[2018-08-19] MEDS: Metoprolol Tartrate 25 MG TAB PO SCH (08:53)
[2018-08-19 11:09] VITALS: TEMP 98.3
[2018-08-19] MEDS: Lactated Ringer's 1,000 ML IV SCH (11:10)
[2018-08-19 12:21] VITALS: BP 139/83
[2018-08-19] MEDS ORDERED: Famotidine 20 MG TAB PO SCH (21:00)
== END 2018-08-19 17:20 | DRG 190 ==
LOC: ERS 14:30 → 2NO 20:25 → OBSVTOIN 08-18 14:14
PROVIDERS: ADMIT Family Medicine; ATTEND Family Medicine
DX: J44.1 Chronic obstructive pulmonary disease with (acute) exacerbation (principal); J69.0 Pneumonitis due to inhalation of food and vomit; J15.9 Unspecified bacterial pneumonia; N17.9 Acute kidney failure, unspecified; N39.0 Urinary tract infection, site not specified; I69.319 Unspecified symptoms and signs involving cognitive functions following cerebral infarction; I69.391 Dysphagia following cerebral infarction; K21.9 Gastro-esophageal reflux disease without esophagitis; E78.5 Hyperlipidemia, unspecified; I10 Essential (primary) hypertension; G40.909 Epilepsy, unspecified, not intractable, without status epilepticus; M81.0 Age-related osteoporosis without current pathological fracture
CPT/HCPCS: 36415; 36416; 71045; 80048; 80053; 81001; 82570; 83690; 83880; 84145; 84300; 84484; 85025; 87040; 87086; 87899; 93005; 94640; 94760; 96365; 96367; 96375; J1650; J1940; J2930; J3370; J3490; J7512; J7611; J7620

== ENCOUNTER 2018-11-11 16:03 | Inpatient (IN) | payer MEDICARE, MEDICAID ==
[~2018-11-11 16:03] MED LIST changes: -Enoxaparin Sodium 40 MG/0.4 ML SYRINGE SC SCH; +Iopamidol 370 76% 100 ML VIAL ONE
[2018-11-11 17:09] LABS: #Basophils 0.1 thou/uL (0.0-0.2); #Eosinphils 0.4 thou/uL (0.0-0.7); #Neutrophils 9.7 thou/uL (1.40-6.50); %Basophils 0.3 % (0.0-1.0); %Eosinophils 2.6 % (0.0-10.0); %Monocytes 12.9 % (0.0-10.0); %Neutrophils 64.2 % (42.0-75.0); Hemoglobin 16.1 g/dL (14.0-18.0); Mean Corpuscular HGB CONC 31.6 g/dL (32.0-36.0); Mean Corpuscular Hemoglobin 29.9 pg (27.0-31.0); Mean Corpuscular Volume 94.7 fL (78.0-98.0); Mean Platelet Volume 8.3 fL (7.4-10.4); Platelet Count 242 thou/uL (130-400); RBC Distribution Width 13.1 % (11.5-14.5); Red Blood Cell (RBC) Count 5.38 mill/uL (4.70-6.10); White Blood Cell (WBC) Count 15.2 thou/uL (4.8-10.8)
--- NOTE | 2018-11-11 17:26 | RAD ---
RADIOGRAPH CHEST 1 VIEW: DATE: 11/11/2018 TIME: 5:03 PM HISTORY: 58-year-old male with fever with tachycardia COMPARISON: 08/17/2018 FINDINGS: Lungs are hypoinflated. This may be responsible for the prominent interstitial markings diffusely. No consolidation or miranda pulmonary edema. No pneumothorax. Allowing for positional differences, probably no major interval change. IMPRESSION: Limited study because of hypoinflated lungs. No consolidation.
[2018-11-11 18:05] LABS: ALT (SGPT) 29 U/L (8-55); AST (SGOT) 22 U/L (5-34); Albumin 3.4 g/dL (3.5-5.0); Alkaline Phosphatase 83 U/L (40-150); Anion Gap 10 mmol/L (10-20); BUN (Urea Nitrogen) 16 mg/dL (8.4-25.7); Bilirubin, Total 0.7 mg/dL (0.2-1.2); Calc. Creatinine Clearance 0 mL/min (70-130); Calcium 8.8 mg/dL (7.8-10.44); Carbon Dioxide 31 mmol/L (22-29); Chloride 101 mmol/L (98-107); Estimated GFR-MDRD 61; Globulin 3.7 g/dL (2.4-3.5); Glucose 105 mg/dL (70-105); Protein, Total 7.1 g/dL (6.0-8.3); Sodium 138 mmol/L (136-145)
[2018-11-11 19:50] LABS: Bacteria/HPF None Seen HPF (None Seen); Bilirubin Negative (Negative); Blood, Urine Negative (Negative); Clarity Turbid (Clear); Glucose, Urine (Dipstick) Normal (Negative); Leukocyte 250 Leu/uL (Negative); Nitrite Negative (Negative); Protein, Urine (Dipstick) Negative (Neg-Trace); RBC/HPF 0-3 HPF (0-3); Squamous Epithelial None Seen HPF (0-3); Urobilinogen Normal mg/dL (Less than 2)
[2018-11-11] MEDS ORDERED: Ampicillin/Sulbactam 3 GM in Sodium Chloride 0.9% 100 ML IVPB SCH (20:45)
[2018-11-11] MEDS ORDERED: Piperacillin/Tazobactam 3.375 GM VIAL ONE (21:29)
--- NOTE | 2018-11-11 21:29 | CT ---
CT ANGIOGRAM THORAX WITH CONTRAST: (CTA pulmonary angiogram) DATE: 11/11/2018 HISTORY: 58-year-old male with hypotension, fever, tachycardia and cough TECHNIQUE: IV injection of iodinated contrast. Scan acquisition timing attempted to coincide with iodinated contrast bolus reaching maximal density in pulmonary arteries. 3-D MIP reconstructions. FINDINGS: Images are degraded by patient breathing motion. Pulmonary thromboembolism: None. Lungs: No consolidation or edema. Approximately 0.5 cm noncalcified pulmonary nodule at apical segmen t of right upper lobe. 2 small for percutaneous biopsy or PET. Pneumothorax: None. Pleural effusion: None. Thoracic spine: Multiple old compression fractures. Thoracic aorta: No aneurysm or dissection. IMPRESSION: 1. No pulmonary thromboembolism. 2. Right apical pulmonary nodule. Recommend serial follow-up chest CTs, beginning in 4 months.
--- NOTE | 2018-11-11 21:57 | PDOC.FPRHP ---
- History of Present Illness Chief Complaint: fever, cough History of Present Illness: 58 y/o male with pmhx of Down's Syndrome, HTN, CKD, DVT, and seizures presents to the ED from [facility] after having a fever of 102 F today. The pt has been coughing for X1 day, non-productive of any sputum. Sister provides history for me. She states he was in good health on Friday afternoon. Sisters states his BP measured at the [place] was 90/64 with a R of 95. Pt also c/o a headache. ED Course: Pt was started on IVF and Zosyn in the ED for sepsis protocol, secondary to pneumonia. Imaging showed Right apical pulmonary nodule. - Allergies/Adverse Reactions Allergies Allergy/AdvReac Type Severity Reaction Status Date / Time adhesive Allergy Verified 11/11/18 23:48 ceftriaxone [From Rocephin] Allergy Verified 11/11/18 23:48 ciprofloxacin [From Cipro] Allergy Verified 11/11/18 23:48 ciprofloxacin HCl Allergy Verified 11/11/18 23:48 [From Cipro] morphine Allergy Verified 11/11/18 23:48 phenytoin sodium Allergy Verified 11/11/18 23:48 [From Dilantin] phenytoin sodium extended Allergy Verified 11/11/18 23:48 [From Dilantin] - Home Medications Medication Instructions Recorded Confirmed Type Cetirizine HCl [Zyrtec] 1 tab PO HS 03/23/17 11/12/18 History Cholecalciferol (Vitamin D3) 1 cap PO DAILY 03/23/17 11/12/18 History [Vitamin D3] Magnesium Oxide 1 tab PO BID 03/23/17 11/12/18 History cycloSPORINE, Modified [Gengraf 1 ml PO DAILY 03/23/17 11/12/18 History Oral Solution] levETIRAcetam [Keppra] 3 tab PO BID 03/23/17 11/12/18 History Alendronate Sodium 35 mg PO Q7DAYS 03/28/17 11/12/18 History Calcium Carbonate/Vitamin D3 1 tab PO BID 03/28/17 11/12/18 History [Calcium Carbonate w/ Vitamin D3] Escitalopram Oxalate [Lexapro] 20 mg PO DAILY 03/28/17 11/12/18 History Multivitamin With Minerals 1 tablet PO DAILY 03/28/17 11/12/18 History [One-A-Day Maximum Formula] Ondansetron [Ondansetron ODT] 4 mg PO Q6HR PRN 03/28/17 11/12/18 History Polyethylene Glycol 3350 [Miralax] 17 gm PO DAILY 03/28/17 11/12/18 History Potassium Chloride [K-Dur] 20 meq PO DAILY 03/28/17 11/12/18 History guaiFENesin [Mucinex] 600 mg PO Q12HR PRN 03/28/17 11/12/18 History Pantoprazole [Protonix] 40 mg PO DAILY 04/14/17 11/12/18 History Acetaminophen [Tylenol Extra 1,000 mg PO Q6HR PRN 05/28/18 11/12/18 History Strength] Acyclovir [Acyclovir 3% Ointment] 1 applic TOP [id number] PRN 05/28/18 11/12/18 History Amlodipine [Norvasc] 2.5 mg PO DAILY 05/28/18 11/12/18 History Fluticasone Propionate [Flonase 1 spray EA NARE DAILY 05/28/18 11/12/18 History Nasal [place]] Furosemide 20 mg PO DAILY 05/28/18 11/12/18 History Metoprolol Tartrate 25 mg PO BID 05/28/18 11/12/18 History traMADol HCl [Tramadol HCl] 50 mg PO Q6H PRN 05/28/18 11/12/18 History Acetaminophen [Tylenol] 650 mg PO PRN PRN 08/17/18 11/12/18 History Clobetasol Propionate [Cormax 1 applic TOP BID PRN 08/17/18 11/12/18 History 0.05% Scalp Application] Bisacodyl [Dulcolax] 10 mg PO DAILYPRN PRN tab 08/19/18 11/12/18 Rx Famotidine [Pepcid] 20 mg PO QPM tab 08/19/18 11/12/18 Rx Ipratropium/Albuterol Sulfate 3 ml NEB QID #1 08/19/18 11/12/18 Rx [DuoNeb] guaiFENesin [Organ-I NR] 1,200 mg PO Q12HR tab 08/19/18 11/12/18 Rx predniSONE 40 mg PO QAM-WM tab 08/19/18 11/12/18 Rx - History PMHx: HTN, TIA, DVT, Inferior VC embolus, GERD, UTI, Down's Syndrome, Sleep apnea, electrolyte abnormalities, seizures, Fe deficiency anemia, MDD, anxiety, Respiratory failure, Aspiration pneumonia PSHx: appendectomy, splenectomy, cholecystectomy, bowel resection FHx: non-contributory Social: [facility] - Review of Systems ROS unobtainable: other (Pt does not answer questions well. Hx provided by sister, who observes his pain from him touching the area affected.) Respiratory: reports: cough, congestion, shortness of breath Cardiovascular: denies: chest pain Gastrointestinal: denies: vomiting, diarrhea Neurological: reports: other (headace) - Vital signs BP: 134/81 HR: 72 RR: 20 Tmax: 97.7 Pox: 96% on 2L NC Wt: 63.5 kg - Physical Exam Constitutional: NAD -Constitutional: awake,, alert, oriented to person only. HEENT: PERRLA, EOMI, no scleral icterus, grossly normal vision, MMM, oropharynx clear Neck: supple, FROM, trachea midline, no LAD Heart: RRR, normal S1/S2 (distant heart sounds), no murmurs/rubs/gallops, pulses present, no edema Lungs: no respiratory distress, no retractions -Lungs: wheezing, and rhonchi in all lung bazan, worse in the upper right lobe. Abdomen: soft -Abdomen: Slightly tender to palpation over hernias. Hernias present on right and left side of abdomen. Neurological: normal sensation Skin: no rash/lesions -Skin: skin tenting increased. Heme/Lymphatic: no unusual bruising or bleeding, no purpura, no petechia FMR H&P: Results - Labs Result Diagrams: 11/11/18 22:55 11/12/18 00:04 Lab results: WBC 15.2 thou/uL (4.8-10.8) H 11/11/18 17:00 Hgb 16.1 g/dL (14.0-18.0) 11/11/18 17:00 Hct 50.9 % (42.0-52.0) 11/11/18 17:00 MCV 94.7 fL (78.0-98.0) 11/11/18 17:00 Plt Count 242 thou/uL (130-400) 11/11/18 17:00 Neutrophils % 64.2 % (42.0-75.0) 11/11/18 17:00 Sodium 138 mmol/L (136-145) 11/11/18 17:00 Potassium 4.0 mmol/L (3.5-5.1) 11/11/18 17:00 Chloride 101 mmol/L (98-107) 11/11/18 17:00 Carbon Dioxide 31 mmol/L (22-29) H 11/11/18 17:00 BUN 16 mg/dL (8.4-25.7) 11/11/18 17:00 Creatinine 1.22 mg/dL (0.7-1.3) 11/11/18 17:00 Glucose 105 mg/dL (70-105) 11/11/18 17:00 Lactic Acid 1.4 mmol/L (0.5-2.2) 11/11/18 17:00 Calcium 8.8 mg/dL (7.8-10.44) 11/11/18 17:00 Total Bilirubin 0.7 mg/dL (0.2-1.2) 11/11/18 17:00 AST 22 U/L (5-34) 11/11/18 17:00 ALT 29 U/L (8-55) 11/11/18 17:00 Alkaline Phosphatase 83 U/L (40-150) 11/11/18 17:00 Serum Total Protein 7.1 g/dL (6.0-8.3) 11/11/18 17:00 Albumin 3.4 g/dL (3.5-5.0) L 11/11/18 17:00 Urine Ketones Negative mg/dL (Negative) 11/11/18 19:31 Urine Blood Negative (Negative) 11/11/18 19:31 Urine Nitrite Negative (Negative) 11/11/18 19:31 Ur Leukocyte Esterase 250 Calixto/uL (Negative) A 11/11/18 19:31 Urine RBC 0-3 HPF (0-3) 11/11/18 19:31 Urine WBC 7-10 HPF (0-3) A 11/11/18 19:31 Ur Squamous Epith Cells None Seen HPF (0-3) 11/11/18 19:31 Urine Bacteria None Seen HPF (None Seen) 11/11/18 19:31 - Radiology Interpretation CT scan - chest Status: report reviewed by me (right atrial lung nodule.) FMR H&P: A/P - Problem List (1) Pneumonia Current Visit: Yes Status: Acute Code(s): J18.9 - PNEUMONIA, UNSPECIFIED ORGANISM (2) Down's syndrome Current Visit: Yes Status: Acute Code(s): Q90.9 - DOWN SYNDROME, UNSPECIFIED (3) UTI (urinary tract infection) Current Visit: No Status: Acute Qualifiers: Urinary tract infection type: acute cystitis Hematuria presence: without hematuria Qualified Code(s): N30.00 - Acute cystitis without hematuria - Plan 58 y/o M admitted to in patient for UTI, Aspiration pneumonia and sepsis treatment. 1. Sepsis secodnary to UTI and Aspiration pneumonia - Continue IVF and zosyn - vitals Q4H 2. Probably Aspiration Pneumonia - continue Zosyn antibiotic therapy - Speech Therapy consult to evaluate safety of swallow. - Thickened fluids and puree food 3. UTI - Continue Zosyn antibiotic therapy 4. Hx of Down's Syndrome 5. Hx of HTN - Continue Home medication 6. DVT ppx Diet puree and thickened liquids Code status: DNR Disposition/LOS: Stable. In patient medical admission at least 2 nights. FMR H&P: Upper Level - Pertinent history 58 yo male with PMH of Down Syndrome and recurrent pneumonia presents for evaluation of fever and cough. Patient's sister is primary historian. Patient also was complaining of headache earlier in day. Please see software developer intern note above for further information. General: Male appears stated age, NAD HEENT: Moist mucous membranes CV: Tachycardic rate and regular rhythm, no murmurs Respiratory: Rhonchi and wheezing heard throughout. Worse on right lung field. Abdomen: Soft, nontender, no distention Normoactive BS Extremities: Moving all four symmetrically, no edema Neuro: No focal deficits Psych: Responds appropriately - Plan Date/Time: 11/11/182156 I, Fidel Wallace MD, have evaluated this patient and agree with findings/ plan as outlined by software developer intern resident. Pertinent changes/additions are listed here. 1. Sepsis secondary to UTI and Aspiration Pneumonia - Will continue Zosyn - Blood culture and urine culture pending - IVF - Speech Therapy consultation - Consider repeat CXR after rehydration - Diet modifications per Speech Recs 2. Down Syndrome - Supportive care 3. CLARKE - CPAP use at night PCP: Dr. Concepcion CODE STATUS: DNR Disposition: Stable, will admit to medical service for further evaluation and management. Addendum - Attending - Attending Attestation Date/Time: 11/12/181831 I personally evaluated the patient and discussed the management with Dr. Karimi on 11/11/18 I agree with the History, Examination, Assessment and Plan documented above with any addition or exceptions noted below - 58 y/o male with pmhx of Down's Syndrome, HTN, CKD, DVT, and seizures presents to the ED from [facility] secondary to fever of 102 F and cough, non-productive, and KIM. Sister reports he was in his usual health on Friday when she visited. Also today he has not been as interactive as he usually is. PMH/PSH/Meds/SH reviewed and agree with resident's documentation. T98.5 P66 RR18 BP127/78 96% on 4LNC Exam repeated by me and agree with resident's findings. Labs: WBC=15.2, H/H=16.1 /50.9, Anv=690, Xx=464, K=4.0m Je=220, CO2=31, BUN/Cr=16/1.22, lactic acid=1.4, AST/ALT=22/29, CXR- hypoinflation, CTA- no evidence of PE A/P: 1) Possible CAP vs aspiration pneumonia vs bronchitis- admit to medical. Start abx- zosyn. Duonebs q4 hours. Blood and urine cultures drawn. 2) HTN- stable; continue home meds. 3) CKD- stable
[2018-11-11] MEDS ORDERED: Enoxaparin Sodium 40 MG/0.4 ML SYRINGE SC SCH (22:30)
[2018-11-11 23:07] LABS: #Basophils 0.1 thou/uL (0.0-0.2); #Eosinphils 0.6 thou/uL (0.0-0.7); #Lymphocytes 3.6 thou/uL (1.20-3.40); #Monocytes 2.1 thou/uL (0.11-0.59); #Neutrophils 9.6 thou/uL (1.40-6.50); %Basophils 0.4 % (0.0-1.0); %Lymphocytes 22.4 % (21.0-51.0); %Monocytes 13.1 % (0.0-10.0); %Neutrophils 60.1 % (42.0-75.0); Hemoglobin 15.8 g/dL (14.0-18.0); Mean Corpuscular HGB CONC 32.8 g/dL (32.0-36.0); Mean Corpuscular Hemoglobin 30.6 pg (27.0-31.0); Mean Corpuscular Volume 93.4 fL (78.0-98.0); Platelet Count 208 thou/uL (130-400); RBC Distribution Width 13.2 % (11.5-14.5); Red Blood Cell (RBC) Count 5.17 mill/uL (4.70-6.10)
[2018-11-11 23:16] VITALS: BMI 26.6
[2018-11-12 00:17] LABS: Albumin 3.1 g/dL (3.5-5.0)
[2018-11-12 00:18] LABS: Chloride 104 mmol/L (98-107); Sodium 138 mmol/L (136-145)
[2018-11-12 00:19] LABS: Glucose 81 mg/dL (70-105)
[2018-11-12 00:20] LABS: Globulin 3.3 g/dL (2.4-3.5); Protein, Total 6.4 g/dL (6.0-8.3)
[2018-11-12 00:21] LABS: Anion Gap 13 mmol/L (10-20); Carbon Dioxide 25 mmol/L (22-29)
[2018-11-12 00:22] LABS: Alkaline Phosphatase 76 U/L (40-150)
[2018-11-12 00:23] LABS: Calc. Creatinine Clearance 75 mL/min (70-130); Estimated GFR-MDRD 77
[2018-11-12 00:24] LABS: BUN (Urea Nitrogen) 14 mg/dL (8.4-25.7)
[2018-11-12 00:25] LABS: ALT (SGPT) 28 U/L (8-55); AST (SGOT) 22 U/L (5-34)
[2018-11-12] MEDS ORDERED: Acetaminophen 500 MG TAB PO PRN (02:44)
[2018-11-12] MEDS ORDERED: guaiFENesin ER 600 MG TAB PO PRN (02:44)
[2018-11-12] MEDS ORDERED: Ondansetron ODT 4 MG TAB PO PRN (02:44)
[2018-11-12] MEDS ORDERED: traMADol HCl 50 MG TAB PO PRN (02:44)
[2018-11-12] MEDS ORDERED: Bisacodyl 5 MG TAB PO PRN (02:44)
[2018-11-12] MEDS ORDERED: Clopidogrel Bisulfate 75 MG TAB ONE (03:26)
[2018-11-12] MEDS ORDERED: ACYCLOVIR 5% TOP PRN ×2 (03:31→03:45)
[2018-11-12] MEDS: Piperacillin/Tazobactam 3.375 GM in Sodium Chloride 0.9% 100 ML IVPB SCH ×3 (05:07→20:17)
[2018-11-12] MEDS ORDERED: Non-Formulary Item 1 EACH (Alendronate Sodium [Alendronate Sodium] 35 MG) PO SCH (09:00)
[2018-11-12] MEDS: Fluticasone Propionate Nasal Spray 16 gm Bottle NASAL SCH (09:00)
[2018-11-12] MEDS ORDERED: CLOBETASOL PROPIONATE TOP PRN (09:00)
[2018-11-12] MEDS ORDERED: guaiFENesin 200 MG TAB PO SCH (09:00)
--- NOTE | 2018-11-12 09:18 | PDOC.FM ---
- Subjective Subjective: pt resting comfortably in bed, denies pain or SOB - Objective Vital Signs & Weight: Vital Signs (12 hours) Temp Pulse Resp BP BP Pulse Ox 11/12/18 07:38 98.2 F 88 18 110/75 92 L 11/12/18 06:22 93 L 11/12/18 06:21 83 16 98 11/12/18 05:02 98.6 F 75 20 146/83 H 93 L 11/12/18 00:27 97.7 F 72 20 134/81 96 11/12/18 00:24 76 16 98 11/11/18 23:15 98.5 F 66 18 127/78 96 Weight Weight 65.998 kg I&O: 11/11/18 11/12/18 11/13/18 06:59 06:59 06:59 Intake Total 100 Balance 100 Result Diagrams: 11/11/18 22:55 11/12/18 00:04 Phys Exam - Physical Examination Constitutional: NAD HEENT: moist MMs Neck: no JVD Respiratory: clear to auscultation bilateral Cardiovascular: no significant murmur Gastrointestinal: no distention Musculoskeletal: no edema Neurological: moves all 4 limbs Lymphatic: no nodes Skin: no rash Dx/Plan (1) Down's syndrome Code(s): Q90.9 - DOWN SYNDROME, UNSPECIFIED Status: Acute (2) Aspiration pneumonia Code(s): J69.0 - PNEUMONITIS DUE TO INHALATION OF FOOD AND VOMIT Status: Acute Qualifiers: Laterality: unspecified laterality - Plan Plan: Sepsis secondary to Aspiration Pneumonia - Will continue Zosyn, Blood culture and urine culture pending - continue IVF resus - Speech Therapy consultation, diet modifications per Speech Recs 2. Down Syndrome - Supportive care 3. CLARKE - CPAP use at night PCP: Dr. Concepcion CODE STATUS: DNR Disposition: continue IVF and abx, possible DC tomorrow Addendum - Attending - Attending Attestation Date/Time: 11/12/18 2051 I personally evaluated the patient and discussed the management with Dr. Ramos. I agree with the History, Examination, Assessment and Plan documented above with any addition or exceptions noted below. patient relatively noncommunicative, but denies anything bothering him currently. His exam with exp wheezing, no sig crackles; rrr s m and no edema. pronounced fungal infx of nails.
[2018-11-12] MEDS: Multivitamin W/ Minerals 1 TAB PO SCH (10:53)
[2018-11-12] MEDS: Potassium Chloride 20 MEQ TAB PO SCH (10:54)
[2018-11-12] MEDS: predniSONE 20 MG TAB PO SCH (10:54)
[2018-11-12] MEDS: cycloSPORINE, Modified 100 MG CAP PO SCH (10:54)
[2018-11-12] MEDS: levETIRAcetam 500 MG TAB PO SCH ×2 (10:54→20:20)
[2018-11-12] MEDS: Escitalopram Oxalate 20 mg Tablet PO SCH (10:55)
[2018-11-12] MEDS: Metoprolol Tartrate 25 MG TAB PO SCH ×2 (10:55→20:20)
[2018-11-12] MEDS: Calcium Carbonate + Vit D 1 TAB PO SCH ×2 (10:55→20:20)
[2018-11-12] MEDS: Furosemide 20 MG TAB PO SCH (10:55)
[2018-11-12] MEDS: Amlodipine 5 MG TAB PO SCH (10:55)
[2018-11-12] MEDS: Magnesium Oxide 400 MG TAB PO SCH ×2 (10:55→20:20)
[2018-11-12] MEDS: Polyethylene Glycol 3350 17 GM Packet PO SCH (10:56)
--- NOTE | 2018-11-12 15:03 | RAD ---
Exam: Modified barium swallow the presence of speech pathologist HISTORY: Dysphagia, oral pharyngeal phase and feeding difficulties Exposure 2.3 minutes, 13.25 mg, 1.195 tillman per centimeter square FINDINGS: Patient was administered thin liquid, honey thick, pudding consistencies. No penetration or aspiration. However, there is premature spillage into the vallecula and piriform sinuses with all of the a forementioned consistencies. IMPRESSION: Please refer to speech pathologist report for feeding recommendation.
[2018-11-12] MEDS ORDERED: Sodium Chloride 0.9% 500 ML IV SCH (16:00)
[2018-11-12] MEDS ORDERED: Famotidine 20 MG TAB PO SCH (21:00)
[2018-11-12] MEDS ORDERED: Prevnar 13-Val Conj/PF 0.5 ML SYRINGE IM ONE (21:00)
[2018-11-12] MEDS ORDERED: Loratadine 10 MG TAB PO SCH (21:00)
[2018-11-13] MEDS: Piperacillin/Tazobactam 3.375 GM in Sodium Chloride 0.9% 100 ML IVPB SCH (05:55)
[2018-11-13] MEDS: Metoprolol Tartrate 25 MG TAB PO SCH (07:27)
[2018-11-13] MEDS: Amlodipine 5 MG TAB PO SCH (07:27)
[2018-11-13] MEDS: Multivitamin W/ Minerals 1 TAB PO SCH (07:27)
[2018-11-13] MEDS: Magnesium Oxide 400 MG TAB PO SCH (07:27)
[2018-11-13] MEDS: Potassium Chloride 20 MEQ TAB PO SCH (07:28)
[2018-11-13] MEDS: cycloSPORINE, Modified 100 MG CAP PO SCH (07:29)
[2018-11-13] MEDS: levETIRAcetam 500 MG TAB PO SCH (07:29)
[2018-11-13] MEDS: Calcium Carbonate + Vit D 1 TAB PO SCH (07:29)
[2018-11-13] MEDS: Escitalopram Oxalate 20 mg Tablet PO SCH (07:30)
[2018-11-13] MEDS: Furosemide 20 MG TAB PO SCH (07:30)
[2018-11-13] MEDS: predniSONE 20 MG TAB PO SCH (07:30)
[2018-11-13] MEDS: Polyethylene Glycol 3350 17 GM Packet PO SCH (07:30)
[2018-11-13] MEDS: Fluticasone Propionate Nasal Spray 16 gm Bottle NASAL SCH (07:31)
--- NOTE | 2018-11-13 08:43 | PDOC.FM ---
- Subjective Subjective: pt sleeping comfortably in bed, more alert today, denies pain - Objective Vital Signs & Weight: Vital Signs (12 hours) Temp Pulse Resp BP Pulse Ox 11/13/18 07:27 66 11/13/18 07:23 97.7 F 77 16 130/78 97 11/13/18 06:43 97 11/13/18 06:42 66 12 Weight Weight 65.998 kg I&O: 11/12/18 11/13/18 11/14/18 06:59 06:59 06:59 Intake Total 100 800 Balance 100 800 Result Diagrams: 11/11/18 22:55 11/12/18 00:04 Phys Exam - Physical Examination Constitutional: NAD HEENT: moist MMs Neck: no JVD Respiratory: clear to auscultation bilateral Cardiovascular: RRR, no significant murmur Gastrointestinal: soft, no distention Musculoskeletal: no edema Neurological: moves all 4 limbs Psychiatric: normal affect Skin: no rash Dx/Plan (1) Down's syndrome Code(s): Q90.9 - DOWN SYNDROME, UNSPECIFIED Status: Acute (2) Aspiration pneumonia Code(s): J69.0 - PNEUMONITIS DUE TO INHALATION OF FOOD AND VOMIT Status: Acute Qualifiers: Laterality: unspecified laterality - Plan Plan: Sepsis secondary to Aspiration Pneumonia - Will continue Zosyn, Blood culture and urine culture pending - continue IVF resus - Speech Therapy consultation, diet modifications per Speech Recs Down Syndrome - Supportive care CLARKE - CPAP use at night PCP: Dr. Concepcion CODE STATUS: DNR Disposition: consider transition to oral abx today, dc to nh with dietary recs, risk of asp. Addendum - Attending - Attending Attestation Date/Time: 11/13/18 1030 I personally evaluated the patient and discussed the management with Dr. Ramos. I agree with the History, Examination, Assessment and Plan documented above with any addition or exceptions noted below. Patient looks markedly improved today. His exam remains nonfocal but he is coughing. ROS is limited 2/2 cognitive disability, but he denies f/c/n/v/cp/ sob. Transition to PO antibiotics. Recommendations concerning his diet has been noted and communicated, but apparently they prefer to continue to feed him and then treat the PNA if it occurs. He continues to look back to his baseline will plan on d/c.
[2018-11-13] MEDS ORDERED: Enoxaparin Sodium 40 MG/0.4 ML SYRINGE SC SCH (09:00)
--- NOTE | 2018-11-13 14:47 | PQF ---
CLINICAL DOCUMENTATION IMPROVEMENT CLARIFICATION FORM: ICD-10 Updated PLEASE DO AN ADDENDUM TO THE PROGRESS NOTE WITH ANY DOCUMENTATION UPDATES OR ADDITIONS AND CARRY THROUGH TO DC SUMMARY. THANK YOU. DATE: 11/13/18 ATTN: DR. PIMENTEL Please exercise your independent, professional judgment in responding to the clarification form. Clinical indicators are provided on the bottom of this form for your review Please check appropriate box(s): [ ] Hemiplegia Specify: [ ] Non dominant side [ ] Dominant side Status: [ ] Complete [ ] Incomplete [ ] Paraplegia Specify: [ ] Non dominant side [ ] Dominant side Status: [ ] Complete [ ] Incomplete [ ] Quadriplegia [ ] Functional Quadriplegia (specify underlying cause) [ ] Weakness (please specify anatomical area) Specify: [ ] Non dominant side [ ] Dominant side [ ] Other diagnosis [ x] Unable to determine In addition, please specify: Present on Admission (POA): [ ] Yes [ ] No [ ] Unable to determine CLINICAL INDICATORS - SIGNS / SYMPTOMS / LABS NURSING ASSESSMENT 11/12: "BEDBOUND, TOTAL ASSISTANCE" SPEECH THERAPY NOTE 11/12: "HX OF SIGNIFICANT INTELLECTUAL DISABILITY AND DEPENDENT CARE REQUIRING FULL CARE IN [facility]P..." RISKS: H/O CVA (ER NOTE) H/O DOWN'S SYNDROME (PROGRESS NOTE 11/11) TREATMENT: INCONTINENCE WITH NEED FOR USE OF BRIEF (NURSING NOTE 11/12) TOTAL ASSISTANCE PER NURSING STAFF (NURSING NOTE 11/12) (This form is maintained as a part of the permanent medical record) 2014 [employer]. All Rights Reserved [email or web address] [email or web address] Office: [phone] [facility]ITAL[facility]
[2018-11-13 15:40] VITALS: BP 90/56; TEMP 98.9
[2018-11-13] MEDS ORDERED: Amoxicillin/Potassium Clav 500 MG TAB PO SCH (21:00)
[2018-11-13] MEDS ORDERED: Famotidine 20 MG TAB PO SCH (21:00)
--- NOTE | 2018-11-14 04:08 | DIS ---
DATE OF ADMISSION: 11/11/2018 DATE OF DISCHARGE: 11/13/2018 CONSULTS: None. PROCEDURES: None. IMAGING: Chest x-ray revealed no consolidation. Chest CT revealed a right apical pulmonary nodule. Recommended followup CT scans. PRIMARY DIAGNOSIS: Sepsis secondary to aspiration pneumonia. SECONDARY DIAGNOSES: 1. Down syndrome. 2. Obstructive sleep apnea. DISCHARGE MEDICATIONS: 1. Keppra 3 tabs p.o. b.i.d. 2. Cyclosporine 1 mL p.o. daily. 3. Mag-Ox 400 mg p.o. b.i.d. 4. Vitamin D3 one tab p.o. daily. 5. Zyrtec 1 tablet p.o. at bedtime. 6. K-Dur 20 mEq p.o. daily. 7. Zofran 4 mg p.o. q.6 hours p.r.n. 8. One-A-Day Maximum Formula one tab p.o. daily. 9. Mucinex 600 mg p.o. q.12 hours p.r.n. 10. MiraLAX 17 g p.o. daily. 11. Calcium carbonate with vitamin D3 one tablet p.o. b.i.d. 12. Alendronate 35 mg p.o. q.7 days. 13. Lexapro 20 mg p.o. daily. 14. Protonix 40 mg p.o. daily. 15. Metoprolol 25 mg p.o. b.i.d. 16. Furosemide 20 mg p.o. daily. 17. Amlodipine 2.5 mg p.o. daily. 18. Acyclovir topically q.4 hour with assistance p.r.n. 19. Tylenol 1000 mg p.o. q.6 hours p.r.n. 20. Fluticasone one spray each naris daily. 21. Tramadol 50 mg p.o. q.6 hours p.r.n. 22. Cormax scalp application 1 application topically b.i.d. p.r.n. 23. Dulcolax 10 mg p.o. daily p.r.n. 24. Pepcid 20 mg p.o. q.p.m. 25. Guaifenesin 1200 mg p.o. q.12 hours p.r.n. 26. Prednisone 40 mg p.o. q.a.m. with meals. 27. DuoNeb 3 mL nebulized q.i.d. 28. Augmentin 500 mg p.o. q.12 hours for 10 days. HISTORY OF PRESENT ILLNESS/HOSPITAL COURSE: Mr. Jamel Aldana is a 58-year-old male, with past medical history significant for Down syndrome, hypertension, chronic kidney disease, and DVT, presents to the emergency department from [facility] with fever today of 102. The patient has been coughing for 1 day, not productive of any sputum. Upon chart review, the patient has been admitted multiple times for suspected aspiration pneumonia in the past, diet specific for pureed, has been recommended by Speech Therapy, barium swallow is completed at this hospitalization as well revealing aspiration risk, recommendations of pureed diet, family declines at this time. He was recommended that the patient be evaluated by palliative Care for goals of care and possible hospice with comfort feeds. The patient's family declined to talk to Palliative Care at this time, preferred to have continued risk for aspiration and then just treat this as they popup understood by family the risk involved with this and at some point, this will eventually cause his demise. The patient was able to wean successfully off oxygen, transition to oral antibiotics, remained stable, deemed stable for discharge back to the half-way. DISCHARGE INSTRUCTIONS: 1. Location: [facility]. 2. Activity: As tolerated. 3. Diet: Diabetic heart-healthy. 4.Followup with PCP, Dr. Concepcion. Job ID: [id number] MTDD
[2018-11-15] MEDS ORDERED: predniSONE 20 MG TAB PO SCH (08:00)
[2018-11-18] MEDS ORDERED: predniSONE 20 MG TAB PO SCH (08:00)
== END 2018-11-13 16:07 | DRG 871 ==
LOC: ERS 16:03 → T4-B 21:50
PROVIDERS: ADMIT Family Medicine; ATTEND Family Medicine
PROC: 5A09357 Assistance with Respiratory Ventilation, Less than 24 Consecutive Hours, Continuous Positive Airway Pressure (ICD-10-PCS; principal; 2018-11-11)
DX: A41.9 Sepsis, unspecified organism (principal); J69.0 Pneumonitis due to inhalation of food and vomit; N39.0 Urinary tract infection, site not specified; Z66 Do not resuscitate; G47.33 Obstructive sleep apnea (adult) (pediatric); I12.9 Hypertensive chronic kidney disease with stage 1 through stage 4 chronic kidney disease, or unspecified chronic kidney disease; N18.9 Chronic kidney disease, unspecified; Q90.9 Down syndrome, unspecified; Z86.718 Personal history of other venous thrombosis and embolism
CPT/HCPCS: 36415; 36416; 51701; 71045; 71275; 74230; 80053; 81003; 81015; 83605; 84145; 85025; 87040; 87086; 94640; 96361; 96365; J0295; J1650; J2543; J3490; J7502; J7512; J7620; Q9967

== ENCOUNTER 2018-11-23 08:39 | Emergency (ER) | payer MEDICARE, MEDICAID ==
--- NOTE | 2018-11-23 09:13 | CT ---
Head CT without contrast 11/23/2018: COMPARISON: 05/28/2018 HISTORY: Seizure TECHNIQUE: Axial CT imaging at 5 mm intervals from vertex through skull base without contrast FINDINGS: There is diffuse mild cerebral volume loss. There is prominent stable cerebellar volume los s. Visualized paranasal sinuses and mastoid air cells are well aerated. There is no displaced calvarial fracture. There is no intracranial hemorrhage, midline shift, or mass effect. IMPRESSION: Stable head CT as detailed above. No intracranial hemorrhage.
[2018-11-23 10:16] LABS: Bilirubin Negative (Negative); Blood, Urine Trace (Negative); Clarity Clear (Clear); Glucose, Urine (Dipstick) Normal (Negative); Leukocyte 250 Leu/uL (Negative); Nitrite Negative (Negative); Protein, Urine (Dipstick) 50 mg/dL (Neg-Trace); Squamous Epithelial 0-3 HPF (0-3); Urobilinogen Normal mg/dL (Less than 2)
[2018-11-23] MEDS ORDERED: Fentanyl 100 MCG/2 ML VIAL ONE (10:23)
[2018-11-23 10:28] LABS: Bacteria/HPF None Seen HPF (None Seen)
[2018-11-23] MEDS ORDERED: ISOVUE-370 76%-LOCM 1 ML ONE (10:49)
[2018-11-23 11:18] LABS: Hemoglobin 14.9 g/dL (14.0-18.0); Mean Corpuscular Hemoglobin 30.5 pg (27.0-31.0); Mean Corpuscular Volume 95.2 fL (78.0-98.0); Platelet Count 215 thou/uL (130-400); RBC Distribution Width 13.2 % (11.5-14.5); Red Blood Cell (RBC) Count 4.89 mill/uL (4.70-6.10); White Blood Cell (WBC) Count 25.5 thou/uL (4.8-10.8)
[2018-11-23 11:37] LABS: Band 4 % (5-11); Lymphocytes 11 % (21-51); MDiff Complete? YES; Monocytes 11 % (0-10); Neutrophil 72 % (42-75); RBC Morphology Normal; Reactive Lymphocytes 2 % (0-10)
[2018-11-23] MEDS ORDERED: Lorazepam 2 MG/ML VIAL ONE ×2 (11:38→11:59)
[2018-11-23 11:51] LABS: ALT (SGPT) 32 U/L (8-55); AST (SGOT) 22 U/L (5-34); Alkaline Phosphatase 68 U/L (40-150); Anion Gap 10 mmol/L (10-20); BUN (Urea Nitrogen) 14 mg/dL (8.4-25.7); Calc. Creatinine Clearance 0 mL/min (70-130); Calcium 7.7 mg/dL (7.8-10.44); Carbon Dioxide 24 mmol/L (22-29); Chloride 106 mmol/L (98-107); Estimated GFR-MDRD 71; Globulin 2.8 g/dL (2.4-3.5); Glucose 91 mg/dL (70-105); Potassium 3.4 mmol/L (3.5-5.1); Protein, Total 5.8 g/dL (6.0-8.3); Sodium 137 mmol/L (136-145)
[2018-11-23] MEDS ORDERED: Succinylcholine Chloride 20 MG/ML 10 ml SYRINGE FS ONE (11:59)
--- NOTE | 2018-11-23 12:05 | CT ---
CT ABDOMEN AND PELVIS WITH IV CONTRAST 11/23/2018 CLINICAL INFORMATION: Abdominal tightness. History of abdominal hernia. COMPARISON: 04/14/2017 Technique: Multiple contiguous axial CT images are obtained through the abdomen and pelvis with IV contrast. Cor onal reformatted images are provided. FINDINGS: Lower Chest: Bibasilar parenchymal changes are seen likely related to atelectasis. Vessels: Vascular calcifications are seen in the abdominal aorta and involving the iliac arteries. An IVC filter is noted in place. There is opacification of the IVC superior to the level of the renal veins. However, the IVC below the level of the IVC filter is atretic and likely occluded. The iliac v eins are also very small in size. Abdomen: Portal vein:Patent Gallbladder: Surgically absent. Liver: Mild intra and extrahepatic biliary duct dilatation likely related to reservoir effect. The li fred otherwise has a normal CT appearance. Spleen: Evidence of splenectomy with small enhancing nodule again present in the left upper quadrant likely related to a small splenule. Pancreas: within normal limits. Adrenals: within normal limits. Kidneys: Bilateral renal cysts are again seen with stable nonobstructing right renal calculi as well as stable scarring involving the right kidney and to a much lesser extent involving the left kidney. Prominent renal cortical thinning involving portions of the right kidney related to the scarr ing. Bowel: There is a linear metallic foreign body seen in the fundus of the stomach measuring 1.8 cm in length. There was more than one metallic foreign body in the stomach on prior study in 2018. Appendix: Not visualized, but there are no secondary signs to suggest appendicitis. Peritoneum: No ascites or free air; no fluid collection. Mesentery and Retroperitoneum: Previously noted mildly enlarged paracaval lymph nodes are again seen and unchanged in number or size, largest measuring approximately 1.1 cm in short axis dimension. Abdominal Wall: Right lower quadrant anterolateral abdominal wall hernia is seen which again contains a loop of colon. No bowel obstruction is seen. Areas of scarring in the anterior abdomen are again noted. Fat-containing right inguinal canal is aga in seen. Pelvis: Reproductive Organs: Prominent calcifications are seen centrally within the prostate gland. Pelvis within normal limits. Bladder: Incompletely distended but otherwise grossly normal in appearance. Bones: Multilevel degenerative changes are seen throughout the visualized lower thoracic as well as i nvolving the lumbar spine. There is a stable degree of height loss involving the compression fractures of the T7 and T12 vertebral bodies. However, there is now mild compression deformity involv ing the T8 vertebral body which does represent an interval change from the prior exam, but the exact age is difficult to determine. There is a gas density seen within the central canal posterior t o the L2-3 level may represent a sequestered disc fragment measuring 7 mm. Heterotopic ossification is again seen inferior to each ischial tuberosity. IMPRESSION: 1. Metallic foreign body in the stomach. 2. Bibasilar parenchymal lung changes probably related to atelectasis. 3. Postcholecystectomy changes. 4. Stable paracaval lymphadenopathy. 5. IVC filter remaining in place, but the IVC distal to the IVC filter as well as the iliac veins are atrophic which may represent occlusion of these vessels. 6. Right lower quadrant abdominal wall hernia containing a loop of colon. There is no evidence of a b owel obstruction. 7. Stable compression fractures involving the T7 and T12 vertebral bodies, there is been interval dev elopment of a compression fracture of the T8 vertebral body, the exact age is indeterminate. 8. Prominent scarring involving the right kidney. Nonobstructing right renal calculi are seen with bi lateral renal cysts again noted.
[2018-11-23] MEDS ORDERED: Midazolam HCl 2 mg/2 ml Vial ONE ×2 (12:13→12:29)
--- NOTE | 2018-11-23 12:19 | RAD ---
CHEST 1 VIEW: HISTORY Status post intubation. Respiratory distress. Comparison: 11/03/2018. FINDINGS: Cardiac silhouette:Limited evaluation due to decreased volume in the left lung. Aorta: Limited evaluation. Pulmonary vessels: Normal. Costophrenic angles: Probable left-sided effusion. Lungs: There appears to be consolidation and volume loss in the left lung likely due to a right saqib tem bronchus intubation. Repositioning is recommended. Pneumothorax: None. Osseous abnormalities: None. IMPRESSION: Right mainstem bronchus intubation. Subsequent atelectasis of the left lung. Repositioning of the end otracheal tube with repeat chest radiograph is recommended. Results of the study discussed with Dr. Tam Yang 11/23/2018 at 1218. CODE CR Transcribed Date/Time: 11/23/2018 1:32 PM
[2018-11-23] MEDS ORDERED: PROPOFOL 20 ML ONE (12:33)
--- NOTE | 2018-11-23 12:38 | RAD ---
EXAM: Single view of the chest HISTORY: Endotracheal intubation. Confirm placement. COMPARISON: 11/23/2018 at 12:15 PM FINDINGS: Single view of the chest shows an enlarged but stable cardiomediastinal silhouette. The en dotracheal tube has been withdrawn with its tip immediately at the zenaida. An NG tube is seen in the stomach. There is reaeration of the left lung. There is no evidence of consolidation, mass, or p leural effusion. The bones are unremarkable. IMPRESSION: Endotracheal tube has its tip at the zenaida and should be withdrawn an additional 2 cm.
[2018-11-23] MEDS ORDERED: EPINEPHrine 1 MG/10 ML Abboject SYRINGE ONE (13:01)
[2018-11-23 13:17] LABS: Actual Bicarbonate (HCO3a) 19.8 mEq/L (22-28); Analyzer IN Cardio ER; Base Excess (BEa) -6.2 mEq/L (-2.0 to +3.0); CO2 Tension 40.9 mmHg (35.0-45.0); Calcium, Ionized 1.06 mmol/L (1.12-1.30); Carboxyhemoglobin (COHb) 0.6 gm% (0.0-3.0); Hemoglobin (Hb) 15.5 g/dL (14.0-18.0); O2 Tension (PaO2) 67.1 mmHg (80.0-100.0); Potassium - ABG Lab 3.66 mmol/L (3.70-5.30)
[2018-11-23 13:19] LABS: ALV-art Gradient 430.785 (0-20); Puncture Site RBRACH
[2018-11-23 13:21] LABS: Lactic Acid 10.7 mmol/L (0.5-2.2)
== END 2018-11-23 14:42 | disposition short-term general hospital (02) ==
LOC: ERS 08:39
DX: G40.901 Epilepsy, unspecified, not intractable, with status epilepticus (principal); D72.829 Elevated white blood cell count, unspecified; E78.5 Hyperlipidemia, unspecified; E78.00 Pure hypercholesterolemia, unspecified; E55.9 Vitamin D deficiency, unspecified; F32.9 Major depressive disorder, single episode, unspecified; F41.9 Anxiety disorder, unspecified; F81.9 Developmental disorder of scholastic skills, unspecified; I10 Essential (primary) hypertension; K21.9 Gastro-esophageal reflux disease without esophagitis; G47.30 Sleep apnea, unspecified; L40.9 Psoriasis, unspecified; N05.9 Unspecified nephritic syndrome with unspecified morphologic changes; M81.0 Age-related osteoporosis without current pathological fracture; Z86.73 Personal history of transient ischemic attack (TIA), and cerebral infarction without residual deficits; Z86.718 Personal history of other venous thrombosis and embolism; Z79.899 Other long term (current) drug therapy
CPT/HCPCS: 31500; 36415; 51702; 70450; 71045; 74177; 80053; 80185; 81003; 81015; 82805; 83605; 84146; 85025; 94002; 94760; 96361; 96374; 96375; 96376; 99292; J0171; J2060; J2250; J2704; J3010; Q9966